=== PATIENT | female | born 1935 | race Caucasian/White ===

== ENCOUNTER 2016-10-24 13:36 | Emergency (ER) | payer MEDICARE, BC ==
[2016-10-24 14:13] VITALS: RESP 18; TEMP 98.1
--- NOTE | 2016-10-24 16:39 | ED ---
General Adult HPI - General Chief complaint: Extremity Problem,Nontraumatic Stated complaint: Dr Lucy/Elvie blood clot Time Seen by Provider: 10/24/16 16:27 Source: patient, RN notes reviewed Mode of arrival: ambulatory Limitations: no limitations - History of Present Illness Initial comments: Patient is a pleasant 81-year-old female presenting to the emergency Department with left leg swelling. Patient states symptoms started a few days ago. Patient had outpatient ultrasound done with concern for DVT. No chest pain or difficulty in breathing. Patient has had similar symptoms previously associated with DVT. No other complaints. - Related Data Home Medications Medication Instructions Recorded Confirmed Allopurinol [Zyloprim] 300 mg PO DAILY@1200 03/03/14 06/19/15 Atorvastatin [Lipitor] 40 mg PO HS 03/03/14 06/19/15 Calcitriol 0.5 mcg PO DIRECTED 03/03/14 06/19/15 Furosemide [Lasix] 40 mg PO DAILY@1200 03/03/14 06/19/15 Glimepiride [Amaryl] 2 mg PO QAM 03/03/14 06/19/15 Hydroxychloroquine Sulfate 200 mg PO BID@1200,1800 03/03/14 06/19/15 [Plaquenil] LORazepam [Ativan] 1 mg PO HS 03/03/14 06/19/15 Metoprolol Tartrate [Lopressor] 50 mg PO BID@1200,1800 03/03/14 06/19/15 Omeprazole [PriLOSEC] 20 mg PO QAM 03/03/14 06/19/15 Acetaminophen Tab [Tylenol] 500 mg PO Q4-6H PRN 04/23/15 06/19/15 Aspirin EC [Ecotrin] 81 mg PO DAILY 04/23/15 06/15/15 Calcium 600 mg PO DAILY 04/23/15 06/19/15 Ergocalciferol [Vitamin D2 50,000 unit PO QMONTH 04/23/15 06/19/15 (DRISDOL)] Acetaminophen Tab [Tylenol Tab] 1,000 mg PO Q6HR PRN 06/15/15 06/19/15 Ferrous Sulfate [Feosol] 325 mg PO DAILY 06/15/15 06/19/15 Folic Acid-Vit B Complex-Vit C 1 mg PO 1200 06/15/15 06/19/15 [Nephrocaps] Previous Rx's Medication Instructions Recorded HYDROcodone/APAP 5-325MG [Huggins 5] 1 - 2 each PO Q4H PRN #20 tab 06/19/15 Apixaban [Eliquis] 5 mg PO BID #1 pack 10/24/16 Allergies Allergy/AdvReac Type Severity Reaction Status Date / Time sulfamethoxazole Allergy Rash/Hives Verified 06/15/15 10:25 Review of Systems ROS Statement: Those systems with pertinent positive or pertinent negative responses have been documented in the HPI. ROS Other: All systems not noted in ROS Statement are negative. Constitutional: Denies: fever Eyes: Denies: eye pain ENT: Denies: ear pain Respiratory: Denies: cough, dyspnea Cardiovascular: Denies: chest pain Endocrine: Denies: fatigue Gastrointestinal: Denies: abdominal pain Genitourinary: Denies: dysuria Musculoskeletal: Denies: back pain Skin: Denies: rash Neurological: Denies: headache Past Medical History Past Medical History: Coronary Artery Disease (CAD), Heart Failure, Diabetes Mellitus, Deep Vein Thrombosis (DVT), GERD/Reflux, Hyperlipidemia, Hypertension , Osteoarthritis (OA), Renal Disease, Skin Disorder, Thyroid Disorder Additional Past Medical History / Comment(s): GOUT. AORTIC VALVE REPLACED. Anemia. HX LLL DVT. RENAL DISEASE STAGE 4. VARICOSE VEINS, EDEMA [place] ANKLES. CYST ON BACK, STATES D/T POISONOUS SPIDER BITE 2011. History of Any Multi-Drug Resistant Organisms: None Reported Past Surgical History: Cardiac Valve Replacement, Cholecystectomy, Coronary Bypass/CABG, Hysterectomy, Joint Replacement, Orthopedic Surgery Additional Past Surgical History / Comment(s): 2011 CABG w/ vessel bypass and aortic valve. 03/07/14 Colonoscopy with EGD and BX. MOSHE. [place] knee and L shoulder Replacement. Sinus surgery. Past Anesthesia/Blood Transfusion Reactions: No Reported Reaction Past Psychological History: Anxiety Additional Psychological History / Comment(s): Pt resides with her son. She uses a cane prn. She drives. She is independent. Smoking Status: Never smoker Past Alcohol Use History: None Reported Past Drug Use History: None Reported - Past Family History Daughter(s) Family Medical History: Cancer Father Family Medical History: Cancer, Coronary Artery Disease (CAD) Additional Family Medical History / Comment(s): Father had cancer but pt does not know what type. Father at age 77yrs. Mother Family Medical History: CVA/TIA Additional Family Medical History / Comment(s): Mother had a CVA. She at age 86yrs. General Exam Limitations: no limitations General appearance: alert, in no apparent distress Head exam: Present: atraumatic Eye exam: Present: normal appearance, PERRL ENT exam: Present: normal oropharynx Neck exam: Present: normal inspection Respiratory exam: Present: normal lung sounds bilaterally. Absent: chest wall tenderness Cardiovascular Exam: Present: regular rate, normal rhythm Expanded Peripheral pulses: 2+: Dorsalis Pedis (R), Dorsalis Pedis (L) GI/Abdominal exam: Present: soft. Absent: tenderness Extremities exam: Present: calf tenderness (Left calf) Neurological exam: Present: alert Psychiatric exam: Present: normal affect, normal mood Skin exam: Absent: rash Course Vital Signs 10/24/16 14:11 Temperature 98.1 F Pulse Rate 59 L Respiratory 18 Rate Blood Pressure 145/67 O2 Sat by Pulse 99 Oximetry Medical Decision Making - Medical Decision Making Patient reexamined in updated. Case was also discussed in detail with Dr. Hall, covering for Dr. Weiss who is comfortable with eliquis and discharge. - Radiology Data Radiology results: report reviewed (Ultrasound shows left leg DVT. Report was confirmed with Dr. Boyer who states there were no artery involvement.) Disposition Clinical Impression: Deep vein thrombosis of lower extremity Disposition: HOME SELF-CARE Condition: Stable Instructions: Deep Venous Thrombosis (ED) Additional Instructions: Please follow-up with Dr. Weiss in the beginning of the week. Return for chest pain or difficulty breathing, increased swelling, bleeding, worsening symptoms or any other concerns. Prescriptions: Apixaban [Eliquis] 5 mg PO BID #1 pack Referrals: Mo Weiss MD [Primary Care Provider] - 1-2 days
[2016-10-24] MEDS ORDERED: APIXABAN 5 MG TAB PO STA ×2 (16:56→17:02)
[2016-10-24 17:39] VITALS: BP 164/89; PULSE 60
== END 2016-10-24 17:45 | disposition home or self-care (01) ==
LOC: EC 13:36
DX: I82.402 Acute embolism and thrombosis of unspecified deep veins of left lower extremity (principal); I25.10 Atherosclerotic heart disease of native coronary artery without angina pectoris; K21.9 Gastro-esophageal reflux disease without esophagitis; E78.5 Hyperlipidemia, unspecified; D64.9 Anemia, unspecified; I13.0 Hypertensive heart and chronic kidney disease with heart failure and stage 1 through stage 4 chronic kidney disease, or unspecified chronic kidney disease; N18.4 Chronic kidney disease, stage 4 (severe); I50.9 Heart failure, unspecified; E11.22 Type 2 diabetes mellitus with diabetic chronic kidney disease; F41.9 Anxiety disorder, unspecified; Z95.1 Presence of aortocoronary bypass graft; Z86.718 Personal history of other venous thrombosis and embolism; Z88.1 Allergy status to other antibiotic agents; Z79.82 Long term (current) use of aspirin; Z79.84 Long term (current) use of oral hypoglycemic drugs; Z79.899 Other long term (current) drug therapy
CPT/HCPCS: 99283

== ENCOUNTER → 2016-10-24 | Outpatient (CLI) | payer MEDICARE, BC ==
--- NOTE | 2016-10-24 14:02 | US ---
EXAMINATION TYPE: US venous doppler duplex LE LT DATE OF EXAM: 10/24/2016 1:26 PM COMPARISON: US CLINICAL HISTORY: DVT O87.1. Left leg pain and swelling x 5 days SIDE PERFORMED: Left TECHNIQUE: The lower extremity deep venous system is examined utilizing real time linear array sonog ata with graded compression, doppler sonography and color-flow sonography. VESSELS IMAGED: External Iliac Vein (EIV) Common Femoral Vein Deep Femoral Vein Greater Saphenous Vein * Femoral Vein Popliteal Vein Small Saphenous Vein * Proximal Calf Veins (* superficial vessels) Left Leg: Positive for DVT from mid femoral vein through proximal calf veins. IMPRESSION: 1. Deep venous thrombosis left lower extremity extending from the proximal calf veins into the distal femoral artery.
== END ==
LOC: RADUSWWP 12:27
PROVIDERS: ATTEND Family Medicine
DX: I82.402 Acute embolism and thrombosis of unspecified deep veins of left lower extremity (principal); I82.412 Acute embolism and thrombosis of left femoral vein

== ENCOUNTER → 2016-12-02 | Outpatient (CLI) | payer MEDICARE, BC ==
--- NOTE | 2016-12-02 14:12 | US ---
EXAMINATION TYPE: US venous doppler duplex LE BI DATE OF EXAM: 12/02/2016 1:44 PM COMPARISON: 10/24/2016 CLINICAL HISTORY: BLE I82.402 Deep vein thrombosis. Follow up to previous exam. SIDE PERFORMED: Bilateral TECHNIQUE: The lower extremity deep venous system is examined utilizing real time linear array sonog ata with graded compression, doppler sonography and color-flow sonography. FINDINGS: VESSELS IMAGED: External Iliac Vein (EIV) Common Femoral Vein Deep Femoral Vein Greater Saphenous Vein * Femoral Vein Popliteal Vein Small Saphenous Vein * Proximal Calf Veins (* superficial vessels) Right Leg: Negative for DVT Left Leg: Positive for thrombus within the upper popliteal vein. The vessel is noncompressible but s ome color flow is demonstrated suggesting nonocclusive, likely more chronic thrombus. WINDOWS SERVER ADMINISTRATOR NOT ES: Thrombus visualized in proximal popliteal vein no compression. Nancy Muhammad scanned and spoke with doctor. IMPRESSION: 1. Right lower extremity without evidence for DVT from the groin to the upper calf. 2. Left lower extremity positive for DVT within the upper popliteal vein. There seems to be some flow across the thrombus suggesting nonocclusive, chronic DVT, likely improving from 10/24/2016.
== END | disposition home or self-care (01) ==
LOC: RADUSWWP 12:44
PROVIDERS: ATTEND Family Medicine
DX: I82.432 Acute embolism and thrombosis of left popliteal vein (principal)
CPT/HCPCS: 93970

== ENCOUNTER 2017-09-27 11:37 | Emergency (ER) | payer MEDICARE, BC ==
[2017-09-27] MEDS ORDERED: KETOROLAC 60 MG/2 ML VIAL IVP STA (12:10)
[2017-09-27] MEDS ORDERED: methylPREDNISolone SOD SUCCI 125 MG/2 ML VIAL IV STA (12:10)
[2017-09-27] MEDS ORDERED: MORPHINE SULFATE 4MG/4ML SYRG IVP STA (12:11)
[2017-09-27] MEDS ORDERED: ONDANSETRON 4 MG/2 ML VIAL IVP STA (12:12)
--- NOTE | 2017-09-27 12:29 | ED ---
General Adult HPI - General Chief complaint: Extremity Injury, Lower Stated complaint: Back pain Time Seen by Provider: 09/27/17 11:45 Source: patient, RN notes reviewed Mode of arrival: ambulatory Limitations: no limitations - History of Present Illness Initial comments: This is an 82-year-old female presents emergency Department who presents emergency. Complaining of left lower back pain she points at the SI joint area on the right. Patient denies any radiculopathy. Patient denies any numbness. Patient denies any lower extremity weakness. Patient denies any urinary incontinence or urinary retention. Patient states on Thursday she got some injections Dr. Freed and on Thursday morning she woke up with excruciating pain in that area she went back to see him on Thursday he gave her some [place] and told her to come the emergency department if it didn't get better. Patient states the pain is been the same pain since Thursday and there are no new symptoms. - Related Data Home Medications Medication Instructions Recorded Confirmed Allopurinol [Zyloprim] 300 mg PO DAILY@1200 03/03/14 10/24/16 Atorvastatin [Lipitor] 40 mg PO HS 03/03/14 10/24/16 Calcitriol 0.5 mcg PO Q48H 03/03/14 10/24/16 Furosemide [Lasix] 40 mg PO DAILY@1200 03/03/14 10/24/16 Glimepiride [Amaryl] 2 mg PO QAM 03/03/14 10/24/16 LORazepam [Ativan] 1 mg PO HS 03/03/14 10/24/16 Metoprolol Tartrate [Lopressor] 50 mg PO BID 03/03/14 10/24/16 Omeprazole [PriLOSEC] 20 mg PO QAM 03/03/14 10/24/16 Ergocalciferol [Vitamin D2 50,000 unit PO QMONTH 04/23/15 10/24/16 (DRISDOL)] Acetaminophen Tab [Tylenol Tab] 1,000 mg PO Q6HR PRN 06/15/15 10/24/16 Ferrous Sulfate [Feosol] 325 mg PO DAILY 06/15/15 10/24/16 Folic Acid-Vit B Complex-Vit C 1 mg PO DAILY@1200 06/15/15 10/24/16 [Nephrocaps] Aspirin EC [Ecotrin Low Dose] 81 mg PO DAILY 10/24/16 10/24/16 Budesonide-Formot 160-4.5 Mcg 2 puff INHALATION RT-BID 10/24/16 10/24/16 [Symbicort 160-4.5 Mcg Inhaler] Calcium Carbonate [Calcium] 600 mg PO HS 10/24/16 10/24/16 Previous Rx's Medication Instructions Recorded Apixaban [Eliquis] 5 mg PO BID #1 pack 10/24/16 Allergies Allergy/AdvReac Type Severity Reaction Status Date / Time sulfamethoxazole Allergy Rash/Hives Verified 09/27/17 11:45 [From Bactrim] trimethoprim [From Bactrim] Allergy Rash/Hives Verified 09/27/17 11:45 Review of Systems ROS Statement: Those systems with pertinent positive or pertinent negative responses have been documented in the HPI. ROS Other: All systems not noted in ROS Statement are negative. Past Medical History Past Medical History: Coronary Artery Disease (CAD), Heart Failure, Diabetes Mellitus, Deep Vein Thrombosis (DVT), GERD/Reflux, Hyperlipidemia, Hypertension , Osteoarthritis (OA), Renal Disease, Skin Disorder, Thyroid Disorder Additional Past Medical History / Comment(s): GOUT. AORTIC VALVE REPLACED. Anemia. HX LLL DVT. RENAL DISEASE STAGE 4. VARICOSE VEINS, EDEMA MAXIMILIANO ANKLES. CYST ON BACK, STATES D/T POISONOUS SPIDER BITE 2011. History of Any Multi-Drug Resistant Organisms: None Reported Past Surgical History: Cardiac Valve Replacement, Cholecystectomy, Coronary Bypass/CABG, Hysterectomy, Joint Replacement, Orthopedic Surgery Additional Past Surgical History / Comment(s): 2011 CABG w/ vessel bypass and aortic valve. 03/07/14 Colonoscopy with EGD and BX. MOSHE. Maximiliano knee and L shoulder Replacement. Sinus surgery. Past Anesthesia/Blood Transfusion Reactions: No Reported Reaction Past Psychological History: Anxiety Smoking Status: Never smoker Past Alcohol Use History: None Reported Past Drug Use History: None Reported - Past Family History Daughter(s) Family Medical History: Cancer Father Family Medical History: Cancer, Coronary Artery Disease (CAD) Additional Family Medical History / Comment(s): Father had cancer but pt does not know what type. Father at age 77yrs. Mother Family Medical History: CVA/TIA Additional Family Medical History / Comment(s): Mother had a CVA. She at age 86yrs. General Exam - General Exam Comments Initial Comments: GENERAL: Patient is well-developed and well-nourished. Patient is nontoxic and well- hydrated and is in moderate distress. ENT: Neck is soft and supple. No significant lymphadenopathy is noted. Oropharynx is clear. Moist mucous membranes. Neck has full range of motion without eliciting any pain. EYES: The sclera were anicteric and conjunctiva were pink and moist. Extraocular movements were intact and pupils were equal round and reactive to light. Eyelids were unremarkable. PULMONARY: Unlabored respirations. Good breath sounds bilaterally. No audible rales rhonchi or wheezing was noted. CARDIOVASCULAR: There is a regular rate and rhythm without any murmurs gallops or rubs. ABDOMEN: Soft and nontender with normal bowel sounds. SKIN: Skin is clear with no lesions or rashes and otherwise unremarkable. NEUROLOGIC: Patient is alert and oriented x3. Cranial nerves II through XII are grossly intact. Motor and sensory are also intact. Normal speech, volume and content. Symmetrical smile. Patient had tenderness over the right SI joint. Patient had no numbness or any weakness. MUSCULOSKELETAL: Normal extremities with adequate strength and full range of motion. LYMPHATICS: No significant lymphadenopathy is noted PSYCHIATRIC: Normal psychiatric evaluation. Normal interpersonal interactions appears functionally intact in deals appropriately with others. No signs of depression. No signs of anxiety. No delusions. No hallucinations. Limitations: no limitations Course Vital Signs 09/27/17 11:43 Temperature 97.6 F Pulse Rate 65 Respiratory 18 Rate Blood Pressure 137/64 O2 Sat by Pulse 95 Oximetry Medical Decision Making - Medical Decision Making Patient got pain medicine emergency department was able to ambulate much better. Patient states she will follow-up with her physician tomorrow. - Lab Data Result diagrams: 09/27/17 12:44 09/27/17 12:40 Lab Results 09/27/17 09/27/17 Range/Units 12:40 12:44 WBC 10.5 (3.8-10.6) k/uL RBC 3.37 L (3.80-5.40) m/uL Hgb 13.0 (11.4-16.0) gm/dL Hct 39.0 (34.0-46.0) % MCV 115.8 H (80.0-100.0) fL MCH 38.7 H (25.0-35.0) pg MCHC 33.4 (31.0-37.0) g/dL RDW 14.4 (11.5-15.5) % Plt Count 178 (150-450) k/uL Neutrophils % 78 % Lymphocytes % 13 % Monocytes % 6 % Eosinophils % 2 % Basophils % 0 % Neutrophils # 8.2 H (1.3-7.7) k/uL Lymphocytes # 1.3 (1.0-4.8) k/uL Monocytes # 0.6 (0-1.0) k/uL Eosinophils # 0.2 (0-0.7) k/uL Basophils # 0.0 (0-0.2) k/uL Macrocytosis Marked Sodium 143 (137-145) mmol/L Potassium 5.3 H (3.5-5.1) mmol/L Chloride 101 (98-107) mmol/L Carbon Dioxide 31 H (22-30) mmol/L Anion Gap 11 mmol/L BUN 33 H (7-17) mg/dL Creatinine 1.04 (0.52-1.04) mg/dL Est GFR (CKD-EPI)AfAm 58 (>60 ml/min/1.73 sqM) Est GFR (CKD-EPI)NonAf 51 (>60 ml/min/1.73 sqM) Glucose 144 H (74-99) mg/dL Calcium 9.9 (8.4-10.2) mg/dL Total Bilirubin 0.9 (0.2-1.3) mg/dL AST 44 H (14-36) U/L ALT 20 (9-52) U/L Alkaline Phosphatase 58 (38-126) U/L Total Protein 6.3 (6.3-8.2) g/dL Albumin 3.7 (3.5-5.0) g/dL Disposition Clinical Impression: Sacroiliitis Disposition: HOME SELF-CARE Condition: Good Instructions: Sacroiliitis (ED) Is patient prescribed a controlled substance at d/c from ED?: No Referrals: Mo Weiss MD [Primary Care Provider] - 1-2 days
[2017-09-27 13:07] LABS: Basophils % (A) 0 %; Eosinophils # (A) 0.2 k/uL (0-0.7); Eosinophils % (A) 2 %; Lymphocytes # (A) 1.3 k/uL (1.0-4.8); Lymphocytes % (A) 13 %; MCH 38.7 pg (25.0-35.0); MCHC 33.4 g/dL (31.0-37.0); MCV 115.8 fL (80.0-100.0); Macrocytosis Marked; Mean Platelet Volume 7.3; Monocytes # (A) 0.6 k/uL (0-1.0); Monocytes % (A) 6 %; Neutrophils # (A) 8.2 k/uL (1.3-7.7); Neutrophils % (A) 78 %; Platelet Count 178 k/uL (150-450); RBC 3.37 m/uL (3.80-5.40); RDW 14.4 % (11.5-15.5); WBC 10.5 k/uL (3.8-10.6)
[2017-09-27 13:19] LABS: Albumin 3.7 g/dL (3.5-5.0); Calcium 9.9 mg/dL (8.4-10.2); Total Bilirubin 0.9 mg/dL (0.2-1.3); Total Protein 6.3 g/dL (6.3-8.2)
[2017-09-27 13:23] LABS: Potassium 5.3 mmol/L (3.5-5.1)
[2017-09-27 14:45] VITALS: BP 173/84; PULSE 62; RESP 16; TEMP 97.7
== END 2017-09-27 14:54 | disposition home or self-care (01) ==
LOC: EC 11:37
DX: M46.1 Sacroiliitis, not elsewhere classified (principal); I25.10 Atherosclerotic heart disease of native coronary artery without angina pectoris; I13.0 Hypertensive heart and chronic kidney disease with heart failure and stage 1 through stage 4 chronic kidney disease, or unspecified chronic kidney disease; E11.22 Type 2 diabetes mellitus with diabetic chronic kidney disease; N18.4 Chronic kidney disease, stage 4 (severe); I50.9 Heart failure, unspecified; K21.9 Gastro-esophageal reflux disease without esophagitis; E78.5 Hyperlipidemia, unspecified; M19.90 Unspecified osteoarthritis, unspecified site; D64.9 Anemia, unspecified; F41.9 Anxiety disorder, unspecified; Z95.2 Presence of prosthetic heart valve; Z96.653 Presence of artificial knee joint, bilateral; Z96.612 Presence of left artificial shoulder joint; Z95.1 Presence of aortocoronary bypass graft; Z79.84 Long term (current) use of oral hypoglycemic drugs; Z79.82 Long term (current) use of aspirin; Z79.51 Long term (current) use of inhaled steroids; Z79.899 Other long term (current) drug therapy; Z88.2 Allergy status to sulfonamides
CPT/HCPCS: 36415; 80053; 85025; 99283; 96374; 96375 ×3; J2930; J2405; J1885; J2270

== ENCOUNTER → 2018-10-26 | Outpatient (CLI) | payer MEDICARE, BC ==
--- NOTE | 2018-10-26 14:28 | XR ---
EXAMINATION TYPE: XR chest 2V DATE OF EXAM: 10/26/2018 COMPARISON: Prior chest x-ray 05/08/2015 HISTORY: Cough, difficulty breathing, J 41.1 TECHNIQUE: Frontal and lateral views of the chest are obtained. FINDINGS: Retrocardiac density is present. Lung volumes are low and the patient is rotated. Patient is post median sternotomy. Postop changes are noted to the proximal left humerus. No pneumothorax or pleural effusion. Aorta is dense. Suspect cardiac valve replacement change is present. Surgical clips present in the right upper quadrant. IMPRESSION: Correlate for possible left lower lobe atelectasis versus pneumonia.
== END | disposition home or self-care (01) ==
LOC: RADXRMAIN 13:57
PROVIDERS: ATTEND Physician Assistant
DX: J41.1 Mucopurulent chronic bronchitis (principal)
CPT/HCPCS: 71046

== ENCOUNTER 2021-03-13 12:45 | Emergency (ER) | payer MEDICARE, BC ==
[2021-03-13 13:59] LABS: Basophils % (A) 1 %; Calcium 9.4 mg/dL (8.4-10.2); Eosinophils # (A) 0.4 k/uL (0-0.7); Eosinophils % (A) 5 %; HCT 36.9 % (34.0-46.0); HGB 12.6 gm/dL (11.4-16.0); Lymphocytes # (A) 0.8 k/uL (1.0-4.8); Lymphocytes % (A) 11 %; MCHC 34.1 g/dL (31.0-37.0); MCV 124.9 fL (80.0-100.0); Macrocytosis Marked; Mean Platelet Volume 8.3; Monocytes # (A) 0.4 k/uL (0-1.0); Monocytes % (A) 5 %; Neutrophils # (A) 5.5 k/uL (1.3-7.7); Neutrophils % (A) 75 %; Platelet Count 117 k/uL (150-450); Poikilocytosis Slight; Potassium 4.2 mmol/L (3.5-5.1); RBC 2.95 m/uL (3.80-5.40); RDW 15.8 % (11.5-15.5); WBC 7.3 k/uL (3.8-10.6)
[2021-03-13 14:08] LABS: MCH 42.6 pg (25.0-35.0)
--- NOTE | 2021-03-13 14:23 | CT ---
EXAMINATION TYPE: CT brain wo con DATE OF EXAM: 03/13/2021 HISTORY: Fall, trauma to back of head, headache. CT DLP: 1080.4 mGycm. Automated Exposure Control for Dose Reduction was Utilized. TECHNIQUE: CT scan of the head is performed without contrast. COMPARISON: CT brain February 03, 2014. FINDINGS: There is no acute intracranial hemorrhage or midline shift identified. There is mild to m oderate diffuse ventricular and sulcal prominence consistent with diffuse age-related cerebral atroph y. There is mild to moderate low-attenuation in the periventricular white matter consistent with chr onic small vessel ischemic change. The globes are intact and the visualized sinuses are clear. The calvarium is intact. Hyperostosis frontalis redemonstrated. IMPRESSION: No acute intracranial hemorrhage or midline shift. There is mild to moderate diffuse ag e-related cerebral atrophy and chronic small vessel ischemic change redemonstrated. No significant c hange from prior CT.
[2021-03-13 14:24] LABS: INR 0.9 (<1.2); Prothrombin Time 9.8 sec (9.0-12.0)
--- NOTE | 2021-03-13 14:56 | ED ---
Fall HPI - General Chief Complaint: Fall Stated Complaint: Fall Time Seen by Provider: 03/13/21 12:59 Source: EMS, RN notes reviewed Mode of arrival: EMS - History of Present Illness Initial Comments: Patient is an 85-year-old female that presents emergency department after falli ng in [facility] while walking around. She notes that she lost her balance fell hit her head. She denied losing consciousness. She denied taking any blood thinners except for aspirin. She was otherwise well-appearing and did not have any other issues or complaints. She did note that she hit the back left side of her head. She denied any chest pain first breath headache nausea vomiting diarrhea constipation fever fatigue chills. - Related Data Home Medications Medication Instructions Recorded Confirmed Allopurinol [Zyloprim] 300 mg PO DAILY@1200 03/03/14 10/24/16 Atorvastatin [Lipitor] 40 mg PO HS 03/03/14 10/24/16 Furosemide [Lasix] 40 mg PO DAILY@1200 03/03/14 10/24/16 Glimepiride [Amaryl] 2 mg PO QAM 03/03/14 10/24/16 LORazepam [Ativan] 1 mg PO HS 03/03/14 10/24/16 Metoprolol Tartrate [Lopressor] 50 mg PO BID 03/03/14 10/24/16 Omeprazole [PriLOSEC] 20 mg PO QAM 03/03/14 10/24/16 calcitrioL [Calcitriol] 0.5 mcg PO Q48H 03/03/14 10/24/16 Ergocalciferol [Vitamin D2 50,000 unit PO QMONTH 04/23/15 10/24/16 (DRISDOL)] Acetaminophen Tab [Tylenol Tab] 1,000 mg PO Q6HR PRN 06/15/15 10/24/16 Ferrous Sulfate [Feosol] 325 mg PO DAILY 06/15/15 10/24/16 Folic Acid-Vit B Complex-Vit C 1 mg PO DAILY@1200 06/15/15 10/24/16 [Nephrocaps] Aspirin EC [Ecotrin Low Dose] 81 mg PO DAILY 10/24/16 10/24/16 Budesonide-Formot 160-4.5 Mcg 2 puff INHALATION RT-BID 10/24/16 10/24/16 [Symbicort 160-4.5 Mcg Inhaler] Calcium Carbonate [Calcium] 600 mg PO HS 10/24/16 10/24/16 Previous Rx's Medication Instructions Recorded Apixaban [Eliquis] 5 mg PO BID #1 pack 10/24/16 Allergies Allergy/AdvReac Type Severity Reaction Status Date / Time sulfamethoxazole Allergy Rash/Hives Verified 03/13/21 12:53 [From Bactrim] trimethoprim [From Bactrim] Allergy Rash/Hives Verified 03/13/21 12:53 Review of Systems ROS Statement: Those systems with pertinent positive or pertinent negative responses have been documented in the HPI. ROS Other: All systems not noted in ROS Statement are negative. Past Medical History Past Medical History: Coronary Artery Disease (CAD), Heart Failure, Diabetes Mellitus, Deep Vein Thrombosis (DVT), GERD/Reflux, Hyperlipidemia, Hypertension, Osteoarthritis (OA), Renal Disease, Skin Disorder, Thyroid Disorder Additional Past Medical History / Comment(s): GOUT. AORTIC VALVE REPLACED. Anemia. HX LLL DVT. RENAL DISEASE STAGE 4. VARICOSE VEINS, EDEMA MAXIMILIANO ANKLES. CYST ON BACK, STATES D/T POISONOUS SPIDER BITE 2012. History of Any Multi-Drug Resistant Organisms: None Reported Past Surgical History: Cardiac Valve Replacement, Cholecystectomy, Coronary Bypass/CABG, Hysterectomy, Joint Replacement, Orthopedic Surgery Additional Past Surgical History / Comment(s): 2011 CABG w/ vessel bypass and aortic valve. 03/07/14 Colonoscopy with EGD and BX. MOSHE. Maximiliano knee and L shoulder Replacement. Sinus surgery. Past Anesthesia/Blood Transfusion Reactions: No Reported Reaction Past Psychological History: Anxiety Smoking Status: Never smoker Past Alcohol Use History: None Reported Past Drug Use History: None Reported - Past Family History Daughter(s) Family Medical History: Cancer Father Family Medical History: Cancer, Coronary Artery Disease (CAD) Additional Family Medical History / Comment(s): Father had cancer but pt does not know what type. Father at age 77yrs. Mother Family Medical History: CVA/TIA Additional Family Medical History / Comment(s): Mother had a CVA. She at age 86yrs. General Exam Limitations: no limitations General appearance: alert, in no apparent distress Head exam: Present: normocephalic, normal inspection. Absent: atraumatic (Hematoma to the posterior left scalp, minimal blood.) Eye exam: Present: normal appearance, PERRL, EOMI. Absent: scleral icterus, con junctival injection, periorbital swelling ENT exam: Present: normal exam, mucous membranes moist Neck exam: Present: normal inspection Respiratory exam: Present: normal lung sounds bilaterally. Absent: respiratory distress, wheezes, rales, rhonchi, stridor Cardiovascular Exam: Present: regular rate, normal rhythm, normal heart sounds. Absent: systolic murmur, diastolic murmur, rubs, gallop, clicks Extremities exam: Present: normal inspection, full ROM, normal capillary refill. Absent: tenderness, pedal edema, joint swelling, calf tenderness Back exam: Present: normal inspection Neurological exam: Present: alert, oriented X3, CN II-XII intact Expanded Patient oriented to: Present: person, place, time Speech: Present: fluid speech Cranial nerves: EOM's Intact: Normal, Nystagmus: Normal Cerebellar function: Finger to Nose: Normal, Heel to Dhillon: Normal Motor strength exam: RUE: 5, LUE: 5, RLE: 5, LLE: 5 Psychiatric exam: Present: normal affect, normal mood Skin exam: Present: warm, dry, intact, normal color. Absent: rash Course Vital Signs 03/13/21 12:53 Temperature 98.2 F Pulse Rate 62 Respiratory 20 Rate Blood Pressure 138/61 O2 Sat by Pulse 95 Oximetry Medical Decision Making - Medical Decision Making 85-year-old female that fell and [place] hitting the backs left side of her head. Basic labs, CT of the brain ordered. Labs unremarkable. Computed tomography scan shows no acute process midline shift or intracranial issues. Case discussed with Dr. Guaman, patient can discharge home with follow-up primary care. - Lab Data Result diagrams: 03/13/21 13:27 03/13/21 13:27 Lab Results 03/13/21 03/13/21 Range/Units 13:27 13:27 WBC 7.3 (3.8-10.6) k/uL RBC 2.95 L (3.80-5.40) m/uL Hgb 12.6 (11.4-16.0) gm/dL Hct 36.9 (34.0-46.0) % MCV 124.9 H (80.0-100.0) fL MCH 42.6 H (25.0-35.0) pg MCHC 34.1 (31.0-37.0) g/dL RDW 15.8 H (11.5-15.5) % Plt Count 117 L (150-450) k/uL MPV 8.3 Neutrophils % 75 % Lymphocytes % 11 % Monocytes % 5 % Eosinophils % 5 % Basophils % 1 % Neutrophils # 5.5 (1.3-7.7) k/uL Lymphocytes # 0.8 L (1.0-4.8) k/uL Monocytes # 0.4 (0-1.0) k/uL Eosinophils # 0.4 (0-0.7) k/uL Basophils # 0.0 (0-0.2) k/uL Manual Slide Review Performed Poikilocytosis Slight Macrocytosis Marked A Sodium 141 (137-145) mmol/L Potassium 4.2 (3.5-5.1) mmol/L Chloride 103 (98-107) mmol/L Carbon Dioxide 32 H (22-30) mmol/L Anion Gap 6 mmol/L BUN 29 H (7-17) mg/dL Creatinine 1.22 H (0.52-1.04) mg/dL Est GFR (CKD-EPI)AfAm 47 (>60 ml/min/1.73 sqM) Est GFR (CKD-EPI)NonAf 41 (>60 ml/min/1.73 sqM) Glucose 149 H (74-99) mg/dL Calcium 9.4 (8.4-10.2) mg/dL - Radiology Data Radiology results: report reviewed, image reviewed CT of the brain: No acute intracranial hemorrhage or midline shift. There is mild to moderate diffuse age-related cerebral atrophy and chronic small vessel ischemic changes redemonstrate. No significant change from prior CT. Disposition Clinical Impression: Fall, Scalp hematoma Disposition: HOME SELF-CARE Condition: Stable Instructions (If sedation given, give patient instructions): Fall Prevention for Older Adults (ED) Additional Instructions: Please return to the Emergency Department if symptoms worsen or any other concerns. Follow-up with primary care 1-2 days. Take Tylenol and Motrin as needed for pain. Is patient prescribed a controlled substance at d/c from ED?: No Referrals: Mo Weiss MD [Primary Care Provider] - 1-2 days Time of Disposition: 14:55
[2021-03-13 15:12] LABS: Partial Thromboplastin Time 20.4 sec (22.0-30.0)
[2021-03-13 15:28] VITALS: BP 138/62; PULSE 60; RESP 18; TEMP 98.1
== END 2021-03-13 15:28 | disposition home or self-care (01) ==
LOC: EC 12:45
DX: S00.03XA Contusion of scalp, initial encounter (principal); E11.22 Type 2 diabetes mellitus with diabetic chronic kidney disease; I13.0 Hypertensive heart and chronic kidney disease with heart failure and stage 1 through stage 4 chronic kidney disease, or unspecified chronic kidney disease; I50.9 Heart failure, unspecified; N18.4 Chronic kidney disease, stage 4 (severe); I25.10 Atherosclerotic heart disease of native coronary artery without angina pectoris; E78.5 Hyperlipidemia, unspecified; K21.9 Gastro-esophageal reflux disease without esophagitis; M10.9 Gout, unspecified; M19.90 Unspecified osteoarthritis, unspecified site; F41.9 Anxiety disorder, unspecified; Z79.82 Long term (current) use of aspirin; Z79.01 Long term (current) use of anticoagulants; Z79.84 Long term (current) use of oral hypoglycemic drugs; Z79.899 Other long term (current) drug therapy; Z95.5 Presence of coronary angioplasty implant and graft; Z82.49 Family history of ischemic heart disease and other diseases of the circulatory system; Z88.2 Allergy status to sulfonamides; Z88.1 Allergy status to other antibiotic agents; W01.0XXA Fall on same level from slipping, tripping and stumbling without subsequent striking against object, initial encounter
CPT/HCPCS: 36415; 70450; 80048; 85025; 85610; 85730; 99284

== ENCOUNTER 2021-04-09 10:03 | Inpatient (IN) | payer MEDICARE, BC ==
[2021-04-09] MEDS ORDERED: IPRATROPIUM-ALBUTEROL 3 ML NEB INHALATION STA (10:41)
[2021-04-09 11:18] LABS: Albumin 3.4 g/dL (3.5-5.0); Calcium 9.5 mg/dL (8.4-10.2); Potassium 4.1 mmol/L (3.5-5.1)
[2021-04-09 11:21] LABS: Basophils % (A) 0 %; Eosinophils # (A) 0.4 k/uL (0-0.7); Eosinophils % (A) 5 %; HCT 33.3 % (34.0-46.0); HGB 11.1 gm/dL (11.4-16.0); Hypochromasia Slight; Lymphocytes # (A) 0.9 k/uL (1.0-4.8); Lymphocytes % (A) 11 %; MCHC 33.5 g/dL (31.0-37.0); MCV 128.4 fL (80.0-100.0); Macrocytosis Marked; Monocytes # (A) 0.5 k/uL (0-1.0); Monocytes % (A) 6 %; Neutrophils # (A) 5.9 k/uL (1.3-7.7); Neutrophils % (A) 75 %; Platelet Count 116 k/uL (150-450); Poikilocytosis Slight; RBC 2.59 m/uL (3.80-5.40); RDW 15.8 % (11.5-15.5); WBC 7.9 k/uL (3.8-10.6)
[2021-04-09 11:35] LABS: INR 0.9 (<1.2)
--- NOTE | 2021-04-09 11:38 | XR ---
EXAMINATION TYPE: XR chest 2V DATE OF EXAM: 04/09/2021 COMPARISON: Chest x-ray 10/26/2018 HISTORY: Soreness of breath TECHNIQUE: Frontal and lateral views of the chest are obtained. FINDINGS: Patient is rotated. Interstitium appears somewhat prominently. There is no focal air space opacity, pleural effusion, or pneumothorax seen. The cardiac silhouette size is stable, enlarged. Ao rta is dense. Patient is post median sternotomy and aortic valve replacement. Postop change noted to the left shoulder. There are overlying artifacts. Right hemidiaphragm is elevated. The osseous struc tures are intact. IMPRESSION: There may be a component of interstitial edema.
[2021-04-09 11:50] LABS: Partial Thromboplastin Time 21.5 sec (22.0-30.0)
[2021-04-09 12:06] LABS: Polychromasia Present
[2021-04-09] MEDS ORDERED: FUROSEMIDE 10 MG/ML 4 ML VIAL IV STA (12:56)
--- NOTE | 2021-04-09 14:10 | CT ---
EXAMINATION TYPE: CT chest angio for PE DATE OF EXAM: 04/09/2021 COMPARISON: None. HISTORY: Shortness of breath CT DLP: 98.6 mGycm Automated exposure control for dose reduction was used. CONTRAST: CT Chest for pulmonary embolism performed with with IV Contrast, patient injected with 80 mL of Isovu e 370. FINDINGS: LUNGS: Exam suboptimal inspiration unable to hold breath. There is significant motion artifact limiti ng evaluation for subcentimeter nodules. There are small to tiny bilateral pleural effusions. There i s overall mosaic attenuation with increased central opacities. No suspicious focal consolidation MEDIASTINUM: There is motion artifact and rotation but satisfactory bolus. No convincing CT evidence for acute pulmonary embolism. Overlying sternal wires and mediastinal clips from CABG procedure. Ther e is cardiomegaly without pericardial effusion. Ascending aortic aneurysm up to 4.0 cm is noted. 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 Prominent bilateral hilar adenopathy is seen. Consider follow-u p CT in 3 months time to reassess. OTHER: Cholecystectomy clips are present. [id number] multilevel spurring. [id number] deepali cified plaque in the descending aorta. Surgical change to left shoulder partially imaged on localizer . IMPRESSION: 1. Suboptimal study without acute pulmonary embolism. 2. Correlate for CHF exacerbation as there is cardiomegaly with small to tiny bilateral pleural effus ions and mild central alveolar and interstitial edema.
--- NOTE | 2021-04-09 14:32 | ED ---
General Adult HPI - General Chief complaint: Shortness of Breath Stated complaint: SOB Time Seen by Provider: 04/09/21 10:10 Source: patient Mode of arrival: ambulatory Limitations: no limitations - History of Present Illness Initial comments: 85-year-old female with a complicated past medical history including CAD, heart failure, DM, DVT, hyperlipidemia, hypertension, renal disease presents to the emergency room for a chief complaint of shortness of breath. Patient has been short of breath for 2 weeks. Patient denies fevers. Admits to slight cough. States her legs are more swollen than normal. Denies any chest pain.Patient has no other complaints at this time including shortness of breath, chest pain, abdominal pain, nausea or vomiting, headache, or visual changes. - Related Data Home Medications Medication Instructions Recorded Confirmed Allopurinol [Zyloprim] 300 mg PO DAILY 03/03/14 04/09/21 Atorvastatin [Lipitor] 40 mg PO HS 03/03/14 04/09/21 Furosemide [Lasix] 40 mg PO DAILY 03/03/14 04/09/21 Glimepiride [Amaryl] 2 mg PO DAILY 03/03/14 04/09/21 LORazepam [Ativan] 1 mg PO HS 03/03/14 04/09/21 Metoprolol Tartrate [Lopressor] 50 mg PO BID 03/03/14 04/09/21 Omeprazole [PriLOSEC] 20 mg PO DAILY 03/03/14 04/09/21 calcitrioL [Calcitriol] 0.5 mcg PO MOTUWETHFR 03/03/14 04/09/21 Ergocalciferol [Vitamin D2 50,000 unit PO QMONTH 04/23/15 04/09/21 (DRISDOL)] Acetaminophen Tab [Tylenol Tab] 1,000 mg PO Q6HR PRN 06/15/15 04/09/21 Aspirin EC [Ecotrin Low Dose] 81 mg PO DAILY 10/24/16 04/09/21 Calcium Carbonate [Calcium] 600 mg PO DAILY 10/24/16 04/09/21 B Complex W-C No.20/Folic Acid 1 mg PO DAILY 04/09/21 04/09/21 [Renal Caps Softgel] Budesonide/Glycopyr/Formoterol 2 puff INHALATION RT-BID 04/09/21 04/09/21 [Breztri Aerosphere Inhaler] Famotidine/Ca Carb/Mag Hydrox 1 tab PO DAILY 04/09/21 04/09/21 [Pepcid Complete Tablet Chew] Levothyroxine Sodium [Synthroid] 25 mcg PO DAILY 04/09/21 04/09/21 Loperamide [Imodium] 2 mg PO DAILY 04/09/21 04/09/21 Magnesium 200 mg PO DAILY 04/09/21 04/09/21 bisacodyL [Dulcolax] 5 mg PO DAILY 04/09/21 04/09/21 Allergies Allergy/AdvReac Type Severity Reaction Status Date / Time sulfamethoxazole Allergy Rash/Hives Verified 04/09/21 11:31 [From Bactrim] trimethoprim [From Bactrim] Allergy Rash/Hives Verified 04/09/21 11:31 Review of Systems ROS Statement: Those systems with pertinent positive or pertinent negative responses have been documented in the HPI. ROS Other: All systems not noted in ROS Statement are negative. Past Medical History Past Medical History: Coronary Artery Disease (CAD), Heart Failure, Diabetes Mellitus, Deep Vein Thrombosis (DVT), GERD/Reflux, Hyperlipidemia, Hypertension, Osteoarthritis (OA), Renal Disease, Skin Disorder, Thyroid Disorder Additional Past Medical History / Comment(s): GOUT. AORTIC VALVE REPLACED. Anemia. HX LLL DVT. RENAL DISEASE STAGE 4. VARICOSE VEINS, EDEMA MAXIMILIANO ANKLES. CYST ON BACK, STATES D/T POISONOUS SPIDER BITE 2011. History of Any Multi-Drug Resistant Organisms: None Reported Past Surgical History: Cardiac Valve Replacement, Cholecystectomy, Coronary Bypass/CABG, Hysterectomy, Joint Replacement, Orthopedic Surgery Additional Past Surgical History / Comment(s): 2011 CABG w/ 5 vessel bypass and aortic valve. 03/07/14 Colonoscopy with EGD and BX. MOSHE. Maximiliano knee and L shoulder Replacement. Sinus surgery. Past Anesthesia/Blood Transfusion Reactions: No Reported Reaction Past Psychological History: Anxiety Smoking Status: Never smoker Past Alcohol Use History: None Reported Past Drug Use History: None Reported - Past Family History Daughter(s) Family Medical History: Cancer Father Family Medical History: Cancer, Coronary Artery Disease (CAD) Additional Family Medical History / Comment(s): Father had cancer but pt does not know what type. Father at age 77yrs. Mother Family Medical History: CVA/TIA Additional Family Medical History / Comment(s): Mother had a CVA. She at age 86yrs. General Exam Limitations: no limitations General appearance: alert, in no apparent distress Head exam: Present: atraumatic Eye exam: Present: normal appearance, PERRL, EOMI. Absent: scleral icterus, conjunctival injection ENT exam: Present: normal exam, mucous membranes moist Neck exam: Present: normal inspection, full ROM. Absent: tenderness Respiratory exam: Present: normal lung sounds bilaterally, decreased breath sounds. Absent: respiratory distress Cardiovascular Exam: Present: regular rate, normal rhythm, normal heart sounds GI/Abdominal exam: Present: soft, normal bowel sounds. Absent: distended, tenderness Extremities exam: Present: pedal edema Neurological exam: Present: alert Course Vital Signs 04/09/21 04/09/21 04/09/21 10:05 10:55 11:26 Temperature 97.6 F Pulse Rate 77 60 Respiratory 24 18 Rate Blood Pressure 135/74 O2 Sat by Pulse 93 L 96 Oximetry 04/09/21 04/09/21 04/09/21 11:35 12:59 14:00 Temperature 97.7 F Pulse Rate 58 L 60 64 Respiratory 18 18 16 Rate Blood Pressure 140/69 154/76 O2 Sat by Pulse 94 L 96 Oximetry EKG Findings - EKG Comments: EKG Findings:: NSR, vent rte 67, pr int 218, QTc 439 Medical Decision Making - Medical Decision Making Patient desatted down to 80% on room air. She did have to be placed on 4 L. CBC CMP unremarkable. BNP is elevated at 2800. Troponin is within normal limits. Chest x-ray did show some interstitial edema. However CT was obtained given d-dimer was elevated. This showed a correlate for CHF exacerbation with cardiomegaly and small bilateral pleural effusions as well as interstitial edema. Patient was started on IV Lasix. Patient will be admitted and return for any worsening symptoms. - Lab Data Result diagrams: 04/09/21 10:52 04/09/21 10:52 Lab Results 04/09/21 04/09/21 04/09/21 Range/Units 10:52 10:52 10:52 WBC 7.9 (3.8-10.6) k/uL RBC 2.59 L (3.80-5.40) m/uL Hgb 11.1 L (11.4-16.0) gm/dL Hct 33.3 L (34.0-46.0) % MCV 128.4 H (80.0-100.0) fL MCH 43.0 H (25.0-35.0) pg MCHC 33.5 (31.0-37.0) g/dL RDW 15.8 H (11.5-15.5) % Plt Count 116 L (150-450) k/uL MPV 9.0 Neutrophils % 75 % Lymphocytes % 11 % Monocytes % 6 % Eosinophils % 5 % Basophils % 0 % Neutrophils # 5.9 (1.3-7.7) k/uL Lymphocytes # 0.9 L (1.0-4.8) k/uL Monocytes # 0.5 (0-1.0) k/uL Eosinophils # 0.4 (0-0.7) k/uL Basophils # 0.0 (0-0.2) k/uL Differential Comment Manual Slide Review Performed Polychromasia Present Hypochromasia Slight Poikilocytosis Slight Macrocytosis Marked A PT 10.0 (9.0-12.0) sec INR 0.9 (<1.2) APTT 21.5 L (22.0-30.0) sec D-Dimer (<0.60) mg/L FEU Sodium 140 (137-145) mmol/L Potassium 4.1 (3.5-5.1) mmol/L Chloride 105 (98-107) mmol/L Carbon Dioxide 29 (22-30) mmol/L Anion Gap 6 mmol/L BUN 29 H (7-17) mg/dL Creatinine 1.24 H (0.52-1.04) mg/dL Est GFR (CKD-EPI)AfAm 46 (>60 ml/min/1.73 sqM) Est GFR (CKD-EPI)NonAf 40 (>60 ml/min/1.73 sqM) Glucose 154 H (74-99) mg/dL Calcium 9.5 (8.4-10.2) mg/dL Total Bilirubin 1.0 (0.2-1.3) mg/dL AST 20 (14-36) U/L ALT 11 (4-34) U/L Alkaline Phosphatase 76 (38-126) U/L Troponin I (0.000-0.034) ng/mL NT-Pro-B Natriuret Pep pg/mL Total Protein 6.0 L (6.3-8.2) g/dL Albumin 3.4 L (3.5-5.0) g/dL Coronavirus (PCR) (Not Detectd) 04/09/21 04/09/21 04/09/21 Range/Units 10:52 10:52 10:52 WBC (3.8-10.6) k/uL RBC (3.80-5.40) m/uL Hgb (11.4-16.0) gm/dL Hct (34.0-46.0) % MCV (80.0-100.0) fL MCH (25.0-35.0) pg MCHC (31.0-37.0) g/dL RDW (11.5-15.5) % Plt Count (150-450) k/uL MPV Neutrophils % % Lymphocytes % % Monocytes % % Eosinophils % % Basophils % % Neutrophils # (1.3-7.7) k/uL Lymphocytes # (1.0-4.8) k/uL Monocytes # (0-1.0) k/uL Eosinophils # (0-0.7) k/uL Basophils # (0-0.2) k/uL Differential Comment Manual Slide Review Polychromasia Hypochromasia Poikilocytosis Macrocytosis PT (9.0-12.0) sec INR (<1.2) APTT (22.0-30.0) sec D-Dimer 0.94 H (<0.60) mg/L FEU Sodium (137-145) mmol/L Potassium (3.5-5.1) mmol/L Chloride (98-107) mmol/L Carbon Dioxide (22-30) mmol/L Anion Gap mmol/L BUN (7-17) mg/dL Creatinine (0.52-1.04) mg/dL Est GFR (CKD-EPI)AfAm (>60 ml/min/1.73 sqM) Est GFR (CKD-EPI)NonAf (>60 ml/min/1.73 sqM) Glucose (74-99) mg/dL Calcium (8.4-10.2) mg/dL Total Bilirubin (0.2-1.3) mg/dL AST (14-36) U/L ALT (4-34) U/L Alkaline Phosphatase (38-126) U/L Troponin I 0.018 (0.000-0.034) ng/mL NT-Pro-B Natriuret Pep 2800 pg/mL Total Protein (6.3-8.2) g/dL Albumin (3.5-5.0) g/dL Coronavirus (PCR) (Not Detectd) 04/09/21 Range/Units 11:01 WBC (3.8-10.6) k/uL RBC (3.80-5.40) m/uL Hgb (11.4-16.0) gm/dL Hct (34.0-46.0) % MCV (80.0-100.0) fL MCH (25.0-35.0) pg MCHC (31.0-37.0) g/dL RDW (11.5-15.5) % Plt Count (150-450) k/uL MPV Neutrophils % % Lymphocytes % % Monocytes % % Eosinophils % % Basophils % % Neutrophils # (1.3-7.7) k/uL Lymphocytes # (1.0-4.8) k/uL Monocytes # (0-1.0) k/uL Eosinophils # (0-0.7) k/uL Basophils # (0-0.2) k/uL Differential Comment Manual Slide Review Polychromasia Hypochromasia Poikilocytosis Macrocytosis PT (9.0-12.0) sec INR (<1.2) APTT (22.0-30.0) sec D-Dimer (<0.60) mg/L FEU Sodium (137-145) mmol/L Potassium (3.5-5.1) mmol/L Chloride (98-107) mmol/L Carbon Dioxide (22-30) mmol/L Anion Gap mmol/L BUN (7-17) mg/dL Creatinine (0.52-1.04) mg/dL Est GFR (CKD-EPI)AfAm (>60 ml/min/1.73 sqM) Est GFR (CKD-EPI)NonAf (>60 ml/min/1.73 sqM) Glucose (74-99) mg/dL Calcium (8.4-10.2) mg/dL Total Bilirubin (0.2-1.3) mg/dL AST (14-36) U/L ALT (4-34) U/L Alkaline Phosphatase (38-126) U/L Troponin I (0.000-0.034) ng/mL NT-Pro-B Natriuret Pep pg/mL Total Protein (6.3-8.2) g/dL Albumin (3.5-5.0) g/dL Coronavirus (PCR) Not Detected (Not Detectd) Disposition Clinical Impression: Shortness of breath, Interstitial edema, CHF exacerbation Disposition: ADMITTED IP TO THIS HOSP Is patient prescribed a controlled substance at d/c from ED?: No Referrals: Mo Weiss MD [Primary Care Provider] - 1-2 days Time of Disposition: 14:31
[2021-04-09] MEDS ORDERED: NALOXONE 0.4 MG/ML 1 ML VIAL IV PRN (15:05)
[2021-04-09] MEDS: FUROSEMIDE 10 MG/ML 4 ML VIAL IV SCH ×2 (18:35→22:39)
[2021-04-09 18:40] LABS: Glucose,Whole Blood 97 mg/dL (75-99)
--- NOTE | 2021-04-09 19:06 | P.HPIM ---
History of Present Illness H&P Date: 04/09/21 Chief Complaint: Shortness of breath 85-year-old female significant medical history of coronary artery disease with open heart surgery 5 by so bypass in 2011, congestive heart failure, diabetes, history of DVT, hyperlipidemia, hypertension, chronic renal disease, history of aortic valve replacement, anemia, hypothyroidism, and several additional comorbidities. Patient is admitted to the hospital with congestive heart failure exacerbation, and bilateral pleural effusions, and interstitial edema. Patient had extensive diagnostic workup in emergency department consisting of a CT of the chest, chest x-ray, extensive diagnostic labs CBC with chronic anemia, and thrombocytopenia. CMP consistent with chronic kidney disease creatinine 1.24 BUN 29, mildly elevated glucose at 154. BNP was 2800 with troponin of 0.018. Patient was admitted and placed on IV Lasix 40 mg every 8 hours, consultation with cardiology for congestive heart failure management. Review of Systems Constitutional: Reports fatigue, Reports weight gain Eyes: bilateral as per HPI Cardiovascular: Reports decreased exercise tolerance, Reports dyspnea on exertion, Reports edema, Reports shortness of breath Respiratory: Reports dyspnea Genitourinary: Reports as per HPI Menstruation: Reports as per HPI Musculoskeletal: Reports muscle weakness Neurological: Reports weakness Psychiatric: Reports as per HPI Endocrine: Reports as per HPI Hematologic/Lymphatic: Reports as per HPI Allergic/Immunologic: Reports as per HPI Past Medical History Past Medical History: Coronary Artery Disease (CAD), Heart Failure, Diabetes Mellitus, Deep Vein Thrombosis (DVT), GERD/Reflux, Hyperlipidemia, Hypertension, Osteoarthritis (OA), Renal Disease, Skin Disorder, Thyroid Disorder Additional Past Medical History / Comment(s): GOUT. AORTIC VALVE REPLACED. Anemia. HX LLL DVT. RENAL DISEASE STAGE 4. VARICOSE VEINS, EDEMA MAXIMILIANO ANKLES. CYST ON BACK, STATES D/T POISONOUS SPIDER BITE 2011. History of Any Multi-Drug Resistant Organisms: None Reported Past Surgical History: Cardiac Valve Replacement, Cholecystectomy, Coronary Bypass/CABG, Hysterectomy, Joint Replacement, Orthopedic Surgery Additional Past Surgical History / Comment(s): 2011 CABG w/ vessel bypass and aortic valve. 03/07/14 Colonoscopy with EGD and BX. MOSHE. Maximiliano knee and L s houlder Replacement. Sinus surgery. Past Anesthesia/Blood Transfusion Reactions: No Reported Reaction Past Psychological History: Anxiety Smoking Status: Never smoker Past Alcohol Use History: None Reported Past Drug Use History: None Reported - Past Family History Daughter(s) Family Medical History: Cancer Father Family Medical History: Cancer, Coronary Artery Disease (CAD) Additional Family Medical History / Comment(s): Father had cancer but pt does not know what type. Father at age 77yrs. Mother Family Medical History: CVA/TIA Additional Family Medical History / Comment(s): Mother had a CVA. She at age 86yrs. Medications and Allergies Home Medications and Allergies Comment(s): Medications and ALLERGIES reviewed Home Medications Medication Instructions Recorded Confirmed Type Allopurinol [Zyloprim] 300 mg PO DAILY 03/03/14 04/09/21 History Atorvastatin [Lipitor] 40 mg PO HS 03/03/14 04/09/21 History Furosemide [Lasix] 40 mg PO DAILY 03/03/14 04/09/21 History Glimepiride [Amaryl] 2 mg PO DAILY 03/03/14 04/09/21 History LORazepam [Ativan] 1 mg PO HS 03/03/14 04/09/21 History Metoprolol Tartrate [Lopressor] 50 mg PO BID 03/03/14 04/09/21 History Omeprazole [PriLOSEC] 20 mg PO DAILY 03/03/14 04/09/21 History calcitrioL [Calcitriol] 0.5 mcg PO MOTUWETHFR 03/03/14 04/09/21 History Ergocalciferol [Vitamin D2 50,000 unit PO QMONTH 04/23/15 04/09/21 History (DRISDOL)] Acetaminophen Tab [Tylenol Tab] 1,000 mg PO Q6HR PRN 06/15/15 04/09/21 History Aspirin EC [Ecotrin Low Dose] 81 mg PO DAILY 10/24/16 04/09/21 History Calcium Carbonate [Calcium] 600 mg PO DAILY 10/24/16 04/09/21 History B Complex W-C No.20/Folic Acid 1 mg PO DAILY 04/09/21 04/09/21 History [Renal Caps Softgel] Budesonide/Glycopyr/Formoterol 2 puff INHALATION RT-BID 04/09/21 04/09/21 History [Breztri Aerosphere Inhaler] Famotidine/Ca Carb/Mag Hydrox 1 tab PO DAILY 04/09/21 04/09/21 History [Pepcid Complete Tablet Chew] Levothyroxine Sodium [Synthroid] 25 mcg PO DAILY 04/09/21 04/09/21 History Loperamide [Imodium] 2 mg PO DAILY 04/09/21 04/09/21 History Magnesium 200 mg PO DAILY 04/09/21 04/09/21 History bisacodyL [Dulcolax] 5 mg PO DAILY 04/09/21 04/09/21 History Allergies Allergy/AdvReac Type Severity Reaction Status Date / Time sulfamethoxazole Allergy Rash/Hives Verified 04/09/21 11:31 [From Bactrim] trimethoprim [From Bactrim] Allergy Rash/Hives Verified 04/09/21 11:31 Physical Exam Vitals: Vital Signs Temp Pulse Resp BP Pulse Ox 04/09/21 14:00 64 16 154/76 96 04/09/21 12:59 97.7 F 60 18 140/69 94 L 04/09/21 11:35 58 L 18 04/09/21 11:26 60 18 04/09/21 10:55 96 04/09/21 10:05 97.6 F 77 24 135/74 93 L Intake and Output 04/09/21 04/09/21 04/09/21 06:59 14:59 22:59 Other: Weight 81.647 kg - Constitutional General appearance: mild distress - EENT Eyes: EOMI, PERRLA ENT: normal oropharynx Ears: bilateral: normal - Neck Neck: normal ROM Carotids: bilateral: upstroke normal Thyroid: bilateral: normal size - Respiratory Respiratory: bilateral: diminished (Anterior and posterior lung odonnell) - Cardiovascular Normal sinus rhythm with a first-degree AV block Heart rate: 74 Rhythm: regular Abnormal Heart Sounds: click leg Peripheral Edema: bilateral: 3+ ankle Peripheral Edema: bilateral: 3+ foot Peripheral Edema: bilateral: 3+ radial pulse Peripheral Pulses: bilateral: Normal - Gastrointestinal General gastrointestinal: normal bowel sounds - Integumentary Integumentary: pale - Neurologic Neurologic: CNII-XII intact - Musculoskeletal Musculoskeletal: generalized weakness - Psychiatric Psychiatric: A&O x's 3 Results CBC & Chem 7: 04/09/21 10:52 04/09/21 10:52 Labs: Abnormal Lab Results - Last 24 Hours (Table) 04/09/21 04/09/21 04/09/21 Range/Units 10:52 10:52 10:52 RBC 2.59 L (3.80-5.40) m/uL Hgb 11.1 L (11.4-16.0) gm/dL Hct 33.3 L (34.0-46.0) % MCV 128.4 H (80.0-100.0) fL MCH 43.0 H (25.0-35.0) pg RDW 15.8 H (11.5-15.5) % Plt Count 116 L (150-450) k/uL Lymphocytes # 0.9 L (1.0-4.8) k/uL Macrocytosis Marked A APTT 21.5 L (22.0-30.0) sec D-Dimer (<0.60) mg/L FEU BUN 29 H (7-17) mg/dL Creatinine 1.24 H (0.52-1.04) mg/dL Glucose 154 H (74-99) mg/dL Total Protein 6.0 L (6.3-8.2) g/dL Albumin 3.4 L (3.5-5.0) g/dL 04/09/21 Range/Units 10:52 RBC (3.80-5.40) m/uL Hgb (11.4-16.0) gm/dL Hct (34.0-46.0) % MCV (80.0-100.0) fL MCH (25.0-35.0) pg RDW (11.5-15.5) % Plt Count (150-450) k/uL Lymphocytes # (1.0-4.8) k/uL Macrocytosis APTT (22.0-30.0) sec D-Dimer 0.94 H (<0.60) mg/L FEU BUN (7-17) mg/dL Creatinine (0.52-1.04) mg/dL Glucose (74-99) mg/dL Total Protein (6.3-8.2) g/dL Albumin (3.5-5.0) g/dL Chest x-ray: report reviewed CT scan - chest: report reviewed Thrombosis Risk Factor Assmnt - Choose All That Apply Any of the Below Risk Factors Present?: No Each Factor Represents 1 point: Obesity (BMI >25), Swollen legs (current) Other Risk Factors: No Each Risk Factor Represents 3 Points: Age 75 years or older, History of DVT/PE Thrombosis Risk Factor Assessment Total Risk Factor Score: 8 Thrombosis Risk Factor Assessment Level: Very Low Risk Assessment and Plan Assessment: Congestive heart failure with normal ejection fraction Small bilateral pleural effusions Interstitial edema Elevated BNP Elevated troponins secondary to chronic kidney disease and CHF Diabetes mellitus type 2 [id number] GERD/reflux Chronic kidney disease Coronary artery disease with history of CABG and valve replacement in 2012 Hyperlipidemia Hypertension Osteoarthritis Mixed anxiety and depression Mild thrombocytopenia Full code Plan: CHF exacerbation with a history of a normal ejection fraction, initiate Lasix 40 mg every 8 hours, strict I's and O's, consultation with cardiology for recommendations Bilateral pleural effusions, continue diuresis and monitoring Diabetes mellitus type 2, initiate insulin sliding scale Continue to monitor vital signs and diagnostic testing Medical management Further recommendations come based on patient's clinical condition Time with Patient: Greater than 30
[2021-04-09] MEDS: INSULIN ASPART (NovoLOG) 100 UNIT/ML VIAL SQ SCH ×2 (19:26→20:42)
[2021-04-09 20:44] LABS: Glucose,Whole Blood 126 mg/dL (75-99)
[2021-04-09] MEDS: METOPROLOL TARTRATE 50 MG TAB PO SCH (20:55)
[2021-04-09] MEDS: LORazepam 1 MG TAB PO SCH (20:55)
[2021-04-09] MEDS: ATORVASTATIN 40 MG TAB PO SCH (20:55)
[2021-04-09] MEDS: HEPARIN SODIUM,PORCINE/PF 5,000 UNIT/0.5 ML SYRINGE SQ SCH (20:59)
[2021-04-09] MEDS: NON FORMULARY DRUG (Budesonide/Glycopyr/Formoterol [Breztri Aerosphere Inhaler] 10.7 GM Gm INHALATION SCH (22:24)
[2021-04-10 04:09] LABS: Basophils % (A) 0 %; Eosinophils # (A) 0.3 k/uL (0-0.7); Eosinophils % (A) 4 %; HCT 34.4 % (34.0-46.0); HGB 11.3 gm/dL (11.4-16.0); Hypochromasia Slight; Lymphocytes # (A) 0.9 k/uL (1.0-4.8); Lymphocytes % (A) 12 %; MCH 41.9 pg (25.0-35.0); MCHC 32.8 g/dL (31.0-37.0); Macrocytosis Marked; Mean Platelet Volume 9.1; Monocytes # (A) 0.5 k/uL (0-1.0); Monocytes % (A) 6 %; Neutrophils # (A) 5.6 k/uL (1.3-7.7); Neutrophils % (A) 76 %; Platelet Count 104 k/uL (150-450); Poikilocytosis Slight; RBC 2.69 m/uL (3.80-5.40); RDW 15.5 % (11.5-15.5); WBC 7.4 k/uL (3.8-10.6)
[2021-04-10 04:18] LABS: Albumin 3.4 g/dL (3.5-5.0); Calcium 8.9 mg/dL (8.4-10.2); Magnesium 1.8 mg/dL (1.6-2.3); Potassium 3.6 mmol/L (3.5-5.1); Total Bilirubin 0.8 mg/dL (0.2-1.3); Total Protein 5.9 g/dL (6.3-8.2)
[2021-04-10 06:31] LABS: Glucose,Whole Blood 97 mg/dL (75-99)
[2021-04-10] MEDS: INSULIN ASPART (NovoLOG) 100 UNIT/ML VIAL SQ SCH ×4 (06:33→21:13)
[2021-04-10] MEDS: LEVOTHYROXINE 25 MCG TAB PO SCH (06:38)
[2021-04-10] MEDS: FUROSEMIDE 10 MG/ML 4 ML VIAL IV SCH ×3 (06:38→21:12)
--- NOTE | 2021-04-10 07:55 | P.PN ---
Subjective Progress Note Date: 04/10/21 Principal diagnosis: exacerbation of congestive heart failure history of normal ejection fraction mild elevated troponin secondary to chf Chronic renal failure, stage 3b 85-year-old female significant medical history of coronary artery disease with open heart surgery 5 vessel bypass in 2012, congestive heart failure, diabetes, history of DVT, hyperlipidemia, hypertension, chronic renal disease, history of aortic valve replacement, anemia, hypothyroidism, and several additional comorbidities. Patient is admitted to the hospital with congestive heart failure exacerbation, and bilateral pleural effusions, and interstitial edema. Patient had extensive diagnostic workup in emergency department consisting of a CT of the chest, chest x-ray, extensive diagnostic labs CBC with chronic anemia, and thrombocytopenia. CMP consistent with chronic kidney disease creatinine 1.24 BUN 29, mildly elevated glucose at 154. BNP was 2800 with troponin of 0.018. Patient is admitted and placed on IV Lasix 40 mg every 8 hours, consultation with cardiology for congestive heart failure management. 04/10/2021 Patient seen and evaluated at bedside. Patient resting comfortably in bed, in no acute distress. Reports feeling much better, improvement in shortness of breath. Denies fever, chills, chest pain. Continue IV lasix for diuresis Objective - Vital Signs Vital signs: Vital Signs Temp 97.7 F 04/10/21 04:00 Pulse 68 04/10/21 04:00 Resp 19 04/10/21 04:00 BP 131/73 04/10/21 04:00 Pulse Ox 92 L 04/10/21 04:00 Intake & Output 04/09/21 04/10/21 04/10/21 18:59 06:59 18:59 Intake Total 450 Output Total 625 Balance -175 Weight 81.647 kg Intake: Oral 450 Output: Urine 625 Other: Voiding Method Diaper # Voids 4 - Constitutional General appearance: Present: obese - EENT Eyes: Present: EOMI, PERRLA ENT: Present: normal oropharynx Ears: bilateral: normal - Neck Neck: Present: normal ROM - Respiratory Respiratory: right: rhonchi, left: diminished - Cardiovascular Heart rate: 68 Rhythm: regular Heart sounds: normal: S1, S2 Abnormal Heart Sounds: Present: click - Peripheral edema ankle Peripheral Edema: bilateral: 2+ foot Peripheral Edema: bilateral: 2+ - Peripheral pulses dorsalis pedis Peripheral Pulses: bilateral: Normal radial pulse Peripheral Pulses: bilateral: Normal - Gastrointestinal General gastrointestinal: Present: normal bowel sounds, soft - Integumentary Integumentary: Present: normal - Neurologic Neurologic: Present: CNII-XII intact - Musculoskeletal Musculoskeletal: Present: generalized weakness - Psychiatric Psychiatric: Present: A&O x's 3, appropriate affect, intact judgment & insight - Allied health notes Allied health notes reviewed: nursing - Labs CBC & Chem 7: 04/10/21 02:49 04/10/21 02:49 Labs: Abnormal Lab Results - Last 24 Hours (Table) 04/09/21 04/09/21 04/09/21 Range/Units 10:52 10:52 10:52 RBC 2.59 L (3.80-5.40) m/uL Hgb 11.1 L (11.4-16.0) gm/dL Hct 33.3 L (34.0-46.0) % MCV 128.4 H (80.0-100.0) fL MCH 43.0 H (25.0-35.0) pg RDW 15.8 H (11.5-15.5) % Plt Count 116 L (150-450) k/uL Lymphocytes # 0.9 L (1.0-4.8) k/uL Macrocytosis Marked A APTT 21.5 L (22.0-30.0) sec D-Dimer (<0.60) mg/L FEU Carbon Dioxide (22-30) mmol/L BUN 29 H (7-17) mg/dL Creatinine 1.24 H (0.52-1.04) mg/dL Glucose 154 H (74-99) mg/dL POC Glucose (mg/dL) (75-99) mg/dL Total Protein 6.0 L (6.3-8.2) g/dL Albumin 3.4 L (3.5-5.0) g/dL 04/09/21 04/09/21 04/10/21 Range/Units 10:52 20:41 02:49 RBC 2.69 L (3.80-5.40) m/uL Hgb 11.3 L (11.4-16.0) gm/dL Hct (34.0-46.0) % MCV 128.0 H (80.0-100.0) fL MCH 41.9 H (25.0-35.0) pg RDW (11.5-15.5) % Plt Count 104 L (150-450) k/uL Lymphocytes # 0.9 L (1.0-4.8) k/uL Macrocytosis Marked A APTT (22.0-30.0) sec D-Dimer 0.94 H (<0.60) mg/L FEU Carbon Dioxide (22-30) mmol/L BUN (7-17) mg/dL Creatinine (0.52-1.04) mg/dL Glucose (74-99) mg/dL POC Glucose (mg/dL) 126 H (75-99) mg/dL Total Protein (6.3-8.2) g/dL Albumin (3.5-5.0) g/dL 04/10/21 Range/Units 02:49 RBC (3.80-5.40) m/uL Hgb (11.4-16.0) gm/dL Hct (34.0-46.0) % MCV (80.0-100.0) fL MCH (25.0-35.0) pg RDW (11.5-15.5) % Plt Count (150-450) k/uL Lymphocytes # (1.0-4.8) k/uL Macrocytosis APTT (22.0-30.0) sec D-Dimer (<0.60) mg/L FEU Carbon Dioxide 34 H (22-30) mmol/L BUN 32 H (7-17) mg/dL Creatinine 1.30 H (0.52-1.04) mg/dL Glucose 121 H (74-99) mg/dL POC Glucose (mg/dL) (75-99) mg/dL Total Protein 5.9 L (6.3-8.2) g/dL Albumin 3.4 L (3.5-5.0) g/dL - Imaging and Cardiology Chest x-ray: report reviewed Assessment and Plan Assessment: Congestive heart failure with normal ejection fraction Small bilateral pleural effusions Interstitial edema Elevated BNP Elevated troponins secondary to chronic kidney disease and CHF Diabetes mellitus type 2 [id number] GERD/reflux Chronic kidney disease Coronary artery disease with history of CABG and valve replacement in 2012 Hyperlipidemia Hypertension Osteoarthritis Mixed anxiety and depression Mild thrombocytopenia Full code Plan: CHF exacerbation with a history of a normal ejection fraction, continue Lasix 40 mg every 8 hours, strict I's and O's, consultation with cardiology for recommendations Bilateral pleural effusions, continue diuresis and monitoring Diabetes mellitus type 2, initiate insulin sliding scale Continue to monitor vital signs and diagnostic testing Medical management Further recommendations come based on patient's clinical condition Time with Patient: Greater than 30
[2021-04-10] MEDS ORDERED: NITROGLYCERIN OINT 1 INCH/GM PACKET TOPICAL SCH (08:00)
[2021-04-10] MEDS: NON FORMULARY DRUG (Budesonide/Glycopyr/Formoterol [Breztri Aerosphere Inhaler] 10.7 GM Gm INHALATION SCH ×2 (08:26→20:34)
[2021-04-10] MEDS ORDERED: FAMOTIDINE 20 MG TAB PO SCH (09:00)
--- NOTE | 2021-04-10 09:05 | US ---
EXAMINATION TYPE: US kidneys/renal and bladder DATE OF EXAM: 04/10/2021 COMPARISON: Presents exam 02/23/2010 CLINICAL HISTORY: DONNY. DONNY EXAM MEASUREMENTS: Right Kidney: 9.7 x 4.1 x 4.1 cm Left Kidney: 7.2 x 3.8 x 3.1 cm Right Kidney: Cortical thinning, cyst lateral/lower= 3.4 x 2.9 x 2.6 cm shows a simple appearance Left Kidney: Small in size, no evidence of hydro, lower pole gassed out, kidney mid decreased in size in the interval Bladder: wnl Bilateral Jets seen: No There is no evidence for hydronephrosis at this point in time. No nephrolithiasis is seen. No david s are identified. Cortical medullary differentiation is maintained. The urinary bladder is anechoic. IMPRESSION: Renal sizes as described. No hydronephrosis.
[2021-04-10] MEDS: MAGNESIUM OXIDE 400 MG TAB PO SCH (09:11)
[2021-04-10] MEDS: bisacodyL 5 MG TABLET.DR PO SCH (09:11)
[2021-04-10] MEDS: METOPROLOL TARTRATE 50 MG TAB PO SCH ×2 (09:12→21:13)
[2021-04-10] MEDS: CALCIUM CARBONATE 500 MG CHEWABLE PO SCH (09:12)
[2021-04-10] MEDS: PANTOPRAZOLE 40 MG TABLET PO SCH (09:12)
[2021-04-10] MEDS: ASPIRIN 81 MG PO SCH (09:12)
[2021-04-10] MEDS: FOLIC ACID-VIT B COMPLEX-VIT C 1 CAP PO SCH (09:12)
[2021-04-10] MEDS: allopurinoL 300 MG TAB PO SCH (09:13)
[2021-04-10] MEDS: GLIMEPIRIDE 2 MG TAB PO SCH (09:13)
[2021-04-10] MEDS: LOPERAMIDE 2 MG CAP PO SCH (09:13)
[2021-04-10] MEDS: HEPARIN SODIUM,PORCINE/PF 5,000 UNIT/0.5 ML SYRINGE SQ SCH (09:13)
[2021-04-10 11:34] LABS: Glucose,Whole Blood 217 mg/dL (75-99)
--- NOTE | 2021-04-10 12:58 | P.CRDCN ---
History of Present Illness Consult date: 04/10/21 History of present illness: HISTORY OF PRESENT ILLNESS: This is a 85-year-old female with a past medical history significant for coronary artery disease with previous 5 vessel CABG in 2012, bioprosthetic aortic valve replacement, congestive heart failure chronic kidney disease, hypertension, hyperlipidemia, and diabetes mellitus. Patient follows in the office with Dr. Alonso. We have been asked to see the patient in consultation for congestive heart failure. Patient examined at the bedside. Patient presented to the hospital with a chief complaint of shortness of breath. Patient states she has been feeling progressively more short of breath over the past 2 weeks. She also noticed some increased lower extremity edema. The patient states she does not weigh herself at home. She has been compliant with her medications. She denies any chest pain or pressure. Denies dizziness or lightheadedness. EKG reveals sinus mechanism with no signs of acute ischemia Chest xray there may be a component of interstitial edema Chest CTA: Negative for pulmonary embolism Laboratory data: WBC 7.4. Hemoglobin 11.3. Platelet count 104. Sodium 138. Potassium 3.8. BUN 32. Creatinine 1.30. ProBNP 2800. Current home cardiac medications include metoprolol tartrate 50mg twice a day, Lasix 40 mg daily, Lipitor 40mg daily, aspirin 81 mg daily Most recent echocardiogram obtained in July 2020 revealed ejection fraction 55%, moderate LVH, moderate to severe aortic stenosis, [id number] mitral regurgitation. REVIEW OF SYSTEMS: At the time of my exam: CONSTITUTIONAL: Denies fever or chills. HEENT: Denies blurred vision, vision changes, or eye pain. Denies hemoptysis CARDIOVASCULAR: Denies chest pain. Denies orthopnea. Denies PND. Denies palpitations RESPIRATORY: + shortness of breath. GASTROINTESTINAL: Denies abdominal pain. Denies nausea or vomiting. HEMATOLOGIC: Denies bleeding disorders. GENITOURINARY: Denies any blood in urine. SKIN: Denies pruitis. Denies rash. PHYSICAL EXAM: VITAL SIGNS: Reviewed. GENERAL: Well-developed in no acute distress. HEENT: Head is normocephalic. Pupils are equal, round. Sclerae anicteric. Mucous membranes of the mouth are moist. Neck supple. No JVD or thyromegaly LUNGS: Respirations even and unlabored. Lungs diminished to auscultation bilaterally. HEART: Regular rate and rhythm. S1 and S2 heard. Systolic murmur noted ABDOMEN: Soft. Nondistended. Nontender. EXTREMITIES: Normal range of motion. No clubbing or cyanosis. Peripheral pulses intact. Bilateral lower extremity edema noted. NEUROLOGIC: Awake and alert. Oriented x 3. ASSESSMENT: Shortness of breath Acute on chronic diastolic congestive heart failure Coronary artery disease with CABG 2011 History of bioprosthetic aortic valve replacement Valvular heart disease including moderate to severe aortic stenosis and mild to moderate mitral regurgitation Hypertension Hyperlipidemia Diabetes mellitus Chronic kidney disease PLAN: Obtain 2-D echo to assess cardiac structure and function Continue IV Lasix Daily weights Acute I&O Monitor kidney function Resume additional home cardiac medications Further recommendations pending patient's course Nurse practitioner note has been reviewed by physician. Signing provider agrees with the documented findings, assessment, and plan of care. Past Medical History Past Medical History: Coronary Artery Disease (CAD), Heart Failure, Diabetes Mellitus, Deep Vein Thrombosis (DVT), GERD/Reflux, Hyperlipidemia, Hypertension, Osteoarthritis (OA), Renal Disease, Skin Disorder, Thyroid Disorder Additional Past Medical History / Comment(s): GOUT. AORTIC VALVE REPLACED. Anemia. HX LLL DVT. RENAL DISEASE STAGE 4. VARICOSE VEINS, EDEMA MAXIMILIANO ANKLES. CYST ON BACK, STATES D/T POISONOUS SPIDER BITE 2011. History of Any Multi-Drug Resistant Organisms: None Reported Past Surgical History: Cardiac Valve Replacement, Cholecystectomy, Coronary Bypass/CABG, Hysterectomy, Joint Replacement, Orthopedic Surgery Additional Past Surgical History / Comment(s): 2011 CABG w/ vessel bypass and aortic valve. 03/07/14 Colonoscopy with EGD and BX. MOSHE. Maximiliano knee and L shoulder Replacement. Sinus surgery. Past Anesthesia/Blood Transfusion Reactions: No Reported Reaction Past Psychological History: Anxiety Smoking Status: Never smoker Past Alcohol Use History: None Reported Past Drug Use History: None Reported - Past Family History Daughter(s) Family Medical History: Cancer Father Family Medical History: Cancer, Coronary Artery Disease (CAD) Additional Family Medical History / Comment(s): Father had cancer but pt does not know what type. Father at age 77yrs. Mother Family Medical History: CVA/TIA Additional Family Medical History / Comment(s): Mother had a CVA. She at age 86yrs. Medications and Allergies Home Medications Medication Instructions Recorded Confirmed Type Allopurinol [Zyloprim] 300 mg PO DAILY 03/03/14 04/09/21 History Atorvastatin [Lipitor] 40 mg PO HS 03/03/14 04/09/21 History Furosemide [Lasix] 40 mg PO DAILY 03/03/14 04/09/21 History Glimepiride [Amaryl] 2 mg PO DAILY 03/03/14 04/09/21 History LORazepam [Ativan] 1 mg PO HS 03/03/14 04/09/21 History Metoprolol Tartrate [Lopressor] 50 mg PO BID 03/03/14 04/09/21 History Omeprazole [PriLOSEC] 20 mg PO DAILY 03/03/14 04/09/21 History calcitrioL [Calcitriol] 0.5 mcg PO MOTUWETHFR 03/03/14 04/09/21 History Ergocalciferol [Vitamin D2 50,000 unit PO QMONTH 04/23/15 04/09/21 History (DRISDOL)] Acetaminophen Tab [Tylenol Tab] 1,000 mg PO Q6HR PRN 06/15/15 04/09/21 History Aspirin EC [Ecotrin Low Dose] 81 mg PO DAILY 10/24/16 04/09/21 History Calcium Carbonate [Calcium] 600 mg PO DAILY 10/24/16 04/09/21 History B Complex W-C No.20/Folic Acid 1 mg PO DAILY 04/09/21 04/09/21 History [Renal Caps Softgel] Budesonide/Glycopyr/Formoterol 2 puff INHALATION RT-BID 04/09/21 04/09/21 History [Breztri Aerosphere Inhaler] Famotidine/Ca Carb/Mag Hydrox 1 tab PO DAILY 04/09/21 04/09/21 History [Pepcid Complete Tablet Chew] Levothyroxine Sodium [Synthroid] 25 mcg PO DAILY 04/09/21 04/09/21 History Loperamide [Imodium] 2 mg PO DAILY 04/09/21 04/09/21 History Magnesium 200 mg PO DAILY 04/09/21 04/09/21 History bisacodyL [Dulcolax] 5 mg PO DAILY 04/09/21 04/09/21 History Allergies Allergy/AdvReac Type Severity Reaction Status Date / Time sulfamethoxazole Allergy Rash/Hives Verified 04/09/21 11:31 [From Bactrim] trimethoprim [From Bactrim] Allergy Rash/Hives Verified 04/09/21 11:31 Physical Exam Vitals: Vital Signs Temp Pulse Pulse Resp BP BP Pulse Ox 04/10/21 09:25 68 22 136/83 97 04/10/21 04:00 97.7 F 68 19 131/73 92 L 04/10/21 02:00 66 18 04/10/21 00:00 97.7 F 66 18 160/75 95 04/09/21 20:00 97.7 F 64 18 155/82 96 04/09/21 15:38 97.7 F 66 18 160/75 95 04/09/21 14:00 64 16 154/76 96 04/09/21 12:59 97.7 F 60 18 140/69 94 L Intake and Output 04/09/21 04/10/21 04/10/21 22:59 06:59 14:59 Intake Total 450 Output Total 625 Balance -175 Intake: Oral 450 Output: Urine 625 Other: Voiding Method Diaper Diaper # Voids 4 Weight 81.647 kg Results 04/10/21 02:49 04/10/21 02:49 Cardiac Enzymes 04/10/21 Range/Units 02:49 AST 21 (14-36) U/L CBC 04/10/21 Range/Units 02:49 WBC 7.4 (3.8-10.6) k/uL RBC 2.69 L (3.80-5.40) m/uL Hgb 11.3 L (11.4-16.0) gm/dL Hct 34.4 (34.0-46.0) % Plt Count 104 L (150-450) k/uL Comprehensive Metabolic Panel 04/10/21 Range/Units 02:49 Sodium 138 (137-145) mmol/L Potassium 3.6 (3.5-5.1) mmol/L Chloride 98 (98-107) mmol/L Carbon Dioxide 34 H (22-30) mmol/L BUN 32 H (7-17) mg/dL Creatinine 1.30 H (0.52-1.04) mg/dL Glucose 121 H (74-99) mg/dL Calcium 8.9 (8.4-10.2) mg/dL AST 21 (14-36) U/L ALT 10 (4-34) U/L Alkaline Phosphatase 76 (38-126) U/L Total Protein 5.9 L (6.3-8.2) g/dL Albumin 3.4 L (3.5-5.0) g/dL Current Medications Generic Name Dose Route Start Last Admin Trade Name Freq PRN Reason Stop Dose Admin Acetaminophen 1,000 mg 04/09/21 15:10 Acetaminophen Tab 500 Mg Tab PO Q6HR PRN Pain Allopurinol 300 mg 04/10/21 09:00 04/10/21 09:13 Allopurinol 300 Mg Tab PO 300 mg DAILY KAROLINA Administration Aspirin 81 mg 04/10/21 09:00 04/10/21 09:12 Aspirin 81 Mg PO 81 mg DAILY KAROLINA Administration Atorvastatin Calcium 40 mg 04/09/21 21:00 04/09/21 20:55 Atorvastatin 40 Mg Tab PO 40 mg HS KAROLINA Administration Bisacodyl 5 mg 04/10/21 09:00 04/10/21 09:11 Bisacodyl 5 Mg Tablet.Dr PO 5 mg DAILY KAROLINA Administration Calcitriol 0.5 mcg 04/10/21 09:00 04/10/21 09:11 Calcitriol 0.25 Mcg Cap PO 0.5 mcg MOTUWETHFR KAROLINA Administration Calcium Carbonate/Glycine 500 mg 04/10/21 09:00 04/10/21 09:12 Calcium Carbonate 500 Mg Chewable PO 500 mg DAILY KAROLINA Administration Furosemide 40 mg 04/09/21 14:45 04/10/21 06:38 Furosemide 10 Mg/Ml 4 Ml Vial IV 40 mg Q8H KAROLINA Administration Glimepiride 2 mg 04/10/21 09:00 04/10/21 09:13 Glimepiride 2 Mg Tab PO 2 mg DAILY KAROLINA Administration Heparin Sodium (Porcine) 5,000 unit 04/09/21 21:00 04/10/21 09:13 Heparin Sodium,Porcine/Pf 5,000 Unit/0.5 Ml Syringe SQ 5,000 unit Q12HR KAROLINA Administration Insulin Aspart 0 unit 04/09/21 17:30 04/10/21 11:38 Insulin Aspart (Novolog) 100 Unit/Ml Vial SQ 3 unit ACHS KAROLINA Administration Protocol Levothyroxine Sodium 25 mcg 04/10/21 06:30 04/10/21 06:38 Levothyroxine 25 Mcg Tab PO 25 mcg 0630 KAROLINA Administration Loperamide HCl 2 mg 04/10/21 09:00 04/10/21 09:13 Loperamide 2 Mg Cap PO 2 mg DAILY KAROLINA Administration Lorazepam 1 mg 04/09/21 21:00 04/09/21 20:55 Lorazepam 1 Mg Tab PO 1 mg HS KAROLINA Administration Magnesium Oxide 200 mg 04/10/21 09:00 04/10/21 09:11 Magnesium Oxide 400 Mg Tab PO 200 mg DAILY KAROLINA Administration Metoprolol Tartrate 50 mg 04/09/21 21:00 04/10/21 09:12 Metoprolol Tartrate 50 Mg Tab PO 50 mg BID KAROLINA Administration Multivit/Ca Carb/B Cmplx/FA/Prenat 1 each 04/10/21 09:00 04/10/21 09:12 Folic Acid-Vit B Complex-Vit C 1 Cap PO 1 each DAILY KAROLINA Administration Naloxone HCl 0.2 mg 04/09/21 15:05 Naloxone 0.4 Mg/Ml 1 Ml Vial IV Q2M PRN Opioid Reversal Nitroglycerin 1 inch 04/10/21 08:00 04/10/21 09:10 Nitroglycerin Oint 1 Inch/Gm Packet TOPICAL 1 inch Q8HR KAROLINA Administration Non-Formulary Medication 2 puff 04/09/21 20:00 04/10/21 08:26 Budesonide/Glycopyr/Formoterol [Breztri Aerosphere Inhaler] INHALATION Not Given RT-BID K[facility]OLINA Pantoprazole Sodium 40 mg 04/10/21 09:00 04/10/21 09:12 Pantoprazole 40 Mg Tablet PO 40 mg DAILY KAROLINA Administration Intake and Output 04/09/21 04/10/21 04/10/21 22:59 06:59 14:59 Intake Total 450 Output Total 625 Balance -175 Intake: Oral 450 Output: Urine 625 Other: Voiding Method Diaper Diaper # Voids 4 Weight 81.647 kg 04/10/21 02:49 04/10/21 02:49
[2021-04-10 16:49] LABS: Glucose,Whole Blood 107 mg/dL (75-99)
[2021-04-10 16:57] LABS: Glucose,Whole Blood 112 mg/dL (75-99)
[2021-04-10 20:29] LABS: Glucose,Whole Blood 190 mg/dL (75-99)
[2021-04-10] MEDS: ATORVASTATIN 40 MG TAB PO SCH (21:12)
[2021-04-10] MEDS: LORazepam 1 MG TAB PO SCH (21:12)
[2021-04-11] MEDS: LEVOTHYROXINE 25 MCG TAB PO SCH (06:31)
[2021-04-11 07:28] LABS: Glucose,Whole Blood 79 mg/dL (75-99)
[2021-04-11] MEDS: INSULIN ASPART (NovoLOG) 100 UNIT/ML VIAL SQ SCH ×4 (07:30→22:35)
[2021-04-11] MEDS: NON FORMULARY DRUG (Budesonide/Glycopyr/Formoterol [Breztri Aerosphere Inhaler] 10.7 GM Gm INHALATION SCH ×2 (07:30→07:41)
[2021-04-11] MEDS: METOPROLOL TARTRATE 50 MG TAB PO SCH ×2 (08:00→21:17)
[2021-04-11] MEDS: CALCIUM CARBONATE 500 MG CHEWABLE PO SCH (08:00)
[2021-04-11] MEDS: ASPIRIN 81 MG PO SCH (08:00)
[2021-04-11] MEDS: PANTOPRAZOLE 40 MG TABLET PO SCH (08:00)
[2021-04-11] MEDS: FUROSEMIDE 10 MG/ML 4 ML VIAL IV SCH ×3 (08:01→21:16)
[2021-04-11] MEDS: MAGNESIUM OXIDE 400 MG TAB PO SCH (08:01)
[2021-04-11] MEDS: allopurinoL 300 MG TAB PO SCH (08:01)
[2021-04-11] MEDS: FOLIC ACID-VIT B COMPLEX-VIT C 1 CAP PO SCH (08:01)
[2021-04-11] MEDS: LOPERAMIDE 2 MG CAP PO SCH (08:02)
[2021-04-11] MEDS: bisacodyL 5 MG TABLET.DR PO SCH (08:03)
[2021-04-11] MEDS: GLIMEPIRIDE 2 MG TAB PO SCH (08:15)
--- NOTE | 2021-04-11 10:27 | P.PN ---
Subjective This is a 85-year-old female with a past medical history significant for coronary artery disease with previous 5 vessel CABG in 2011, bioprosthetic a ortic valve replacement, congestive heart failure chronic kidney disease, hypertension, hyperlipidemia, and diabetes mellitus. Patient follows in the office with Dr. Alonso. We have been asked to see the patient in consultation for congestive heart failure. Patient presented to the hospital with a chief complaint of shortness of breath. Most recent echocardiogram obtained in July 2020 revealed ejection fraction 55%, moderate LVH, moderate to severe aortic stenosis, [id number] mitral regurgitation. Patient seen and examined at bedside, states her breathing has improved. Patient with 625mL urine output, however not accurate due to some voiding in brief. Labs are still pending from today. Patient is maintained on aspirin 81 mg daily, atorvastatin 40 mg nightly, IV Lasix 40 mgQ8hr, metoprolol tartrate 59 g twice a day. Telemetry reviewed patient in sinus mechanism heart rate 60s70s. Patient with episode of 9 beat run of NSVT, patient asymptomatic was eating breakfast. PHYSICAL EXAM: VITAL SIGNS: Reviewed. GENERAL: Well-developed in no acute distress. HEENT: Neck supple. No JVD LUNGS: Respirations even and unlabored. Lungs diminished to auscultation bilaterally. HEART: Regular rate and rhythm. S1 and S2 heard. Systolic ejection murmur noted right sternal border ABDOMEN: Soft. Nondistended. Nontender. EXTREMITIES: Normal range of motion. No clubbing or cyanosis. Peripheral pulses intact. 3+ Bilateral lower extremity edema noted. NEUROLOGIC: Awake and alert. Oriented x 3. ASSESSMENT: Shortness of breath Acute on chronic diastolic congestive heart failure Coronary artery disease with CABG 2011 History of bioprosthetic aortic valve replacement Valvular heart disease including moderate to severe aortic stenosis and mild to moderate mitral regurgitation Hypertension Hyperlipidemia Diabetes mellitus Chronic kidney disease PLAN: Obtain 2-D echo to assess cardiac structure and function Continue IV Lasix Daily weights Acute I&Os Monitor kidney function and electrolytes Continue home aspirin, statin, metoprolol tartrate. Further recommendations pending patient's course Nurse practitioner note has been reviewed by physician. Signing provider agrees with the documented findings, assessment, and plan of care. Objective - Vital Signs Vital signs: Vital Signs Temp 98.3 F 04/11/21 08:00 Pulse 79 04/11/21 08:00 Resp 20 04/11/21 08:00 BP 96/58 04/11/21 08:00 Pulse Ox 93 L 04/11/21 08:00 Intake & Output 04/10/21 04/11/21 04/11/21 18:59 06:59 18:59 Intake Total 236 Balance 236 Weight 83.5 kg Intake: Oral 236 Other: Voiding Method Diaper # Voids 1 5 - Labs CBC & Chem 7: 04/10/21 02:49 04/10/21 02:49 Labs: Abnormal Lab Results - Last 24 Hours (Table) 04/10/21 04/10/21 04/10/21 Range/Units 11:32 16:46 16:56 POC Glucose (mg/dL) 217 H 107 H 112 H (75-99) mg/dL 04/10/21 Range/Units 20:27 POC Glucose (mg/dL) 190 H (75-99) mg/dL
[2021-04-11 11:18] LABS: Basophils # (A) 0.07 X 10*3/uL (0.00-0.10); Basophils % (A) 0.7 %; Eosinophils # (A) 0.39 X 10*3/uL (0.04-0.35); HCT 34.4 % (37.2-46.3); HGB 10.9 g/dL (12.0-15.0); Lymphocytes # (A) 1.16 X 10*3/uL (0.90-5.00); Lymphocytes % (A) 11.8 %; MCH 41.3 pg (27.0-32.0); MCHC 31.7 g/dL (32.0-37.0); MCV 130.3 fL (80.0-97.0); Mean Platelet Volume 10.7 fL (9.5-12.2); Monocytes # (A) 0.89 X 10*3/uL (0.20-1.00); Neutrophils # (A) 7.29 X 10*3/uL (1.80-7.70); Neutrophils % (A) 74.1 %; Platelet Count 114 X 10*3/uL (140-440); RBC 2.64 X 10*6/uL (4.10-5.20); WBC 9.84 X 10*3/uL (4.50-10.00)
--- NOTE | 2021-04-11 11:31 | ECHOF ---
Referral Reason:LV function, aortic stenosis, CHF MEASUREMENTS -------- HEIGHT: 157.5 cm WEIGHT: 81.7 kg BP: 131/73 RVIDd: 2.9 cm (< 3.3) IVSd: 1.6 cm (0.6 - 1.1) LVIDd: 3.1 cm (3.9 - 5.3) LVPWd: 1.2 cm (0.6 - 1.1) IVSs: 2.1 cm LVIDs: 2.0 cm LVPWs: 1.7 cm LA Diam: 3.7 cm (2.7 - 3.8) LAESV Index (A-L): 40.03 ml/m Ao Diam: 3.0 cm (2.0 - 3.7) AV Cusp: 2.0 cm (1.5 - 2.6) MV EXCURSION: 16.594 mm (> 18.000) MV EF SLOPE: 26 mm/s (70 - 150) EPSS: 0.9 cm MV E Blaine: 1.20 m/s MV DecT: 563 ms MV A Blaine: 1.67 m/s MV E/A Ratio: 0.72 AV maxP.92 mmHg AV meanP.53 mmHg RAP: 5.00 mmHg RVSP: 57.66 mmHg FINDINGS -------- Sinus rhythm. This was a technically adequate study. The left ventricular size is normal. There is mild concentric left ventricular hypertrophy. Overa ll left ventricular systolic function is normal with, an EF between 60 - 65 %. The right ventricle is normal in size. LA is moderately dilated 34-39 ml/m2 The right atrium is normal in size. Interatrial and interventricular septum intact. There is mild aortic valve sclerosis. Peak/mean gradient across the Aortic Valve is 52.92mmHg / 34. 53mmHg. There is mild regurgitation of the bioprosthetic aortic valve. There is mild-moderate zack nosis of the bioprosthetic aortic valve. The mitral valve leaflets are mildly thickened. Mild mitral annular calcification present. There is trace to mild mitral regurgitation. Mild tricuspid regurgitation present. There is severe pulmonary hypertension. The right ventricul ar systolic pressure, as measured by Doppler, is 57.66mmHg. There is no pulmonic regurgitation present. The aortic root size is normal. Normal inferior vena cava with normal inspiratory collapse consistent with estimated right atrial pre ssure of 5 mmHg. There is no pericardial effusion. CONCLUSIONS -------- 1. The left ventricular size is normal. 2. There is mild concentric left ventricular hypertrophy. 3. Overall left ventricular systolic function is normal with, an EF between 60 - 65 %. 4. LA is moderately dilated 34-39 ml/m2 5. There is mild aortic valve sclerosis. 6. Peak/mean gradient across the Aortic Valve is 52.92mmHg / 34.53mmHg. 7. There is mild regurgitation of the bioprosthetic aortic valve. 8. There is mild-moderate stenosis of the bioprosthetic aortic valve. 9. The mitral valve leaflets are mildly thickened. 10. Mild mitral annular calcification present. 11. There is trace to mild mitral regurgitation. 12. Mild tricuspid regurgitation present. 13. There is severe pulmonary hypertension. 14. The right ventricular systolic pressure, as measured by Doppler, is 57.66mmHg. 15. There is no pericardial effusion. CORPORATE TRAVEL COUNSELOR: Edith Lo RDCS
[2021-04-11 11:32] LABS: Glucose,Whole Blood 179 mg/dL (75-99)
[2021-04-11 12:49] LABS: African American GFR (CKD) 36.7 (60.0-200.0); Anion Gap 15.6 mmol/L (4.00-12.00); BUN/Creat Ratio 18.93 Ratio (12.00-20.00); Blood Urea Nitrogen 28.4 mg/dL (9.0-27.0); Calcium 9.5 mg/dL (8.7-10.3); Carbon Dioxide 31.4 mmol/L (21.6-31.8); Magnesium 1.8 mg/dL (1.5-2.4); Non-African American GFR(CKD) 31.7 (60.0-200.0); Potassium 3.7 mmol/L (3.5-5.5)
--- NOTE | 2021-04-11 13:39 | P.PN ---
Subjective Progress Note Date: 04/11/21 Principal diagnosis: exacerbation of congestive heart failure history of normal ejection fraction mild elevated troponin secondary to chf Chronic renal failure, stage 3b 85-year-old female significant medical history of coronary artery disease with open heart surgery 5 vessel bypass in 2012, congestive heart failure, diabetes, history of DVT, hyperlipidemia, hypertension, chronic renal disease, history of aortic valve replacement, anemia, hypothyroidism, and several additional comorbidities. Patient is admitted to the hospital with congestive heart failure exacerbation, and bilateral pleural effusions, and interstitial edema. Patient had extensive diagnostic workup in emergency department consisting of a CT of the chest, chest x-ray, extensive diagnostic labs CBC with chronic anemia, and thrombocytopenia. CMP consistent with chronic kidney disease creatinine 1.24 BUN 29, mildly elevated glucose at 154. BNP was 2800 with troponin of 0.018. Patient is admitted and placed on IV Lasix 40 mg every 8 hours, consultation with cardiology for congestive heart failure management. 04/10/2021 Patient seen and evaluated at bedside. Patient resting comfortably in bed, in no acute distress. Reports feeling much better, improvement in shortness of breath. Denies fever, chills, chest pain. Continue IV lasix for diuresis 04/11/2021 Patient seen and evaluated at bedside. Patient is sitting up in the chair, in no acute distress. Verbalizes less shortness of breath and leg edema. Denies fever, chills, or chest pain. Will continue IV lasix Objective - Vital Signs Vital signs: Vital Signs Temp 98.3 F 04/11/21 08:00 Pulse 79 04/11/21 08:00 Resp 20 04/11/21 08:00 BP 96/58 04/11/21 08:00 Pulse Ox 93 L 04/11/21 08:00 Intake & Output 04/10/21 04/11/21 04/11/21 18:59 06:59 18:59 Intake Total 236 Balance 236 Weight 83.5 kg Intake: Oral 236 Other: Voiding Method Diaper # Voids 1 5 - Constitutional General appearance: Present: no acute distress, obese - EENT Eyes: Present: EOMI, PERRLA Ears: bilateral: normal - Neck Carotids: bilateral: upstroke normal - Respiratory Respiratory: bilateral: diminished - Cardiovascular Heart rate: 80 Rhythm: regular Heart sounds: normal: S1, S2 Abnormal Heart Sounds: Present: click - Peripheral edema foot Peripheral Edema: bilateral: 2+ leg Peripheral Edema: bilateral: 2+ - Peripheral pulses dorsalis pedis Peripheral Pulses: bilateral: Normal radial pulse Peripheral Pulses: bilateral: Normal - Gastrointestinal General gastrointestinal: Present: normal bowel sounds, soft - Integumentary Integumentary: Present: normal - Neurologic Neurologic: Present: CNII-XII intact - Musculoskeletal Musculoskeletal: Present: generalized weakness - Psychiatric Psychiatric: Present: A&O x's 3, appropriate affect, intact judgment & insight - Labs CBC & Chem 7: 04/11/21 06:56 04/11/21 06:56 Labs: Abnormal Lab Results - Last 24 Hours (Table) 04/10/21 04/10/21 04/10/21 Range/Units 16:46 16:56 20:27 RBC (4.10-5.20) X 10*6/uL Hgb (12.0-15.0) g/dL Hct (37.2-46.3) % MCV (80.0-97.0) fL MCH (27.0-32.0) pg MCHC (32.0-37.0) g/dL RDW (11.5-14.5) % Plt Count (140-440) X 10*3/uL Absolute Nucleated RBC (0.00-0.00) X 10*3/uL Eosinophils # (0.04-0.35) X 10*3/uL NRBC/100 WBC Diff (0.0-0.0) /100 WBCS Anion Gap (4.00-12.00) mmol/L BUN (9.0-27.0) mg/dL Est GFR (CKD-EPI)AfAm (60.0-200.0) Est GFR (CKD-EPI)NonAf (60.0-200.0) Glucose (70-110) mg/dL POC Glucose (mg/dL) 107 H 112 H 190 H (75-99) mg/dL 04/11/21 04/11/21 04/11/21 Range/Units 06:56 06:56 11:31 RBC 2.64 L (4.10-5.20) X 10*6/uL Hgb 10.9 L (12.0-15.0) g/dL Hct 34.4 L (37.2-46.3) % MCV 130.3 H (80.0-97.0) fL MCH 41.3 H (27.0-32.0) pg MCHC 31.7 L (32.0-37.0) g/dL RDW 15.0 H (11.5-14.5) % Plt Count 114 L (140-440) X 10*3/uL Absolute Nucleated RBC 0.02 H (0.00-0.00) X 10*3/uL Eosinophils # 0.39 H (0.04-0.35) X 10*3/uL NRBC/100 WBC Diff 0.2 H (0.0-0.0) /100 WBCS Anion Gap 15.60 H (4.00-12.00) mmol/L BUN 28.4 H (9.0-27.0) mg/dL Est GFR (CKD-EPI)AfAm 36.7 L (60.0-200.0) Est GFR (CKD-EPI)NonAf 31.7 L (60.0-200.0) Glucose 60 L (70-110) mg/dL POC Glucose (mg/dL) 179 H (75-99) mg/dL - Imaging and Cardiology Chest x-ray: report reviewed Echo reviewed Assessment and Plan Assessment: Congestive heart failure with normal ejection fraction Small bilateral pleural effusions Interstitial edema Elevated BNP Elevated troponins secondary to chronic kidney disease and CHF Diabetes mellitus type 2 [id number] GERD/reflux Chronic kidney disease Coronary artery disease with history of CABG and valve replacement in 2012 Hyperlipidemia Hypertension Osteoarthritis Mixed anxiety and depression Mild thrombocytopenia Full code Plan: CHF exacerbation with a history of a normal ejection fraction, continue IV Lasix 40 mg every 8 hours per cardiology, strict I's and O's Bilateral pleural effusions, continue diuresis and monitoring Diabetes mellitus type 2, initiate insulin sliding scale Continue to monitor vital signs and diagnostic testing Medical management Further recommendations come based on patient's clinical condition Time with Patient: Greater than 30
[2021-04-11 13:52] VITALS: BMI 33.6
[2021-04-11 16:37] LABS: Glucose,Whole Blood 210 mg/dL (75-99)
[2021-04-11 20:49] LABS: Glucose,Whole Blood 138 mg/dL (75-99)
[2021-04-11] MEDS: GLYCOPYR INHALATION SCH (21:15)
[2021-04-11] MEDS: BUDESONIDE INHALATION SCH (21:15)
[2021-04-11] MEDS: FORMOTEROL INHALATION SCH (21:15)
[2021-04-11] MEDS: ATORVASTATIN 40 MG TAB PO SCH (21:16)
[2021-04-11] MEDS: LORazepam 1 MG TAB PO SCH (21:16)
[2021-04-12] MEDS: ACETAMINOPHEN TAB 500 MG TAB PO PRN ×2 (05:38→22:07)
[2021-04-12] MEDS: LEVOTHYROXINE 25 MCG TAB PO SCH (05:39)
[2021-04-12] MEDS: FUROSEMIDE 10 MG/ML 4 ML VIAL IV SCH ×3 (06:15→22:07)
[2021-04-12 06:45] LABS: Glucose,Whole Blood 82 mg/dL (75-99)
[2021-04-12 07:15] LABS: ALT 9 U/L (4-34); AST 22 U/L (14-36); African American GFR (CKD) 35 (>60 ml/min/1.73 sqM); Albumin 3.1 g/dL (3.5-5.0); Albumin/Globulin Ratio 1.2; Alkaline Phosphatase 73 U/L (38-126); Anion Gap 5 mmol/L; Blood Urea Nitrogen 38 mg/dL (7-17); Calcium 9.2 mg/dL (8.4-10.2); Carbon Dioxide 36 mmol/L (22-30); Chloride 96 mmol/L (98-107); Globulin 2.6 g/dL; Glucose 72 mg/dL (74-99); Magnesium 1.6 mg/dL (1.6-2.3); Non-African American GFR(CKD) 31 (>60 ml/min/1.73 sqM); Potassium 3.2 mmol/L (3.5-5.1); Sodium 137 mmol/L (137-145); Total Bilirubin 0.9 mg/dL (0.2-1.3); Total Protein 5.7 g/dL (6.3-8.2)
[2021-04-12] MEDS: INSULIN ASPART (NovoLOG) 100 UNIT/ML VIAL SQ SCH ×4 (07:20→22:06)
[2021-04-12] MEDS: GLYCOPYR INHALATION SCH ×2 (07:21→20:19)
[2021-04-12] MEDS: FORMOTEROL INHALATION SCH ×2 (07:21→20:19)
[2021-04-12] MEDS: BUDESONIDE INHALATION SCH ×2 (07:21→20:19)
[2021-04-12] MEDS ORDERED: POTASSIUM CHLORIDE ER 20 MEQ TAB.ER PO STA (08:36)
[2021-04-12] MEDS ORDERED: Magnesium Replacement Protocol 1 EACH MISC MISCELLANE PRN (08:37)
[2021-04-12 09:19] LABS: Basophils # (A) 0.06 X 10*3/uL (0.00-0.10); Basophils % (A) 0.7 %; Eosinophils # (A) 0.33 X 10*3/uL (0.04-0.35); Eosinophils % (A) 3.8 %; HCT 32.7 % (37.2-46.3); HGB 10.7 g/dL (12.0-15.0); Lymphocytes # (A) 1.04 X 10*3/uL (0.90-5.00); Lymphocytes % (A) 11.9 %; MCHC 32.7 g/dL (32.0-37.0); MCV 128.2 fL (80.0-97.0); Mean Platelet Volume 10.7 fL (9.5-12.2); Monocytes # (A) 0.85 X 10*3/uL (0.20-1.00); Monocytes % (A) 9.7 %; Neutrophils # (A) 6.41 X 10*3/uL (1.80-7.70); Neutrophils % (A) 73.4 %; Platelet Count 108 X 10*3/uL (140-440); RBC 2.55 X 10*6/uL (4.10-5.20); RDW 14.7 % (11.5-14.5); WBC 8.73 X 10*3/uL (4.50-10.00)
[2021-04-12] MEDS: CALCIUM CARBONATE 500 MG CHEWABLE PO SCH (09:46)
[2021-04-12] MEDS: ASPIRIN 81 MG PO SCH (09:46)
[2021-04-12] MEDS: METOPROLOL TARTRATE 50 MG TAB PO SCH ×2 (09:46→22:08)
[2021-04-12] MEDS: FOLIC ACID-VIT B COMPLEX-VIT C 1 CAP PO SCH (09:47)
[2021-04-12] MEDS: allopurinoL 300 MG TAB PO SCH (09:47)
[2021-04-12] MEDS: LOPERAMIDE 2 MG CAP PO SCH (09:47)
[2021-04-12] MEDS: bisacodyL 5 MG TABLET.DR PO SCH (09:47)
[2021-04-12] MEDS: PANTOPRAZOLE 40 MG TABLET PO SCH (09:48)
[2021-04-12] MEDS: MAGNESIUM OXIDE 400 MG TAB PO SCH (09:49)
[2021-04-12 11:24] LABS: Glucose,Whole Blood 196 mg/dL (75-99)
[2021-04-12] MEDS: MAGNESIUM SULFATE-D5W PMX 1 GM in DEXTROSE/WATER 1 100ML.BAG IVPB SCH ×2 (11:28→13:30)
[2021-04-12] MEDS: GLIMEPIRIDE 2 MG TAB PO SCH (11:29)
--- NOTE | 2021-04-12 13:03 | P.PN ---
Subjective This is a 85-year-old female with a past medical history significant for coronary artery disease with previous 5 vessel CABG in 2011, bioprosthetic a ortic valve replacement, congestive heart failure chronic kidney disease, hypertension, hyperlipidemia, and diabetes mellitus. Patient follows in the office with Dr. Alonso. We have been asked to see the patient in consultation for congestive heart failure. Patient presented to the hospital with a chief complaint of shortness of breath. Most recent echocardiogram obtained in July 2020 revealed ejection fraction 55%, moderate LVH, moderate to severe aortic stenosis, [id number] mitral regurgitation. Patient seen and examined at bedside, she feels her breathing has improved. She denies any chest pain. She has not ambulated with nursing yet. Patient with 625mL urine output, however not accurate due to some voiding in brief at times. Last acute, sodium 137, potassium 3.2, BUN 38, serum troponin 1.5, magnesium 1.6. Patient is maintained on aspirin 81 mg daily, atorvastatin 40 mg nightly, IV Lasix 40 mgQ8hr, metoprolol tartrate 59 g twice a day. Telemetry reviewed patient in sinus mechanism heart rate 60s70s. PHYSICAL EXAM: VITAL SIGNS: Reviewed. GENERAL: Well-developed in no acute distress. HEENT: Neck supple. No JVD LUNGS: Respirations even and unlabored. Lungs diminished to auscultation bilaterally. HEART: Regular rate and rhythm. S1 and S2 heard. Systolic ejection murmur noted right sternal border ABDOMEN: Soft. Nondistended. Nontender. EXTREMITIES: Normal range of motion. No clubbing or cyanosis. Peripheral pulses intact. 2+ Bilateral lower extremity edema noted. NEUROLOGIC: Awake and alert. Oriented x 3. ASSESSMENT: Shortness of breath Acute on chronic diastolic congestive heart failure Coronary artery disease with CABG 2011 History of bioprosthetic aortic valve replacement Valvular heart disease including moderate to severe aortic stenosis and mild to moderate mitral regurgitation Hypertension Hyperlipidemia Diabetes mellitus Chronic kidney disease Hypokalemia PLAN: Repeat Chest xray Continue IV Lasix as ordered Daily weights Accurate I&Os Increase activity as tolerated Monitor kidney function and electrolytes Continue home aspirin, statin, metoprolol tartrate. Replace potassium per protocol Further recommendations pending patient's course Nurse practitioner note has been reviewed by physician. Signing provider agrees with the documented findings, assessment, and plan of care. Objective - Vital Signs Vital signs: Vital Signs Temp 98.5 F 04/12/21 08:24 Pulse 80 04/12/21 08:26 Resp 18 04/12/21 08:24 BP 98/63 04/12/21 08:26 Pulse Ox 92 L 04/12/21 08:24 Intake & Output 04/11/21 04/12/21 04/12/21 18:59 06:59 18:59 Intake Total 472 716 Output Total 625 Balance 472 91 Weight 83.5 kg 84 kg Intake: Oral 472 716 Output: Urine 625 Other: Voiding Method Diaper External Catheter # Voids 1 2 - Labs CBC & Chem 7: 04/12/21 06:31 04/12/21 06:31 Labs: Abnormal Lab Results - Last 24 Hours (Table) 04/11/21 04/11/21 04/12/21 Range/Units 16:35 20:47 06:31 RBC (4.10-5.20) X 10*6/uL Hgb (12.0-15.0) g/dL Hct (37.2-46.3) % MCV (80.0-97.0) fL MCH (27.0-32.0) pg RDW (11.5-14.5) % Plt Count (140-440) X 10*3/uL Potassium 3.2 L (3.5-5.1) mmol/L Chloride 96 L (98-107) mmol/L Carbon Dioxide 36 H (22-30) mmol/L BUN 38 H (7-17) mg/dL Creatinine 1.54 H (0.52-1.04) mg/dL Glucose 72 L (74-99) mg/dL POC Glucose (mg/dL) 210 H 138 H (75-99) mg/dL Total Protein 5.7 L (6.3-8.2) g/dL Albumin 3.1 L (3.5-5.0) g/dL 04/12/21 04/12/21 Range/Units 06:31 11:22 RBC 2.55 L (4.10-5.20) X 10*6/uL Hgb 10.7 L (12.0-15.0) g/dL Hct 32.7 L (37.2-46.3) % MCV 128.2 H (80.0-97.0) fL MCH 42.0 H (27.0-32.0) pg RDW 14.7 H (11.5-14.5) % Plt Count 108 L (140-440) X 10*3/uL Potassium (3.5-5.1) mmol/L Chloride (98-107) mmol/L Carbon Dioxide (22-30) mmol/L BUN (7-17) mg/dL Creatinine (0.52-1.04) mg/dL Glucose (74-99) mg/dL POC Glucose (mg/dL) 196 H (75-99) mg/dL Total Protein (6.3-8.2) g/dL Albumin (3.5-5.0) g/dL
--- NOTE | 2021-04-12 14:12 | XR ---
EXAMINATION TYPE: XR chest 1V DATE OF EXAM: 04/12/2021 COMPARISON: 04/09/2021 INDICATION: CHF TECHNIQUE: Single frontal view of the chest is obtained. FINDINGS: The heart size is normal. The pulmonary vasculature is normal. There is chronic elevation of the right diaphragm. Sternotomy wires are present. A left shoulder prosthesis is present. Some peripheral linear markings may be scarring or atelectasis . IMPRESSION: 1. Intimal peripheral left midlung scarring or atelectasis
--- NOTE | 2021-04-12 14:53 | P.PN ---
Subjective Progress Note Date: 04/12/21 85-year-old female significant medical history of coronary artery disease with open heart surgery 5 vessel bypass in 2012, congestive heart failure, diabetes, history of DVT, hyperlipidemia, hypertension, chronic renal disease, history of aortic valve replacement, anemia, hypothyroidism, and several additional comorbidities. Patient is admitted to the hospital with congestive heart failure exacerbation, and bilateral pleural effusions, and interstitial edema. Patient had extensive diagnostic workup in emergency department consisting of a CT of the chest, chest x-ray, extensive diagnostic labs CBC with chronic anemia, and thrombocytopenia. CMP consistent with chronic kidney disease creatinine 1 .24 BUN 29, mildly elevated glucose at 154. BNP was 2800 with troponin of 0.018. Patient is admitted and placed on IV Lasix 40 mg every 8 hours, consultation with cardiology for congestive heart failure management. 04/10/2021 Patient seen and evaluated at bedside. Patient resting comfortably in bed, in no acute distress. Reports feeling much better, improvement in shortness of breath. Denies fever, chills, chest pain. Continue IV lasix for diuresis 04/11/2021 Patient seen and evaluated at bedside. Patient is sitting up in the chair, in no acute distress. Verbalizes less shortness of breath and leg edema. Denies fever, chills, or chest pain. Will continue IV lasix 04/12/2021 Patient is seen and evaluated in follow-up this morning currently sitting up in the chair maintained on 4 L of oxygen via nasal cannula and reports shortness of breath slightly improved and discuss with nursing staff about weaning FiO2 as tolerated. Patient states she does not wear oxygen in the outpatient setting. Patient with minimal lower extremity edema noted and continued on IV Lasix twice daily and will continue. Cardiology following closely. Repeat chest x-ray done today showing intimal peripheral left midlung scarring or atelectasis. Will add incentive spirometer and encourage the patient to use at least 10 times every hour while awake. Encourage the patient increase activity as tolerated as well. Patient has been working with physical therapy. Patient states her plan is to go home with family once discharged. Labs: White blood count is 8.73, hemoglobin is 10.7, platelets are 108, sodium is 137, potassium 3.2, BUN is 38, creatinine is 1.54, magnesium is 1.6 Review of systems: Constitutional: No reports of fatigue, fever, or chills Cardiovascular: No reports of chest pain or palpitations Respiratory: No reports of worsening shortness of breath or cough GI: No reports of nausea, vomiting, or diarrhea : No reports of dysuria or retention Neurovascular: No reports of weakness or numbness All medications have been reviewed Active Medications Acetaminophen (Acetaminophen Tab 500 Mg Tab) 1,000 mg PO Q6HR PRN PRN Reason: Pain Last Admin: 04/12/21 05:38 Dose: 1,000 mg Documented by: Allopurinol (Allopurinol 300 Mg Tab) 300 mg PO DAILY [facility] Last Admin: 04/12/21 09:47 Dose: 300 mg Documented by: Aspirin (Aspirin 81 Mg) 81 mg PO DAILY [facility] Last Admin: 04/12/21 09:46 Dose: 81 mg Documented by: Atorvastatin Calcium (Atorvastatin 40 Mg Tab) 40 mg PO HS [facility] Last Admin: 04/11/21 21:16 Dose: 40 mg Documented by: Bisacodyl (Bisacodyl 5 Mg Tablet.Dr) 5 mg PO DAILY [facility] Last Admin: 04/12/21 09:47 Dose: 5 mg Documented by: Calcitriol (Calcitriol 0.25 Mcg Cap) 0.5 mcg PO MOTUWETHFR [facility] Last Admin: 04/12/21 09:53 Dose: 0.5 mcg Documented by: Calcium Carbonate/Glycine (Calcium Carbonate 500 Mg Chewable) 500 mg PO DAILY [facility] Last Admin: 04/12/21 09:46 Dose: 500 mg Documented by: Furosemide (Furosemide 10 Mg/Ml 4 Ml Vial) 40 mg IV Q8H [facility] Last Admin: 04/12/21 06:15 Dose: 40 mg Documented by: Glimepiride (Glimepiride 2 Mg Tab) 2 mg PO DAILY [facility] Last Admin: 04/12/21 11:29 Dose: 2 mg Documented by: Insulin Aspart (Insulin Aspart (Novolog) 100 Unit/Ml Vial) 0 unit SQ [facility]; Protocol Last Admin: 04/12/21 13:34 Dose: 2 unit Documented by: Levothyroxine Sodium (Levothyroxine 25 Mcg Tab) 25 mcg PO 0630 [facility] Last Admin: 04/12/21 05:39 Dose: 25 mcg Documented by: Loperamide HCl (Loperamide 2 Mg Cap) 2 mg PO DAILY [facility] Last Admin: 04/12/21 09:47 Dose: 2 mg Documented by: Lorazepam (Lorazepam 1 Mg Tab) 1 mg PO HS [facility] Last Admin: 04/11/21 21:16 Dose: 1 mg Documented by: Magnesium Oxide (Magnesium Oxide 400 Mg Tab) 200 mg PO DAILY [facility] Last Admin: 04/12/21 09:49 Dose: 200 mg Documented by: Metoprolol Tartrate (Metoprolol Tartrate 50 Mg Tab) 50 mg PO BID [facility] Last Admin: 04/12/21 09:46 Dose: 50 mg Documented by: Miscellaneous Information (Magnesium Replacement Protocol 1 Each Misc) 1 each MISCELLANE DAILY PRN; Protocol PRN Reason: Per Protocol Multivit/Ca Carb/B Cmplx/FA/Prenat (Folic Acid-Vit B Complex-Vit C 1 Cap) 1 each PO DAILY [facility] Last Admin: 04/12/21 09:47 Dose: 1 each Documented by: Naloxone HCl (Naloxone 0.4 Mg/Ml 1 Ml Vial) 0.2 mg IV Q2M PRN PRN Reason: Opioid Reversal Budesonide/Glycopyr/Formoterol [Breztri Aerosphere Inhaler] 10.7 Gm 2 puff INHA LATION RT-BID [facility] Last Admin: 04/12/21 07:21 Dose: 2 puff Documented by: Pantoprazole Sodium (Pantoprazole 40 Mg Tablet) 40 mg PO DAILY [facility] Last Admin: 04/12/21 09:48 Dose: 40 mg Documented by: Physical exam: Gen: This is a 85-year-old female, asleep although arousable, alert and oriented 3, well-developed, well-nourished. HEENT: Head is atraumatic, normocephalic. Pupils equal, round. Sclerae is anicteric. NECK: Supple. No JVD. No lymphadenopathy. No thyromegaly. LUNGS: Diminished breath sounds bilaterally with some scattered rhonchi noted at the bases. No wheezing noted. No intercostal retractions. HEART: Regular rate and rhythm. No murmur. ABDOMEN: Soft. Obese. Bowel sounds are present. No masses. No tenderness. EXTREMITIES: No pedal edema. No calf tenderness. 1+ lower extremity swelling showing improvement in bilateral edema, non-pitting NEUROLOGICAL: Patient is awake, alert and oriented x3. Cranial nerves 2 through 12 are grossly intact. Assessment: Congestive heart failure with normal ejection fraction Small bilateral pleural effusions Interstitial edema Hypokalemia Hypomagnesemia Elevated BNP Elevated troponins secondary to chronic kidney disease and CHF Diabetes mellitus type 2 [id number] GERD/reflux Chronic kidney disease Coronary artery disease with history of CABG and valve replacement in 2012 Hyperlipidemia Hypertension Osteoarthritis Mixed anxiety and depression Mild thrombocytopenia Full code Plan: Recommend to continue on IV Lasix with cardiology following. CHF exacerbation and chest x-ray shows some scarring or atelectasis and will add incentive spirometer. Patient has been working with physical therapy and doing well and plans on going home on discharge. Patient continues on 4 L of oxygen via nasal cannula and states she does not wear any oxygen in the outpatient setting. Recommend to continue with Accu-Cheks before meals and at bedtime and sliding scale as well. Kidney function slightly worsen most likely secondary to IV Lasix and will repeat. Potassium is 3.2 today and will replace per protocol along with magnesium being 1.6. Will repeat a.m. labs. We'll continue to follow and further recommendations to come based on clinical course of the patient. Prognosis is guarded. Objective - Vital Signs Vital signs: Vital Signs Temp 98.5 F 04/12/21 08:24 Pulse 80 04/12/21 08:26 Resp 18 04/12/21 08:24 BP 98/63 04/12/21 08:26 Pulse Ox 92 L 04/12/21 08:24 Intake & Output 04/11/21 04/12/21 04/12/21 18:59 06:59 18:59 Intake Total 472 716 Output Total 625 Balance 472 91 Weight 83.5 kg 84 kg Intake: Oral 472 716 Output: Urine 625 Other: Voiding Method Diaper # Voids 1 2 - Labs CBC & Chem 7: 04/12/21 06:31 04/12/21 06:31 Labs: Abnormal Lab Results - Last 24 Hours (Table) 04/11/21 04/11/21 04/11/21 Range/Units 06:56 06:56 11:31 RBC 2.64 L (4.10-5.20) X 10*6/uL Hgb 10.9 L (12.0-15.0) g/dL Hct 34.4 L (37.2-46.3) % MCV 130.3 H (80.0-97.0) fL MCH 41.3 H (27.0-32.0) pg MCHC 31.7 L (32.0-37.0) g/dL RDW 15.0 H (11.5-14.5) % Plt Count 114 L (140-440) X 10*3/uL Absolute Nucleated RBC 0.02 H (0.00-0.00) X 10*3/uL Eosinophils # 0.39 H (0.04-0.35) X 10*3/uL NRBC/100 WBC Diff 0.2 H (0.0-0.0) /100 WBCS Potassium (3.5-5.1) mmol/L Chloride (98-107) mmol/L Carbon Dioxide (22-30) mmol/L Anion Gap 15.60 H (4.00-12.00) mmol/L BUN 28.4 H (9.0-27.0) mg/dL Creatinine (0.52-1.04) mg/dL Est GFR (CKD-EPI)AfAm 36.7 L (60.0-200.0) Est GFR (CKD-EPI)NonAf 31.7 L (60.0-200.0) Glucose 60 L (70-110) mg/dL POC Glucose (mg/dL) 179 H (75-99) mg/dL Total Protein (6.3-8.2) g/dL Albumin (3.5-5.0) g/dL 04/11/21 04/11/21 04/12/21 Range/Units 16:35 20:47 06:31 RBC (4.10-5.20) X 10*6/uL Hgb (12.0-15.0) g/dL Hct (37.2-46.3) % MCV (80.0-97.0) fL MCH (27.0-32.0) pg MCHC (32.0-37.0) g/dL RDW (11.5-14.5) % Plt Count (140-440) X 10*3/uL Absolute Nucleated RBC (0.00-0.00) X 10*3/uL Eosinophils # (0.04-0.35) X 10*3/uL NRBC/100 WBC Diff (0.0-0.0) /100 WBCS Potassium 3.2 L (3.5-5.1) mmol/L Chloride 96 L (98-107) mmol/L Carbon Dioxide 36 H (22-30) mmol/L Anion Gap (4.00-12.00) mmol/L BUN 38 H (9.0-27.0) mg/dL Creatinine 1.54 H (0.52-1.04) mg/dL Est GFR (CKD-EPI)AfAm (60.0-200.0) Est GFR (CKD-EPI)NonAf (60.0-200.0) Glucose 72 L (70-110) mg/dL POC Glucose (mg/dL) 210 H 138 H (75-99) mg/dL Total Protein 5.7 L (6.3-8.2) g/dL Albumin 3.1 L (3.5-5.0) g/dL
[2021-04-12 16:49] LABS: Glucose,Whole Blood 160 mg/dL (75-99)
[2021-04-12 20:52] LABS: Glucose,Whole Blood 180 mg/dL (75-99)
[2021-04-12] MEDS: LORazepam 1 MG TAB PO SCH (22:08)
[2021-04-12] MEDS: ATORVASTATIN 40 MG TAB PO SCH (22:08)
[2021-04-13] MEDS: FUROSEMIDE 10 MG/ML 4 ML VIAL IV SCH ×2 (06:32→17:00)
[2021-04-13] MEDS: LEVOTHYROXINE 25 MCG TAB PO SCH (06:32)
[2021-04-13] MEDS: FOLIC ACID-VIT B COMPLEX-VIT C 1 CAP PO SCH (07:51)
[2021-04-13] MEDS: CALCIUM CARBONATE 500 MG CHEWABLE PO SCH (07:51)
[2021-04-13] MEDS: PANTOPRAZOLE 40 MG TABLET PO SCH (07:51)
[2021-04-13] MEDS: INSULIN ASPART (NovoLOG) 100 UNIT/ML VIAL SQ SCH ×4 (07:51→21:39)
[2021-04-13] MEDS: METOPROLOL TARTRATE 50 MG TAB PO SCH ×2 (07:51→21:39)
[2021-04-13] MEDS: ASPIRIN 81 MG PO SCH (07:52)
[2021-04-13] MEDS: LOPERAMIDE 2 MG CAP PO SCH (07:52)
[2021-04-13] MEDS: allopurinoL 300 MG TAB PO SCH (07:52)
[2021-04-13] MEDS: MAGNESIUM OXIDE 400 MG TAB PO SCH (07:52)
[2021-04-13] MEDS: bisacodyL 5 MG TABLET.DR PO SCH (07:52)
[2021-04-13 07:55] LABS: Basophils % (A) 0 %; Eosinophils # (A) 0.5 k/uL (0-0.7); Eosinophils % (A) 6 %; HCT 35.8 % (34.0-46.0); HGB 11.9 gm/dL (11.4-16.0); Lymphocytes # (A) 0.9 k/uL (1.0-4.8); Lymphocytes % (A) 10 %; MCH 41.8 pg (25.0-35.0); MCHC 33.1 g/dL (31.0-37.0); MCV 126.1 fL (80.0-100.0); Macrocytosis Marked; Mean Platelet Volume 8.1; Monocytes # (A) 0.5 k/uL (0-1.0); Monocytes % (A) 6 %; Neutrophils # (A) 6.6 k/uL (1.3-7.7); Neutrophils % (A) 76 %; Platelet Count 122 k/uL (150-450); Poikilocytosis Slight; RBC 2.84 m/uL (3.80-5.40); RDW 15.2 % (11.5-15.5); WBC 8.8 k/uL (3.8-10.6)
[2021-04-13] MEDS: BUDESONIDE INHALATION SCH ×2 (08:13→20:54)
[2021-04-13] MEDS: FORMOTEROL INHALATION SCH ×2 (08:13→20:54)
[2021-04-13] MEDS: GLYCOPYR INHALATION SCH ×2 (08:13→20:54)
[2021-04-13 08:18] LABS: African American GFR (CKD) 41 (>60 ml/min/1.73 sqM); Anion Gap 5 mmol/L; Blood Urea Nitrogen 46 mg/dL (7-17); Calcium 9.2 mg/dL (8.4-10.2); Carbon Dioxide 36 mmol/L (22-30); Chloride 96 mmol/L (98-107); Glucose 65 mg/dL (74-99); Magnesium 2.1 mg/dL (1.6-2.3); Non-African American GFR(CKD) 36 (>60 ml/min/1.73 sqM); Potassium 3.5 mmol/L (3.5-5.1); Sodium 137 mmol/L (137-145)
[2021-04-13 08:31] LABS: Polychromasia Present
[2021-04-13] MEDS: GLIMEPIRIDE 2 MG TAB PO SCH (10:08)
[2021-04-13 11:34] LABS: Glucose,Whole Blood 223 mg/dL (75-99)
[2021-04-13 16:42] LABS: Glucose,Whole Blood 174 mg/dL (75-99)
[2021-04-13 20:11] LABS: Glucose,Whole Blood 197 mg/dL (75-99)
--- NOTE | 2021-04-13 20:29 | P.PN ---
Subjective This is a 85-year-old female with a past medical history significant for coronary artery disease with previous 5 vessel CABG in 2011, bioprosthetic aortic valve replacement, congestive heart failure chronic kidney disease, hypertension, hyperlipidemia, and diabetes mellitus. Patient follows in the office with Dr. Alonso. We have been asked to see the patient in consultation for congestive heart failure. Patient presented to the hospital with a chief complaint of shortness of breath. Most recent echocardiogram obtained in July 2020 revealed ejection fraction 55%, moderate LVH, moderate to severe aortic stenosis, [id number] mitral regurgitation. Patient seen and examined at bedside, she feels her breathing has improved. She denies any chest pain. She has not ambulated with nursing yet. Patient with 625mL urine output, however not accurate due to some voiding in brief at times. Last acute, sodium 137, potassium 3.2, BUN 38, serum troponin 1.5, magnesium 1.6. Patient is maintained on aspirin 81 mg daily, atorvastatin 40 mg nightly, IV Lasix 40 mgQ8hr, metoprolol tartrate 59 g twice a day. Telemetry reviewed patient in sinus mechanism heart rate 60s70s. 04/13 Patient seen and examined. Patient denies any chest pain or pressure. She is still having significant dyspnea however feels like she is coughing up some productive sputum. She was transitioned over from IV Lasix to oral Lasix for tomorrow. PHYSICAL EXAM: VITAL SIGNS: Reviewed. GENERAL: Well-developed in no acute distress. HEENT: Neck supple. No JVD LUNGS: Respirations even and unlabored. Lungs diminished to auscultation bilaterally. HEART: Regular rate and rhythm. S1 and S2 heard. Systolic ejection murmur noted right sternal border ABDOMEN: Soft. Nondistended. Nontender. EXTREMITIES: Normal range of motion. No clubbing or cyanosis. Peripheral pulses intact. 2+ Bilateral lower extremity edema noted. NEUROLOGIC: Awake and alert. Oriented x 3. ASSESSMENT: Shortness of breath Acute on chronic diastolic congestive heart failure Coronary artery disease with CABG 2011 History of bioprosthetic aortic valve replacement Valvular heart disease including moderate to severe aortic stenosis and mild to moderate mitral regurgitation Hypertension Hyperlipidemia Diabetes mellitus Chronic kidney disease Hypokalemia PLAN: Creatinine appears stable with diuresis. Patient was transitioned over to oral Lasix and agree with transition. Appears she is slowly improving. Hopeful discharge home if patient remains stable, improving. Objective - Vital Signs Vital signs: Vital Signs Temp 98.3 F 04/13/21 19:51 Pulse 70 04/13/21 19:51 Resp 16 04/13/21 19:51 BP 110/71 04/13/21 19:51 Pulse Ox 91 L 04/13/21 19:51 Intake & Output 04/13/21 04/13/21 04/14/21 06:59 18:59 05:59 Intake Total 480 Output Total 875 Balance -395 Weight 84.3 kg Intake: Oral 480 Output: Urine 875 Other: Voiding Method External Catheter External Catheter # Voids 2 3 - Labs CBC & Chem 7: 04/13/21 06:52 04/13/21 06:52 Labs: Abnormal Lab Results - Last 24 Hours (Table) 04/12/21 04/13/21 04/13/21 Range/Units 20:51 06:52 06:52 RBC 2.84 L (3.80-5.40) m/uL MCV 126.1 H (80.0-100.0) fL MCH 41.8 H (25.0-35.0) pg Plt Count 122 L (150-450) k/uL Lymphocytes # 0.9 L (1.0-4.8) k/uL Macrocytosis Marked A Chloride 96 L (98-107) mmol/L Carbon Dioxide 36 H (22-30) mmol/L BUN 46 H (7-17) mg/dL Creatinine 1.36 H (0.52-1.04) mg/dL Glucose 65 L (74-99) mg/dL POC Glucose (mg/dL) 180 H (75-99) mg/dL 04/13/21 04/13/21 04/13/21 Range/Units 11:30 16:40 20:09 RBC (3.80-5.40) m/uL MCV (80.0-100.0) fL MCH (25.0-35.0) pg Plt Count (150-450) k/uL Lymphocytes # (1.0-4.8) k/uL Macrocytosis Chloride (98-107) mmol/L Carbon Dioxide (22-30) mmol/L BUN (7-17) mg/dL Creatinine (0.52-1.04) mg/dL Glucose (74-99) mg/dL POC Glucose (mg/dL) 223 H 174 H 197 H (75-99) mg/dL
[2021-04-13] MEDS: LORazepam 1 MG TAB PO SCH (21:39)
[2021-04-13] MEDS: ATORVASTATIN 40 MG TAB PO SCH (21:39)
[2021-04-14] MEDS: LEVOTHYROXINE 25 MCG TAB PO SCH (05:36)
[2021-04-14 07:25] LABS: Glucose,Whole Blood 93 mg/dL (75-99)
[2021-04-14] MEDS: INSULIN ASPART (NovoLOG) 100 UNIT/ML VIAL SQ SCH ×2 (07:31→12:35)
[2021-04-14] MEDS: BUDESONIDE INHALATION SCH (07:47)
[2021-04-14] MEDS: GLYCOPYR INHALATION SCH (07:47)
[2021-04-14] MEDS: FORMOTEROL INHALATION SCH (07:47)
[2021-04-14] MEDS ORDERED: FUROSEMIDE 40 MG TAB PO SCH (08:00)
[2021-04-14] MEDS: GLIMEPIRIDE 2 MG TAB PO SCH (08:38)
[2021-04-14] MEDS: CALCIUM CARBONATE 500 MG CHEWABLE PO SCH (08:38)
[2021-04-14] MEDS: FOLIC ACID-VIT B COMPLEX-VIT C 1 CAP PO SCH (08:38)
[2021-04-14] MEDS: METOPROLOL TARTRATE 50 MG TAB PO SCH (08:39)
[2021-04-14] MEDS: allopurinoL 300 MG TAB PO SCH (08:40)
[2021-04-14] MEDS: PANTOPRAZOLE 40 MG TABLET PO SCH (08:40)
[2021-04-14] MEDS: LOPERAMIDE 2 MG CAP PO SCH (08:40)
[2021-04-14] MEDS: bisacodyL 5 MG TABLET.DR PO SCH (08:40)
[2021-04-14] MEDS: MAGNESIUM OXIDE 400 MG TAB PO SCH (08:40)
[2021-04-14] MEDS: ASPIRIN 81 MG PO SCH (08:40)
[2021-04-14 10:37] VITALS: RESP 18
[2021-04-14 11:48] LABS: Glucose,Whole Blood 164 mg/dL (75-99)
[2021-04-14 12:58] LABS: African American GFR (CKD) 36.7 (60.0-200.0); BUN/Creat Ratio 27.33 Ratio (12.00-20.00); Calcium 9.4 mg/dL (8.7-10.3); Non-African American GFR(CKD) 31.7 (60.0-200.0); Potassium 3.7 mmol/L (3.5-5.5)
[2021-04-14 14:52] VITALS: BP 107/67; PULSE 68; TEMP 98.4
== END 2021-04-14 14:55 | disposition home or self-care (01) | DRG 291 ==
LOC: EC 10:03 → 3SCARD 15:05 → 4SSUR 04-10 12:40
PROVIDERS: ADMIT Family Medicine; ATTEND Family Medicine
DX: I13.0 Hypertensive heart and chronic kidney disease with heart failure and stage 1 through stage 4 chronic kidney disease, or unspecified chronic kidney disease (principal); I50.33 Acute on chronic diastolic (congestive) heart failure; I47.2 Ventricular tachycardia; E78.5 Hyperlipidemia, unspecified; E83.42 Hypomagnesemia; E87.6 Hypokalemia; Z20.822 Contact with and (suspected) exposure to COVID-19; E03.9 Hypothyroidism, unspecified; E11.22 Type 2 diabetes mellitus with diabetic chronic kidney disease; K21.9 Gastro-esophageal reflux disease without esophagitis; M19.90 Unspecified osteoarthritis, unspecified site; N18.32 Chronic kidney disease, stage 3b; E11.65 Type 2 diabetes mellitus with hyperglycemia; F41.8 Other specified anxiety disorders; I25.10 Atherosclerotic heart disease of native coronary artery without angina pectoris; M10.9 Gout, unspecified; R79.89 Other specified abnormal findings of blood chemistry; I83.90 Asymptomatic varicose veins of unspecified lower extremity; D69.6 Thrombocytopenia, unspecified; Z79.82 Long term (current) use of aspirin; Z79.84 Long term (current) use of oral hypoglycemic drugs; Z79.890 Hormone replacement therapy; Z79.899 Other long term (current) drug therapy; Z80.9 Family history of malignant neoplasm, unspecified; Z82.3 Family history of stroke; Z95.3 Presence of xenogenic heart valve; Z96.612 Presence of left artificial shoulder joint; Z95.1 Presence of aortocoronary bypass graft; Z90.710 Acquired absence of both cervix and uterus; Z86.718 Personal history of other venous thrombosis and embolism; Z82.49 Family history of ischemic heart disease and other diseases of the circulatory system; D64.9 Anemia, unspecified; I08.0 Rheumatic disorders of both mitral and aortic valves
CPT/HCPCS: 36415; 71045; 71046; 71275; 76770; 80048; 80053; 83735; 83880; 84484; 85025; 85379; 85610; 85730; 87635; 93005; 93306; 94640; 96374; 99285

== ENCOUNTER 2021-04-24 16:43 | Inpatient (IN) | payer MEDICARE, BC ==
[2021-04-24] MEDS ORDERED: ONDANSETRON 4 MG/2 ML VIAL IVP STA (19:26)
[2021-04-24] MEDS ORDERED: SODIUM CHLORIDE 0.9% 500 ML 500 ML IV STA (19:26)
[2021-04-24 19:51] LABS: Basophils % (A) 0 %; Eosinophils % (A) 0 %; HCT 36.5 % (34.0-46.0); HGB 12.3 gm/dL (11.4-16.0); Lymphocytes # (A) 0.5 k/uL (1.0-4.8); Lymphocytes % (A) 9 %; MCH 41.7 pg (25.0-35.0); MCHC 33.7 g/dL (31.0-37.0); MCV 123.7 fL (80.0-100.0); Macrocytosis Marked; Mean Platelet Volume 8.7; Monocytes # (A) 0.3 k/uL (0-1.0); Monocytes % (A) 5 %; Neutrophils # (A) 4.6 k/uL (1.3-7.7); Neutrophils % (A) 85 %; Platelet Count 113 k/uL (150-450); RBC 2.95 m/uL (3.80-5.40); RDW 14.6 % (11.5-15.5); WBC 5.4 k/uL (3.8-10.6)
[2021-04-24 20:01] LABS: Albumin 3.6 g/dL (3.5-5.0); Calcium 8.9 mg/dL (8.4-10.2); Total Protein 6.6 g/dL (6.3-8.2)
--- NOTE | 2021-04-24 21:48 | CT ---
EXAMINATION TYPE: CT abdomen pelvis wo con DATE OF EXAM: 04/24/2021 COMPARISON: 04/10/2021 renal ultrasound HISTORY: abdominal pain; diarrhea CT DLP: 863.3 mGycm Automated exposure control for dose reduction was used. TECHNIQUE: Helical acquisition of images was performed from the lung bases through the pelvis. CONTRAST: Performed without Oral Contrast and without intravenous contrast. Lack of contrast limits evaluation of the abdominal pelvic viscera and vasculature. FINDINGS: LUNG BASES: Atelectasis bilaterally. No pleural effusion or pericardial effusion. LIVER: Normal attenuation and size. BILIARY SYSTEM: Status post cholecystectomy. PANCREAS: Atrophic. SPLEEN: Calcified splenic granulomas. ADRENALS: Normal. KIDNEYS: No hydronephrosis bilaterally. Right renal cyst. BOWEL: Colonic diverticulosis. No acute diverticulitis. Normal appendix. PERITONEUM: No pneumoperitoneum. No free fluid. LYMPH NODES: No lymphadenopathy. PELVIS: Normal. VASCULATURE: Abdominal aorta normal in caliber with marked aortobiiliac calcified atherosclerotic di sease. MUSCULOSKELETAL: Degenerative changes of the spine. IMPRESSION: No acute abdominopelvic process.
[2021-04-24 21:59] LABS: Amorphous Sediment,Urine Occasional /hpf; Appearance,Urine Cloudy (Clear); Bacteria,Urine Rare /hpf; Bilirubin,Urine Negative (Negative); Blood,Urine Negative (Negative); Color,Urine Yellow; Glucose,Urine (UA) Negative (Negative); Ketones,Urine Negative (Negative); Leukocyte Esterase,Urine Moderate (Negative); Mucus,Urine Rare /hpf; Nitrite,Urine Negative (Negative); PH, Urine 6.5 (5.0-8.0); Protein,Urine 1+ (Negative); RBC,Urine 2 /hpf (0-5); Squamous Epithelial Cell,Urine 3 /hpf (0-4); Urobilinogen,Urine <2.0 mg/dL (<2.0); WBC,Urine 6 /hpf (0-5)
[2021-04-24] MEDS ORDERED: ASPIRIN 81 MG PO STA (23:37)
[2021-04-24] MEDS ORDERED: NITROGLYCERIN SL TABS 0.4 MG TAB SUBLINGUAL PRN (23:38)
--- NOTE | 2021-04-24 23:45 | ED ---
General Adult HPI - General Chief complaint: Recheck/Abnormal Lab/Rx Stated complaint: Dehydration Time Seen by Provider: 04/24/21 19:03 Source: patient Mode of arrival: wheelchair Limitations: no limitations - History of Present Illness Initial comments: 85 year-old female patient presents to the emergency department for diarrhea, dehydration, and weakness. States she has had watery diarrhea multiple times per day for the last four days. Patient is reporting lower abdominal pain. State that she seems very dry and dehydrated. She has been confused today which is unusual for her. States that she has been more weak than usual. Having difficulty walking. They are concerned she will fall. Patient does respond appropriately to questions but family provides most of history. They deny any black or bloody stool. Patient denies any chest pain, shortness of breath, or dizziness. She denies any hematuria, dysuria, urinary urgency, or urinary frequency. Patient denies any recent rash, fever, chills, cough, nausea, vomiting, back pain, numbness, tingling, headache, visual changes, or any other complaints. - Related Data Home Medications Medication Instructions Recorded Confirmed Allopurinol [Zyloprim] 300 mg PO DAILY 03/03/14 04/24/21 Atorvastatin [Lipitor] 40 mg PO HS 03/03/14 04/24/21 Glimepiride [Amaryl] 2 mg PO DAILY 03/03/14 04/24/21 LORazepam [Ativan] 1 mg PO HS 03/03/14 04/24/21 Metoprolol Tartrate [Lopressor] 50 mg PO BID 03/03/14 04/24/21 Omeprazole [PriLOSEC] 20 mg PO DAILY 03/03/14 04/24/21 calcitrioL [Calcitriol] 0.5 mcg PO MOTUWETHFR 03/03/14 04/24/21 Ergocalciferol [Vitamin D2 50,000 unit PO QMONTH 04/23/15 04/24/21 (DRISDOL)] Acetaminophen Tab [Tylenol] 1,000 mg PO Q6HR PRN 06/15/15 04/24/21 Aspirin EC [Ecotrin Low Dose] 81 mg PO DAILY 10/24/16 04/24/21 Calcium Carbonate [Calcium] 600 mg PO DAILY 10/24/16 04/24/21 B Complex W-C No.20/Folic Acid 1 mg PO DAILY 04/09/21 04/24/21 [Renal Caps Softgel] Budesonide/Glycopyr/Formoterol 2 puff INHALATION RT-BID 04/09/21 04/24/21 [Breztri Aerosphere Inhaler] Famotidine/Ca Carb/Mag Hydrox 1 tab PO DAILY 04/09/21 04/24/21 [Pepcid Complete Tablet Chew] Levothyroxine Sodium [Synthroid] 25 mcg PO DAILY 04/09/21 04/24/21 Magnesium 200 mg PO DAILY 04/09/21 04/24/21 Potassium Chloride [Klor-Con 10 ER] 10 meq PO DAILY 04/24/21 04/24/21 Previous Rx's Medication Instructions Recorded Furosemide [Lasix] 40 mg PO BID@0800,1600 #60 tab 04/14/21 Loperamide [Imodium] 2 mg PO DAILY PRN #0 04/14/21 bisacodyL [Dulcolax] 5 mg PO DAILY PRN #0 04/14/21 Allergies Allergy/AdvReac Type Severity Reaction Status Date / Time sulfamethoxazole Allergy Rash/Hives Verified 04/24/21 17:37 [From Bactrim] trimethoprim [From Bactrim] Allergy Rash/Hives Verified 04/24/21 17:37 Review of Systems ROS Statement: Those systems with pertinent positive or pertinent negative responses have been documented in the HPI. ROS Other: All systems not noted in ROS Statement are negative. Past Medical History Past Medical History: Coronary Artery Disease (CAD), Heart Failure, Diabetes Mellitus, Deep Vein Thrombosis (DVT), GERD/Reflux, Hyperlipidemia, Hypertension, Osteoarthritis (OA), Renal Disease, Skin Disorder, Thyroid Disorder Additional Past Medical History / Comment(s): GOUT. AORTIC VALVE REPLACED. Anemia. HX LLL DVT. RENAL DISEASE STAGE 4. VARICOSE VEINS, EDEMA MAXIMILIANO ANKLES. CYST ON BACK, STATES D/T POISONOUS SPIDER BITE 2011. History of Any Multi-Drug Resistant Organisms: None Reported Past Surgical History: Cardiac Valve Replacement, Cholecystectomy, Coronary Bypass/CABG, Hysterectomy, Joint Replacement, Orthopedic Surgery Additional Past Surgical History / Comment(s): 2011 CABG w/ 5 vessel bypass and aortic valve. 03/07/14 Colonoscopy with EGD and BX. MOSHE. Maximiliano knee and L shoulder Replacement. Sinus surgery. Past Anesthesia/Blood Transfusion Reactions: No Reported Reaction Past Psychological History: Anxiety Smoking Status: Never smoker Past Alcohol Use History: None Reported Past Drug Use History: None Reported - Past Family History Daughter(s) Family Medical History: Cancer Father Family Medical History: Cancer, Coronary Artery Disease (CAD) Additional Family Medical History / Comment(s): Father had cancer but pt does not know what type. Father at age 77yrs. Mother Family Medical History: CVA/TIA Additional Family Medical History / Comment(s): Mother had a CVA. She at age 86yrs. General Exam Limitations: no limitations General appearance: alert, in no apparent distress, other (This well-developed, well-nourished adult female patient in no acute distress.) ENT exam: Present: normal exam, normal oropharynx, mucous membranes moist Respiratory exam: Present: normal lung sounds bilaterally. Absent: respiratory distress, wheezes, rales, rhonchi, stridor Cardiovascular Exam: Present: regular rate, normal rhythm, normal heart sounds. Absent: systolic murmur, diastolic murmur, rubs, gallop, clicks GI/Abdominal exam: Present: soft, tenderness (Left lower quadrant tenderness), normal bowel sounds. Absent: distended, guarding, rebound, rigid Neurological exam: Present: alert, oriented X3, CN II-XII intact Psychiatric exam: Present: normal affect, normal mood Skin exam: Present: warm, dry, intact, normal color. Absent: rash Course Vital Signs 04/24/21 04/24/21 04/25/21 17:38 20:30 00:00 Temperature 99.3 F Pulse Rate 97 92 67 Respiratory 20 16 18 Rate Blood Pressure 124/69 101/64 113/53 O2 Sat by Pulse 94 L 95 95 Oximetry 04/25/21 01:00 Temperature Pulse Rate 111 H Respiratory 22 Rate Blood Pressure 93/65 O2 Sat by Pulse 93 L Oximetry EKG Findings - EKG Comments: EKG Findings:: EKG obtained at 2042 shows sinus rhythm with first-degree AV block. Ventricular rate is 94, NV interval 216, QRS duration 78, QT 372, QTc 465. No evidence of ST elevation or depression. Medical Decision Making - Medical Decision Making 85-year-old female patient is presented to the emergency department today for persistent diarrhea, abdominal pain, confusion, weakness. Physical examination did reveal left lower quadrant tenderness. Labs reviewed and did reveal normal white blood cell count of 5.4. Red blood cell count is low at 2.95 though hemoglobin is normal. Initial troponin 0.145. BNP 7390. Urinalysis shows 6 white blood cells with rare bacteria of this will be sent for culture. Stool sent for C. diff, was negative. She did test positive for COVID-19. To be admitted to the hospital for serial troponins. Further evaluation and monitoring. Family is agreeable this plan. Case discussed with my attending Dr. Porter. - Lab Data Result diagrams: 04/24/21 19:44 04/24/21 19:44 Lab Results 04/24/21 04/24/21 04/24/21 Range/Units 19:44 19:44 19:44 WBC 5.4 (3.8-10.6) k/uL RBC 2.95 L (3.80-5.40) m/uL Hgb 12.3 (11.4-16.0) gm/dL Hct 36.5 (34.0-46.0) % MCV 123.7 H (80.0-100.0) fL MCH 41.7 H (25.0-35.0) pg MCHC 33.7 (31.0-37.0) g/dL RDW 14.6 (11.5-15.5) % Plt Count 113 L (150-450) k/uL MPV 8.7 Neutrophils % 85 % Lymphocytes % 9 % Monocytes % 5 % Eosinophils % 0 % Basophils % 0 % Neutrophils # 4.6 (1.3-7.7) k/uL Lymphocytes # 0.5 L (1.0-4.8) k/uL Monocytes # 0.3 (0-1.0) k/uL Eosinophils # 0.0 (0-0.7) k/uL Basophils # 0.0 (0-0.2) k/uL Manual Slide Review Performed Macrocytosis Marked A Sodium 136 L (137-145) mmol/L Potassium 4.0 (3.5-5.1) mmol/L Chloride 98 (98-107) mmol/L Carbon Dioxide 29 (22-30) mmol/L Anion Gap 9 mmol/L BUN 48 H (7-17) mg/dL Creatinine 1.45 H (0.52-1.04) mg/dL Est GFR (CKD-EPI)AfAm 38 (>60 ml/min/1.73 sqM) Est GFR (CKD-EPI)NonAf 33 (>60 ml/min/1.73 sqM) Glucose 109 H (74-99) mg/dL Calcium 8.9 (8.4-10.2) mg/dL Magnesium 2.0 (1.6-2.3) mg/dL Total Bilirubin 1.0 (0.2-1.3) mg/dL AST 55 H (14-36) U/L ALT 15 (4-34) U/L Alkaline Phosphatase 66 (38-126) U/L Troponin I (0.000-0.034) ng/mL NT-Pro-B Natriuret Pep pg/mL Total Protein 6.6 (6.3-8.2) g/dL Albumin 3.6 (3.5-5.0) g/dL Lipase 67 (23-300) U/L Urine Color Yellow Urine Appearance Cloudy H (Clear) Urine pH 6.5 (5.0-8.0) Ur Specific [place] 1.020 (1.001-1.035) Urine Protein 1+ H (Negative) Urine Glucose (UA) Negative (Negative) Urine Ketones Negative (Negative) Urine Blood Negative (Negative) Urine Nitrite Negative (Negative) Urine Bilirubin Negative (Negative) Urine Urobilinogen <2.0 (<2.0) mg/dL Ur Leukocyte Esterase Moderate H (Negative) Urine RBC 2 (0-5) /hpf Urine WBC 6 H (0-5) /hpf Ur Squamous Epith Cells 3 (0-4) /hpf Amorphous Sediment Occasional H (None) /hpf Urine Bacteria Rare H (None) /hpf Urine Mucus Rare H (None) /hpf C. difficile (EIA) Intrp (Negative) 04/24/21 04/24/21 04/24/21 Range/Units 19:44 19:44 22:59 WBC (3.8-10.6) k/uL RBC (3.80-5.40) m/uL Hgb (11.4-16.0) gm/dL Hct (34.0-46.0) % MCV (80.0-100.0) fL MCH (25.0-35.0) pg MCHC (31.0-37.0) g/dL RDW (11.5-15.5) % Plt Count (150-450) k/uL MPV Neutrophils % % Lymphocytes % % Monocytes % % Eosinophils % % Basophils % % Neutrophils # (1.3-7.7) k/uL Lymphocytes # (1.0-4.8) k/uL Monocytes # (0-1.0) k/uL Eosinophils # (0-0.7) k/uL Basophils # (0-0.2) k/uL Manual Slide Review Macrocytosis Sodium (137-145) mmol/L Potassium (3.5-5.1) mmol/L Chloride (98-107) mmol/L Carbon Dioxide (22-30) mmol/L Anion Gap mmol/L BUN (7-17) mg/dL Creatinine (0.52-1.04) mg/dL Est GFR (CKD-EPI)AfAm (>60 ml/min/1.73 sqM) Est GFR (CKD-EPI)NonAf (>60 ml/min/1.73 sqM) Glucose (74-99) mg/dL Calcium (8.4-10.2) mg/dL Magnesium (1.6-2.3) mg/dL Total Bilirubin (0.2-1.3) mg/dL AST (14-36) U/L ALT (4-34) U/L Alkaline Phosphatase (38-126) U/L Troponin I 0.145 H* (0.000-0.034) ng/mL NT-Pro-B Natriuret Pep 7390 pg/mL Total Protein (6.3-8.2) g/dL Albumin (3.5-5.0) g/dL Lipase (23-300) U/L Urine Color Urine Appearance (Clear) Urine pH (5.0-8.0) Ur Specific [place] (1.001-1.035) Urine Protein (Negative) Urine Glucose (UA) (Negative) Urine Ketones (Negative) Urine Blood (Negative) Urine Nitrite (Negative) Urine Bilirubin (Negative) Urine Urobilinogen (<2.0) mg/dL Ur Leukocyte Esterase (Negative) Urine RBC (0-5) /hpf Urine WBC (0-5) /hpf Ur Squamous Epith Cells (0-4) /hpf Amorphous Sediment (None) /hpf Urine Bacteria (None) /hpf Urine Mucus (None) /hpf C. difficile (EIA) Intrp Negative (Negative) 04/25/21 Range/Units 00:12 WBC (3.8-10.6) k/uL RBC (3.80-5.40) m/uL Hgb (11.4-16.0) gm/dL Hct (34.0-46.0) % MCV (80.0-100.0) fL MCH (25.0-35.0) pg MCHC (31.0-37.0) g/dL RDW (11.5-15.5) % Plt Count (150-450) k/uL MPV Neutrophils % % Lymphocytes % % Monocytes % % Eosinophils % % Basophils % % Neutrophils # (1.3-7.7) k/uL Lymphocytes # (1.0-4.8) k/uL Monocytes # (0-1.0) k/uL Eosinophils # (0-0.7) k/uL Basophils # (0-0.2) k/uL Manual Slide Review Macrocytosis Sodium (137-145) mmol/L Potassium (3.5-5.1) mmol/L Chloride (98-107) mmol/L Carbon Dioxide (22-30) mmol/L Anion Gap mmol/L BUN (7-17) mg/dL Creatinine (0.52-1.04) mg/dL Est GFR (CKD-EPI)AfAm (>60 ml/min/1.73 sqM) Est GFR (CKD-EPI)NonAf (>60 ml/min/1.73 sqM) Glucose (74-99) mg/dL Calcium (8.4-10.2) mg/dL Magnesium (1.6-2.3) mg/dL Total Bilirubin (0.2-1.3) mg/dL AST (14-36) U/L ALT (4-34) U/L Alkaline Phosphatase (38-126) U/L Troponin I 0.139 H* (0.000-0.034) ng/mL NT-Pro-B Natriuret Pep pg/mL Total Protein (6.3-8.2) g/dL Albumin (3.5-5.0) g/dL Lipase (23-300) U/L Urine Color Urine Appearance (Clear) Urine pH (5.0-8.0) Ur Specific [place] (1.001-1.035) Urine Protein (Negative) Urine Glucose (UA) (Negative) Urine Ketones (Negative) Urine Blood (Negative) Urine Nitrite (Negative) Urine Bilirubin (Negative) Urine Urobilinogen (<2.0) mg/dL Ur Leukocyte Esterase (Negative) Urine RBC (0-5) /hpf Urine WBC (0-5) /hpf Ur Squamous Epith Cells (0-4) /hpf Amorphous Sediment (None) /hpf Urine Bacteria (None) /hpf Urine Mucus (None) /hpf C. difficile (EIA) Intrp (Negative) - Radiology Data Radiology results: report reviewed, image reviewed CT abdomen and pelvis without contrast was obtained. Report was reviewed in its entirety. Impression by Dr. Saenz shows no acute abdominopelvic process. Disposition Clinical Impression: Dehydration, Diarrhea, Weakness, NSTEMI (non-ST elevated myocardial infarction) Disposition: ADMITTED IP TO THIS [facility] Condition: Serious Decision to Admit Reason: Admit from EC Decision Date: 04/24/21 Decision Time: 23:45
[2021-04-25] MEDS ORDERED: ACETAMINOPHEN TAB 325 MG TAB PO PRN (02:32)
--- NOTE | 2021-04-25 06:17 | XR ---
EXAMINATION TYPE: XR chest 1V portable DATE OF EXAM: 04/25/2021 COMPARISON: 04/12/2021 HISTORY: Pneumonia TECHNIQUE: Single view FINDINGS: There is some mild patchy infiltrate in both lungs which is mostly interstitial. There is l eft shoulder prosthesis. There are chest leads. There are sternal wires. There is no obvious heart fa ilure. Heart size is fairly normal. IMPRESSION: There is bilateral predominantly interstitial pneumonia which is increased compared to la st exam.
[2021-04-25 06:18] LABS: Glucose,Whole Blood 92 mg/dL (75-99)
[2021-04-25] MEDS: INSULIN ASPART (NovoLOG) 100 UNIT/ML VIAL SQ SCH ×4 (06:23→21:36)
[2021-04-25] MEDS: LEVOTHYROXINE 25 MCG TAB PO SCH (06:37)
[2021-04-25] MEDS: PANTOPRAZOLE 40 MG TABLET PO SCH (06:37)
[2021-04-25] MEDS ORDERED: KETOROLAC 30 MG/ML 1 ML VIAL IVP STA (07:05)
[2021-04-25] MEDS ORDERED: REMDESIVIR 200 MG in SODIUM CHLORIDE 0.9% 250 ML IVPB ONE (08:00)
[2021-04-25] MEDS ORDERED: ALBUTEROL NEBULIZED 2.5 MG/3 ML INHALATION SCH (08:00)
[2021-04-25] MEDS ORDERED: HEPARIN SODIUM 1,000 UN/ML (10ML VL) IV PRN (08:53)
[2021-04-25] MEDS ORDERED: HEPARIN SODIUM 1,000 UN/ML (10ML VL) IV ONE (08:53)
[2021-04-25] MEDS ORDERED: HEPARIN SOD,PORK IN 0.45% NACL 25,000 UNIT in 0.45% NACL 1 250ML.BAG IV SCH (09:00)
[2021-04-25] MEDS ORDERED: ASPIRIN 325 MG TAB PO SCH (09:00)
[2021-04-25] MEDS ORDERED: ENOXAPARIN 40 MG/0.4 ML SYRINGE SQ SCH (09:00)
[2021-04-25] MEDS ORDERED: FAMOTIDINE 20 MG TAB PO SCH (09:00)
[2021-04-25] MEDS ORDERED: FOLIC ACID-VIT B COMPLEX-VIT C 1 CAP PO SCH (09:00)
[2021-04-25] MEDS ORDERED: CALCIUM CARBONATE 500 MG CHEWABLE PO SCH (09:00)
[2021-04-25 09:16] LABS: Basophils % (A) 0 %; Eosinophils % (A) 1 %; HCT 33.1 % (34.0-46.0); HGB 11.1 gm/dL (11.4-16.0); Lymphocytes # (A) 0.6 k/uL (1.0-4.8); Lymphocytes % (A) 11 %; MCHC 33.4 g/dL (31.0-37.0); Macrocytosis Marked; Mean Platelet Volume 8.5; Monocytes # (A) 0.2 k/uL (0-1.0); Monocytes % (A) 4 %; Neutrophils # (A) 4.3 k/uL (1.3-7.7); Neutrophils % (A) 83 %; Platelet Count 103 k/uL (150-450); RBC 2.62 m/uL (3.80-5.40); RDW 14.6 % (11.5-15.5); WBC 5.1 k/uL (3.8-10.6)
[2021-04-25 09:27] LABS: MCH 42.1 pg (25.0-35.0)
[2021-04-25 09:32] LABS: C Reactive Protein 6.2 mg/dL (<1.0); Calcium 8.4 mg/dL (8.4-10.2); Magnesium 1.9 mg/dL (1.6-2.3); Potassium 3.3 mmol/L (3.5-5.1); Total Bilirubin 0.7 mg/dL (0.2-1.3); Total Protein 5.5 g/dL (6.3-8.2)
[2021-04-25] MEDS ORDERED: Potassium Replacement Protocol 1 EACH MISC MISCELLANE PRN (09:36)
[2021-04-25 09:46] LABS: Prothrombin Time 10.3 sec (9.0-12.0)
--- NOTE | 2021-04-25 09:57 | P.CRDCN ---
History of Present Illness History of present illness: This is a 85-year-old female with a past medical history significant for coronary artery disease with previous 5 vessel CABG in 2012, bioprosthetic aortic valve replacement, congestive heart failure chronic kidney disease, hypertension, hyperlipidemia, and diabetes mellitus. Patient follows in the office with Dr. Alonso. We have been asked to see the patient in consultation for elevated troponin. Patient presents to the emergency department with complaints of diarrhea, dehydration, and weakness for 2 weeks. States she has had watery diarrhea multiple times per day and has worsened over the last 4-5 days. Patient also had some lower abdominal pain that has improved. Patient denies any chest pain, palpitations, shortness of breath, or lightheadedness, dizziness. Denies symptoms of syncope or pre syncope. She denies orthopnea or PND. She sleeps with 3 pillows which is normal for her. She denies any hematuria, dysuria, urinary urgency, or urinary frequency. Patient denies any recent rash, fever, chills, cough, nausea, vomiting, back pain, numbness, tingling, headache, visual changes, or any other complaints. She is vaccinated, received the Xander and Xander vaccine. Patient recently admitted 04/09/21 for congestive heart failure. She was diuresed, stabilized and discharged home. DIAGNOSTICS: EKG on admission reveals sinus rhythm with history of AV block, occasional PVC, no significant ST ST abnormalities. Repeat EKG this morning revealed atrial fibrillation with rapid ventricular response HR 110s Chest xray bilateral predominantly interstitial pneumonia Laboratory data: WBC 5.1, hemoglobin 11.1, platelets 103, d-dimer 1.0, sodium 137, potassium 3.3, P1 44, serum creatinine 1.5, troponin 0.14 0.13, 0.2, proBNP 7390, previous recent admission 2800. COVID-19 PCR Positive Echocardiogram 04/10/21 revealed EF 60-65%, LA is moderately dilated, mild regurgitation of the bioprosthetic aortic alyssa, trace to mild regurgitation, mild tricuspid regurgitation, severe pulmonary hypertension RVSP 57mmHg. Current home cardiac medications include metoprolol tartrate 50mg twice a day, Lasix 40 mg daily, Lipitor 40mg daily, aspirin 81 mg daily REVIEW OF SYSTEMS: At the time of my exam: CONSTITUTIONAL: + fever Denies chills.+generalized weakness HEENT: Denies blurred vision, vision changes, or eye pain. Denies hemoptysis CARDIOVASCULAR: Denies chest pain. Denies orthopnea. Denies PND. Denies palpitations RESPIRATORY: +cough Denies shortness of breath. GASTROINTESTINAL: +diarrhea + abdominal pain. Denies nausea or vomiting. HEMATOLOGIC: Denies bleeding disorders. GENITOURINARY: Denies any blood in urine. SKIN: Denies pruitis. Denies rash. PHYSICAL EXAM: VITAL SIGNS: Reviewed. GENERAL: In on acute distress HEENT: Head is normocephalic. Pupils are equal, round. Sclerae anicteric. Mucous membranes of the mouth are dry. Neck supple. No JVD LUNGS: Respirations even and unlabored. HEART: Irregular rate and rhythm ABDOMEN: Soft. Nondistended. Nontender. EXTREMITIES: Mild bilateral lower extremity edema NEUROLOGIC: Awake and alert. Oriented x 3. ASSESSMENT: NSTEMI New onset paroysmal atrial fibrillation with RVR [id number] score 7 Diarrhea, generalized weakness Covid-19 pneumonia Fever Acute on chronic kidney disease Chronic diastolic congestive heart failure Coronary artery disease with CABG 2011 Severe aortic stenosis s/p bioprosthetic aortic valve replacement Hypertension Hyperlipidemia Type 2 Diabetes mellitus Hypokalemia PLAN: Start IV heparin drip Nitro paste Continue aspirin, statin Continue metoprolol tartrate 50 mg twice a day, will adjust as tolerated Limited echo tomorrow morning Continue cardiac telemetry Replace potassium per protocol 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 Signing provider agrees with the documented findings, assessment, and plan of care. Past Medical History Past Medical History: Coronary Artery Disease (CAD), Heart Failure, Diabetes Mellitus, Deep Vein Thrombosis (DVT), GERD/Reflux, Hyperlipidemia, Hypertension, Osteoarthritis (OA), Renal Disease, Skin Disorder, Thyroid Disorder Additional Past Medical History / Comment(s): GOUT. AORTIC VALVE REPLACED. Anemia. HX LLL DVT. RENAL DISEASE STAGE 4. VARICOSE VEINS, EDEMA KEYONNA ANKLES. CYST ON BACK, STATES D/T POISONOUS SPIDER BITE 2011. History of Any Multi-Drug Resistant Organisms: None Reported Past Surgical History: Cardiac Valve Replacement, Cholecystectomy, Coronary Bypass/CABG, Hysterectomy, Joint Replacement, Orthopedic Surgery Additional Past Surgical History / Comment(s): 2011 CABG / vessel bypass and aortic valve. 03/07/14 Colonoscopy with EGD and BX. MOSHE. [place] knee and L shoulder Replacement. Sinus surgery. Past Anesthesia/Blood Transfusion Reactions: No Reported Reaction Past Psychological History: Anxiety Additional Psychological History / Comment(s): Pt resides with her son. She uses a cane prn. She drives. She is independent. Smoking Status: Never smoker Past Alcohol Use History: None Reported Past Drug Use History: None Reported - Past Family History Daughter(s) Family Medical History: Cancer Father Family Medical History: Cancer, Coronary Artery Disease (CAD) Additional Family Medical History / Comment(s): Father had cancer but pt does not know what type. Father at age 77yrs. Mother Family Medical History: CVA/TIA Additional Family Medical History / Comment(s): Mother had a CVA. She at age 86yrs. Medications and Allergies Home Medications Medication Instructions Recorded Confirmed Type Allopurinol [Zyloprim] 300 mg PO DAILY 03/03/14 04/24/21 History Atorvastatin [Lipitor] 40 mg PO HS 03/03/14 04/24/21 History Glimepiride [Amaryl] 2 mg PO DAILY 03/03/14 04/24/21 History LORazepam [Ativan] 1 mg PO HS 03/03/14 04/24/21 History Metoprolol Tartrate [Lopressor] 50 mg PO BID 03/03/14 04/24/21 History Omeprazole [PriLOSEC] 20 mg PO DAILY 03/03/14 04/24/21 History calcitrioL [Calcitriol] 0.5 mcg PO MOTUWETHFR 03/03/14 04/24/21 History Ergocalciferol [Vitamin D2 50,000 unit PO QMONTH 04/23/15 04/24/21 History (DRISDOL)] Acetaminophen Tab [Tylenol] 1,000 mg PO Q6HR PRN 06/15/15 04/24/21 History Aspirin EC [Ecotrin Low Dose] 81 mg PO DAILY 10/24/16 04/24/21 History Calcium Carbonate [Calcium] 600 mg PO DAILY 10/24/16 04/24/21 History B Complex W-C No.20/Folic Acid 1 mg PO DAILY 04/09/21 04/24/21 History [Renal Caps Softgel] Budesonide/Glycopyr/Formoterol 2 puff INHALATION RT-BID 04/09/21 04/24/21 History [Breztri Aerosphere Inhaler] Famotidine/Ca Carb/Mag Hydrox 1 tab PO DAILY 04/09/21 04/24/21 History [Pepcid Complete Tablet Chew] Levothyroxine Sodium [Synthroid] 25 mcg PO DAILY 04/09/21 04/24/21 History Magnesium 200 mg PO DAILY 04/09/21 04/24/21 History Furosemide [Lasix] 40 mg PO BID@0800,1600 #60 tab 04/14/21 04/24/21 Rx Loperamide [Imodium] 2 mg PO DAILY PRN #0 04/14/21 04/24/21 Rx bisacodyL [Dulcolax] 5 mg PO DAILY PRN #0 04/14/21 04/24/21 Rx Potassium Chloride [Klor-Con 10 ER] 10 meq PO DAILY 04/24/21 04/24/21 History Allergies Allergy/AdvReac Type Severity Reaction Status Date / Time sulfamethoxazole Allergy Rash/Hives Verified 04/24/21 17:37 [From Bactrim] trimethoprim [From Bactrim] Allergy Rash/Hives Verified 04/24/21 17:37 Physical Exam Vitals: Vital Signs Temp Pulse Pulse Resp BP BP Pulse Ox 04/25/21 04:24 100.9 F H 95 18 96/55 92 L 04/25/21 04:00 100.9 F H 102 H 18 96/55 92 L 04/25/21 02:23 102.3 F H 111 H 20 110/57 93 L 04/25/21 02:00 111 H 04/25/21 01:00 111 H 22 93/65 93 L 04/25/21 00:00 67 18 113/53 95 04/24/21 20:30 92 16 101/64 95 04/24/21 17:38 99.3 F 97 20 124/69 94 L Intake and Output 04/24/21 04/25/21 04/25/21 22:59 06:59 14:59 Other: Weight 78.925 kg 78.925 kg Results 04/25/21 08:51 04/25/21 08:43 Cardiac Enzymes 04/24/21 04/24/21 04/25/21 Range/Units 19:44 19:44 00:12 AST 55 H (14-36) U/L Troponin I 0.145 H* 0.139 H* (0.000-0.034) ng/mL 04/25/21 Range/Units 03:14 AST (14-36) U/L Troponin I 0.201 H* (0.000-0.034) ng/mL CBC 04/24/21 Range/Units 19:44 WBC 5.4 (3.8-10.6) k/uL RBC 2.95 L (3.80-5.40) m/uL Hgb 12.3 (11.4-16.0) gm/dL Hct 36.5 (34.0-46.0) % Plt Count 113 L (150-450) k/uL Comprehensive Metabolic Panel 04/24/21 Range/Units 19:44 Sodium 136 L (137-145) mmol/L Potassium 4.0 (3.5-5.1) mmol/L Chloride 98 (98-107) mmol/L Carbon Dioxide 29 (22-30) mmol/L BUN 48 H (7-17) mg/dL Creatinine 1.45 H (0.52-1.04) mg/dL Glucose 109 H (74-99) mg/dL Calcium 8.9 (8.4-10.2) mg/dL AST 55 H (14-36) U/L ALT 15 (4-34) U/L Alkaline Phosphatase 66 (38-126) U/L Total Protein 6.6 (6.3-8.2) g/dL Albumin 3.6 (3.5-5.0) g/dL Current Medications Generic Name Dose Route Start Last Admin Trade Name Freq PRN Reason Stop Dose Admin Acetaminophen 650 mg 04/25/21 02:32 04/25/21 02:50 Acetaminophen Tab 325 Mg Tab PO 650 mg Q6HR PRN Administration Fever and/ or Pain Albuterol Sulfate 2 puff 04/25/21 08:00 Albuterol Hfa Inhaler INHALATION RT-QID [facility] Allopurinol 300 mg 04/25/21 09:00 Allopurinol 300 Mg Tab PO DAILY [facility] Ascorbic Acid 1,000 mg 04/25/21 09:00 Ascorbic Acid 500 Mg Tab PO DAILY [facility] Aspirin 81 mg 04/25/21 09:00 Aspirin 81 Mg PO DAILY [facility] Atorvastatin Calcium 40 mg 04/25/21 21:00 Atorvastatin 40 Mg Tab PO HS [facility] Calcitriol 0.5 mcg 04/25/21 09:00 Calcitriol 0.25 Mcg Cap PO MOTUWETHFR [facility] Calcium Carbonate/Glycine 500 mg 04/25/21 09:00 Calcium Carbonate 500 Mg Chewable PO DAILY [facility] Cholecalciferol 50 mcg 04/25/21 09:00 Cholecalciferol 25 Mcg (1000 Iu) Tablet PO DAILY [facility] Dexamethasone Sodium Phosphate 6 mg 04/25/21 09:00 Dexamethasone Sod Phosphate 10 Mg/Ml 1 Ml Vial IV 05/04/21 09:01 DAILY [facility] Enoxaparin Sodium 40 mg 04/25/21 09:00 Enoxaparin 40 Mg/0.4 Ml Syringe SQ DAILY [facility] Famotidine 20 mg 04/25/21 09:00 Famotidine 20 Mg Tab PO DAILY [facility] Fluticasone Propionate 1 puff 04/25/21 08:00 Fluticasone 110 Mcg Inhaler INHALATION RT-BID [facility] Glimepiride 2 mg 04/25/21 09:00 Glimepiride 2 Mg Tab PO DAILY [facility] Insulin Aspart 0 unit 04/25/21 07:30 04/25/21 06:23 Insulin Aspart (Novolog) 100 Unit/Ml Vial SQ Not Given ACHS [facility] Protocol Levothyroxine Sodium 25 mcg 04/25/21 06:30 04/25/21 06:37 Levothyroxine 25 Mcg Tab PO 25 mcg DAILY@0630 [facility] Administration Lorazepam 1 mg 04/25/21 21:00 Lorazepam 1 Mg Tab PO HS [facility] Metoprolol Tartrate 50 mg 04/25/21 09:00 Metoprolol Tartrate 50 Mg Tab PO BID [facility] Nitroglycerin 0.4 mg 04/24/21 23:38 Nitroglycerin Sl Tabs 0.4 Mg Tab SUBLINGUAL Q5M PRN Chest Pain Pantoprazole Sodium 40 mg 04/25/21 07:30 04/25/21 06:37 Pantoprazole 40 Mg Tablet PO 40 mg [id number] [facility] Administration Salmeterol Xinafoate 1 puff 04/25/21 08:00 Salmeterol 50 Mcg Inhaler INHALATION RT-BID [facility] Tiotropium [place] 2 puff 04/25/21 08:00 Tiotropium 2.5 Mcg Inhaler INHALATION RT-DAILY [facility] Zinc Sulfate 220 mg 04/25/21 09:00 Zinc Sulfate 220 Mg Cap PO DAILY [facility] Intake and Output 04/24/21 04/25/21 04/25/21 22:59 06:59 14:59 Other: Weight 78.925 kg 78.925 kg 04/24/21 19:44 04/24/21 19:44
[2021-04-25] MEDS: ALBUTEROL HFA INHALER INHALATION SCH ×4 (10:51→21:39)
[2021-04-25] MEDS: Salmeterol 50 mcg INHALER INHALATION SCH ×2 (10:52→21:40)
[2021-04-25] MEDS: TIOTROPIUM 2.5 MCG INHALER INHALATION SCH (10:52)
[2021-04-25] MEDS: FLUTICASONE 110 MCG INHALER INHALATION SCH ×2 (10:52→21:39)
[2021-04-25] MEDS: ASCORBIC ACID 500 MG TAB PO SCH (10:54)
[2021-04-25] MEDS: CHOLECALCIFEROL 25 MCG (1000 IU) TABLET PO SCH (10:54)
[2021-04-25] MEDS: allopurinoL 300 MG TAB PO SCH (10:54)
[2021-04-25] MEDS: METOPROLOL TARTRATE 50 MG TAB PO SCH ×2 (10:54→21:36)
[2021-04-25] MEDS: ZINC SULFATE 220 MG CAP PO SCH (10:55)
[2021-04-25] MEDS: DEXAMETHASONE SOD PHOSPHATE 10 MG/ML 1 ML VIAL IV SCH (10:55)
[2021-04-25] MEDS: POTASSIUM CHLORIDE ER 20 MEQ TAB.ER PO SCH ×2 (10:55→14:16)
[2021-04-25] MEDS: ASPIRIN 81 MG PO SCH (10:55)
--- NOTE | 2021-04-25 11:21 | P.HPIM ---
History of Present Illness H&P Date: 04/25/21 Chief Complaint: Dyspnea/generalized weakness/fever/chills/diarrhea 85-year-old female significant medical history of coronary artery disease with open heart surgery 5 vessel bypass in 2012, diastolic heart failure, diabetes, history of DVT, hyperlipidemia, hypertension, chronic renal disease, history of aortic valve replacement, chronic macrocytic anemia, hypothyroidism, and several additional comorbidities. Patient presented to the emergency department for complaint watery diarrhea, abdominal pain, generalized weakness, and intermittent chills. Patient had extensive diagnostic workup in emergency department consisting of a CBC revealing chronic macrocytic anemia, with normal white count, low lymphocytes noted. Coagulation studies elevated d-dimer at 1.0. CMP: hypokalemia potassium 3.3, sodium 137, chloride 101, BUN 44, creatinine 1.55, mildly elevated C-reactive protein at 6.2, positive Covid PCR. Trending elevation of troponins with last troponin 0.201, secondary possibly to chronic diastolic heart failure, and Acute Covid 19 pneumonia. Elevated BNP at 7390. CT abdomen and pelvis: no acute abnormalities noted; chest x-ray: consistent with interstitial pneumonia, secondary to acute covid-19 infection. Patient is admitted to the hospital for acute Covid 19 infection, Covid pneumonia, acute on chronic kidney disease, chronic diastolic congestive heart failure, and elevated troponins. Consult cardiology was placed by emergency department for elevation in troponins; consultation with pulmonary critical care for acute Covid 19 pneumonia, with acute respiratory failure secondary to Covid 19 pneumonia infection. 04/25/2021 Patient seen and examined emergency department. Difficulty obtaining subjective data due to patient's increased respiratory rate and able to only speak a few word sentences. Contacted son regarding patient's new onset of symptoms of diarrhea, abdominal pain, generalized weakness and intermittent chills, which began 4 days prior to admission. Explained to son patient's condition and new onset of acute Covid 19 infection. Patient is in guarded prognosis due to new onset of acute Covid 19 infection pneumonia, and acute respiratory failure secondary to acute Covid 19 pneumonia. Review of Systems Constitutional: Reports as per HPI Ears, nose, mouth and throat: Reports as per HPI Cardiovascular: Reports as per HPI Respiratory: Reports as per HPI Gastrointestinal: Reports as per HPI Genitourinary: Reports as per HPI Menstruation: Reports as per HPI Musculoskeletal: Reports as per HPI Integumentary: Reports as per HPI Neurological: Reports as per HPI Psychiatric: Reports as per HPI Endocrine: Reports as per HPI Hematologic/Lymphatic: Reports as per HPI Allergic/Immunologic: Reports as per HPI Past Medical History Past Medical History: Coronary Artery Disease (CAD), Heart Failure, Diabetes Mellitus, Deep Vein Thrombosis (DVT), GERD/Reflux, Hyperlipidemia, Hypertension, Osteoarthritis (OA), Renal Disease, Skin Disorder, Thyroid Disorder Additional Past Medical History / Comment(s): GOUT. AORTIC VALVE REPLACED. Anemia. HX LLL DVT. RENAL DISEASE STAGE 4. VARICOSE VEINS, EDEMA MAXIMILIANO ANKLES. CYST ON BACK, STATES D/T POISONOUS SPIDER BITE 2011. History of Any Multi-Drug Resistant Organisms: None Reported Past Surgical History: Cardiac Valve Replacement, Cholecystectomy, Coronary Bypass/CABG, Hysterectomy, Joint Replacement, Orthopedic Surgery Additional Past Surgical History / Comment(s): 2011 CABG w/ vessel bypass and aortic valve. 03/07/14 Colonoscopy with EGD and BX. MOSHE. Maximiliano knee and L shoulder Replacement. Sinus surgery. Past Anesthesia/Blood Transfusion Reactions: No Reported Reaction Past Psychological History: Anxiety Additional Psychological History / Comment(s): Pt resides with her son. She uses a cane prn. She drives. She is independent. Smoking Status: Never smoker Past Alcohol Use History: None Reported Past Drug Use History: None Reported - Past Family History Daughter(s) Family Medical History: Cancer Father Family Medical History: Cancer, Coronary Artery Disease (CAD) Additional Family Medical History / Comment(s): Father had cancer but pt does not know what type. Father at age 77yrs. Mother Family Medical History: CVA/TIA Additional Family Medical History / Comment(s): Mother had a CVA. She at age 86yrs. Medications and Allergies Home Medications and Allergies Comment(s): Medications and ALLERGIES reviewed Home Medications Medication Instructions Recorded Confirmed Type Allopurinol [Zyloprim] 300 mg PO DAILY 03/03/14 04/24/21 History Atorvastatin [Lipitor] 40 mg PO HS 03/03/14 04/24/21 History Glimepiride [Amaryl] 2 mg PO DAILY 03/03/14 04/24/21 History LORazepam [Ativan] 1 mg PO HS 03/03/14 04/24/21 History Metoprolol Tartrate [Lopressor] 50 mg PO BID 03/03/14 04/24/21 History Omeprazole [PriLOSEC] 20 mg PO DAILY 03/03/14 04/24/21 History calcitrioL [Calcitriol] 0.5 mcg PO MOTUWETHFR 03/03/14 04/24/21 History Ergocalciferol [Vitamin D2 50,000 unit PO QMONTH 04/23/15 04/24/21 History (DRISDOL)] Acetaminophen Tab [Tylenol] 1,000 mg PO Q6HR PRN 06/15/15 04/24/21 History Aspirin EC [Ecotrin Low Dose] 81 mg PO DAILY 10/24/16 04/24/21 History Calcium Carbonate [Calcium] 600 mg PO DAILY 10/24/16 04/24/21 History B Complex W-C No.20/Folic Acid 1 mg PO DAILY 04/09/21 04/24/21 History [Renal Caps Softgel] Budesonide/Glycopyr/Formoterol 2 puff INHALATION RT-BID 04/09/21 04/24/21 History [Breztri Aerosphere Inhaler] Famotidine/Ca Carb/Mag Hydrox 1 tab PO DAILY 04/09/21 04/24/21 History [Pepcid Complete Tablet Chew] Levothyroxine Sodium [Synthroid] 25 mcg PO DAILY 04/09/21 04/24/21 History Magnesium 200 mg PO DAILY 04/09/21 04/24/21 History Furosemide [Lasix] 40 mg PO BID@0800,1600 #60 tab 04/14/21 04/24/21 Rx Loperamide [Imodium] 2 mg PO DAILY PRN #0 04/14/21 04/24/21 Rx bisacodyL [Dulcolax] 5 mg PO DAILY PRN #0 04/14/21 04/24/21 Rx Potassium Chloride [Klor-Con 10 ER] 10 meq PO DAILY 04/24/21 04/24/21 History Apixaban [Eliquis] 2.5 mg PO BID 30 Days #60 tab 04/25/21 Rx Allergies Allergy/AdvReac Type Severity Reaction Status Date / Time sulfamethoxazole Allergy Rash/Hives Verified 04/24/21 17:37 [From Bactrim] trimethoprim [From Bactrim] Allergy Rash/Hives Verified 04/24/21 17:37 Physical Exam Vitals: Vital Signs Temp Pulse Pulse Resp BP BP Pulse Ox 04/25/21 04:24 100.9 F H 95 18 96/55 92 L 04/25/21 04:00 100.9 F H 102 H 18 96/55 92 L 04/25/21 02:23 102.3 F H 111 H 20 110/57 93 L 04/25/21 02:00 111 H 04/25/21 01:00 111 H 22 93/65 93 L 04/25/21 00:00 67 18 113/53 95 04/24/21 20:30 92 16 101/64 95 04/24/21 17:38 99.3 F 97 20 124/69 94 L Intake and Output 04/24/21 04/25/21 04/25/21 22:59 06:59 14:59 Other: Weight 78.925 kg 78.925 kg - Constitutional General appearance: mild distress - EENT ENT: hard of hearing Ears: bilateral: normal - Neck Neck: normal ROM - Respiratory Respiratory: bilateral: rhonchi (Anterior and posterior lung odonnell) - Cardiovascular Normal sinus rhythm Heart rate: 98 Rhythm: regular Heart sounds: normal: S1, S2 foot Peripheral Edema: bilateral: 1+ ankle Peripheral Edema: bilateral: 1+ radial pulse Peripheral Pulses: bilateral: Normal dorsalis pedis Peripheral Pulses: bilateral: Diminished - Gastrointestinal General gastrointestinal: soft, tenderness Localized gastrointestinal: tender: diffuse - Integumentary Integumentary: decreased turgor, pale - Musculoskeletal Musculoskeletal: generalized weakness - Psychiatric Alert to person and place Results CBC & Chem 7: 04/25/21 08:51 04/25/21 08:43 Labs: Abnormal Lab Results - Last 24 Hours (Table) 04/24/21 04/24/21 04/24/21 Range/Units 19:44 19:44 19:44 RBC 2.95 L (3.80-5.40) m/uL Hgb (11.4-16.0) gm/dL Hct (34.0-46.0) % MCV 123.7 H (80.0-100.0) fL MCH 41.7 H (25.0-35.0) pg Plt Count 113 L (150-450) k/uL Lymphocytes # 0.5 L (1.0-4.8) k/uL Macrocytosis Marked A D-Dimer (<0.60) mg/L FEU Sodium 136 L (137-145) mmol/L Potassium (3.5-5.1) mmol/L BUN 48 H (7-17) mg/dL Creatinine 1.45 H (0.52-1.04) mg/dL Glucose 109 H (74-99) mg/dL AST 55 H (14-36) U/L Lactate Dehydrogenase (313-618) U/L Troponin I (0.000-0.034) ng/mL C-Reactive Protein (<1.0) mg/dL Total Protein (6.3-8.2) g/dL Albumin (3.5-5.0) g/dL Urine Appearance Cloudy H (Clear) Urine Protein 1+ H (Negative) Ur Leukocyte Esterase Moderate H (Negative) Urine WBC 6 H (0-5) /hpf Amorphous Sediment Occasional H (None) /hpf Urine Bacteria Rare H (None) /hpf Urine Mucus Rare H (None) /hpf Coronavirus (PCR) (Not Detectd) 04/24/21 04/25/21 04/25/21 Range/Units 19:44 00:12 01:36 RBC (3.80-5.40) m/uL Hgb (11.4-16.0) gm/dL Hct (34.0-46.0) % MCV (80.0-100.0) fL MCH (25.0-35.0) pg Plt Count (150-450) k/uL Lymphocytes # (1.0-4.8) k/uL Macrocytosis D-Dimer (<0.60) mg/L FEU Sodium (137-145) mmol/L Potassium (3.5-5.1) mmol/L BUN (7-17) mg/dL Creatinine (0.52-1.04) mg/dL Glucose (74-99) mg/dL AST (14-36) U/L Lactate Dehydrogenase (313-618) U/L Troponin I 0.145 H* 0.139 H* (0.000-0.034) ng/mL C-Reactive Protein (<1.0) mg/dL Total Protein (6.3-8.2) g/dL Albumin (3.5-5.0) g/dL Urine Appearance (Clear) Urine Protein (Negative) Ur Leukocyte Esterase (Negative) Urine WBC (0-5) /hpf Amorphous Sediment (None) /hpf Urine Bacteria (None) /hpf Urine Mucus (None) /hpf Coronavirus (PCR) Detected A (Not Detectd) 04/25/21 04/25/21 04/25/21 Range/Units 03:14 08:43 08:43 RBC (3.80-5.40) m/uL Hgb (11.4-16.0) gm/dL Hct (34.0-46.0) % MCV (80.0-100.0) fL MCH (25.0-35.0) pg Plt Count (150-450) k/uL Lymphocytes # (1.0-4.8) k/uL Macrocytosis D-Dimer 1.00 H (<0.60) mg/L FEU Sodium (137-145) mmol/L Potassium 3.3 L (3.5-5.1) mmol/L BUN 44 H (7-17) mg/dL Creatinine 1.55 H (0.52-1.04) mg/dL Glucose (74-99) mg/dL AST 37 H (14-36) U/L Lactate Dehydrogenase 769 H (313-618) U/L Troponin I 0.201 H* (0.000-0.034) ng/mL C-Reactive Protein 6.2 H (<1.0) mg/dL Total Protein 5.5 L (6.3-8.2) g/dL Albumin 3.0 L (3.5-5.0) g/dL Urine Appearance (Clear) Urine Protein (Negative) Ur Leukocyte Esterase (Negative) Urine WBC (0-5) /hpf Amorphous Sediment (None) /hpf Urine Bacteria (None) /hpf Urine Mucus (None) /hpf Coronavirus (PCR) (Not Detectd) 04/25/21 Range/Units 08:51 RBC 2.62 L (3.80-5.40) m/uL Hgb 11.1 L (11.4-16.0) gm/dL Hct 33.1 L (34.0-46.0) % MCV 126.0 H (80.0-100.0) fL MCH 42.1 H (25.0-35.0) pg Plt Count 103 L (150-450) k/uL Lymphocytes # 0.6 L (1.0-4.8) k/uL Macrocytosis Marked A D-Dimer (<0.60) mg/L FEU Sodium (137-145) mmol/L Potassium (3.5-5.1) mmol/L BUN (7-17) mg/dL Creatinine (0.52-1.04) mg/dL Glucose (74-99) mg/dL AST (14-36) U/L Lactate Dehydrogenase (313-618) U/L Troponin I (0.000-0.034) ng/mL C-Reactive Protein (<1.0) mg/dL Total Protein (6.3-8.2) g/dL Albumin (3.5-5.0) g/dL Urine Appearance (Clear) Urine Protein (Negative) Ur Leukocyte Esterase (Negative) Urine WBC (0-5) /hpf Amorphous Sediment (None) /hpf Urine Bacteria (None) /hpf Urine Mucus (None) /hpf Coronavirus (PCR) (Not Detectd) Microbiology - Last 24 Hours (Table) 04/24/21 19:44 Stool Culture - Preliminary Stool Chest x-ray: report reviewed CT scan - abdomen: report reviewed Thrombosis Risk Factor Assmnt - Choose All That Apply Any of the Below Risk Factors Present?: Yes Each Factor Represents 1 point: Obesity (BMI >25), Swollen legs (current), Varicose veins Each Risk Factor Represents 3 Points: Age 75 years or older, History of DVT/PE Thrombosis Risk Factor Assessment Total Risk Factor Score: 9 Thrombosis Risk Factor Assessment Level: High Risk Assessment and Plan Assessment: Acute Covid 19 infection Acute respiratory failure, secondary to acute Covid 19 pneumonia Fever secondary to acute Covid 19 infection Acute on chronic diastolic heart failure with normal ejection fraction Elevated BNP Elevated troponins secondary to chronic kidney disease, acute on chronic diastolic heart failure, acute Covid 19 infection Diabetes mellitus type 2 [id number] GERD/reflux Acute on Chronic kidney disease Coronary artery disease with history of CABG and valve replacement in 2011 Hyperlipidemia Hypertension Osteoarthritis Mixed anxiety and depression Full code Plan: Acute Covid 19 infection, acute Covid 19 pneumonia, will start acute COVID-19 infection cocktail Acute respiratory failure secondary to acute Covid 19 infection, consultation will pulmonary critical care, continue supplemental oxygen to keep oxygen saturations greater than 90% Elevated troponins possibly secondary to acute on chronic diastolic heart failure, acute Covid 19 infection Continue to monitor vital signs and diagnostic testing Continue home medications Further recommendations come based on patient's clinical condition Time with Patient: Greater than 30
--- NOTE | 2021-04-25 11:52 | P.CNPUL ---
History of Present Illness Consult date: 04/25/21 Requesting physician: Mo Weiss Reason for consult: dyspnea, abnormal CXR/CT Chief complaint: Diarrhea, weakness, dehydration, abdominal discomfort History of present illness: This is an 85-year-old female patient who follows with Dr. Weiss is her primary care provider. She has a history of hypothyroidism, hypertension, diabetes mellitus, hyperlipidemia, asthma, coronary artery disease with previous 5 vessel artery bypass grafting along with aortic valve replacement, anticoagulated with Eliquis. Lifelong nonsmoker. She is brought into the emergency room yesterday with a four-day history of diarrhea, dehydration, weakness, multiple watery stools throughout the day and lower abdominal discomfort. She also was found to have altered mental status and difficulty walking. T scan of the abdomen and pelvis revealed no acute abdominal pelvic process. EKG revealed sinus rhythm with nonspecific ST and T wave abnormalities. His x-ray reveals bilateral interstitial pneumonia. Count 5.1. Hemoglobin 11.1. Platelets 103. D-dimer 1.0. Sodium 137. Potassium 3.3. Creatinine 1.55. AST 37. ALT 12. LDH 769. C-reactive protein 6.2. Bone and 0.14. 0.20. Urine with moderate leukocytes. Cloudy. See difficile negative. Saenz virus by PCR positive. The patient states she did have 1 shot Xander & Xander vaccine in January 2021. He is seen today in the emergency room. She is currently resting in bed. Awake and alert. Somewhat confused to time and place. She is febrile. T-max of 102.3. Tachycardic. Hypoxemic requiring 6 L high flow nasal cannula to maintain O2 s aturations in the 90s. She's been initiated on a heparin drip. His been initiated on Decadron, vitamin supplements, bronchodilators. Review of Systems ROS unobtainable: due to mental status Past Medical History Past Medical History: Coronary Artery Disease (CAD), Heart Failure, Diabetes Mellitus, Deep Vein Thrombosis (DVT), GERD/Reflux, Hyperlipidemia, Hypertension, Osteoarthritis (OA), Renal Disease, Skin Disorder, Thyroid Disorder Additional Past Medical History / Comment(s): GOUT. AORTIC VALVE REPLACED. Anemia. HX LLL DVT. RENAL DISEASE STAGE 4. VARICOSE VEINS, EDEMA KEYON[place] ANKLES. CYST ON BACK, STATES D/T POISONOUS SPIDER BITE 2011. History of Any Multi-Drug Resistant Organisms: None Reported Past Surgical History: Cardiac Valve Replacement, Cholecystectomy, Coronary Bypass/CABG, Hysterectomy, Joint Replacement, Orthopedic Surgery Additional Past Surgical History / Comment(s): 2011 CABG w/ 5 vessel bypass and aortic valve. 03/07/14 Colonoscopy with EGD and BX. MOSHE. [place] knee and L shoulder Replacement. Sinus surgery. Past Anesthesia/Blood Transfusion Reactions: No Reported Reaction Past Psychological History: Anxiety Additional Psychological History / Comment(s): Pt resides with her son. She uses a cane prn. She drives. She is independent. Smoking Status: Never smoker Past Alcohol Use History: None Reported Past Drug Use History: None Reported - Past Family History Daughter(s) Family Medical History: Cancer Father Family Medical History: Cancer, Coronary Artery Disease (CAD) Additional Family Medical History / Comment(s): Father had cancer but pt does not know what type. Father at age 77yrs. Mother Family Medical History: CVA/TIA Additional Family Medical History / Comment(s): Mother had a CVA. She at age 86yrs. Medications and Allergies Home Medications Medication Instructions Recorded Confirmed Type Allopurinol [Zyloprim] 300 mg PO DAILY 03/03/14 04/24/21 History Atorvastatin [Lipitor] 40 mg PO HS 03/03/14 04/24/21 History Glimepiride [Amaryl] 2 mg PO DAILY 03/03/14 04/24/21 History LORazepam [Ativan] 1 mg PO HS 03/03/14 04/24/21 History Metoprolol Tartrate [Lopressor] 50 mg PO BID 03/03/14 04/24/21 History Omeprazole [PriLOSEC] 20 mg PO DAILY 03/03/14 04/24/21 History calcitrioL [Calcitriol] 0.5 mcg PO MOTUWETHFR 03/03/14 04/24/21 History Ergocalciferol [Vitamin D2 50,000 unit PO QMONTH 04/23/15 04/24/21 History (DRISDOL)] Acetaminophen Tab [Tylenol] 1,000 mg PO Q6HR PRN 06/15/15 04/24/21 History Aspirin EC [Ecotrin Low Dose] 81 mg PO DAILY 10/24/16 04/24/21 History Calcium Carbonate [Calcium] 600 mg PO DAILY 10/24/16 04/24/21 History B Complex W-C No.20/Folic Acid 1 mg PO DAILY 04/09/21 04/24/21 History [Renal Caps Softgel] Budesonide/Glycopyr/Formoterol 2 puff INHALATION RT-BID 04/09/21 04/24/21 History [Breztri Aerosphere Inhaler] Famotidine/Ca Carb/Mag Hydrox 1 tab PO DAILY 04/09/21 04/24/21 History [Pepcid Complete Tablet Chew] Levothyroxine Sodium [Synthroid] 25 mcg PO DAILY 04/09/21 04/24/21 History Magnesium 200 mg PO DAILY 04/09/21 04/24/21 History Furosemide [Lasix] 40 mg PO BID@0800,1600 #60 tab 04/14/21 04/24/21 Rx Loperamide [Imodium] 2 mg PO DAILY PRN #0 04/14/21 04/24/21 Rx bisacodyL [Dulcolax] 5 mg PO DAILY PRN #0 04/14/21 04/24/21 Rx Potassium Chloride [Klor-Con 10 ER] 10 meq PO DAILY 04/24/21 04/24/21 History Apixaban [Eliquis] 2.5 mg PO BID 30 Days #60 tab 04/25/21 Rx Allergies Allergy/AdvReac Type Severity Reaction Status Date / Time sulfamethoxazole Allergy Rash/Hives Verified 04/24/21 17:37 [From Bactrim] trimethoprim [From Bactrim] Allergy Rash/Hives Verified 04/24/21 17:37 Physical Exam Vitals: Vital Signs Temp Pulse Pulse Resp BP BP Pulse Ox 04/25/21 10:58 120 H 18 114/70 94 L 04/25/21 04:24 100.9 F H 95 18 96/55 92 L 04/25/21 04:00 100.9 F H 102 H 18 96/55 92 L 04/25/21 02:23 102.3 F H 111 H 20 110/57 93 L 04/25/21 02:00 111 H 04/25/21 01:00 111 H 22 93/65 93 L 04/25/21 00:00 67 18 113/53 95 04/24/21 20:30 92 16 101/64 95 04/24/21 17:38 99.3 F 97 20 124/69 94 L Intake and Output 04/24/21 04/25/21 04/25/21 22:59 06:59 14:59 Other: Weight 78.925 kg 78.925 kg GENERAL EXAM: 85-year-old female patient, on 6 L nasal cannula, altered men tation, in mild respiratory distress. HEAD: Normocephalic. EYES: Normal reaction of pupils, equal size. NOSE: Clear with pink turbinates. THROAT: No erythema or exudates. NECK: No masses, no JVD. CHEST: No chest wall deformity. LUNGS: Equal air entry with crackles in the bilateral bases. CVS: S1 and S2 normal with no audible murmur, regular rhythm. ABDOMEN: No hepatosplenomegaly, normal bowel sounds, no guarding or rigidity. SPINE: No scoliosis or deformity SKIN: No rashes CENTRAL NERVOUS SYSTEM: No focal deficits, tone is normal in all 4 extremities. EXTREMITIES: There is no peripheral edema. No clubbing, no cyanosis. Peripheral pulses are intact. Results - Laboratory Findings CBC and BMP: 04/25/21 08:51 04/25/21 08:43 PT/INR, D-dimer PT 10.3 sec (9.0-12.0) 04/25/21 08:43 INR 1.0 (<1.2) 04/25/21 08:43 D-Dimer 1.00 mg/L FEU (<0.60) H 04/25/21 08:43 Abnormal lab findings: Abnormal Labs 04/24/21 04/24/21 04/24/21 19:44 19:44 19:44 RBC 2.95 L Hgb Hct MCV 123.7 H MCH 41.7 H Plt Count 113 L Lymphocytes # 0.5 L Macrocytosis Marked A D-Dimer Sodium 136 L Potassium BUN 48 H Creatinine 1.45 H Glucose 109 H AST 55 H Lactate Dehydrogenase Troponin I C-Reactive Protein Total Protein Albumin Urine Appearance Cloudy H Urine Protein 1+ H Ur Leukocyte Esterase Moderate H Urine WBC 6 H Amorphous Sediment Occasional H Urine Bacteria Rare H Urine Mucus Rare H Coronavirus (PCR) 04/24/21 04/25/21 04/25/21 19:44 00:12 01:36 RBC Hgb Hct MCV MCH Plt Count Lymphocytes # Macrocytosis D-Dimer Sodium Potassium BUN Creatinine Glucose AST Lactate Dehydrogenase Troponin I 0.145 H* 0.139 H* C-Reactive Protein Total Protein Albumin Urine Appearance Urine Protein Ur Leukocyte Esterase Urine WBC Amorphous Sediment Urine Bacteria Urine Mucus Coronavirus (PCR) Detected A 04/25/21 04/25/21 04/25/21 03:14 08:43 08:43 RBC Hgb Hct MCV MCH Plt Count Lymphocytes # Macrocytosis D-Dimer 1.00 H Sodium Potassium 3.3 L BUN 44 H Creatinine 1.55 H Glucose AST 37 H Lactate Dehydrogenase 769 H Troponin I 0.201 H* C-Reactive Protein 6.2 H Total Protein 5.5 L Albumin 3.0 L Urine Appearance Urine Protein Ur Leukocyte Esterase Urine WBC Amorphous Sediment Urine Bacteria Urine Mucus Coronavirus (PCR) 04/25/21 08:51 RBC 2.62 L Hgb 11.1 L Hct 33.1 L MCV 126.0 H MCH 42.1 H Plt Count 103 L Lymphocytes # 0.6 L Macrocytosis Marked A D-Dimer Sodium Potassium BUN Creatinine Glucose AST Lactate Dehydrogenase Troponin I C-Reactive Protein Total Protein Albumin Urine Appearance Urine Protein Ur Leukocyte Esterase Urine WBC Amorphous Sediment Urine Bacteria Urine Mucus Coronavirus (PCR) - Diagnostic Findings Chest x-ray: image reviewed Assessment and Plan Assessment: 1 Acute hypoxemic respiratory failure secondary to acute COVID-19 pneumonia. Patient received a 1 shot Xander & Xander in January 2021. Symptoms started 4- 5 days ago. Remdesivir to be initiated today. 2 Altered mental status secondary to above 3 Troponin leak, on a heparin drip 4 Acute kidney injury secondary to dehydration 5 Diarrhea for several days, C. difficile screen negative 6 coronary artery disease with previous coronary artery bypass grafting 5 in 2 012 7 Aortic stenosis status post aortic valve replacement in 2011, maintained on Eliquis 8 Hyperlipidemia 9 Hypertension 10 Hypothyroidism 11 Anxiety 12 History of congestive heart failure 13 Diabetes mellitus 14 Osteoarthritis with multiple joint replacements Plan: The patient was seen and evaluated by Dr. Fortune Initiate Remdesivir, Decadron, vitamin supplements Continue bronchodilators Currently on a heparin drip Check a pro-calcitonin Follow-up chest x-ray in the a.m. We will continue to follow and make further recommendations based on her clinical status I, the cosigning physician, performed a history & physical examination of the patient. Lungs sounds with crackles in the bilateral posterior bases. Maintaining good O2 saturations in the 90s on 6 L nasal cannula. I discussed the assessment and plan of care with my nurse practitioner, Lenka Chambers. I attest to the above note as dictated by her. Time with Patient: Greater than 30
[2021-04-25 13:17] LABS: Chol/HDL Ratio 2.65 Ratio; LDL Cholesterol,Calculated 57.1 mg/dL (0.0-131.0); VLDL Calculation 16.96 mg/dL (5.00-40.00)
[2021-04-25 15:17] LABS: Glucose,Whole Blood 233 mg/dL (75-99)
[2021-04-25] MEDS ORDERED: NITROGLYCERIN OINT 1 INCH/GM PACKET TOPICAL SCH (16:00)
[2021-04-25 16:43] LABS: Glucose,Whole Blood 267 mg/dL (75-99)
[2021-04-25 16:43] LABS: Glucose,Whole Blood 598 mg/dL (75-99)
[2021-04-25] MEDS: GLIMEPIRIDE 2 MG TAB PO SCH (17:32)
[2021-04-25 20:59] LABS: Glucose,Whole Blood 262 mg/dL (75-99)
[2021-04-25] MEDS: LORazepam 1 MG TAB PO SCH (21:36)
[2021-04-25] MEDS: ATORVASTATIN 40 MG TAB PO SCH (21:36)
[2021-04-26 02:17] LABS: Glucose,Whole Blood 129 mg/dL (75-99)
[2021-04-26 05:53] LABS: Basophils % (A) 0 %; Eosinophils % (A) 0 %; HCT 32.9 % (34.0-46.0); Lymphocytes # (A) 0.4 k/uL (1.0-4.8); Lymphocytes % (A) 9 %; MCHC 33.4 g/dL (31.0-37.0); MCV 126.1 fL (80.0-100.0); Macrocytosis Marked; Mean Platelet Volume 9.1; Monocytes # (A) 0.3 k/uL (0-1.0); Monocytes % (A) 5 %; Neutrophils # (A) 3.9 k/uL (1.3-7.7); Neutrophils % (A) 85 %; Platelet Count 106 k/uL (150-450); RBC 2.61 m/uL (3.80-5.40); RDW 14.5 % (11.5-15.5); WBC 4.7 k/uL (3.8-10.6)
[2021-04-26 05:56] LABS: MCH 42.1 pg (25.0-35.0)
[2021-04-26 06:02] LABS: Partial Thromboplastin Time 90.1 sec (22.0-30.0); Prothrombin Time 10.9 sec (9.0-12.0)
[2021-04-26 06:09] LABS: Albumin 3.1 g/dL (3.5-5.0); Potassium 4.4 mmol/L (3.5-5.1); Total Protein 5.8 g/dL (6.3-8.2)
[2021-04-26 06:12] LABS: Calcium 8.6 mg/dL (8.4-10.2); Total Bilirubin 0.6 mg/dL (0.2-1.3)
[2021-04-26 06:38] LABS: C Reactive Protein 13.5 mg/dL (<1.0)
[2021-04-26] MEDS: INSULIN ASPART (NovoLOG) 100 UNIT/ML VIAL SQ SCH ×4 (06:40→21:50)
[2021-04-26 06:44] LABS: Glucose,Whole Blood 77 mg/dL (75-99)
[2021-04-26] MEDS: LEVOTHYROXINE 25 MCG TAB PO SCH (06:46)
[2021-04-26] MEDS: PANTOPRAZOLE 40 MG TABLET PO SCH (06:46)
--- NOTE | 2021-04-26 07:19 | XR ---
EXAMINATION TYPE: XR chest 1V portable DATE OF EXAM: 04/26/2021 CLINICAL HISTORY: Difficulty breathing progress study. COVID. TECHNIQUE: Single AP portable upright view of the chest is obtained. COMPARISON: Chest x-ray from one day earlier and older studies. Chest CT April 09, 2021 FINDINGS: Surgical change left shoulder redemonstrated. Overlying sternal wires and mediastinal clip s again seen. Stable cardiomegaly with atherosclerotic thoracic aorta. Background chronic emphysemato us change with some increased bilateral peripheral midlung and left basilar opacities redemonstrated. Cholecystectomy clips are redemonstrated. IMPRESSION: Chronic emphysematous changes and cardiomegaly with bilateral peripheral mid lung and lef t basilar opacities consistent with covid-19 infection are redemonstrated. No significant change from one day earlier.
--- NOTE | 2021-04-26 07:38 | P.PN ---
Subjective Progress Note Date: 04/26/21 Principal diagnosis: Acute Covid 19 infection consistent with acute Covid 19 pneumonia Acute hypoxic respiratory failure secondary to Covid 19 infection Elevated troponins secondary to covid 19 infection, chronic kidney disease, chronic diastolic heart failure Paroxysmal atrial fibrillation, now sinus rhythm 85-year-old female significant medical history of coronary artery disease with open heart surgery 5 vessel bypass in 2012, diastolic heart failure, diabetes, history of DVT, hyperlipidemia, hypertension, chronic renal disease, history of aortic valve replacement, chronic macrocytic anemia, hypothyroidism, and several additional comorbidities. Patient presented to the emergency department for complaint watery diarrhea, abdominal pain, generalized weakness, and inte rmittent chills. Patient had extensive diagnostic workup in emergency department consisting of a CBC revealing chronic macrocytic anemia, with normal white count, low lymphocytes noted. Coagulation studies elevated d-dimer at 1.0. CMP: hypokalemia potassium 3.3, sodium 137, chloride 101, BUN 44, creatinine 1.55, mildly elevated C-reactive protein at 6.2, positive Covid PCR. Trending elevation of troponins with last troponin 0.201, secondary possibly to chronic diastolic heart failure, and Acute Covid 19 pneumonia. Elevated BNP at 7390. CT abdomen and pelvis: no acute abnormalities noted; chest x-ray: consistent with interstitial pneumonia, secondary to acute covid-19 infection. Patient is admitted to the hospital for acute Covid 19 infection, Covid pneumonia, acute on chronic kidney disease, chronic diastolic congestive heart failure, and elevated troponins. Consult cardiology was placed by emergency department for elevation in troponins; consultation with pulmonary critical care for acute Covid 19 pneumonia, with acute respiratory failure secondary to Covid 19 pneumonia infection. 04/25/2021 Patient seen and examined emergency department. Difficulty obtaining subjective data due to patient's increased respiratory rate and able to only speak a few word sentences. Contacted son regarding patient's new onset of symptoms of diarrhea, abdominal pain, generalized weakness and intermittent chills, which began 4 days prior to admission. Explained to son patient's condition and new onset of acute Covid 19 infection. Patient is in guarded prognosis due to new onset of acute Covid 19 infection pneumonia, and acute respiratory failure secondary to acute Covid 19 pneumonia. 04/26/2021 Patient seen and examined at bedside. Patient reports feeling much better today, was able to speak in sentences. She endorses a cough, shortness of breath with activity, and generalized weakness. Spoke to clinical pharmacist regarding transition of heparin to eliguis for paroxysmal afib and covid 19 infection. Chest xray showed chronic emphysematous changes and cardiomegaly with bilateral peripheral mid lung and left basilar opacities consistent with covid 19 infection. Elevated procalcitonin and CRP, continue consult with pulmonary critical care and cardiology. Objective - Vital Signs Vital signs: Vital Signs Temp 97.7 F 04/26/21 03:50 Pulse 73 04/26/21 03:50 Resp 19 04/26/21 03:50 BP 129/79 04/26/21 03:50 Pulse Ox 95 04/26/21 03:50 Intake & Output 04/25/21 04/26/21 04/26/21 18:59 06:59 18:59 Intake Total 240 179.791 Output Total 675 Balance 240 -495.209 Weight 79.5 kg Intake: Intake, IV Titration 179.791 Amount Heparin Sod,Pork in 0.45% 179.791 NaCl 25,000 unit In 0.45 % NaCl 1 250ml.bag @ 12 UNITS/KG/HR 9.471 mls/hr IV .Q24H [facility] Rx#: [id number] Oral 240 Output: Urine 675 Other: Voiding Method Bedside Commode # Voids 1 - Constitutional General appearance: Present: mild distress, obese - EENT Eyes: Present: EOMI, PERRLA ENT: Present: normal oropharynx Ears: bilateral: normal - Neck Neck: Present: normal ROM - Respiratory Respiratory: bilateral: diminished (bilateral anterior and posterior bases) - Cardiovascular Details: Sinus rhythm Heart rate: 70 Rhythm: regular Heart sounds: normal: S1, S2 Abnormal Heart Sounds: Present: systolic murmur - Peripheral pulses radial pulse Peripheral Pulses: bilateral: Normal dorsalis pedis Peripheral Pulses: bilateral: Diminished - Gastrointestinal General gastrointestinal: Present: normal bowel sounds, soft - Integumentary Integumentary: Present: normal - Neurologic Neurologic: Present: CNII-XII intact - Musculoskeletal Musculoskeletal: Present: generalized weakness - Psychiatric Psychiatric: Present: A&O x's 3, appropriate affect, intact judgment & insight - Allied health notes Allied health notes reviewed: nursing - Labs CBC & Chem 7: 04/26/21 05:35 04/26/21 05:35 Labs: Abnormal Lab Results - Last 24 Hours (Table) 04/25/21 04/25/21 04/25/21 Range/Units 08:43 08:43 08:51 RBC 2.62 L (3.80-5.40) m/uL Hgb 11.1 L (11.4-16.0) gm/dL Hct 33.1 L (34.0-46.0) % MCV 126.0 H (80.0-100.0) fL MCH 42.1 H (25.0-35.0) pg Plt Count 103 L (150-450) k/uL Lymphocytes # 0.6 L (1.0-4.8) k/uL Macrocytosis Marked A APTT (22.0-30.0) sec D-Dimer 1.00 H (<0.60) mg/L FEU Sodium (137-145) mmol/L Potassium 3.3 L (3.5-5.1) mmol/L Carbon Dioxide (22-30) mmol/L BUN 44 H (7-17) mg/dL Creatinine 1.55 H (0.52-1.04) mg/dL POC Glucose (mg/dL) (75-99) mg/dL Ferritin 920.0 H (10.0-291.0) ng/mL AST 37 H (14-36) U/L Lactate Dehydrogenase 769 H (313-618) U/L C-Reactive Protein 6.2 H (<1.0) mg/dL Total Protein 5.5 L (6.3-8.2) g/dL Albumin 3.0 L (3.5-5.0) g/dL Procalcitonin (0.02-0.09) ng/mL 04/25/21 04/25/21 04/25/21 Range/Units 08:51 15:13 16:30 RBC (3.80-5.40) m/uL Hgb (11.4-16.0) gm/dL Hct (34.0-46.0) % MCV (80.0-100.0) fL MCH (25.0-35.0) pg Plt Count (150-450) k/uL Lymphocytes # (1.0-4.8) k/uL Macrocytosis APTT (22.0-30.0) sec D-Dimer (<0.60) mg/L FEU Sodium (137-145) mmol/L Potassium (3.5-5.1) mmol/L Carbon Dioxide (22-30) mmol/L BUN (7-17) mg/dL Creatinine (0.52-1.04) mg/dL POC Glucose (mg/dL) 233 H 598 H (75-99) mg/dL Ferritin (10.0-291.0) ng/mL AST (14-36) U/L Lactate Dehydrogenase (313-618) U/L C-Reactive Protein (<1.0) mg/dL Total Protein (6.3-8.2) g/dL Albumin (3.5-5.0) g/dL Procalcitonin 0.29 H (0.02-0.09) ng/mL 04/25/21 04/25/21 04/25/21 Range/Units 16:32 16:52 20:43 RBC (3.80-5.40) m/uL Hgb (11.4-16.0) gm/dL Hct (34.0-46.0) % MCV (80.0-100.0) fL MCH (25.0-35.0) pg Plt Count (150-450) k/uL Lymphocytes # (1.0-4.8) k/uL Macrocytosis APTT 55.3 H (22.0-30.0) sec D-Dimer (<0.60) mg/L FEU Sodium (137-145) mmol/L Potassium (3.5-5.1) mmol/L Carbon Dioxide (22-30) mmol/L BUN (7-17) mg/dL Creatinine (0.52-1.04) mg/dL POC Glucose (mg/dL) 267 H 262 H (75-99) mg/dL Ferritin (10.0-291.0) ng/mL AST (14-36) U/L Lactate Dehydrogenase (313-618) U/L C-Reactive Protein (<1.0) mg/dL Total Protein (6.3-8.2) g/dL Albumin (3.5-5.0) g/dL Procalcitonin (0.02-0.09) ng/mL 04/26/21 04/26/21 04/26/21 Range/Units 02:05 05:35 05:35 RBC 2.61 L (3.80-5.40) m/uL Hgb 11.0 L (11.4-16.0) gm/dL Hct 32.9 L (34.0-46.0) % MCV 126.1 H (80.0-100.0) fL MCH 42.1 H (25.0-35.0) pg Plt Count 106 L (150-450) k/uL Lymphocytes # 0.4 L (1.0-4.8) k/uL Macrocytosis Marked A APTT (22.0-30.0) sec D-Dimer (<0.60) mg/L FEU Sodium 136 L (137-145) mmol/L Potassium (3.5-5.1) mmol/L Carbon Dioxide 31 H (22-30) mmol/L BUN 52 H (7-17) mg/dL Creatinine 1.41 H (0.52-1.04) mg/dL POC Glucose (mg/dL) 129 H (75-99) mg/dL Ferritin (10.0-291.0) ng/mL AST (14-36) U/L Lactate Dehydrogenase (313-618) U/L C-Reactive Protein 13.5 H (<1.0) mg/dL Total Protein 5.8 L (6.3-8.2) g/dL Albumin 3.1 L (3.5-5.0) g/dL Procalcitonin (0.02-0.09) ng/mL 04/26/21 Range/Units 05:35 RBC (3.80-5.40) m/uL Hgb (11.4-16.0) gm/dL Hct (34.0-46.0) % MCV (80.0-100.0) fL MCH (25.0-35.0) pg Plt Count (150-450) k/uL Lymphocytes # (1.0-4.8) k/uL Macrocytosis APTT 90.1 H (22.0-30.0) sec D-Dimer (<0.60) mg/L FEU Sodium (137-145) mmol/L Potassium (3.5-5.1) mmol/L Carbon Dioxide (22-30) mmol/L BUN (7-17) mg/dL Creatinine (0.52-1.04) mg/dL POC Glucose (mg/dL) (75-99) mg/dL Ferritin (10.0-291.0) ng/mL AST (14-36) U/L Lactate Dehydrogenase (313-618) U/L C-Reactive Protein (<1.0) mg/dL Total Protein (6.3-8.2) g/dL Albumin (3.5-5.0) g/dL Procalcitonin (0.02-0.09) ng/mL Microbiology - Last 24 Hours (Table) 04/24/21 19:44 Stool Culture - Preliminary Stool - Imaging and Cardiology Chest x-ray: report reviewed Assessment and Plan Assessment: Acute Covid 19 infection Acute respiratory failure, secondary to acute Covid 19 pneumonia Fever secondary to acute Covid 19 infection Acute on chronic diastolic heart failure with normal ejection fraction Paroxysmal atrial fibrillation Elevated BNP Elevated troponins secondary to chronic kidney disease, acute on chronic diastolic heart failure, acute Covid 19 infection Diabetes mellitus type 2 [id number] GERD/reflux Acute on Chronic kidney disease Coronary artery disease with history of CABG and valve replacement in 2011 Hyperlipidemia Hypertension Osteoarthritis Mixed anxiety and depression Full code Plan: Acute Covid 19 infection, acute Covid 19 pneumonia, will start acute COVID-19 infection cocktail Acute hypoxic respiratory failure secondary to acute Covid 19 infection, consultation will pulmonary critical care, continue supplemental oxygen to keep oxygen saturations greater than 90% Elevated troponins possibly secondary to acute on chronic diastolic heart failure, acute Covid 19 infection Elevated Procalcitonin time, elevated CRP from 6.2 to 13.5 Discontinue heparin drip initiate Eliquis 2.5 mg twice a day adjust the dose for renal function Continue to monitor vital signs and diagnostic testing Continue home medications Further recommendations come based on patient's clinical condition Time with Patient: Greater than 30
[2021-04-26] MEDS: Salmeterol 50 mcg INHALER INHALATION SCH ×2 (08:30→20:40)
[2021-04-26] MEDS: FLUTICASONE 110 MCG INHALER INHALATION SCH ×2 (08:30→20:39)
[2021-04-26] MEDS: ALBUTEROL HFA INHALER INHALATION SCH ×4 (08:30→20:39)
[2021-04-26] MEDS: TIOTROPIUM 2.5 MCG INHALER INHALATION SCH (08:38)
[2021-04-26] MEDS: allopurinoL 300 MG TAB PO SCH (08:59)
[2021-04-26] MEDS: METOPROLOL TARTRATE 50 MG TAB PO SCH ×2 (08:59→21:50)
[2021-04-26] MEDS: FUROSEMIDE 40 MG TAB PO SCH ×2 (08:59→17:27)
[2021-04-26] MEDS: ASPIRIN 81 MG PO SCH (08:59)
[2021-04-26] MEDS: ZINC SULFATE 220 MG CAP PO SCH (08:59)
[2021-04-26] MEDS: ASCORBIC ACID 500 MG TAB PO SCH (08:59)
[2021-04-26] MEDS: GLIMEPIRIDE 2 MG TAB PO SCH (08:59)
[2021-04-26] MEDS: DEXAMETHASONE SOD PHOSPHATE 10 MG/ML 1 ML VIAL IV SCH (08:59)
[2021-04-26] MEDS: CHOLECALCIFEROL 25 MCG (1000 IU) TABLET PO SCH (09:08)
[2021-04-26] MEDS: REMDESIVIR 100 MG in SODIUM CHLORIDE 0.9% 250 ML IVPB SCH (09:08)
--- NOTE | 2021-04-26 10:49 | PN ---
PROGRESS NOTE Mrs. Stovall is a patient who has been admitted with COVID pneumonia. She is on multiple medications. Her heparin has been switched to Eliquis 2.5 mg b.i.d. She remains hemodynamically stable. No further intervention from a cardiac standpoint. She has underlying sinus rhythm with isolated PVCs. Troponin elevation suggests a non- ST-elevation TN, probably related to underlying hypoxia. However, patient seems to be doing well today. We will continue current medications, including antibiotics, and continue to see her as needed. She has history of CAD, prior bypass surgery, bioprosthetic aortic valve replacement, and history of congestive heart failure. However, at this time we will continue the beta chayito, Lasix and antibiotics as advised by Dr. Fortune. Prognosis remains guarded. MMODL / IJN: [id number] /
[2021-04-26 11:09] VITALS: BMI 32.0
--- NOTE | 2021-04-26 11:20 | P.PN ---
Subjective Progress Note Date: 04/26/21 Principal diagnosis: Acute hypoxic failure secondary to COVID-19 pneumonia This is an 85-year-old female patient who follows with Dr. Weiss is her primary care provider. She has a history of hypothyroidism, hypertension, diabetes mellitus, hyperlipidemia, asthma, coronary artery disease with previous 5 vessel artery bypass grafting along with aortic valve replacement, anticoagulated with Eliquis. Lifelong nonsmoker. She is brought into the emergency room yesterday with a four-day history of diarrhea, dehydration, weakness, multiple watery stools throughout the day and lower abdominal discomfort. She also was found to have altered mental status and difficulty walking. T scan of the abdomen and pelvis revealed no acute abdominal pelvic process. EKG revealed sinus rhythm with nonspecific ST and T wave abnormalities. His x-ray reveals bilateral interstitial pneumonia. Count 5.1. Hemoglobin 11.1. Platelets 103. D-dimer 1.0. Sodium 137. Potassium 3.3. Creatinine 1.55. AST 37. ALT 12. LDH 769. C-reactive protein 6.2. Bone and 0.14. 0.20. Urine with moderate leukocytes. Cloudy. See difficile negative. Saenz virus by PCR positive. The patient s tates she did have 1 shot Xander & Xander vaccine in January 2021. He is seen today in the emergency room. She is currently resting in bed. Awake and alert. Somewhat confused to time and place. She is febrile. T-max of 102.3. Tachycardic. Hypoxemic requiring 6 L high flow nasal cannula to maintain O2 saturations in the 90s. She's been initiated on a heparin drip. His been initiated on Decadron, vitamin supplements, bronchodilators. Patient was reevaluated today on 04/26/2021, patient is on 4 L nasal cannula, O2 saturation is 95%, patient isn't vaccinated patient with COVID-19 pneumonia, she is on REM and she is also on Decadron. Patient seems to be comfortable, she is not in any form of distress, remains on heparin for troponin leak, she is also on fluids for acute dehydration and diarrhea. Patient is on Eliquis for atrial fibrillation and aortic stenosis. Pro-calcitonin level today is 0.29. Not significantly elevated. Troponin was up to 0.20 yesterday. From 0.145 the day prior. ProBNP level was noted to be a bit elevated as above 7000. Objective - Vital Signs Vital signs: Vital Signs Temp 97.7 F 04/26/21 03:50 Pulse 73 04/26/21 03:50 Resp 19 04/26/21 03:50 BP 129/79 04/26/21 03:50 Pulse Ox 95 04/26/21 03:50 Intake & Output 04/25/21 04/26/21 04/26/21 18:59 06:59 18:59 Intake Total 240 179.791 Output Total 675 Balance 240 -495.209 Weight 79.5 kg 79.5 kg Intake: Intake, IV Titration 179.791 Amount Heparin Sod,Pork in 0.45% 179.791 NaCl 25,000 unit In 0.45 % NaCl 1 250ml.bag @ 12 UNITS/KG/HR 9.471 mls/hr IV .Q24H [facility] Rx#: [id number] Oral 240 Output: Urine 675 Other: Voiding Method Bedside Commode # Voids 1 - Exam GENERAL EXAM: 85-year-old female patient, on 5 L nasal cannula, not in distress. Head: Atraumatic normocephalic. EENT: PERRLA, EOMI, nonicteric, no neck masses, no JVD, no stridor. CHEST: No chest wall deformity. LUNGS: Crackles at the bases bilaterally. CVS: S1 and S2 normal over 6 systolic murmur thought the precordium. ABDOMEN: No hepatosplenomegaly, normal bowel sounds, no guarding or rigidity. SKIN: No rashes CENTRAL NERVOUS SYSTEM: No focal deficits, tone is normal in all 4 extremities. EXTREMITIES: No clubbing edema or cyanosis, good pulses bilaterally. - Labs CBC & Chem 7: 04/26/21 05:35 04/26/21 05:35 Labs: Abnormal Lab Results - Last 24 Hours (Table) 04/25/21 04/25/21 04/25/21 Range/Units 08:43 08:51 15:13 RBC (3.80-5.40) m/uL Hgb (11.4-16.0) gm/dL Hct (34.0-46.0) % MCV (80.0-100.0) fL MCH (25.0-35.0) pg Plt Count (150-450) k/uL Lymphocytes # (1.0-4.8) k/uL Macrocytosis APTT (22.0-30.0) sec Sodium (137-145) mmol/L Carbon Dioxide (22-30) mmol/L BUN (7-17) mg/dL Creatinine (0.52-1.04) mg/dL POC Glucose (mg/dL) 233 H (75-99) mg/dL Ferritin 920.0 H (10.0-291.0) ng/mL C-Reactive Protein (<1.0) mg/dL Total Protein (6.3-8.2) g/dL Albumin (3.5-5.0) g/dL Procalcitonin 0.29 H (0.02-0.09) ng/mL 04/25/21 04/25/21 04/25/21 Range/Units 16:30 16:32 16:52 RBC (3.80-5.40) m/uL Hgb (11.4-16.0) gm/dL Hct (34.0-46.0) % MCV (80.0-100.0) fL MCH (25.0-35.0) pg Plt Count (150-450) k/uL Lymphocytes # (1.0-4.8) k/uL Macrocytosis APTT 55.3 H (22.0-30.0) sec Sodium (137-145) mmol/L Carbon Dioxide (22-30) mmol/L BUN (7-17) mg/dL Creatinine (0.52-1.04) mg/dL POC Glucose (mg/dL) 598 H 267 H (75-99) mg/dL Ferritin (10.0-291.0) ng/mL C-Reactive Protein (<1.0) mg/dL Total Protein (6.3-8.2) g/dL Albumin (3.5-5.0) g/dL Procalcitonin (0.02-0.09) ng/mL 04/25/21 04/26/21 04/26/21 Range/Units 20:43 02:05 05:35 RBC 2.61 L (3.80-5.40) m/uL Hgb 11.0 L (11.4-16.0) gm/dL Hct 32.9 L (34.0-46.0) % MCV 126.1 H (80.0-100.0) fL MCH 42.1 H (25.0-35.0) pg Plt Count 106 L (150-450) k/uL Lymphocytes # 0.4 L (1.0-4.8) k/uL Macrocytosis Marked A APTT (22.0-30.0) sec Sodium (137-145) mmol/L Carbon Dioxide (22-30) mmol/L BUN (7-17) mg/dL Creatinine (0.52-1.04) mg/dL POC Glucose (mg/dL) 262 H 129 H (75-99) mg/dL Ferritin (10.0-291.0) ng/mL C-Reactive Protein (<1.0) mg/dL Total Protein (6.3-8.2) g/dL Albumin (3.5-5.0) g/dL Procalcitonin (0.02-0.09) ng/mL 04/26/21 04/26/21 Range/Units 05:35 05:35 RBC (3.80-5.40) m/uL Hgb (11.4-16.0) gm/dL Hct (34.0-46.0) % MCV (80.0-100.0) fL MCH (25.0-35.0) pg Plt Count (150-450) k/uL Lymphocytes # (1.0-4.8) k/uL Macrocytosis APTT 90.1 H (22.0-30.0) sec Sodium 136 L (137-145) mmol/L Carbon Dioxide 31 H (22-30) mmol/L BUN 52 H (7-17) mg/dL Creatinine 1.41 H (0.52-1.04) mg/dL POC Glucose (mg/dL) (75-99) mg/dL Ferritin (10.0-291.0) ng/mL C-Reactive Protein 13.5 H (<1.0) mg/dL Total Protein 5.8 L (6.3-8.2) g/dL Albumin 3.1 L (3.5-5.0) g/dL Procalcitonin (0.02-0.09) ng/mL Microbiology - Last 24 Hours (Table) 04/25/21 08:51 Blood Culture - Preliminary Blood No Growth after 24 hours 04/26/21 04:00 Urine Culture - Preliminary Urine,Voided 04/24/21 19:44 Stool Culture - Preliminary Stool Assessment and Plan Assessment: Impression: Acute hypoxic respiratory failure secondary to COVID-19 pneumonia patient is vaccinated, received Xander and Xander vaccination back in January 2021, symptoms within the last 5 days. Hence she qualified for remdesivir Acute metabolic encephalopathy secondary to COVID-19 infection. Acute kidney injury likely dehydration related. Chronic diarrhea. History of coronary artery disease and previous CABG and previous aortic valve replacement in 2011. Benign essential hypertension Hypothyroidism Dyslipidemia Type 2 diabetes Degenerative joint disease Recommendation: Continue the COVID-19 cocktail including vitamins and Decadron. Continue remdesivir Continue bronchodilators. Continue cardiac meds as per cardiology on the case. Chest x-ray showed no significant change from the chest x-ray the day prior, continues to have bilateral peripheral basilar opacities consistent with COVID- 19 infection/pneumonia. We will continue to follow. Time with Patient: Less than 30
--- NOTE | 2021-04-26 11:53 | ECHOF ---
Referral Reason:Repeat new onset atrial fibrillation with RVR MEASUREMENTS -------- HEIGHT: 157.5 cm WEIGHT: 78.9 kg BP: 129/79 RVIDd: 1.8 cm (< 3.3) IVSd: 1.7 cm (0.6 - 1.1) LVIDd: 3.7 cm (3.9 - 5.3) LVPWd: 1.6 cm (0.6 - 1.1) IVSs: 2.2 cm LVIDs: 1.8 cm LVPWs: 2.2 cm LAESV Index (A-L): 58.36 ml/m Ao Diam: 2.7 cm (2.0 - 3.7) AV Cusp: 0.9 cm (1.5 - 2.6) MV EXCURSION: 13.117 mm (> 18.000) MV EF SLOPE: 12 mm/s (70 - 150) EPSS: 1.4 cm MV E Blaine: 1.54 m/s MV DecT: 273 ms MV A Blaine: 1.40 m/s MV E/A Ratio: 1.10 AV maxP.93 mmHg AV meanP.02 mmHg AR PHT: 479 ms RAP: 5.00 mmHg RVSP: 54.24 mmHg FINDINGS -------- Sinus rhythm. This was a technically adequate study. The left ventricular size is normal. There is moderate concentric left ventricular hypertrophy. O verall left ventricular systolic function is normal with, an EF between 55 - 60 %. Septal wall zofia on is delayed and consistent with prior cardiac surgery. The right ventricle is normal in size. LA is severely dilated >40 ml/m2 The right atrial size is normal. Interatrial and interventricular septum intact. The maximum velocity across the aortic valve is 4.71m/s. Peak/mean gradient across the Aortic Valve is 88.93mmHg / 53.02mmHg. There is mild regurgitation of the bioprosthetic aortic valve. 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 Moderate mitral annular calcification present. Moderate mitral regurgitation is present. Mild buzz ral stenosis , with a MVA of 2.8cm (by PHT) Moderate tricuspid regurgitation present. There is moderate to severe pulmonary hypertension. The right ventricular systolic pressure, as measured by Doppler, is 54.24mmHg. There is no pulmonic regurgitation present. The aortic root size is normal. IVC Not well visulized. There is no pericardial effusion. CONCLUSIONS -------- 1. The left ventricular size is normal. 2. There is moderate concentric left ventricular hypertrophy. 3. Overall left ventricular systolic function is normal with, an EF between 55 - 60 %. 4. Septal wall motion is delayed and consistent with prior cardiac surgery. 5. LA is severely dilated >40 ml/m2 6. The maximum velocity across the aortic valve is 4.71m/s. 7. Peak/mean gradient across the Aortic Valve is 88.93mmHg / 53.02mmHg. 8. There is mild regurgitation of the bioprosthetic aortic valve. 9. 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 10. Moderate mitral annular calcification present. 11. Moderate mitral regurgitation is present. 12. Mild mitral stenosis. 13. , with a MVA of 2.8cm (by PHT) 14. Moderate tricuspid regurgitation present. 15. There is moderate to severe pulmonary hypertension. 16. The right ventricular systolic pressure, as measured by Doppler, is 54.24mmHg. SLIP COVER CUTTER: Shavon Prabhakar RDCS
[2021-04-26 12:05] LABS: Glucose,Whole Blood 213 mg/dL (75-99)
[2021-04-26 17:05] LABS: Glucose,Whole Blood 248 mg/dL (75-99)
[2021-04-26] MEDS: APIXABAN 2.5 MG TABLET PO SCH ×2 (17:26→21:50)
[2021-04-26 21:11] LABS: Glucose,Whole Blood 320 mg/dL (75-99)
[2021-04-26] MEDS: LORazepam 1 MG TAB PO SCH (21:50)
[2021-04-26] MEDS: ATORVASTATIN 40 MG TAB PO SCH (21:50)
[2021-04-27 05:57] LABS: Glucose,Whole Blood 117 mg/dL (75-99)
[2021-04-27] MEDS: INSULIN ASPART (NovoLOG) 100 UNIT/ML VIAL SQ SCH ×4 (05:57→19:51)
[2021-04-27] MEDS: LEVOTHYROXINE 25 MCG TAB PO SCH (05:59)
[2021-04-27] MEDS: PANTOPRAZOLE 40 MG TABLET PO SCH (05:59)
--- NOTE | 2021-04-27 07:49 | XR ---
EXAMINATION TYPE: XR chest 1V portable DATE OF EXAM: 04/27/2021 Comparison: 04/26/2021 Clinical History: 85-year-old female covid-19 Findings: Heart is borderline enlarged. Scattered patchy interstitial densities in the mid and lower lungs, lef t greater than right. Median sternotomy wires are present. Post CABG clips in the mediastinum. Asymme tric elevation right hemidiaphragm is unchanged. Degenerative change right shoulder with loss of the subacromial space suggesting chronic full-thickness rotator cuff tear. Left shoulder arthroplasty par tially visualized. Impression: 1. Portal and cardiomegaly persists. 2. Some scattered interstitial infiltrates also persist, left greater than right.
[2021-04-27] MEDS: FLUTICASONE 110 MCG INHALER INHALATION SCH ×2 (08:27→19:59)
[2021-04-27] MEDS: ALBUTEROL HFA INHALER INHALATION SCH ×4 (08:27→19:59)
[2021-04-27] MEDS: Salmeterol 50 mcg INHALER INHALATION SCH ×2 (08:28→20:06)
[2021-04-27] MEDS: TIOTROPIUM 2.5 MCG INHALER INHALATION SCH (08:31)
[2021-04-27] MEDS: ASCORBIC ACID 500 MG TAB PO SCH (08:45)
[2021-04-27] MEDS: ASPIRIN 81 MG PO SCH (08:45)
[2021-04-27] MEDS: CHOLECALCIFEROL 25 MCG (1000 IU) TABLET PO SCH (08:45)
[2021-04-27] MEDS: allopurinoL 300 MG TAB PO SCH (08:45)
[2021-04-27] MEDS: ZINC SULFATE 220 MG CAP PO SCH (08:45)
[2021-04-27] MEDS: DEXAMETHASONE SOD PHOSPHATE 10 MG/ML 1 ML VIAL IV SCH (08:45)
[2021-04-27] MEDS: FUROSEMIDE 40 MG TAB PO SCH ×2 (08:45→15:50)
[2021-04-27] MEDS: METOPROLOL TARTRATE 50 MG TAB PO SCH ×2 (08:45→19:51)
[2021-04-27] MEDS: APIXABAN 2.5 MG TABLET PO SCH ×2 (08:45→19:51)
[2021-04-27] MEDS: GLIMEPIRIDE 2 MG TAB PO SCH (08:45)
[2021-04-27 08:46] LABS: Basophils % (A) 0 %; Eosinophils % (A) 0 %; HCT 35.6 % (34.0-46.0); HGB 11.8 gm/dL (11.4-16.0); Lymphocytes # (A) 0.5 k/uL (1.0-4.8); Lymphocytes % (A) 4 %; MCH 41.1 pg (25.0-35.0); MCHC 33.2 g/dL (31.0-37.0); Macrocytosis Marked; Mean Platelet Volume 9.1; Monocytes # (A) 0.3 k/uL (0-1.0); Monocytes % (A) 2 %; Neutrophils # (A) 11.4 k/uL (1.3-7.7); Neutrophils % (A) 93 %; Platelet Count 143 k/uL (150-450); RBC 2.87 m/uL (3.80-5.40); RDW 14.3 % (11.5-15.5); WBC 12.2 k/uL (3.8-10.6)
[2021-04-27] MEDS: REMDESIVIR 100 MG in SODIUM CHLORIDE 0.9% 250 ML IVPB SCH (08:46)
[2021-04-27 08:50] LABS: MCV 123.7 fL (80.0-100.0)
[2021-04-27 08:52] LABS: Albumin 3.3 g/dL (3.5-5.0); C Reactive Protein 6.3 mg/dL (<1.0); Calcium 9.1 mg/dL (8.4-10.2); Magnesium 1.8 mg/dL (1.6-2.3); Potassium 4.3 mmol/L (3.5-5.1); Total Bilirubin 0.7 mg/dL (0.2-1.3)
[2021-04-27 10:58] LABS: Erythrocyte Sedimentation Rate 53 mm/hr (0-20)
[2021-04-27 12:20] LABS: Glucose,Whole Blood 269 mg/dL (75-99)
--- NOTE | 2021-04-27 12:23 | P.PN ---
Subjective Progress Note Date: 04/27/21 Principal diagnosis: Acute hypoxic failure secondary to COVID-19 pneumonia This is an 85-year-old female patient who follows with Dr. Weiss is her primary care provider. She has a history of hypothyroidism, hypertension, diabetes mellitus, hyperlipidemia, asthma, coronary artery disease with previous 5 vessel artery bypass grafting along with aortic valve replacement, anticoagulated with Eliquis. Lifelong nonsmoker. She is brought into the emergency room yesterday with a four-day history of diarrhea, dehydration, weakness, multiple watery stools throughout the day and lower abdominal discomfort. She also was found to have altered mental status and difficulty walking. T scan of the abdomen and pelvis revealed no acute abdominal pelvic process. EKG revealed sinus rhythm with nonspecific ST and T wave abnormalities. His x-ray reveals bilateral interstitial pneumonia. Count 5.1. Hemoglobin 11.1. Platelets 103. D-dimer 1.0. Sodium 137. Potassium 3.3. Creatinine 1.55. AST 37. ALT 12. LDH 769. C-reactive protein 6.2. Bone and 0.14. 0.20. Urine with moderate leukocytes. Cloudy. See difficile negative. Saenz virus by PCR positive. The patient s tates she did have 1 shot Xander & Xander vaccine in January 2021. He is seen today in the emergency room. She is currently resting in bed. Awake and alert. Somewhat confused to time and place. She is febrile. T-max of 102.3. Tachycardic. Hypoxemic requiring 6 L high flow nasal cannula to maintain O2 saturations in the 90s. She's been initiated on a heparin drip. His been initiated on Decadron, vitamin supplements, bronchodilators. Patient was reevaluated today on 04/26/2021, patient is on 4 L nasal cannula, O2 saturation is 95%, patient isn't vaccinated patient with COVID-19 pneumonia, she is on REM and she is also on Decadron. Patient seems to be comfortable, she is not in any form of distress, remains on heparin for troponin leak, she is also on fluids for acute dehydration and diarrhea. Patient is on Eliquis for atrial fibrillation and aortic stenosis. Pro-calcitonin level today is 0.29. Not significantly elevated. Troponin was up to 0.20 yesterday. From 0.145 the day prior. ProBNP level was noted to be a bit elevated as above 7000. Reevaluated today on 04/27/2021, patient is feeling better, breathing easier, she is recovering quite nicely from COVID-19 pneumonia. She is down to 4 L nasal cannula, O2 saturations 91%. Patient continues to have some shortness of breath, intermittent cough, patient did receive remdesivir, and in addition to all of this the patient has been vaccinated. Remains on Decadron. She seems to be fairly comfortable, she is receiving anticoagulation therapy. for troponin leak, and she had a presentation with acute dehydration with diarrhea. Patient is on Eliquis now. CBC is relatively normal hemoglobin is 11.8 electrolytes are normal BUN is 61 creatinine 1.34. Improving over the last few days. Objective - Vital Signs Vital signs: Vital Signs Temp 97.8 F 04/27/21 11:49 Pulse 76 04/27/21 11:49 Resp 20 04/27/21 11:49 BP 126/55 04/27/21 11:49 Pulse Ox 90 L 04/27/21 08:45 Intake & Output 04/26/21 04/27/21 04/27/21 18:59 06:59 18:59 Intake Total 220 260 240 Balance 220 260 240 Weight 79.5 kg 78.5 kg Intake: Oral 220 260 240 Other: Voiding Method Bedside Commode Bedside Commode Bedside Commode # Voids 1 - Exam GENERAL EXAM: 85-year-old female patient, on 4 L nasal cannula, not in distress. Head: Atraumatic normocephalic. EENT: PERRLA, EOMI, nonicteric, no neck masses, no JVD, no stridor. CHEST: No chest wall deformity. LUNGS: Crackles at the bases bilaterally. CVS: S1 and S2 normal over 6 systolic murmur thought the precordium. ABDOMEN: No hepatosplenomegaly, normal bowel sounds, no guarding or rigidity. SKIN: No rashes CENTRAL NERVOUS SYSTEM: No focal deficits, tone is normal in all 4 extremities. EXTREMITIES: No clubbing edema or cyanosis, good pulses bilaterally. - Labs CBC & Chem 7: 04/27/21 07:36 04/27/21 07:36 Labs: Abnormal Lab Results - Last 24 Hours (Table) 04/26/21 04/26/21 04/26/21 Range/Units 11:44 17:00 21:02 WBC (3.8-10.6) k/uL RBC (3.80-5.40) m/uL MCV (80.0-100.0) fL MCH (25.0-35.0) pg Plt Count (150-450) k/uL Neutrophils # (1.3-7.7) k/uL Lymphocytes # (1.0-4.8) k/uL Macrocytosis ESR (0-20) mm/hr APTT 32.0 H (22.0-30.0) sec BUN (7-17) mg/dL Creatinine (0.52-1.04) mg/dL POC Glucose (mg/dL) 248 H 320 H (75-99) mg/dL AST (14-36) U/L C-Reactive Protein (<1.0) mg/dL Total Protein (6.3-8.2) g/dL Albumin (3.5-5.0) g/dL Procalcitonin (0.02-0.09) ng/mL 04/27/21 04/27/21 04/27/21 Range/Units 05:54 07:36 07:36 WBC 12.2 H (3.8-10.6) k/uL RBC 2.87 L (3.80-5.40) m/uL MCV 123.7 H (80.0-100.0) fL MCH 41.1 H (25.0-35.0) pg Plt Count 143 L (150-450) k/uL Neutrophils # 11.4 H (1.3-7.7) k/uL Lymphocytes # 0.5 L (1.0-4.8) k/uL Macrocytosis Marked A ESR 53 H (0-20) mm/hr APTT (22.0-30.0) sec BUN (7-17) mg/dL Creatinine (0.52-1.04) mg/dL POC Glucose (mg/dL) 117 H (75-99) mg/dL AST (14-36) U/L C-Reactive Protein (<1.0) mg/dL Total Protein (6.3-8.2) g/dL Albumin (3.5-5.0) g/dL Procalcitonin 0.28 H (0.02-0.09) ng/mL 04/27/21 Range/Units 07:36 WBC (3.8-10.6) k/uL RBC (3.80-5.40) m/uL MCV (80.0-100.0) fL MCH (25.0-35.0) pg Plt Count (150-450) k/uL Neutrophils # (1.3-7.7) k/uL Lymphocytes # (1.0-4.8) k/uL Macrocytosis ESR (0-20) mm/hr APTT (22.0-30.0) sec BUN 61 H (7-17) mg/dL Creatinine 1.34 H (0.52-1.04) mg/dL POC Glucose (mg/dL) (75-99) mg/dL AST 41 H (14-36) U/L C-Reactive Protein 6.3 H (<1.0) mg/dL Total Protein 6.0 L (6.3-8.2) g/dL Albumin 3.3 L (3.5-5.0) g/dL Procalcitonin (0.02-0.09) ng/mL Microbiology - Last 24 Hours (Table) 04/25/21 08:51 Blood Culture - Preliminary Blood No Growth after 48 hours 04/26/21 04:00 Urine Culture - Preliminary Urine,Voided Assessment and Plan Assessment: Impression: Acute hypoxic respiratory failure secondary to COVID-19 pneumonia patient is vaccinated, received Xander and Xander vaccination back in January 2021, symptoms within the last 5 days. Hence she qualified for remdesivir Acute metabolic encephalopathy secondary to COVID-19 infection. Improved. Acute kidney injury likely dehydration improving since admission. Chronic diarrhea. History of coronary artery disease and previous CABG and previous aortic valve replacement in 2011. Benign essential hypertension Hypothyroidism Dyslipidemia Type 2 diabetes Degenerative joint disease Recommendation: Continue the COVID-19 cocktail including vitamins and Decadron. Continue remdesivir Continue bronchodilators. Continue cardiac meds as per cardiology on the case. Consider discharge planning in the next couple of days. Or even possibly in the next 24 hours but she will need home oxygen. We will continue to follow. Time with Patient: Less than 30
--- NOTE | 2021-04-27 14:29 | PN ---
PROGRESS NOTE Mrs Stovall is a patient with a non-ST elevation SD, aortic valve replacement and bypass surgery. She still has some shortness of breath. The rate is fairly well controlled. Vitals are stable. I did not examine the patient. I am recommending that we continue current supportive care and I will see her as needed. HENRI / BENJAMIN: [id number] /
[2021-04-27 16:44] LABS: Glucose,Whole Blood 254 mg/dL (75-99)
[2021-04-27] MEDS: LORazepam 1 MG TAB PO SCH (19:51)
[2021-04-27] MEDS: ATORVASTATIN 40 MG TAB PO SCH (19:51)
[2021-04-27] MEDS: MELATONIN 3 MG TABLET PO SCH (19:51)
[2021-04-27 19:54] LABS: Glucose,Whole Blood 223 mg/dL (75-99)
--- NOTE | 2021-04-27 21:53 | PN ---
PROGRESS NOTE DATE OF SERVICE: 04/27/2021 This 85-year-old woman who was admitted with acute hypoxic respiratory failure secondary acute Covid 19 bilateral pneumonia also has some change in mental status. Dr. Fortune is following the patient closely. The most recent chest x-ray which was done today which was reviewed personally by me showed some bilateral pneumonia. Cardiology also has seen the patient for ST-elevation myocardial infarction, new onset paroxysmal atrial fibrillation. Toby's Vasc score was about 2, found to be 9 and a 2D echo with Doppler was also done. A 2D echo with Doppler showed ejection fraction about 55% to 60%, LA was severely dilated more than 40 and the patient being closely monitored at this time. Patient has severe stenosis of the bioprosthetic aortic valve as well as moderate to mitral calcification, moderate mitral regurgitation. PAST MEDICAL HISTORY: Reviewed. REVIEW OF SYSTEMS: Cardiovascular: No angina or palpitations. Respiratory: As mentioned earlier. GI: As mentioned earlier. : No nausea or vomiting. Nervous system: No numbness or weakness. CURRENT MEDICATIONS: Reviewed and include: Tylenol, Ventolin, Zyloprim, Eliquis, vitamin C, aspirin, Lipitor, doses and other medications reviewed. PHYSICAL EXAMINATION: The patient is alert and oriented times three. Pulse 70, irregular, blood pressure 86/53, respirations 20, temperature 97.7, pulse ox 94% on 4 L. HEENT is conjunctivae normal. Oral mucosa moist. Neck is no JVD. No carotid bruit. Cardiovascular systems: S1, S2 muffled. Ejection systolic murmur. Respiration: Breath sounds diminished in the bases. A few scattered rhonchi. Abdomen: Soft, nontender. Legs are no edema. No swelling. Nervous system no focal deficits. LAB STUDIES: WBC 12.2, MCV 123.7, ESR is 55 and creatinine is 1.34. Procalcitonin 0.28. ASSESSMENT: 1. Acute COVID-19 infection with acute hypoxic respiratory failure secondary to acute bilateral intention pneumonia. The patient is vaccinated with J&J. 2. Change in mental status, acute metabolic encephalopathy. 3. Atrial fibrillation with fast ventricular rate. 4. Severe aortic stenosis of the bioprosthetic aortic valve. 5. Moderate mitral annular calcification as well as moderate mitral regurgitation. 6. Moderate tricuspid regurgitation. 7. Moderate to severe pulmonary hypertension. 8. LA severely dilated. 9. Continued fever. 10.Acute on chronic kidney disease. 11.Congestive heart failure with chronic diastolic dysfunction. 12.CAD, CABG history. 13.Hypertension. 14.Hyperlipidemia. 15.Diabetes mellitus, type 2. 16.Increased creatinine with chronic kidney stage 3. 17.Increased WBC. 18.Increased MCV. RECOMMENDATIONS AND DISCUSSION: This 87-year-old woman who presented with multiple complex medical issues, we will monitor the patient closely, continue the current management and symptomatic treatment. Otherwise at this time I recommend continue with steroids. Continue the rest of the medications. Continue with anticoagulation. The patient is on Eliquis 2.5 mg twice daily. Otherwise continue the rest of medications. Guarded prognosis because of multiple complex medical issues. Repeat labs will be ordered and closely follow with Pulmonary, Dr. Fortune and as well as Cardiology. Further recommendations to follow. MMSANGEETHAL / TIERRAN: [id number] /
[2021-04-28] MEDS: PANTOPRAZOLE 40 MG TABLET PO SCH (06:14)
[2021-04-28] MEDS: LEVOTHYROXINE 25 MCG TAB PO SCH (06:14)
[2021-04-28] MEDS: INSULIN ASPART (NovoLOG) 100 UNIT/ML VIAL SQ SCH ×4 (06:14→20:46)
[2021-04-28 06:48] LABS: Glucose,Whole Blood 73 mg/dL (75-99)
[2021-04-28] MEDS: ALBUTEROL HFA INHALER INHALATION SCH ×4 (08:11→19:54)
[2021-04-28] MEDS: FLUTICASONE 110 MCG INHALER INHALATION SCH ×2 (08:11→19:54)
[2021-04-28] MEDS: TIOTROPIUM 2.5 MCG INHALER INHALATION SCH (08:12)
[2021-04-28] MEDS: Salmeterol 50 mcg INHALER INHALATION SCH ×2 (08:12→19:54)
[2021-04-28] MEDS: REMDESIVIR 100 MG in SODIUM CHLORIDE 0.9% 250 ML IVPB SCH (08:36)
[2021-04-28] MEDS: DEXAMETHASONE SOD PHOSPHATE 10 MG/ML 1 ML VIAL IV SCH (08:36)
[2021-04-28] MEDS: GLIMEPIRIDE 2 MG TAB PO SCH (08:37)
[2021-04-28] MEDS: FUROSEMIDE 40 MG TAB PO SCH ×2 (08:37→15:20)
[2021-04-28] MEDS: allopurinoL 300 MG TAB PO SCH (08:37)
[2021-04-28] MEDS: ZINC SULFATE 220 MG CAP PO SCH (08:37)
[2021-04-28] MEDS: ASPIRIN 81 MG PO SCH (08:37)
[2021-04-28] MEDS: METOPROLOL TARTRATE 50 MG TAB PO SCH ×2 (08:37→20:06)
[2021-04-28] MEDS: CHOLECALCIFEROL 25 MCG (1000 IU) TABLET PO SCH (08:37)
[2021-04-28] MEDS: ASCORBIC ACID 500 MG TAB PO SCH (08:37)
[2021-04-28] MEDS: APIXABAN 2.5 MG TABLET PO SCH ×2 (08:37→20:06)
[2021-04-28 09:16] LABS: Basophils % (A) 0 %; Eosinophils % (A) 0 %; HCT 32.7 % (34.0-46.0); HGB 10.8 gm/dL (11.4-16.0); Lymphocytes # (A) 0.5 k/uL (1.0-4.8); Lymphocytes % (A) 6 %; MCH 40.9 pg (25.0-35.0); MCHC 33.1 g/dL (31.0-37.0); MCV 123.3 fL (80.0-100.0); Macrocytosis Marked; Mean Platelet Volume 9.2; Monocytes # (A) 0.3 k/uL (0-1.0); Monocytes % (A) 4 %; Neutrophils # (A) 8.3 k/uL (1.3-7.7); Neutrophils % (A) 90 %; Platelet Count 118 k/uL (150-450); RBC 2.65 m/uL (3.80-5.40); RDW 14.2 % (11.5-15.5); WBC 9.2 k/uL (3.8-10.6)
[2021-04-28 09:18] LABS: Calcium 8.9 mg/dL (8.4-10.2); Potassium 3.9 mmol/L (3.5-5.1)
[2021-04-28 11:49] LABS: Glucose,Whole Blood 171 mg/dL (75-99)
[2021-04-28] MEDS: THIAMINE 100 MG TAB PO SCH (12:06)
[2021-04-28] MEDS: MULTIVITAMINS, THERA 1 EACH TAB PO SCH (12:06)
[2021-04-28] MEDS: FOLIC ACID 1 MG TAB PO SCH (12:06)
--- NOTE | 2021-04-28 12:42 | PN ---
PROGRESS NOTE This lady has history of CAD, prior bypass surgery and aortic valve replacement, has Covid infection, recovering slowly. She is in sinus rhythm. Appears to be quite stable overall. Vital signs stable. No JVD. S1-S2 heard normally. Short systolic murmur is noted at the base. Lungs reveal improved air entry Plan is to continue current medications and we will see her as needed. MMODL / IJN: [id number] /
--- NOTE | 2021-04-28 15:14 | P.PN ---
Subjective Progress Note Date: 04/28/21 Principal diagnosis: Acute hypoxic failure secondary to COVID-19 pneumonia This is an 85-year-old female patient who follows with Dr. Weiss is her primary care provider. She has a history of hypothyroidism, hypertension, diabetes mellitus, hyperlipidemia, asthma, coronary artery disease with previous 5 vessel artery bypass grafting along with aortic valve replacement, anticoagulated with Eliquis. Lifelong nonsmoker. She is brought into the emergency room yesterday with a four-day history of diarrhea, dehydration, weakness, multiple watery stools throughout the day and lower abdominal discomfort. She also was found to have altered mental status and difficulty walking. T scan of the abdomen and pelvis revealed no acute abdominal pelvic process. EKG revealed sinus rhythm with nonspecific ST and T wave abnormalities. His x-ray reveals bilateral interstitial pneumonia. Count 5.1. Hemoglobin 11.1. Platelets 103. D-dimer 1.0. Sodium 137. Potassium 3.3. Creatinine 1.55. AST 37. ALT 12. LDH 769. C-reactive protein 6.2. Bone and 0.14. 0.20. Urine with moderate leukocytes. Cloudy. See difficile negative. Saenz virus by PCR positive. The patient s tates she did have 1 shot Xander & Xander vaccine in January 2021. He is seen today in the emergency room. She is currently resting in bed. Awake and alert. Somewhat confused to time and place. She is febrile. T-max of 102.3. Tachycardic. Hypoxemic requiring 6 L high flow nasal cannula to maintain O2 saturations in the 90s. She's been initiated on a heparin drip. His been initiated on Decadron, vitamin supplements, bronchodilators. Patient was reevaluated today on 04/26/2021, patient is on 4 L nasal cannula, O2 saturation is 95%, patient isn't vaccinated patient with COVID-19 pneumonia, she is on REM and she is also on Decadron. Patient seems to be comfortable, she is not in any form of distress, remains on heparin for troponin leak, she is also on fluids for acute dehydration and diarrhea. Patient is on Eliquis for atrial fibrillation and aortic stenosis. Pro-calcitonin level today is 0.29. Not significantly elevated. Troponin was up to 0.20 yesterday. From 0.145 the day prior. ProBNP level was noted to be a bit elevated as above 7000. Reevaluated today on 04/27/2021, patient is feeling better, breathing easier, she is recovering quite nicely from COVID-19 pneumonia. She is down to 4 L nasal cannula, O2 saturations 91%. Patient continues to have some shortness of breath, intermittent cough, patient did receive remdesivir, and in addition to all of this the patient has been vaccinated. Remains on Decadron. She seems to be fairly comfortable, she is receiving anticoagulation therapy. for troponin leak, and she had a presentation with acute dehydration with diarrhea. Patient is on Eliquis now. CBC is relatively normal hemoglobin is 11.8 electrolytes are normal BUN is 61 creatinine 1.34. Improving over the last few days. Reevaluated today on 04/28/2021, a shunt is feeling much better, breathing a lot easier, she seems to be recovering fairly well from her COVID-19 pneumonia. Today she is on 3 L nasal cannula, and her O2 saturations 95%. Patient has been treated with the COVID-19 cocktail, she also received a full course of remdesivir, remains on the Decadron. Labs were reviewed today, BUN remains elevated at 65 creatinine is 1.39. Objective - Vital Signs Vital signs: Vital Signs Temp 98.1 F 04/28/21 13:27 Pulse 70 04/28/21 13:27 Resp 20 04/28/21 13:27 BP 114/67 04/28/21 13:27 Pulse Ox 95 04/28/21 13:27 Intake & Output 04/27/21 04/28/21 04/28/21 18:59 06:59 18:59 Intake Total 630 260 480 Output Total 500 100 801 Balance 130 160 -321 Weight 78 kg Intake: IV 20 Invasive Line 4 20 Intake, IV Titration 250 Amount Remdesivir 100 mg In 250 Sodium Chloride 0.9% 250 ml @ 250 mls/hr IVPB DAILY [facility] Rx#:[id number] Oral 380 240 480 Output: Urine 500 100 801 Other: Voiding Method Bedside Commode Bedside Commode # Voids 1 1 - Exam GENERAL EXAM: 85-year-old female patient, on 3 L nasal cannula, not in distress. Head: Atraumatic normocephalic. EENT: PERRLA, EOMI, nonicteric, no neck masses, no JVD, no stridor. CHEST: No chest wall deformity. LUNGS: Crackles at the bases bilaterally. CVS: S1 and S2 normal over 6 systolic murmur thought the precordium. ABDOMEN: No hepatosplenomegaly, normal bowel sounds, no guarding or rigidity. SKIN: No rashes CENTRAL NERVOUS SYSTEM: No focal deficits, tone is normal in all 4 extremities. EXTREMITIES: No clubbing edema or cyanosis, good pulses bilaterally. - Labs CBC & Chem 7: 04/28/21 07:14 04/28/21 07:14 Labs: Abnormal Lab Results - Last 24 Hours (Table) 04/27/21 04/27/21 04/28/21 Range/Units 16:41 19:47 06:06 RBC (3.80-5.40) m/uL Hgb (11.4-16.0) gm/dL Hct (34.0-46.0) % MCV (80.0-100.0) fL MCH (25.0-35.0) pg Plt Count (150-450) k/uL Neutrophils # (1.3-7.7) k/uL Lymphocytes # (1.0-4.8) k/uL Macrocytosis Carbon Dioxide (22-30) mmol/L BUN (7-17) mg/dL Creatinine (0.52-1.04) mg/dL POC Glucose (mg/dL) 254 H 223 H 73 L (75-99) mg/dL 04/28/21 04/28/21 04/28/21 Range/Units 07:14 07:14 11:47 RBC 2.65 L (3.80-5.40) m/uL Hgb 10.8 L (11.4-16.0) gm/dL Hct 32.7 L (34.0-46.0) % MCV 123.3 H (80.0-100.0) fL MCH 40.9 H (25.0-35.0) pg Plt Count 118 L (150-450) k/uL Neutrophils # 8.3 H (1.3-7.7) k/uL Lymphocytes # 0.5 L (1.0-4.8) k/uL Macrocytosis Marked A Carbon Dioxide 32 H (22-30) mmol/L BUN 65 H (7-17) mg/dL Creatinine 1.39 H (0.52-1.04) mg/dL POC Glucose (mg/dL) 171 H (75-99) mg/dL Microbiology - Last 24 Hours (Table) 04/25/21 08:51 Blood Culture - Preliminary Blood No Growth after 72 hours 04/24/21 19:44 Stool Culture - Preliminary Stool 04/26/21 04:00 Urine Culture - Final Urine,Voided Assessment and Plan Assessment: Impression: Acute hypoxic respiratory failure secondary to COVID-19 pneumonia patient is vaccinated, received Xander and Xander vaccination back in January 2021, sym ptoms within the last 5 days. Hence she qualified for remdesivir, and this was given. Acute metabolic encephalopathy secondary to COVID-19 infection. Improved. Acute kidney injury likely dehydration improving since admission. Chronic diarrhea. History of coronary artery disease and previous CABG and previous aortic valve replacement in 2011. Benign essential hypertension Hypothyroidism Dyslipidemia Type 2 diabetes Degenerative joint disease Recommendation: Present supportive care measures on present treatment. Continue remdesivir until the patient is finished with a 5 day course. Continue bronchodilators. Continue cardiac meds as per cardiology on the case. Pulmonary-spears, I believe the patient could be considered for discharge planning tomorrow may need to be on home O2 for a couple of weeks. Time with Patient: Less than 30
[2021-04-28 16:43] LABS: Glucose,Whole Blood 279 mg/dL (75-99)
[2021-04-28 19:52] VITALS: RESP 18
[2021-04-28] MEDS: MELATONIN 3 MG TABLET PO SCH (20:06)
[2021-04-28] MEDS: ATORVASTATIN 40 MG TAB PO SCH (20:06)
[2021-04-28] MEDS: LORazepam 1 MG TAB PO SCH (20:06)
--- NOTE | 2021-04-28 20:30 | PN ---
PROGRESS NOTE DATE OF SERVICE: 04/28/2021 This 85-year-old woman who was admitted with acute Covid 19 infection with acute hypoxic respiratory failure secondary to acute bilateral interstitial pneumonia, is being closely monitored at this time. The patient is vaccinated with J&J no chest pain. No palpitations. No fever. The patient is on Remdesivir which the last dose is supposed to be tomorrow. No chest pain. No palpitations. No fever. PHYSICAL EXAMINATION: Alert and oriented times three. Pulse 70. Blood pressure 140/60, respiration 20, temperature 98.2, pulse ox 94% on 3 L. HEENT: Conjunctivae normal. NECK: No JVD. CARDIOVASCULAR: S1, S2 muffled. RESPIRATION: A few scattered rhonchi. ABDOMEN: Soft. NERVOUS SYSTEM: No focal deficits. LABS: WBC 9.2, hemoglobin 10.8, sodium 130, potassium 3.9, Accu-Cheks are noted. ASSESSMENT: 1. Acute COVID-19 infection with acute hypoxic respiratory failure secondary to acute bilateral interstitial pneumonia. The patient is vaccinated with J&J. 2. Change in mental status, acute metabolic encephalopathy. 3. Atrial fibrillation with fast ventricular rate. 4. Severe aortic stenosis of the bioprosthetic aortic valve. 5. Moderate mitral annular calcification as well as moderate mitral regurgitation. 6. Moderate tricuspid regurgitation. 7. Moderate severe pulmonary hypertension. 8. LV severely dilated. 9. Continued fever. 10.Acute on chronic kidney disease. 11.Congestive heart failure with chronic diastolic dysfunction. 12.Coronary artery disease, coronary artery bypass grafting history. 13.Hypertension. 14.Hyperlipidemia. 15.Diabetes mellitus, type 2. 16.Increased creatinine with chronic kidney stage 3. 17.Increased WBC. 18.Increased MCV. RECOMMENDATIONS: Recommend to continue current medications, monitoring, management and symptomatic treatment. Otherwise, at this time, I would recommend continue Remdesivir. The patient might require home O2. Social Work and Case Management to follow. Guarded prognosis because of multiple complex medical issues. Further recommendations to follow. MMODL / IJN: [id number] /
[2021-04-28 20:45] LABS: Glucose,Whole Blood 314 mg/dL (75-99)
[2021-04-29 01:36] LABS: Glucose,Whole Blood 100 mg/dL (75-99)
[2021-04-29] MEDS: INSULIN ASPART (NovoLOG) 100 UNIT/ML VIAL SQ SCH ×2 (06:04→13:05)
[2021-04-29 06:06] LABS: Glucose,Whole Blood 53 mg/dL (75-99)
[2021-04-29] MEDS: PANTOPRAZOLE 40 MG TABLET PO SCH (06:06)
[2021-04-29] MEDS: LEVOTHYROXINE 25 MCG TAB PO SCH (06:06)
[2021-04-29 06:20] LABS: Glucose,Whole Blood 82 mg/dL (75-99)
[2021-04-29] MEDS: ALBUTEROL HFA INHALER INHALATION SCH ×3 (09:17→16:08)
[2021-04-29] MEDS: Salmeterol 50 mcg INHALER INHALATION SCH (09:18)
[2021-04-29] MEDS: FLUTICASONE 110 MCG INHALER INHALATION SCH (09:18)
[2021-04-29] MEDS: TIOTROPIUM 2.5 MCG INHALER INHALATION SCH (09:18)
[2021-04-29] MEDS: GLIMEPIRIDE 2 MG TAB PO SCH (09:50)
[2021-04-29] MEDS: ASCORBIC ACID 500 MG TAB PO SCH (09:50)
[2021-04-29] MEDS: CHOLECALCIFEROL 25 MCG (1000 IU) TABLET PO SCH (09:50)
[2021-04-29] MEDS: ZINC SULFATE 220 MG CAP PO SCH (09:50)
[2021-04-29] MEDS: ASPIRIN 81 MG PO SCH (09:50)
[2021-04-29] MEDS: FUROSEMIDE 40 MG TAB PO SCH (09:51)
[2021-04-29] MEDS: allopurinoL 300 MG TAB PO SCH (09:51)
[2021-04-29] MEDS: METOPROLOL TARTRATE 50 MG TAB PO SCH (09:51)
[2021-04-29] MEDS: DEXAMETHASONE SOD PHOSPHATE 10 MG/ML 1 ML VIAL IV SCH (09:51)
[2021-04-29] MEDS: APIXABAN 2.5 MG TABLET PO SCH (09:51)
[2021-04-29 10:35] VITALS: TEMP 98.2
[2021-04-29 11:56] LABS: Glucose,Whole Blood 181 mg/dL (75-99)
--- NOTE | 2021-04-29 12:36 | P.PN ---
Subjective Progress Note Date: 04/29/21 Principal diagnosis: Respiratory failure. Acute hypoxic failure secondary to COVID-19 pneumonia This is an 85-year-old female patient who follows with Dr. Weiss is her primary care provider. She has a history of hypothyroidism, hypertension, diabetes mellitus, hyperlipidemia, asthma, coronary artery disease with previous 5 vessel artery bypass grafting along with aortic valve replacement, anticoagulated with Eliquis. Lifelong nonsmoker. She is brought into the emergency room yesterday with a four-day history of diarrhea, dehydration, weakness, multiple watery stools throughout the day and lower abdominal discomfort. She also was found to have altered mental status and difficulty walking. T scan of the abdomen and pelvis revealed no acute abdominal pelvic process. EKG revealed sinus rhythm with nonspecific ST and T wave abnormalities. His x-ray reveals bilateral interstitial pneumonia. Count 5.1. Hemoglobin 11.1. Platelets 103. D-dimer 1.0. Sodium 137. Potassium 3.3. Creatinine 1.55. AST 37. ALT 12. LDH 769. C-reactive protein 6.2. Bone and 0.14. 0.20. Urine with moderate leukocytes. Cloudy. See difficile negative. Saenz virus by PCR positive. The patient states she did have 1 shot Xander & Xander vaccine in January 2021. He is seen today in the emergency room. She is currently resting in bed. Awake and alert. Somewhat confused to time and place. She is febrile. T-max of 102.3. Tachycardic. Hypoxemic requiring 6 L high flow nasal cannula to maintain O2 saturations in the 90s. She's been initiated on a heparin drip. His been initiated on Decadron, vitamin supplements, bronchodilators. Patient was reevaluated today on 04/26/2021, patient is on 4 L nasal cannula, O2 saturation is 95%, patient isn't vaccinated patient with COVID-19 pneumonia, she is on REM and she is also on Decadron. Patient seems to be comfortable, she is not in any form of distress, remains on heparin for troponin leak, she is also on fluids for acute dehydration and diarrhea. Patient is on Eliquis for atrial fibrillation and aortic stenosis. Pro-calcitonin level today is 0.29. Not significantly elevated. Troponin was up to 0.20 yesterday. From 0.145 the day prior. ProBNP level was noted to be a bit elevated as above 7000. Reevaluated today on 04/27/2021, patient is feeling better, breathing easier, she is recovering quite nicely from COVID-19 pneumonia. She is down to 4 L nasal cannula, O2 saturations 91%. Patient continues to have some shortness of breath, intermittent cough, patient did receive remdesivir, and in addition to all of this the patient has been vaccinated. Remains on Decadron. She seems to be fairly comfortable, she is receiving anticoagulation therapy. for troponin leak, and she had a presentation with acute dehydration with diarrhea. Patient is on Eliquis now. CBC is relatively normal hemoglobin is 11.8 electrolytes are normal BUN is 61 creatinine 1.34. Improving over the last few days. Reevaluated today on 04/28/2021, a shunt is feeling much better, breathing a lot easier, she seems to be recovering fairly well from her COVID-19 pneumonia. Today she is on 3 L nasal cannula, and her O2 saturations 95%. Patient has been treated with the COVID-19 cocktail, she also received a full course of remdesivir, remains on the Decadron. Labs were reviewed today, BUN remains elevated at 65 creatinine is 1.39. Progress note dated 04/29/2021. 85-year-old female, seen again in room 350. The patient is feeling much better and much less short of breath. The patient is down to 3 L nasal cannula. She's not receiving any IV fluids. The patient did receive a full course of REM, as well as vitamins. She remains on Decadron. Clinically she feels much better. She does have shortness of breath on exertion. That is also much improved. Blood sugar today was 181. No chest x-ray today. She is hoping to be discharged in the near future. Objective - Vital Signs Vital signs: Vital Signs Temp 98.2 F 04/29/21 08:00 Pulse 63 04/29/21 08:00 Resp 18 04/29/21 08:00 BP 123/77 04/29/21 08:00 Pulse Ox 98 04/29/21 11:29 Intake & Output 04/28/21 04/29/21 04/29/21 18:59 06:59 18:59 Intake Total 870 236 Output Total 1301 400 400 Balance -431 -400 -164 Intake: Intake, IV Titration 250 Amount Remdesivir 100 mg In 250 Sodium Chloride 0.9% 250 ml @ 250 mls/hr IVPB DAILY [facility] Rx#:[id number] Oral 620 236 Output: Urine 1301 400 400 Other: Voiding Method Bedside Commode Bedside Commode # Voids 1 - Exam No acute distress, oriented 3. Nasal O2 in place at 3 L. No conversational dyspnea or use of accessory muscles. HEENT examination is grossly unremarkable. Neck supple. Full range of motion. No adenopathy thyromegaly or neck vein distention. Cardiovascular examination reveals regular rhythm rate. S1-S2 normal. No S3 or S4. No discernible murmur noted. Heart sounds are distant. Heart rate 63 bpm. Lungs reveal scattered bilateral rhonchi. No wheezes or crackles. Breath sounds are equal bilaterally. Saturations are 91-93% on 3 L. Abdomen soft bowel sounds are heard. No masses or tenderness. Extremities are intact. No cyanosis clubbing or edema. Skin is without rash or lesion. Neurologic examination is brief but nonfocal. - Labs CBC & Chem 7: 04/28/21 07:14 04/28/21 07:14 Labs: Abnormal Lab Results - Last 24 Hours (Table) 04/28/21 04/28/21 04/29/21 Range/Units 16:40 20:41 01:34 POC Glucose (mg/dL) 279 H 314 H 100 H (75-99) mg/dL 04/29/21 04/29/21 Range/Units 06:01 11:38 POC Glucose (mg/dL) 53 L 181 H (75-99) mg/dL Microbiology - Last 24 Hours (Table) 04/25/21 08:51 Blood Culture - Preliminary Blood No Growth after 96 hours 04/24/21 19:44 Stool Culture - Final Stool Assessment and Plan Assessment: Acute hypoxemic respiratory failure secondary to coronavirus associated pneumonia. Acute metabolic encephalopathy secondary to coronavirus infection. Acute kidney injury, secondary to dehydration, much improved. Chronic diarrhea. History of CAD, with bypass grafting and aortic valve replacement 2011. History of essential hypertension. Hypothyroidism. Dyslipidemia. Type 2 diabetes. Degenerative joint disease. Plan: Plan dated 04/29/2021. The patient's doing well. She's been weaned down to 3 L. She received her vitamins, and a full course of REM. The patient is feeling much improved. The patient continues on albuterol inhaler. The patient is being considered for possible discharge. She likely will need to be discharged home on oxygen therapy. She should finish out a full 10 days of Decadron. She should continue on vitamin C, vitamin D3, and zinc. Time with Patient: Less than 30
[2021-04-29] MEDS: REMDESIVIR 100 MG in SODIUM CHLORIDE 0.9% 250 ML IVPB SCH (13:05)
[2021-04-29] MEDS: MULTIVITAMINS, THERA 1 EACH TAB PO SCH (13:05)
[2021-04-29] MEDS: FOLIC ACID 1 MG TAB PO SCH (13:05)
[2021-04-29] MEDS: THIAMINE 100 MG TAB PO SCH (13:05)
[2021-04-29 16:21] VITALS: BP 105/62; PULSE 56
[2021-04-29 16:56] LABS: Glucose,Whole Blood 237 mg/dL (75-99)
--- NOTE | 2021-04-29 17:57 | DS ---
DISCHARGE SUMMARY DATE OF SERVICE: 04/29/2021 FINAL DIAGNOSES: 1. Acute COVID-19 infection with acute hypoxic respiratory failure secondary to acute bilateral interstitial pneumonia. The patient is vaccinated with J and J. 2. Change in mental status, acute metabolic encephalopathy. 3. Atrial fibrillation with fast ventricular rate. 4. 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 5. Moderate mitral annular calcification and moderate mitral regurgitation. 6. Moderate tricuspid regurgitation. 7. Moderate to severe pulmonary hypertension. 8. LV severely dilated. 9. Continued fever. 10.Acute on chronic kidney failure. 11.Congestive heart failure with chronic diastolic dysfunction. 12.Coronary artery disease, coronary artery bypass grafting. 13.Hypertension. 14.Hyperlipidemia. 15.Diabetes mellitus, type 2. 16.Increased creatinine with chronic kidney disease, stage 3. 17.Increased white count. 18.Increased mean corpuscular volume. DISCHARGE DISPOSITION: The patient will be discharged in stable condition with guarded prognosis. HISTORY OF PRESENT ILLNESS: This 85-year-old woman with a past medical history of multiple medical problems, as mentioned earlier, was admitted with acute COVID-19 infection with acute hypoxic respiratory failure. The patient was monitored closely. Patient was treated in conjunction with Dr. Fortune. The patient is followed by Dr. Weiss in the outpatient setting. The patient improved significantly. The room-air pulse ox is 87% and the patient is being recommended home O2 also because of the severe hypoxia. On exam, vitals are stable. CARDIOVASCULAR: S1, S2 muffled. ABDOMEN: Soft. NERVOUS SYSTEM: No focal deficit. DISCHARGE ADVICE AND MEDICATIONS: 1. Discharge diet is cardiac. 2. Activity limited until followup. 3. Follow up with Dr. Mo Weiss in 1-2 days. 4. Follow up with Cardiology as recommended. 5. Follow up with Pulmonary as recommended. 6. Amaryl 2 mg p.o. daily. 7. Ativan 1 mg at bedtime. 8. Budesonide 2 puffs daily. 9. Calcitriol 0.5 daily. 10.Calcium 600 mg daily. 11.Aspirin 81 mg daily. 12.K-Dur 10 mEq p.o. daily. 13.Lipitor 40 mg at bedtime. 14.Lopressor 50 mg p.o. b.i.d. 15.Magnesium 200 mg p.o. daily. 16.Famotidine 1 tablet p.o. daily. 17.Prilosec 20 mg daily. 18.B complex 1 p.o. daily. 19.Synthroid 25 mcg p.o. daily. 20.Tylenol p.r.n. 21.Vitamin D2 50,000 . 22.Zyloprim 300 mg p.o. daily. 23.Bisacodyl daily. 24.Apixaban 2.5 daily. 25.Imodium 2 mg p.o. daily. 26.Lasix 40 mg p.o. b.i.d. 27.DuoNeb q.i.d. and p.r.n. MMSANGEETHAL / TIERRAN: [id number] /
== END 2021-04-29 17:59 | disposition home or self-care (01) | DRG 177 ==
LOC: EC 16:43 → 3SCARD 04-25 00:30
PROVIDERS: ADMIT Family Medicine; ATTEND Family Medicine
PROC: XW033E5 Introduction of Remdesivir Anti-infective into Peripheral Vein, Percutaneous Approach, New Technology Group 5 (ICD-10-PCS; principal; 2021-04-25)
PROC: 3E0F7SF Introduction of Other Gas into Respiratory Tract, Via Natural or Artificial Opening (ICD-10-PCS; 2021-04-25)
DX: U07.1 COVID-19 (principal); G93.41 Metabolic encephalopathy; I21.4 Non-ST elevation (NSTEMI) myocardial infarction; I50.33 Acute on chronic diastolic (congestive) heart failure; J12.82 Pneumonia due to coronavirus disease 2019; J96.01 Acute respiratory failure with hypoxia; I13.0 Hypertensive heart and chronic kidney disease with heart failure and stage 1 through stage 4 chronic kidney disease, or unspecified chronic kidney disease; N17.9 Acute kidney failure, unspecified; T82.857A Stenosis of other cardiac prosthetic devices, implants and grafts, initial encounter; D53.9 Nutritional anemia, unspecified; E03.9 Hypothyroidism, unspecified; E11.22 Type 2 diabetes mellitus with diabetic chronic kidney disease; E78.5 Hyperlipidemia, unspecified; N18.30 Chronic kidney disease, stage 3 unspecified; E86.0 Dehydration; E87.6 Hypokalemia; F41.8 Other specified anxiety disorders; I08.3 Combined rheumatic disorders of mitral, aortic and tricuspid valves; I25.10 Atherosclerotic heart disease of native coronary artery without angina pectoris; I27.20 Pulmonary hypertension, unspecified; I48.0 Paroxysmal atrial fibrillation; I49.3 Ventricular premature depolarization; J45.909 Unspecified asthma, uncomplicated; K21.9 Gastro-esophageal reflux disease without esophagitis; K52.9 Noninfective gastroenteritis and colitis, unspecified; I83.90 Asymptomatic varicose veins of unspecified lower extremity; M19.90 Unspecified osteoarthritis, unspecified site; R01.1 Cardiac murmur, unspecified; R00.0 Tachycardia, unspecified; Y83.1 Surgical operation with implant of artificial internal device as the cause of abnormal reaction of the patient, or of later complication, without mention of misadventure at the time of the procedure; Z79.01 Long term (current) use of anticoagulants; Z79.82 Long term (current) use of aspirin; Z79.84 Long term (current) use of oral hypoglycemic drugs; Z79.890 Hormone replacement therapy; Z79.899 Other long term (current) drug therapy; Z80.9 Family history of malignant neoplasm, unspecified; Z86.718 Personal history of other venous thrombosis and embolism; Z90.710 Acquired absence of both cervix and uterus; Z95.1 Presence of aortocoronary bypass graft; Z95.3 Presence of xenogenic heart valve; Z88.8 Allergy status to other drugs, medicaments and biological substances; Z96.612 Presence of left artificial shoulder joint
CPT/HCPCS: 36415; 71045; 74176; 80048; 80053; 80061; 81001; 82728; 82747; 83605; 83615; 83630; 83690; 83735; 83880; 84145; 84425; 84484; 85025; 85379; 85384; 85610; 85652; 85730; 86140; 87040; 87045; 87046; 87086; 87324; 87502; 87635; 93005; 93306; 94640; 94760; 96374; 99285

== ENCOUNTER 2021-05-23 16:41 | Inpatient (IN) | payer MEDICARE, BC ==
[2021-05-23] MEDS ORDERED: SODIUM CHLORIDE 0.9% 500 ML 500 ML IV STA (18:26)
[2021-05-23 19:12] LABS: Anisocytosis Slight; Basophils % (A) 0 %; Eosinophils # (A) 0.4 k/uL (0-0.7); Eosinophils % (A) 5 %; HCT 27.3 % (34.0-46.0); Hypochromasia Slight; Lymphocytes # (A) 1.1 k/uL (1.0-4.8); Lymphocytes % (A) 15 %; MCH 41.2 pg (25.0-35.0); MCHC 33.3 g/dL (31.0-37.0); MCV 123.7 fL (80.0-100.0); Macrocytosis Marked; Monocytes # (A) 0.6 k/uL (0-1.0); Monocytes % (A) 9 %; Neutrophils % (A) 69 %; Poikilocytosis Slight; RBC 2.21 m/uL (3.80-5.40); RDW 16.8 % (11.5-15.5); WBC 7.3 k/uL (3.8-10.6)
[2021-05-23 19:22] LABS: Albumin 3.3 g/dL (3.5-5.0); Calcium 9.3 mg/dL (8.4-10.2); Magnesium 1.7 mg/dL (1.6-2.3); Potassium 3.4 mmol/L (3.5-5.1); Total Bilirubin 0.7 mg/dL (0.2-1.3); Total Protein 6.3 g/dL (6.3-8.2)
[2021-05-23 19:33] LABS: HGB 9.1 gm/dL (11.4-16.0)
[2021-05-23 19:35] LABS: Partial Thromboplastin Time 22.7 sec (22.0-30.0); Prothrombin Time 10.6 sec (9.0-12.0)
[2021-05-23] MEDS ORDERED: SODIUM CHLORIDE 0.9% 1,000 ML IV ONE (20:24)
--- NOTE | 2021-05-23 20:24 | ED ---
General Adult HPI - General Chief complaint: Recheck/Abnormal Lab/Rx Stated complaint: Irregular labs-Sent by Dr. Weiss Time Seen by Provider: 05/23/21 17:05 Source: patient, RN notes reviewed, old records reviewed Mode of arrival: ambulatory Limitations: no limitations - History of Present Illness Initial comments: This is an 85-year-old female presents emergency department after having been seen by her physician. She was going in for a checkup after she was hospitalized. Patient states they told her her hemoglobin was 7.4. Patient states she's had no black or bloody stools but she has been feeling quite fatigued lately. Patient denies any difficulty breathing shortness of breath per patient denies any fever chills or cough per patient's chest pain or palpitations. Patient denies lightheadedness or dizziness. - Related Data Home Medications Medication Instructions Recorded Confirmed Allopurinol [Zyloprim] 300 mg PO DAILY 03/03/14 04/24/21 Atorvastatin [Lipitor] 40 mg PO HS 03/03/14 04/24/21 Glimepiride [Amaryl] 2 mg PO DAILY 03/03/14 04/24/21 LORazepam [Ativan] 1 mg PO HS 03/03/14 04/24/21 Metoprolol Tartrate [Lopressor] 50 mg PO BID 03/03/14 04/24/21 Omeprazole [PriLOSEC] 20 mg PO DAILY 03/03/14 04/24/21 calcitrioL [Calcitriol] 0.5 mcg PO MOTUWETHFR 03/03/14 04/24/21 Ergocalciferol [Vitamin D2 50,000 unit PO QMONTH 04/23/15 04/24/21 (DRISDOL)] Acetaminophen Tab [Tylenol] 1,000 mg PO Q6HR PRN 06/15/15 04/24/21 Aspirin EC [Ecotrin Low Dose] 81 mg PO DAILY 10/24/16 04/24/21 Calcium Carbonate [Calcium] 600 mg PO DAILY 10/24/16 04/24/21 B Complex W-C No.20/Folic Acid 1 mg PO DAILY 04/09/21 04/24/21 [Renal Caps Softgel] Budesonide/Glycopyr/Formoterol 2 puff INHALATION RT-BID 04/09/21 04/24/21 [Breztri Aerosphere Inhaler] Famotidine/Ca Carb/Mag Hydrox 1 tab PO DAILY 04/09/21 04/24/21 [Pepcid Complete Tablet Chew] Levothyroxine Sodium [Synthroid] 25 mcg PO DAILY 04/09/21 04/24/21 Magnesium 200 mg PO DAILY 04/09/21 04/24/21 Potassium Chloride [Klor-Con 10 ER] 10 meq PO DAILY 04/24/21 04/24/21 Previous Rx's Medication Instructions Recorded Furosemide [Lasix] 40 mg PO BID@0800,1600 #60 tab 04/14/21 Loperamide [Imodium] 2 mg PO DAILY PRN #0 04/14/21 bisacodyL [Dulcolax] 5 mg PO DAILY PRN #0 04/14/21 Apixaban [Eliquis] 2.5 mg PO BID 30 Days #60 tab 04/25/21 Albuterol Inhaler [Ventolin Hfa 2 puff INHALATION RT-QID #1 gm 04/29/21 Inhaler] Ascorbic Acid [Vitamin C] 1,000 mg PO DAILY #20 tab 04/29/21 Dexamethasone 6 mg PO DAILY #5 tablet 04/29/21 Multivitamins, Thera [Multivitamin 1 each PO DAILY@1200 #30 tab 04/29/21 (formulary)] Zinc Sulfate [Orazinc] 220 mg PO DAILY #10 cap 04/29/21 Allergies Allergy/AdvReac Type Severity Reaction Status Date / Time sulfamethoxazole Allergy Rash/Hives Verified 05/23/21 17:10 [From Bactrim] trimethoprim [From Bactrim] Allergy Rash/Hives Verified 05/23/21 17:10 Review of Systems ROS Statement: Those systems with pertinent positive or pertinent negative responses have been documented in the HPI. ROS Other: All systems not noted in ROS Statement are negative. Past Medical History Past Medical History: Coronary Artery Disease (CAD), Heart Failure, Diabetes Mellitus, Deep Vein Thrombosis (DVT), GERD/Reflux, Hyperlipidemia, Hypertension, Osteoarthritis (OA), Renal Disease, Skin Disorder, Thyroid Disorder Additional Past Medical History / Comment(s): GOUT. AORTIC VALVE REPLACED. Anemia. HX LLL DVT. RENAL DISEASE STAGE 4. VARICOSE VEINS, EDEMA MAXIMILIANO ANKLES. CYST ON BACK, STATES D/T POISONOUS SPIDER BITE 2011. Covid+ 04/2021 History of Any Multi-Drug Resistant Organisms: None Reported Past Surgical History: Cardiac Valve Replacement, Cholecystectomy, Coronary Bypass/CABG, Hysterectomy, Joint Replacement, Orthopedic Surgery Additional Past Surgical History / Comment(s): 2011 CABG w/ 5 vessel bypass and aortic valve. 03/07/14 Colonoscopy with EGD and BX. MOSHE. Maximiliano knee and L shoulder Replacement. Sinus surgery. Past Anesthesia/Blood Transfusion Reactions: No Reported Reaction Past Psychological History: Anxiety Smoking Status: Never smoker Past Alcohol Use History: None Reported Past Drug Use History: None Reported - Past Family History Daughter(s) Family Medical History: Cancer Father Family Medical History: Cancer, Coronary Artery Disease (CAD) Additional Family Medical History / Comment(s): Father had cancer but pt does not know what type. Father at age 77yrs. Mother Family Medical History: CVA/TIA Additional Family Medical History / Comment(s): Mother had a CVA. She at age 86yrs. General Exam - General Exam Comments Initial Comments: GENERAL: Patient is well-developed and well-nourished. Patient is nontoxic and well- hydrated and is in mild distress. ENT: Neck is soft and supple. No significant lymphadenopathy is noted. Oropharynx is clear. Moist mucous membranes. Neck has full range of motion without eliciting any pain. EYES: The sclera were anicteric and conjunctiva were pink and moist. Extraocular movements were intact and pupils were equal round and reactive to light. Eyelids were unremarkable. PULMONARY: Unlabored respirations. Good breath sounds bilaterally. No audible rales rhonchi or wheezing was noted. CARDIOVASCULAR: There is a regular rate and rhythm without any murmurs gallops or rubs. ABDOMEN: Soft and nontender with normal bowel sounds. SKIN: Skin is clear with no lesions or rashes and otherwise unremarkable. NEUROLOGIC: Patient is alert and oriented x3. Cranial nerves II through XII are grossly intact. Motor and sensory are also intact. Normal speech, volume and content. Symmetrical smile. MUSCULOSKELETAL: Normal extremities with adequate strength and full range of motion. No lower extremity swelling or edema. No calf tenderness. LYMPHATICS: No significant lymphadenopathy is noted PSYCHIATRIC: Normal psychiatric evaluation. Limitations: no limitations Course Vital Signs 05/23/21 17:04 Temperature 97.9 F Pulse Rate 69 Respiratory 18 Rate Blood Pressure 98/63 O2 Sat by Pulse 96 Oximetry Medical Decision Making - [facility]. I repeated CBCs every 6 hours. EKG shows sinus rhythm with occasional PAC at 66 bpm PA interval is 206 QT interval is 422 QTC is 442 QRS is 90. Patient's EKG shows no ST segment elevation or depression. - Lab Data Result diagrams: 05/23/21 18:35 05/23/21 18:35 Lab Results 05/23/21 05/23/21 05/23/21 Range/Units 18:35 18:35 18:35 WBC 7.3 (3.8-10.6) k/uL RBC 2.21 L (3.80-5.40) m/uL Hgb 9.1 L D (11.4-16.0) gm/dL Hct 27.3 L (34.0-46.0) % MCV 123.7 H (80.0-100.0) fL MCH 41.2 H (25.0-35.0) pg MCHC 33.3 (31.0-37.0) g/dL RDW 16.8 H (11.5-15.5) % Plt Count 193 D (150-450) k/uL MPV 9.0 Neutrophils % 69 % Lymphocytes % 15 % Monocytes % 9 % Eosinophils % 5 % Basophils % 0 % Neutrophils # 5.0 (1.3-7.7) k/uL Lymphocytes # 1.1 (1.0-4.8) k/uL Monocytes # 0.6 (0-1.0) k/uL Eosinophils # 0.4 (0-0.7) k/uL Basophils # 0.0 (0-0.2) k/uL Hypochromasia Slight Poikilocytosis Slight Anisocytosis Slight Macrocytosis Marked A PT 10.6 (9.0-12.0) sec INR 1.0 (<1.2) APTT 22.7 (22.0-30.0) sec Sodium 137 (137-145) mmol/L Potassium 3.4 L (3.5-5.1) mmol/L Chloride 98 (98-107) mmol/L Carbon Dioxide 28 (22-30) mmol/L Anion Gap 11 mmol/L BUN 73 H (7-17) mg/dL Creatinine 1.31 H (0.52-1.04) mg/dL Est GFR (CKD-EPI)AfAm 43 (>60 ml/min/1.73 sqM) Est GFR (CKD-EPI)NonAf 37 (>60 ml/min/1.73 sqM) Glucose 128 H (74-99) mg/dL Calcium 9.3 (8.4-10.2) mg/dL Magnesium 1.7 (1.6-2.3) mg/dL Total Bilirubin 0.7 (0.2-1.3) mg/dL AST 29 (14-36) U/L ALT 22 (4-34) U/L Alkaline Phosphatase 74 (38-126) U/L Troponin I (0.000-0.034) ng/mL Total Protein 6.3 (6.3-8.2) g/dL Albumin 3.3 L (3.5-5.0) g/dL 05/23/21 Range/Units 18:35 WBC (3.8-10.6) k/uL RBC (3.80-5.40) m/uL Hgb (11.4-16.0) gm/dL Hct (34.0-46.0) % MCV (80.0-100.0) fL MCH (25.0-35.0) pg MCHC (31.0-37.0) g/dL RDW (11.5-15.5) % Plt Count (150-450) k/uL MPV Neutrophils % % Lymphocytes % % Monocytes % % Eosinophils % % Basophils % % Neutrophils # (1.3-7.7) k/uL Lymphocytes # (1.0-4.8) k/uL Monocytes # (0-1.0) k/uL Eosinophils # (0-0.7) k/uL Basophils # (0-0.2) k/uL Hypochromasia Poikilocytosis Anisocytosis Macrocytosis PT (9.0-12.0) sec INR (<1.2) APTT (22.0-30.0) sec Sodium (137-145) mmol/L Potassium (3.5-5.1) mmol/L Chloride (98-107) mmol/L Carbon Dioxide (22-30) mmol/L Anion Gap mmol/L BUN (7-17) mg/dL Creatinine (0.52-1.04) mg/dL Est GFR (CKD-EPI)AfAm (>60 ml/min/1.73 sqM) Est GFR (CKD-EPI)NonAf (>60 ml/min/1.73 sqM) Glucose (74-99) mg/dL Calcium (8.4-10.2) mg/dL Magnesium (1.6-2.3) mg/dL Total Bilirubin (0.2-1.3) mg/dL AST (14-36) U/L ALT (4-34) U/L Alkaline Phosphatase (38-126) U/L Troponin I 0.017 (0.000-0.034) ng/mL Total Protein (6.3-8.2) g/dL Albumin (3.5-5.0) g/dL Disposition Clinical Impression: Anemia Disposition: ADMITTED IP TO THIS HOSP Referrals: Mo Weiss MD [Primary Care Provider] - 1-2 days Time of Disposition: 20:23
[2021-05-24] MEDS: MELATONIN 3 MG TABLET PO SCH ×2 (01:52→21:26)
[2021-05-24 02:18] LABS: Platelet Count 193 k/uL (150-450)
[2021-05-24 10:55] LABS: HCT 24.2 % (37.2-46.3); HGB 7.6 g/dL (12.0-15.0); MCH 41.5 pg (27.0-32.0); MCHC 31.4 g/dL (32.0-37.0); MCV 132.2 fL (80.0-97.0); Mean Platelet Volume 10.5 fL (9.5-12.2); Platelet Count 141 X 10*3/uL (140-440); RBC 1.83 X 10*6/uL (4.10-5.20); RDW 16.3 % (11.5-14.5); WBC 6.55 X 10*3/uL (4.50-10.00)
[2021-05-24 12:08] LABS: Basophils # (A) 0.03 X 10*3/uL (0.00-0.10); Basophils % (A) 0.5 %; Eosinophils # (A) 0.25 X 10*3/uL (0.04-0.35); Eosinophils % (A) 3.8 %; Lymphocytes # (A) 0.58 X 10*3/uL (0.90-5.00); Lymphocytes % (A) 8.9 %; Monocytes # (A) 0.82 X 10*3/uL (0.20-1.00); Monocytes % (A) 12.5 %; Neutrophils # (A) 4.76 X 10*3/uL (1.80-7.70); Neutrophils % (A) 72.6 %
[2021-05-24 12:09] LABS: Macrocytosis (M) 3+
[2021-05-24 12:48] LABS: Glucose,Whole Blood 137 mg/dL (75-99)
[2021-05-24] MEDS ORDERED: LORazepam 0.5 MG TAB PO PRN (16:27)
[2021-05-24] MEDS ORDERED: ACETAMINOPHEN TAB 500 MG TAB PO PRN (16:27)
--- NOTE | 2021-05-24 16:35 | P.CONS ---
History of Present Illness - Reason for Consult Consult date: 05/24/21 Anemia Requesting physician: Jessika Nieves - Chief Complaint Shortness of breath, abnormal outpatient labs - History of Present Illness This is an 85-year-old female with multiple comorbidities including coronary artery disease status post 5 vessel bypass as well as aortic valve replacement, who has a implanted defibrillator, diabetes mellitus and history of DVT, GERD, h yperlipidemia, peripheral tension chronic kidney disease and thyroid disorder. The patient was told by her primary care physician Dr. Weiss to come to the emergency department for a low hemoglobin of 7.4 found in the outpatient setting. The patient denies any signs or symptoms of GI bleed. She denies any black stool or blood in her stool. Denies any nausea vomiting or abdominal pain. She has no history of peptic ulcer disease. She did have a EGD in [address] Ramírez showing duodenitis and some chronic gastritis. The patient states that her colonoscopy was only significant for polypectomy. She believes she may have had one actually 4-5 years ago. The patient is on Eliquis 2.5 mg BID. Denies any use of NSAIDs. States she only uses Tylenol as needed. On admission she had a hemoglobin of 9.1 hematocrit 27 platelet count 193,000 with a repeat hemoglobin today of 7.6. Her labs are consistent with a macrocytic anemia. INR was 1.0, LFTs unremarkable. Review of Systems REVIEW OF SYSTEMS: CARDIOPULMONARY: No chest pain. Positive shortness of breath. Gastrointestinal: No abdominal pain No nausea or vomiting. No hematemesis, coffee-ground emesis. No rectal bleeding, or melena. GENITOURINARY: No dysuria or hematuria. MUSCULOSKELETAL: Reports normal range of motion., Joint pain. SKIN: No rashes. No jaundice. ENDOCRINE: No chills, fevers. No excessive weight gain or loss. No polydipsia or polyuria. PSYCHIATRIC: Unremarkable. NEUROLOGY: No change in mental status. Denies dizziness, headache. ENT: Vision unremarkable. CONSTITUTIONAL: No recent weight loss. No fever, chills, night sweats. Past Medical History Past Medical History: Coronary Artery Disease (CAD), Heart Failure, Diabetes Mellitus, Deep Vein Thrombosis (DVT), GERD/Reflux, Hyperlipidemia, Hypertension, Osteoarthritis (OA), Renal Disease, Skin Disorder, Thyroid Disorder Additional Past Medical History / Comment(s): NIDDM type II, neuropathy bilateral hands/feet, DVT L leg, CKD stage IV, gout, anemia, varicose veins, bilateral ankle edema, cyst on back from past spider bite. History of Any Multi-Drug Resistant Organisms: None Reported Past Surgical History: Cardiac Valve Replacement, Cholecystectomy, Coronary Bypass/CABG, Hysterectomy, Joint Replacement, Orthopedic Surgery Additional Past Surgical History / Comment(s): 2011 CABG w/ 5 vessel bypass and aortic valve. 03/07/14 Colonoscopy with EGD and BX. MOSHE. Maximiliano knee and L shoulder Replacement. Sinus surgery. Past Anesthesia/Blood Transfusion Reactions: No Reported Reaction Smoking Status: Never smoker - Past Family History Daughter(s) Family Medical History: Cancer Additional Family Medical History / Comment(s): 2 daughters had breast cancer. Father Family Medical History: Cancer, Coronary Artery Disease (CAD) Additional Family Medical History / Comment(s): Father had cancer but pt does not know what type. Father at age 77yrs. Mother Family Medical History: CVA/TIA Additional Family Medical History / Comment(s): Mother had a CVA. She at age 86yrs. Medications and Allergies Home Medications Medication Instructions Recorded Confirmed Type Allopurinol [Zyloprim] 300 mg PO DAILY 03/03/14 05/23/21 History Atorvastatin [Lipitor] 40 mg PO HS 03/03/14 05/23/21 History Glimepiride [Amaryl] 2 mg PO DAILY 03/03/14 05/23/21 History LORazepam [Ativan] 1 mg PO HS PRN 03/03/14 05/23/21 History Metoprolol Tartrate [Lopressor] 50 mg PO BID-W/MEALS 03/03/14 05/23/21 History Omeprazole [PriLOSEC] 20 mg PO AC-BRKFST 03/03/14 05/23/21 History calcitrioL [Calcitriol] 0.5 mcg PO Q48H 03/03/14 05/23/21 History Ergocalciferol [Vitamin D2 50,000 unit PO QMONTH 04/23/15 05/23/21 History (DRISDOL)] Acetaminophen Tab [Tylenol] 1,000 mg PO Q6HR PRN 06/15/15 05/23/21 History Aspirin EC [Ecotrin Low Dose] 81 mg PO DAILY 10/24/16 05/23/21 History Calcium Carbonate [Calcium] 600 mg PO DAILY 10/24/16 05/23/21 History B Complex W-C No.20/Folic Acid 1 mg PO DAILY 04/09/21 05/23/21 History [Renal Caps Softgel] Budesonide/Glycopyr/Formoterol 2 puff INHALATION RT-BID 04/09/21 05/23/21 History [Breztri Aerosphere Inhaler] Levothyroxine Sodium [Synthroid] 25 mcg PO DAILY 04/09/21 05/23/21 History Magnesium 200 mg PO DAILY 04/09/21 05/23/21 History Potassium Chloride [Klor-Con 10 ER] 10 meq PO DAILY 04/24/21 05/23/21 History Apixaban [Eliquis] 2.5 mg PO BID 30 Days #60 tab 04/25/21 05/23/21 Rx Ascorbic Acid [Vitamin C] 1,000 mg PO DAILY 05/23/21 05/23/21 History Furosemide [Lasix] 40 mg PO DAILY 05/23/21 05/23/21 History Multivitamins, Thera [Multivitamin 1 tab PO DAILY 05/23/21 05/23/21 History (formulary)] Zinc 50 mg PO DAILY 05/23/21 05/23/21 History Allergies Allergy/AdvReac Type Severity Reaction Status Date / Time sulfamethoxazole Allergy Rash/Hives Verified 05/23/21 17:10 [From Bactrim] trimethoprim [From Bactrim] Allergy Rash/Hives Verified 05/23/21 17:10 Physical Exam Vitals: Vital Signs Temp Pulse Pulse Resp BP BP BP 05/24/21 15:00 97.7 F 78 16 108/70 05/24/21 14:00 78 16 05/24/21 07:00 97.6 F 79 16 104/58 05/24/21 06:18 97.7 F 79 18 103/41 05/24/21 02:05 90 18 101/53 05/23/21 22:00 88 18 101/77 05/23/21 20:10 72 18 99/66 05/23/21 17:04 97.9 F 69 18 98/63 Pulse Ox 05/24/21 15:00 99 05/24/21 14:00 05/24/21 07:00 95 05/24/21 06:18 95 05/24/21 02:05 95 05/23/21 22:00 95 05/23/21 20:10 97 05/23/21 17:04 96 Intake and Output 05/24/21 05/24/21 05/24/21 06:59 14:59 22:59 Intake Total 1080 Balance 1080 Intake: Oral 1080 Other: # Voids 1 Weight 76.204 kg General appearance: The patient is alert, oriented, appears in no acute distress. HET: Head is normocephalic and atraumatic. Conjunctiva pink. Sclera anicteric. Neck: Supple without lymphadenopathy. Trachea midline. Heart: S1 S2. Regular rate and rhythm. Lungs: Clear to auscultation. Abdomen: Soft, nontender, nondistended with bowel sounds. No guarding or rigidity. Skin: No rashes. No jaundice. Extremities: Normal skin color and turgor. No pedal edema. Neurological: No focal deficits. Alert and oriented x3. Results CBC & Chem 7: 05/24/21 07:11 05/23/21 18:35 Labs: Abnormal Lab Results - Last 24 Hours (Table) 05/23/21 05/23/21 05/24/21 Range/Units 18:35 18:35 07:11 RBC 2.21 L 1.83 L (3.80-5.40) m/uL Hgb 9.1 L D 7.6 L (11.4-16.0) gm/dL Hct 27.3 L 24.2 L (34.0-46.0) % MCV 123.7 H 132.2 H (80.0-100.0) fL MCH 41.2 H 41.5 H (25.0-35.0) pg MCHC 31.4 L (32.0-37.0) g/dL RDW 16.8 H 16.3 H (11.5-15.5) % Immature Gran # 0.11 H (0.00-0.04) X 10*3/uL Lymphocytes # 0.58 L (0.90-5.00) X 10*3/uL Macrocytosis Marked A Potassium 3.4 L (3.5-5.1) mmol/L BUN 73 H (7-17) mg/dL Creatinine 1.31 H (0.52-1.04) mg/dL Glucose 128 H (74-99) mg/dL POC Glucose (mg/dL) (75-99) mg/dL Albumin 3.3 L (3.5-5.0) g/dL 05/24/21 Range/Units 12:47 RBC (3.80-5.40) m/uL Hgb (11.4-16.0) gm/dL Hct (34.0-46.0) % MCV (80.0-100.0) fL MCH (25.0-35.0) pg MCHC (32.0-37.0) g/dL RDW (11.5-15.5) % Immature Gran # (0.00-0.04) X 10*3/uL Lymphocytes # (0.90-5.00) X 10*3/uL Macrocytosis Potassium (3.5-5.1) mmol/L BUN (7-17) mg/dL Creatinine (0.52-1.04) mg/dL Glucose (74-99) mg/dL POC Glucose (mg/dL) 137 H (75-99) mg/dL Albumin (3.5-5.0) g/dL Assessment and Plan (1) Macrocytic anemia Narrative/Plan: 85-year-old female with multiple comorbidities including coronary artery disease and chronic kidney disease. Patient was sent in from her PCP for abnormal labs. She denies any black stool or blood in her stool. No hematemesis, no nausea vomiting or abdominal pain. She has no history of peptic ulcer disease. She's had a colonoscopy for 5 years ago which she states was significant for polypectomy. Had a EGD in 2013 that showed duodenitis and chronic gastritis. Patient has labs consistent with a macrocytic anemia. Repeat CBC tomorrow. Anemia workup ordered. Patient is without any signs or symptoms of GI bleed. Possibly anemia of chronic disease. Await anemia panel, and patient has evidence of iron deficiency anemia may set up outpatient EGD and colonoscopy. No plans at this time for any endoscopic evaluation as patient is not showing any signs or symptoms of a GI bleed. Current Visit: Yes Status: Acute Code(s): D53.9 - NUTRITIONAL ANEMIA, UNSPECIFIED SNOMED Code(s): 67284184 (2) Coronary artery disease Current Visit: Yes Status: Acute Code(s): I25.10 - ATHSCL HEART DISEASE OF [place] CORONARY ARTERY W/O ANG PCTRS SNOMED Code(s): 11297875 (3) Chronic renal disease Current Visit: Yes Status: Acute Code(s): N18.9 - CHRONIC KIDNEY DISEASE, UNSPECIFIED SNOMED Code(s): 121545761 Plan: 1. Continue symptomatic and supportive care 2. Diet as tolerated 3. Anemia panel ordered 4. No plans on endoscopic evaluation at this time as patient does not have any signs or symptoms of GI bleed 5. If anemia panel shows concerns for iron deficiency anemia Jackeline have patient follow-up with gastroenterology outpatient to set up outpatient EGD and colonoscopy Thank you for allowing us to participate in the care of the patient, the GI service will sign off, gastroenterology will not be available at the hospital this weekend and through next week. If further evaluation by gastroenterology is required the patient will need transfer as per the primary team's discretion. Dr. Neeru Arango I agree with the dictator's note, documented as a scribe by Trudy Rodas.
--- NOTE | 2021-05-24 17:03 | XR ---
EXAMINATION TYPE: XR chest 1V portable DATE OF EXAM: 05/24/2021 4:58 PM COMPARISON:Chest radiographs from 04/27/2021 CLINICAL INDICATION:Female, 85 years old with history of chf; TECHNIQUE: Frontal view of the chest. FINDINGS: Lungs/Pleura: Hazy opacities are seen throughout the predominantly left lung base. Evidence of pneumo thorax or pleural effusion. Pulmonary vascularity: Pulmonary vascular congestion. Heart/mediastinum: Cardiomediastinal silhouette is enlarged and stable. Atherosclerotic calcificatio ns are seen in the aorta. Musculoskeletal: No acute osseous pathology. Left shoulder arthroplasty changes. Sternotomy wires are noted. IMPRESSION: Findings suspicious of left-sided pneumonia superimposed congestive heart failure changes..
[2021-05-24 17:43] LABS: Glucose,Whole Blood 185 mg/dL (75-99)
[2021-05-24] MEDS: METOPROLOL TARTRATE 50 MG TAB PO SCH (18:06)
[2021-05-24 20:15] LABS: Glucose,Whole Blood 144 mg/dL (75-99)
[2021-05-24] MEDS: NON FORMULARY DRUG (Budesonide/Glycopyr/Formoterol [Breztri Aerosphere Inhaler] 10.7 GM Gm INHALATION SCH (20:41)
[2021-05-24] MEDS ORDERED: ATORVASTATIN 40 MG TAB PO SCH (21:00)
[2021-05-24] MEDS ORDERED: MELATONIN 3 MG TABLET PO SCH (21:00)
--- NOTE | 2021-05-24 21:01 | HP ---
HISTORY AND PHYSICAL DATE OF SERVICE: 05/24/2021. CHIEF COMPLAINTS: Abnormal labs and anemia. HISTORY OF PRESENT ILLNESS: This 85-year-old woman with a past medical history of multiple medical problems, including CAD, history of CHF, diabetes mellitus, DVT, GERD, hypertension, DJD, being followed Dr. Mo Weiss in the outpatient setting, was found to have hemoglobin of 7.4. Patient was complaining of tiredness and weakness. The patient was recently admitted to hospital last month with acute COVID-19 infection with acute hypoxic respiratory failure. The patient also had confusion and multiple other medical problems. The patient is being admitted for further evaluation and treatment. After admission, the hemoglobin is found to be 9.1 and 7.6 and glucose was 137. There is no history of any fever, rigor or chills at this time. PAST MEDICAL HISTORY: History of recent COVID-19 infection, history of CAD, CHF, diabetes mellitus, type 2, DVT, GERD, hypertension, hyperlipidemia, history of DJD, history of renal disease, history of hypothyroidism. HOME MEDICATIONS: Ativan 1 mg at bedtime p.r.n., vitamin D2 50,000 monthly, Lipitor, Tylenol, magnesium, Lasix, calcium, Symbicort, Renal Caps, Eliquis, calcitriol, chloroquine, Prilosec, Lopressor, aspirin, zinc, Amaryl, zyloprim. Doses and other medications are reviewed. ALLERGIES: BACTRIM. FAMILY HISTORY: History of cancer in the family. SOCIAL HISTORY: No history of smoking. No history of alcohol intake. REVIEW OF SYSTEMS: ENT: Diminished hearing. Diminished vision. CARDIOVASCULAR SYSTEM: As mentioned earlier. RESPIRATORY SYSTEM: As mentioned earlier. GI: No nausea, vomiting, diarrhea. : No dysuria. NERVOUS SYSTEM: Generalized weakness. ALLERGY/IMMUNOLOGY: No asthma or hay fever. MUSCULOSKELETAL: As mentioned earlier. HEMATOLOGY/ONCOLOGY: As mentioned earlier. ENDOCRINE: As mentioned earlier. CONSTITUTIONAL: As mentioned earlier. DERMATOLOGY: Negative. RHEUMATOLOGY: Negative. PSYCHIATRY: As mentioned earlier. PHYSICAL EXAMINATION: Patient alert and oriented x3. Pulse is 90, blood pressure 101/53, respiration 18, temperature 97.2, pulse ox 94% on 2 L. HEENT: Conjunctivae pale. Oral mucosa moist. NECK: No jugular venous distention. CARDIOVASCULAR: S1, S2 muffled. RESPIRATION: Breath sounds diminished at the bases. A few scattered rhonchi. ABDOMEN: Soft, nontender. No mass palpable. LEGS: No edema. No swelling. NERVOUS SYSTEM: Higher functions as mentioned earlier. Moves all 4 limbs. No focal motor or sensory deficit. LYMPHATICS: No lymph node palpable in neck, axillae or groin. SKIN: No ulcer, rash, bleeding. JOINTS: No active deforming arthropathy. LAB STUDIES: WBC 7.3, hemoglobin 9.1 and 7.6. MCV 132.2. Lymphocytes are 58. Glucose 137. ASSESSMENT: 1. Anemia, macrocytic, possibly nutritional, with severe symptoms and symptomatic anemia. 2. History of recent COVID-19 infection. 3. Atrial fibrillation with fast ventricular rate history. 4. 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 5. Moderate mitral annular calcification and moderate mitral regurgitation. 6. Moderate tricuspid regurgitation. 7. Moderate to severe pulmonary hypertension. 8. Left ventricle severely dilated in the 2D echo. 9. Acute on chronic kidney failure. 10.Congestive heart failure with chronic diastolic dysfunction. 11.History of coronary artery disease, coronary artery bypass grafting. 12.Hypertension. 13.Hyperlipidemia. 14.Diabetes mellitus, type 2. 15.Increased creatinine with chronic kidney disease, stage 3 possibly. 16.History of deep vein thrombosis. 17.Hypothyroidism. 18.History of anxiety. RECOMMENDATIONS AND DISCUSSION: In this 85-year-old woman who presented with multiple complex medical issues, we will monitor the patient closely, continue the current medications, continue symptomatic treatment. Otherwise, I would recommend a chest x-ray to rule out fluid overload. Also recommend transfusion. Supplement vitamins. Serum B12 and folate level. Prognosis guarded because of multiple complex medical issues. Further recommendations to follow. A copy of this dictation is being forwarded to Dr. Mo Weiss, who is the primary physician. Will also obtain stool guaiac. COVID-19 is negative currently. MMODL / IJN: [id number] /
[2021-05-24] MEDS: APIXABAN 2.5 MG TABLET PO SCH (21:26)
[2021-05-24] MEDS ORDERED: FUROSEMIDE 10 MG/ML 2 ML VIAL IV ONE (21:30)
[2021-05-24 22:11] LABS: Appearance,Urine Clear (Clear); Bacteria,Urine Rare /hpf; Bilirubin,Urine Negative (Negative); Blood,Urine Negative (Negative); Color,Urine Yellow; Glucose,Urine (UA) Negative (Negative); Ketones,Urine Negative (Negative); Leukocyte Esterase,Urine Trace (Negative); Nitrite,Urine Negative (Negative); PH, Urine 5.5 (5.0-8.0); Protein,Urine Negative (Negative); RBC,Urine <1 /hpf (0-5); Specific Gravity,Urine 1.014 (1.001-1.035); Squamous Epithelial Cell,Urine 2 /hpf (0-4); Urobilinogen,Urine <2.0 mg/dL (<2.0); WBC,Urine 1 /hpf (0-5)
[2021-05-25 03:18] LABS: % Iron Saturation 18.45 (12.00-45.00); Iron 37 ug/dL (50-170); Total Iron Binding Capacity 202 ug/dL (228-460)
[2021-05-25 05:30] LABS: Folate, Serum >20.00 ng/mL (4.40-31.00)
[2021-05-25] MEDS ORDERED: LEVOTHYROXINE 25 MCG TAB PO SCH (06:30)
[2021-05-25] MEDS ORDERED: PANTOPRAZOLE 40 MG TABLET PO SCH (07:30)
[2021-05-25 08:16] LABS: Glucose,Whole Blood 111 mg/dL (75-99)
[2021-05-25] MEDS ORDERED: allopurinoL 300 MG TAB PO SCH (09:00)
[2021-05-25] MEDS ORDERED: FUROSEMIDE 40 MG TAB PO SCH (09:00)
[2021-05-25] MEDS ORDERED: GLIMEPIRIDE 2 MG TAB PO SCH (09:00)
[2021-05-25] MEDS ORDERED: MAGNESIUM OXIDE 400 MG TAB PO SCH (09:00)
[2021-05-25] MEDS ORDERED: ASPIRIN 81 MG PO SCH (09:00)
[2021-05-25] MEDS ORDERED: POTASSIUM CHLORIDE ER 10 MEQ TAB.ER.PRT PO SCH (09:00)
[2021-05-25] MEDS ORDERED: MULTIVITAMINS, THERA 1 EACH TAB PO SCH (09:00)
[2021-05-25] MEDS ORDERED: CALCIUM CARBONATE 500 MG CHEWABLE PO SCH (09:00)
[2021-05-25] MEDS: METOPROLOL TARTRATE 50 MG TAB PO SCH (09:10)
[2021-05-25] MEDS: APIXABAN 2.5 MG TABLET PO SCH (09:10)
[2021-05-25] MEDS: NON FORMULARY DRUG (Budesonide/Glycopyr/Formoterol [Breztri Aerosphere Inhaler] 10.7 GM Gm INHALATION SCH (09:11)
[2021-05-25 10:09] VITALS: BP 105/62; PULSE 75; RESP 16; TEMP 98.5
[2021-05-25 10:10] LABS: African American GFR (CKD) 59.9 (60.0-200.0); Anion Gap 13.2 mmol/L (10.00-18.00); BUN/Creat Ratio 38.8 Ratio (12.00-20.00); Blood Urea Nitrogen 38.8 mg/dL (9.0-27.0); Calcium 8.8 mg/dL (8.7-10.3); Carbon Dioxide 24.8 mmol/L (20.0-27.5); Non-African American GFR(CKD) 51.7 (60.0-200.0); Potassium 3.6 mmol/L (3.5-5.5)
[2021-05-25 10:19] VITALS: BMI 30.7
[2021-05-25 10:23] LABS: Anisocytosis (M) 2+; Basophils # (A) 0.04 X 10*3/uL (0.00-0.10); Basophils % (A) 0.5 %; Eosinophils # (A) 0.27 X 10*3/uL (0.04-0.35); Eosinophils % (A) 3.7 %; HCT 29.3 % (37.2-46.3); HGB 9.3 g/dL (12.0-15.0); Lymphocytes # (A) 0.65 X 10*3/uL (0.90-5.00); Lymphocytes % (A) 8.8 %; MCH 40.4 pg (27.0-32.0); MCHC 31.7 g/dL (32.0-37.0); MCV 127.4 fL (80.0-97.0); Macrocytosis (M) 3+; Mean Platelet Volume 10.4 fL (9.5-12.2); Monocytes # (A) 0.91 X 10*3/uL (0.20-1.00); Monocytes % (A) 12.4 %; Neutrophils # (A) 5.37 X 10*3/uL (1.80-7.70); Neutrophils % (A) 73.1 %; Platelet Count 152 X 10*3/uL (140-440); RDW 23.1 % (11.5-14.5); WBC 7.35 X 10*3/uL (4.50-10.00)
[2021-05-25 11:38] LABS: Glucose,Whole Blood 219 mg/dL (75-99)
[2021-05-27 12:43] LABS: Zinc, Serum 58 ug/dL (60-130)
--- NOTE | 2021-05-31 00:02 | P.DS ---
Providers Date of admission: 05/25/21 08:44 Expected date of discharge: 05/25/21 Attending physician: Jessika Nieves Consults: 05/24/21 11:41 Consult Physician Routine Consulting Provider: Helena Arango Consult Reason/Comments: anemia Do you want consulting provider notified?: Yes Primary care physician: Mo Weiss Hospital Course: Final Diagnosis anemia, macrocytic possibly nutritional, with severe symptoms and symptomatic anemia History of recent covid 19 infection Atrial fibrillation with fast ventricular rate history Severe aortic stenosis of a prosthetic aortic valve Moderate mitral annular calcifications and moderated mitral regurgitation moderate tricuspid regurgitation moderate to severe pulmonary hypertension left ventricle severely dilated in the 2d echo acute on chronic kidney failure CHF with chronic diastolic dysfunction History of CAD, CABG hypertension hyperlipidemia DM, type 2 Increased creatinine with chronic kidney disease stage 3 possibly History of DVT hypothyroidism history of anxiety Discharge disposition Patient is being discharged in a stable condition with guarded prognosis to home. Patient will follow-up with Dr. Weiss upon discharge. Patient will also follow up with cardiology in the outpatient setting as previously scheduled. Total time taken is greater than 35 minutes. Hospital course This is a 85-year-old male who was recently admitted with tiredness and weakness and was being closely monitored. Hemoglobin was found to be low in outpatient setting at pcp office and sent here for further evaluation and transfusion. Patient hemoglobin stable in the hospital with no signs of bleeding noted. Recommend close outpatient follow up and repeat labs in the outpatient setting. Patient is extremely eager to go home. Currently no reports of chest pain, shortness of breath, or palpitations. Patient is afebrile. No reports of nausea or vomiting and patient is tolerating diet. Guarded prognosis. On exam vital signs are stable. Cardio S1, S2 are muffled. Respiratory shows diminished breath sounds at the bases with no wheezing or rhonchi noted. Abdomen is soft and nontender. Nervous system shows no focal deficits. Please refer to medication reconciliation sheet for a list of medications. Patient Condition at Discharge: Stable Plan - Discharge Summary Discharge Rx Participant: No New Discharge Prescriptions: New Ferrous Sulfate [Iron (65 MG Elemental)] 325 mg PO DAILY 30 Days #30 tab Docusate [Colace] 100 mg PO DAILY #30 capsule Continue Metoprolol Tartrate [Lopressor] 50 mg PO BID-W/MEALS LORazepam [Ativan] 1 mg PO HS PRN PRN Reason: Anxiety Allopurinol [Zyloprim] 300 mg PO DAILY Omeprazole [PriLOSEC] 20 mg PO AC-BRKFST Glimepiride [Amaryl] 2 mg PO DAILY Atorvastatin [Lipitor] 40 mg PO HS calcitrioL [Calcitriol] 0.5 mcg PO Q48H Ergocalciferol [Vitamin D2 (DRISDOL)] 50,000 unit PO QMONTH Acetaminophen Tab [Tylenol] 1,000 mg PO Q6HR PRN PRN Reason: Fever And/ Or Pain Calcium Carbonate [Calcium] 600 mg PO DAILY Aspirin EC [Ecotrin Low Dose] 81 mg PO DAILY Budesonide/Glycopyr/Formoterol [Breztri Aerosphere Inhaler] 2 puff INHALATION RT-BID Furosemide [Lasix] 40 mg PO DAILY Zinc 50 mg PO DAILY Multivitamins, Thera [Multivitamin (formulary)] 1 tab PO DAILY Ascorbic Acid [Vitamin C] 1,000 mg PO DAILY Magnesium 200 mg PO DAILY B Complex W-C No.20/Folic Acid [Renal Caps Softgel] 1 mg PO DAILY Levothyroxine Sodium [Synthroid] 25 mcg PO DAILY Potassium Chloride [Klor-Con 10 ER] 10 meq PO DAILY Apixaban [Eliquis] 2.5 mg PO BID 30 Days #60 tab Discharge Medication List Allopurinol [Zyloprim] 300 mg PO DAILY 03/03/14 [History] Atorvastatin [Lipitor] 40 mg PO HS 03/03/14 [History] Glimepiride [Amaryl] 2 mg PO DAILY 03/03/14 [History] LORazepam [Ativan] 1 mg PO HS PRN 03/03/14 [History] Metoprolol Tartrate [Lopressor] 50 mg PO BID-W/MEALS 03/03/14 [History] Omeprazole [PriLOSEC] 20 mg PO AC-BRKFST 03/03/14 [History] calcitrioL [Calcitriol] 0.5 mcg PO Q48H 03/03/14 [History] Ergocalciferol [Vitamin D2 (DRISDOL)] 50,000 unit PO QMONTH 04/23/15 [History] Acetaminophen Tab [Tylenol] 1,000 mg PO Q6HR PRN 06/15/15 [History] Aspirin EC [Ecotrin Low Dose] 81 mg PO DAILY 10/24/16 [History] Calcium Carbonate [Calcium] 600 mg PO DAILY 10/24/16 [History] B Complex W-C No.20/Folic Acid [Renal Caps Softgel] 1 mg PO DAILY 04/09/21 [History] Budesonide/Glycopyr/Formoterol [Breztri Aerosphere Inhaler] 2 puff INHALATION RT-BID 04/09/21 [History] Levothyroxine Sodium [Synthroid] 25 mcg PO DAILY 04/09/21 [History] Magnesium 200 mg PO DAILY 04/09/21 [History] Potassium Chloride [Klor-Con 10 ER] 10 meq PO DAILY 04/24/21 [History] Apixaban [Eliquis] 2.5 mg PO BID 30 Days #60 tab 04/25/21 [Rx] Ascorbic Acid [Vitamin C] 1,000 mg PO DAILY 05/23/21 [History] Furosemide [Lasix] 40 mg PO DAILY 05/23/21 [History] Multivitamins, Thera [Multivitamin (formulary)] 1 tab PO DAILY 05/23/21 [History] Zinc 50 mg PO DAILY 05/23/21 [History] Docusate [Colace] 100 mg PO DAILY #30 capsule 05/25/21 [Rx] Ferrous Sulfate [Iron (65 MG Elemental)] 325 mg PO DAILY 30 Days #30 tab 05/25/21 [Rx] Follow up Appointment(s)/Referral(s): Mo Weiss MD [Primary Care Provider] - 1-2 days Alvino Eric MD [STAFF PHYSICIAN] - 2 Weeks Helena Arango MD [STAFF PHYSICIAN] - 2 Weeks Activity/Diet/Wound Care/Special Instructions: Activity Limited until follow-up Follow-up primary care provider on discharge Continue medications as prescribed Follow-up with cardiology Dr. Alonso as discussed and scheduled for early June Watch for any signs of bleeding including black tarry stools, coffee-ground emesis, bright red blood from the rectum and notify provider immediately Iron supplements can cause dark stools and continue to monitor closely Continue stool softeners Resources provided for GI and hematology specialists as needed Recommend repeat labs in 2-3 days to monitor hemoglobin kidney functions, patient has a standing order with primary provider for labs this week Continue heart healthy diet continue with ensure supplements with meals Discharge Disposition: HOME WITH HOME HEALTH SERVICES
[2021-06-08] MEDS ORDERED: ERGOCALCIFEROL 1,250 MCG (50,000 IU) CAPSULE PO SCH (09:00)
== END 2021-05-25 14:02 | disposition home health service (06) | DRG 812 ==
LOC: EC 16:41 → 6NMEDSUR 20:24 → OBSVTOIN 05-25 08:44
PROVIDERS: ADMIT Hospitalist; ATTEND Hospitalist
DX: D50.9 Iron deficiency anemia, unspecified (principal); I50.32 Chronic diastolic (congestive) heart failure; I13.0 Hypertensive heart and chronic kidney disease with heart failure and stage 1 through stage 4 chronic kidney disease, or unspecified chronic kidney disease; N17.9 Acute kidney failure, unspecified; R79.9 Abnormal finding of blood chemistry, unspecified; E03.9 Hypothyroidism, unspecified; E78.5 Hyperlipidemia, unspecified; E11.22 Type 2 diabetes mellitus with diabetic chronic kidney disease; I08.3 Combined rheumatic disorders of mitral, aortic and tricuspid valves; I25.10 Atherosclerotic heart disease of native coronary artery without angina pectoris; I27.20 Pulmonary hypertension, unspecified; I48.91 Unspecified atrial fibrillation; Z20.822 Contact with and (suspected) exposure to COVID-19; Z79.01 Long term (current) use of anticoagulants; Z79.82 Long term (current) use of aspirin; Z79.84 Long term (current) use of oral hypoglycemic drugs; Z79.890 Hormone replacement therapy; Z79.899 Other long term (current) drug therapy; Z80.9 Family history of malignant neoplasm, unspecified; Z82.3 Family history of stroke; Z82.49 Family history of ischemic heart disease and other diseases of the circulatory system; Z86.16 Personal history of COVID-19; Z86.718 Personal history of other venous thrombosis and embolism; Z90.710 Acquired absence of both cervix and uterus; Z95.1 Presence of aortocoronary bypass graft; Z95.2 Presence of prosthetic heart valve; Z96.612 Presence of left artificial shoulder joint; Z96.653 Presence of artificial knee joint, bilateral
CPT/HCPCS: 36415; 71045; 80048; 80053; 81001; 82272; 82607; 82728; 82746; 82747; 83540; 83550; 83735; 84484; 84630; 85025; 85610; 85730; 86850; 86900; 86901; 86920; 87635; 93005; 94760; 99285

== ENCOUNTER → 2021-07-02 | Outpatient (CLI) | payer MEDICARE, BC ==
[~2021-07-02] MED LIST: SODIUM CHLORIDE 0.9% 1,000 ML IV SCH
[2021-07-02 07:46] LABS: Glucose,Whole Blood 135 mg/dL (75-99)
[2021-07-02 09:55] LABS: Glucose,Whole Blood 130 mg/dL (75-99)
--- NOTE | 2021-07-02 10:50 | CT ---
EXAMINATION TYPE: CT TAVR Planning DATE OF EXAM: 07/02/2021 HISTORY: Pre op TAVR planning CT DLP: 1574.8 mGycm Automated Exposure Control for Dose Reduction was Utilized. CONTRAST: CT scan of the chest, abdomen and pelvis is performed with IV Contrast, patient injected with 125 mL of Isovue 370. COMPARISON: None TECHNIQUE: Helical imaging obtained through the chest, abdomen and pelvis during arterial phase farrah tonio administration of radiographic contrast intravenously. FINDINGS: See report from [facility] regarding preprocedural planning CHEST: Lower Neck and Thyroid: No significant findings Lungs: Scattered subpleural fibrosis. Central Airway: No significant findings Pleura: No significant findings Pulmonary Arteries: No significant findings Heart and Pericardium: No significant findings Lymph Nodes: No significant findings Mediastinum & Esophagus: No significant findings ABDOMEN/PELVIS: Please note arterial phase of the imaging limits detailed evaluation of the solid abdominal organs. Liver: No significant findings Spleen: No significant findings Kidneys: Right renal cyst. Mild atrophic change left kidney. Adrenal Glands: No significant findings Pancreas: No significant findings Gallbladder: No significant findings Bowel and Mesentery: No significant findings Lymph Nodes: No significant findings Urinary Bladder: No significant findings Pelvic Organs: No significant findings Other: No significant findings Other Lines/Tubes/Devices/Hardware: None IMPRESSION: 1. Mild fibrosis noted of the lungs. 2. Mild atrophic change left kidney.
[2021-07-02 14:47] LABS: Appearance,Urine Clear (Clear); Bilirubin,Urine Negative (Negative); Blood,Urine Negative (Negative); Color,Urine Light Yellow; Glucose,Urine (UA) Negative (Negative); Ketones,Urine Negative (Negative); Leukocyte Esterase,Urine Negative (Negative); Nitrite,Urine Negative (Negative); Protein,Urine Negative (Negative); Specific Gravity,Urine 1.036 (1.001-1.035); Urobilinogen,Urine <2.0 mg/dL (<2.0)
[2021-07-02 15:10] LABS: ALT 11 U/L (4-34); AST 19 U/L (14-36); African American GFR (CKD) 59 (>60 ml/min/1.73 sqM); Albumin 3.1 g/dL (3.5-5.0); Alkaline Phosphatase 62 U/L (38-126); Anion Gap 7 mmol/L; Bilirubin,Unconjugated 0.6 mg/dL (0.0-1.1); Blood Urea Nitrogen 46 mg/dL (7-17); Calcium 9.5 mg/dL (8.4-10.2); Carbon Dioxide 33 mmol/L (22-30); Chloride 100 mmol/L (98-107); Glucose 164 mg/dL (74-99); Magnesium 1.7 mg/dL (1.6-2.3); Non-African American GFR(CKD) 51 (>60 ml/min/1.73 sqM); Potassium 3.5 mmol/L (3.5-5.1); Sodium 140 mmol/L (137-145); Total Bilirubin 0.6 mg/dL (0.2-1.3); Total Protein 5.6 g/dL (6.3-8.2)
[2021-07-02 15:15] LABS: INR 0.9 (<1.2); Partial Thromboplastin Time 23.6 sec (22.0-30.0); Prothrombin Time 10.2 sec (9.0-12.0)
[2021-07-03 02:20] LABS: Chol/HDL Ratio 2.48 Ratio; LDL Cholesterol,Calculated 60.3 mg/dL (0.0-131.0); VLDL Calculation 14.22 mg/dL (5.00-40.00)
== END ==
LOC: CPPFTMAIN 06:32
PROVIDERS: ATTEND Thoracic Surgery (Cardiothoracic Vascular Surgery)
DX: I35.1 Nonrheumatic aortic (valve) insufficiency (principal); Z01.818 Encounter for other preprocedural examination; E87.8 Other disorders of electrolyte and fluid balance, not elsewhere classified; R58 Hemorrhage, not elsewhere classified; E07.9 Disorder of thyroid, unspecified; R35.0 Frequency of micturition; E11.9 Type 2 diabetes mellitus without complications; N28.9 Disorder of kidney and ureter, unspecified; E78.5 Hyperlipidemia, unspecified; Z79.01 Long term (current) use of anticoagulants; Z79.899 Other long term (current) drug therapy; Z88.2 Allergy status to sulfonamides
CPT/HCPCS: 94150; 83880; 80061; 80053; 84443; 82248; 83735; 85610; 85730; 81003; 87086; 83036; 87635; 71275; 74174; Q9967

== ENCOUNTER → 2021-07-15 | Outpatient (CLI) | payer MEDICARE, BC ==
[2021-07-15 09:36] LABS: Anisocytosis Slight; Basophils # (A) 0.1 k/uL (0-0.2); Basophils % (A) 1 %; Eosinophils # (A) 0.7 k/uL (0-0.7); Eosinophils % (A) 9 %; HCT 36.6 % (34.0-46.0); HGB 11.5 gm/dL (11.4-16.0); Hypochromasia Slight; Lymphocytes % (A) 13 %; MCHC 31.5 g/dL (31.0-37.0); MCV 126.7 fL (80.0-100.0); Macrocytosis Marked; Mean Platelet Volume 8.6; Monocytes # (A) 0.5 k/uL (0-1.0); Monocytes % (A) 6 %; Neutrophils # (A) 5.3 k/uL (1.3-7.7); Neutrophils % (A) 69 %; Platelet Count 107 k/uL (150-450); RBC 2.89 m/uL (3.80-5.40); RDW 17.7 % (11.5-15.5); WBC 7.7 k/uL (3.8-10.6)
== END | disposition home or self-care (01) ==
LOC: LABWHC1 07:42
PROVIDERS: ATTEND Thoracic Surgery (Cardiothoracic Vascular Surgery)
DX: D64.9 Anemia, unspecified (principal)
CPT/HCPCS: 36415; 85025

== ENCOUNTER → 2021-07-15 | Outpatient (CLI) | payer MEDICARE, BC ==
--- NOTE | 2021-07-15 08:19 | US ---
EXAMINATION TYPE: US abdomen complete DATE OF EXAM: 07/15/2021 COMPARISON: Ultrasound kidneys 04/10/2021 CLINICAL HISTORY: 86-year-old female [id number] THROMBOCYTOPENIA. Abnormal labs, GB removed TECHNIQUE: Multiple sonographic images of the abdomen are obtained. FINDINGS: EXAM MEASUREMENTS: Liver Length: 15.0 cm CBD: 0.5 cm Spleen: 12.3 cm Right Kidney: 10.5 x 4.5 x 5.3 cm Left Kidney: 9.2 x 5.1 x 4.4 cm Pancreas: 2mm pancreatic duct visualized, within normal limits. Tail obscured by overlying bowel gas Liver: Slight parenchymal heterogeneity may be on a technical basis. No focal lesion is seen. Gallbladder: Surgically absent Evidence for sonographic Blankenship's sign: No CBD: wnl, post reyes Spleen: Small calcification within suggesting a calcified granuloma Right Kidney: Cortical thinning, cyst mid/lateral= 3.3 x 2.7 x 2.6 cm (versus 3.4 cm on 04/10/2021), lower pole gassed out Left Kidney: Cortical thinning, lower pole gassed out Upper IVC: wnl Abd Aorta: No evidence of AAA, atherosclerosis visualized IMPRESSION: 1. Slight heterogeneity to the liver parenchyma may be on a technical basis or could represent nonspe cific hepatocellular disease. The former is favored. Clinically correlate. 2. Spleen within normal limits of size at 12.3 cm. 3. Stable benign 3.3 cm right renal cyst. 4. Status post cholecystectomy. No biliary ductal dilatation.
== END | disposition home or self-care (01) ==
LOC: RADUSWWP 07:34
PROVIDERS: ATTEND Internal Medicine Hematology & Oncology
DX: N28.1 Cyst of kidney, acquired (principal); K76.89 Other specified diseases of liver; Z90.49 Acquired absence of other specified parts of digestive tract
CPT/HCPCS: 76700

== ENCOUNTER 2021-07-17 05:45 | Inpatient (IN) | payer MEDICARE, BC ==
[2021-07-17] MEDS ORDERED: ATORVASTATIN 10 MG TAB PO ONE (06:00)
[2021-07-17] MEDS ORDERED: LACTATED RINGERS 1,000 ML IV SCH ×2 (06:00→09:55)
[2021-07-17] MEDS ORDERED: ELECTROLYTE-A SOLUTION 1,000 ML with POTASSIUM CHLORIDE 100 MEQ, MAGNESIUM SULFATE 16 M... IV PRN ×5 (06:00)
[2021-07-17] MEDS ORDERED: CLEVIDIPINE BUTYRATE 25 MG in EMPTY BAG 1 BAG IV PRN (06:00)
[2021-07-17] MEDS ORDERED: CLOPIDOGREL 75 MG TAB PO ONE (06:00)
[2021-07-17] MEDS ORDERED: NITROGLYCERIN-D5W PMX 25 MG/250 ML BTL IV PRN (06:00)
[2021-07-17] MEDS ORDERED: INSULIN REGULAR 100 UNIT in SODIUM CHLORIDE 0.9% 100 ML IV PRN (06:00)
[2021-07-17] MEDS ORDERED: METOPROLOL TARTRATE 25 MG TAB PO ONE (06:00)
[2021-07-17] MEDS ORDERED: SODIUM CHLORIDE 0.9% 500 ML 500 ML INTRAARTER PRN (06:00)
[2021-07-17] MEDS ORDERED: TRANEXAMIC ACID 2,000 MG in SODIUM CHLORIDE 0.9% 80 ML IV PRN (06:00)
[2021-07-17] MEDS ORDERED: PROTAMINE SULFATE 250 MG in EMPTY BAG 1 BAG IV PRN (06:00)
[2021-07-17] MEDS ORDERED: ASPIRIN 325 MG TAB PO ONE (06:00)
[2021-07-17 06:38] LABS: Glucose,Whole Blood 139 mg/dL (75-99)
[2021-07-17] MEDS ORDERED: SODIUM CHLORIDE 0.9% 1,000 ML IV ONE (06:45)
[2021-07-17] MEDS ORDERED: IOPAMIDOL-370 125ML BTL INJ ONE (09:39)
[2021-07-17] MEDS ORDERED: IPRATROPIUM-ALBUTEROL 3 ML NEB INHALATION PRN (09:55)
[2021-07-17] MEDS ORDERED: ACETAMINOPHEN TAB 500 MG TAB PO PRN (09:55)
[2021-07-17] MEDS ORDERED: ONDANSETRON 4 MG/2 ML VIAL IVP PRN (09:55)
[2021-07-17 10:13] LABS: Glucose,Whole Blood 135 mg/dL (75-99)
[2021-07-17 10:19] LABS: Glucose,Whole Blood 123 mg/dL (75-99)
--- NOTE | 2021-07-17 10:50 | P.OP ---
Date of Procedure: 07/17/21 Preoperative Diagnosis: Prosthetic valve calcific aortic stenosis Postoperative Diagnosis: Same Procedure(s) Performed: Transcatheter valve and the valve aortic valve replacement with 26 mm Medtronic CorValve Pro-+ via left transfemoral percutaneous approach = Implants: 26 mm core valve Anesthesia: GETA Surgeon: Malachi Fagan Lead Coater #1: Arsenio Alonso (wild oyster harvester) Lead Coater #2: Edgar Carlos (Second channel manager) Estimated Blood Loss (ml): 25 IV fluids (ml): 1,000 Urine output (ml): 200 Pathology: none sent Condition: stable Disposition: PACU Indications for Procedure: 86-year-old female who presents with severe dyspnea and shortness of breath. Began following a episode of Coban pneumonia in March. She has been slowly improving but his developed increasing heart failure symptoms including bilateral lower extremity edema and JVD. Workup has revealed severe aortic valvular stenosis. Patient underwent aVR and CABG 10 years ago. She has patent TAVERAS to the LAD and a patent vein graft to a diagonal. Right coronary artery and circumflex coronary artery had moderate disease. The aortic valve is very tightly stenotic with a 55 mm gradient. It is a 23 mm trifecta valve. Patient underwent to have her workup and was evaluated in the [facility]. She was felt to be hiatal extreme risk for redo aortic valve surgery. She was felt to be at increased risk for Lane however this appeared to be the best option. Primary concern was the possibility of coronary occlusion due to the leaflets of the trifecta valve impacting on the sinuses of Valsalva. Plans were made to possibly stent the left main coronary artery with a snorkel stent in order to obviate this if this appeared to be a problem. Risks of the procedure were discussed with the patient. Given her persistent pulmonary symptomatology he wanted to proceed with procedure. Operative Findings: Predilatation of the aortic valve was performed with an 18 mm balloon and a root injection was performed with the balloon inflated. This demonstrated good flow to the coronary arteries which was reassuring. We also did a root injection at 80% deployment of the Lane valve and again saw good flow to both coronary arteries. Final root injection following full deployment of the valves showed good flow to both coronary arteries with only trivial aortic insufficiency. MOSHE at the completion of the procedure demonstrated only trivial aortic valvular insufficiency with excellent position of the valve and good expansion of the valve frame. Description of Procedure: Patient was brought to the catheterization laboratory and placed supine on the table. Gen. anesthesia was induced. The anterior torso bilateral groins and right wrist were sterilely prepped and draped. Prophylactic antibiotics were given and timeout was performed. The right subclavian vein was accessed with an 18-gauge needle and a guidewire threaded into the right atrium. Introducer and dilator placed over the guidewire and through the introducer sheath a Medtronic screw-in ventricular lead was positioned in the apex of the right ventricle. Pacing threshold below 1. The lead was secured to the skin with 2-0 silk suture ligature. Bilateral femoral arterial access was obtained by Dr. Alonso under ultrasound guidance. On the right 6-Argentine sheath was placed and on the left a 7-Argentine sheath was placed. Perclose device was deployed on the left femoral artery and upsized to a 9 sheath. The right sheath was exchanged for a long 6- Argentine sheath and a pigtail catheter advanced into the non-coronary sinus of Valsalva from the right. Patient was systemically heparinized and a CTs were maintained greater than 250. On the left the 9-Argentine sheath was exchanged for a 14-Argentine sheath over a stiff wire. The valve was crossed from the left and a pigtail catheter positioned in the apex of the ventricle. Gradients were obtained. Stiff wire was placed in the apex of the ventricle and an 18 elevator balloon was advanced over the stiff wire and across the aortic valve. Aortic valvuloplasty was performed under rapid ventricular pacing. During the aortic valvuloplasty we performed a root injection and demonstrated good flow to both coronary arteries. 26 mm core valve and the loaded on the back table and checked under fluoroscopy. Stiff wire was maintained in the apex of the ventricle and the 14-Argentine sheath was now exchanged for the core valve delivery system. This was advanced across the aortic valve and deployed under fluoroscopy and rapid ventricular pacing. Appointment levels were 3-1/2 on the left and 2-1/2 on the right. Prior to full deployment of the valve and 80% appointment a root injection was performed and demonstrated good perfusion of both coronary arteries. The valve was fully deployed and the deployment system pulled back. Root injection demonstrated only mild aortic insufficiency and good flow to the coronary arteries. MOSHE confirmed mild aortic insufficiency and this improved over the next short period of time. The core valve delivery system was exchanged for the 14-Argentine sheath. Once we had confirmed only trivial aortic regurgitation heparin was reversed with protamine. 14-Argentine sheath was removed and the Perclose device was deployed with excellent hemostasis being obtained by cardiology bilaterally. Patient was extubated and transferred to the ICU in stable condition. Neurologic function was grossly intact.
--- NOTE | 2021-07-17 10:57 | XR ---
EXAMINATION TYPE: XR chest 1V portable DATE OF EXAM: 07/17/2021 COMPARISON: Chest x-ray 05/24/2021 HISTORY: Postop cardiac surgery TECHNIQUE: Single frontal view of the chest is obtained. FINDINGS: Patient is post median sternotomy, superior sternal wire is fractured. There is no evident pneumothorax or pleural effusion, right hemidiaphragm is elevated. Cardiac mediastinal silhouette is stable, aorta is dense. There is a transvenous pacemaker lead present within the right ventricle whi ch is been placed in the interval. Patchy densities present within the lungs as on prior. Patient is status post TAVR procedure. Right jugular central venous catheter is present and coursing toward the cavoatrial junction level. Tip is obscured. IMPRESSION: No evident complication status post transvenous pacemaker placement.
[2021-07-17 11:03] LABS: Anisocytosis Slight; Basophils % (A) 0 %; Eosinophils # (A) 0.6 k/uL (0-0.7); Eosinophils % (A) 8 %; HCT 31.8 % (34.0-46.0); HGB 10.2 gm/dL (11.4-16.0); Hypochromasia Slight; Lymphocytes # (A) 0.9 k/uL (1.0-4.8); Lymphocytes % (A) 14 %; MCH 40.5 pg (25.0-35.0); MCHC 32.1 g/dL (31.0-37.0); MCV 126.4 fL (80.0-100.0); Macrocytosis Marked; Mean Platelet Volume 8.2; Monocytes # (A) 0.3 k/uL (0-1.0); Monocytes % (A) 5 %; Neutrophils # (A) 4.8 k/uL (1.3-7.7); Neutrophils % (A) 72 %; RBC 2.51 m/uL (3.80-5.40); RDW 17.4 % (11.5-15.5); WBC 6.6 k/uL (3.8-10.6)
[2021-07-17 11:25] LABS: Partial Thromboplastin Time 23.2 sec (22.0-30.0); Prothrombin Time 10.6 sec (9.0-12.0)
[2021-07-17 11:42] LABS: Ionized Calcium 5.2 mg/dL (4.5-5.3)
[2021-07-17 11:49] LABS: Albumin 2.7 g/dL (3.5-5.0); Magnesium 1.7 mg/dL (1.6-2.3); Potassium 3.4 mmol/L (3.5-5.1); Total Bilirubin 0.6 mg/dL (0.2-1.3); Total Protein 4.9 g/dL (6.3-8.2)
--- NOTE | 2021-07-17 11:59 | P.CNPUL ---
History of Present Illness Consult date: 07/17/21 Requesting physician: Malachi Fagan Reason for consult: dyspnea Chief complaint: Shortness of breath, aortic valve stenosis History of present illness: This 86-year-old female patient of Dr. Mo Weiss, with past medical history of coronary artery disease with history of five-vessel coronary artery bypass grafting and aortic valvular stenosis with previous history of aortic valve replacement by Dr. Joya in 2011. Medical history includes hypothyroidism, hypertension, diabetes mellitus type 2, hyperlipidemia, chronic bronchial asthma, unspecified, chronic kidney disease stage IV, previous history of DVT, on Eliquis. Patient also had history of COVID-19 pneumonia in April 2021. Patient was vaccinated with Xander & Xander vaccine in January 2021. She did recover and she was discharged home on home oxygen at 2 L/min. She has been complaining of increased shortness of breath with exertion, she had a transesophageal echocardiogram on 06/13/[address] Alonso, and her b ioprosthetic aortic valve had severe decreased mobility of the leaflets, consistent with severe bioprosthetic aortic valve stenosis. Heart catheterization was done on the same day in 06/13/2021 showing RCA stenosis of more than 60-70% with the recommendation for medical treatment. Her preoperative FEV1 was 1.02 L or 59% of predicted, FVC of 1.12 L or 48% of predicted with FEV1 to FEC ratio of 105 consistent with moderately severe restriction. Patient was referred to CT surgery for evaluation of possible SAVR, however her preoperative risk was 24% and she was then recommended a TAVR. Today on 07/17/2021 patient had a TAVR with 26 mm Medtronic CorValve Pro + via left transfemoral percutaneous approach. Patient tolerated procedure very well. She seen in the ICU following her procedure, she is currently lethargic but opens her eyes to voice, responds appropriately, she states she feels very tired, but denies any acute complaints, she is currently on simple mask, and her pulse ox is 100%, she is hemodynamically stable, in sinus mechanism sinus bradycardia with a rate of 56 BPM, blood pressure is 145/46. She is on 0.0 with a rate of 75 ML per hour, no other drips. Chest x-ray shows no evident complications status post transvenous pacemaker placement, right hemidiaphragm was noted to be elevated, transvenous pacemaker lead present within the right ventricle there are patchy densities within the lungs. Right upper subclavian external pacemaker lead insertion site is clean dry and intact. Left groin puncture site is clean dry and intact. Pedal pulses are palpable, extremities are warm. Review of Systems All systems: negative Constitutional: Denies chills, Denies fever Eyes: denies blurred vision, denies pain Ears, nose, mouth and throat: Denies headache, Denies sore throat Cardiovascular: Denies chest pain, Denies shortness of breath Respiratory: Reports dyspnea, Denies cough Gastrointestinal: Denies abdominal pain, Denies diarrhea, Denies nausea, Denies vomiting Genitourinary: Denies dysuria, Denies hematuria Musculoskeletal: Denies myalgias Integumentary: Denies pruritus, Denies rash Neurological: Denies numbness, Denies weakness Psychiatric: Denies anxiety, Denies depression Endocrine: Denies fatigue, Denies weight change Past Medical History Past Medical History: Atrial Fibrillation, Coronary Artery Disease (CAD), Heart Failure, Diabetes Mellitus, Deep Vein Thrombosis (DVT), GERD/Reflux, Hyperlipidemia, Hypertension, Osteoarthritis (OA), Renal Disease, Skin Disorder, Thyroid Disorder Additional Past Medical History / Comment(s): NIDDM type II, neuropathy bilateral hands/feet, DVT L leg, CKD stage IV, gout, anemia-recent transfusion end of May, varicose veins, bilateral ankle edema, cyst on back from past spider bite, had covid in Apr., SOB w/exertion, uses 2l O2 @home prn History of Any Multi-Drug Resistant Organisms: None Reported Past Surgical History: Cardiac Valve Replacement, Cholecystectomy, Coronary Bypass/CABG, Heart Catheterization, Hysterectomy, Joint Replacement, Orthopedic Surgery Additional Past Surgical History / Comment(s): 2011 CABG w/ 5 vessel bypass and aortic valve. 03/07/14 Colonoscopy with EGD and BX. MOSHE. Maximiliano knee and L shoulder Replacement. Sinus surgery. Past Anesthesia/Blood Transfusion Reactions: No Reported Reaction Smoking Status: Never smoker - Past Family History Daughter(s) Family Medical History: Cancer Additional Family Medical History / Comment(s): 2 daughters had breast cancer. Father Family Medical History: Cancer, Coronary Artery Disease (CAD) Additional Family Medical History / Comment(s): Father had cancer but pt does not know what type. Father at age 77yrs. Mother Family Medical History: CVA/TIA Additional Family Medical History / Comment(s): Mother had a CVA. She at age 86yrs. Medications and Allergies Home Medications Medication Instructions Recorded Confirmed Type Allopurinol [Zyloprim] 300 mg PO DAILY 03/03/14 07/17/21 History Atorvastatin [Lipitor] 40 mg PO HS 03/03/14 07/17/21 History Glimepiride [Amaryl] 2 mg PO QAM 03/03/14 07/17/21 History LORazepam [Ativan] 1 mg PO HS 03/03/14 07/17/21 History Metoprolol Tartrate [Lopressor] 50 mg PO BID-W/MEALS 03/03/14 07/17/21 History Omeprazole [PriLOSEC] 20 mg PO QAM 03/03/14 07/17/21 History calcitrioL [Calcitriol] 0.5 mcg PO MOFR 03/03/14 07/17/21 History Ergocalciferol [Vitamin D2 50,000 unit PO QMONTH 04/23/15 07/17/21 History (LEV)] Acetaminophen Tab [Tylenol] 1,000 mg PO Q6HR PRN 06/15/15 07/17/21 History Aspirin EC [Ecotrin Low Dose] 81 mg PO DAILY 10/24/16 07/17/21 History Calcium Carbonate [Calcium] 600 mg PO AC-SUPPER 10/24/16 07/17/21 History B Complex W-C No.20/Folic Acid 1 mg PO DAILY 04/09/21 07/17/21 History [Renal Caps Softgel] Budesonide/Glycopyr/Formoterol 2 puff INHALATION BID PRN 04/09/21 07/17/21 History [Breztri Aerosphere Inhaler] Levothyroxine Sodium [Synthroid] 25 mcg PO QAM 04/09/21 07/17/21 History Magnesium 200 mg PO DAILY 04/09/21 07/17/21 History Potassium Chloride [Klor-Con 10 ER] 10 meq PO QAM 04/24/21 07/16/21 History Apixaban [Eliquis] 2.5 mg PO BID 30 Days #60 tab 04/25/21 07/16/21 Rx Ascorbic Acid [Vitamin C] 1,000 mg PO DAILY 05/23/21 07/17/21 History Furosemide [Lasix] 40 mg PO QAM 05/23/21 07/17/21 History Multivitamins, Thera [Multivitamin 1 tab PO AC-SUPPER 05/23/21 07/17/21 History (formulary)] Zinc 50 mg PO QAM 05/23/21 07/17/21 History Ferrous Sulfate [Iron (65 MG 325 mg PO DAILY 30 Days #30 tab 05/25/21 07/17/21 Rx Elemental)] Docusate [Colace] 100 mg PO HS 06/07/21 07/17/21 History Allergies Allergy/AdvReac Type Severity Reaction Status Date / Time sulfamethoxazole Allergy Rash/Hives Verified 07/17/21 06:17 [From Bactrim] trimethoprim [From Bactrim] Allergy Rash/Hives Verified 07/17/21 06:17 Physical Exam Vitals: Vital Signs Temp Pulse Resp BP BP BP BP 07/17/21 06:45 97.8 F 66 18 145/70 146/69 158/62 146/69 Pulse Ox 07/17/21 06:45 92 L Intake and Output 07/16/21 07/17/21 07/17/21 22:59 06:59 14:59 Intake Total 100 750 Balance 100 750 Intake: IV 100 750 Other: Weight 75.6 kg GENERAL EXAM: Alert, very pleasant, 86-year-old white female, resting in bed, currently on simple mask satting 100%, hemodynamically stable, sinus mechanism, not on any vasoactive drips, comfortable in no apparent distress. HEAD: Normocephalic/atraumatic. EYES: Normal reaction of pupils, equal size. Conjunctiva pink, sclera white. NOSE: Clear with pink turbinates. THROAT: No erythema or exudates. NECK: No masses, no JVD, no thyroid enlargement, no adenopathy. CHEST: No chest wall deformity. Symmetrical expansion. Right upper subclavian area external pacemaker lead insertion site is clean dry and intact, surrounding area is slightly bruised with petechial rash, site is soft, no hematoma LUNGS: Equal air entry with no crackles, wheeze, rhonchi or dullness. CVS: Regular rate and rhythm, normal S1 and S2, no gallops, no murmurs, no rubs ABDOMEN: Soft, nontender. No hepatosplenomegaly, normal bowel sounds, no guardi ng or rigidity. EXTREMITIES: No clubbing, no edema, no cyanosis, 2+ pulses and upper and lower extremities. MUSCULOSKELETAL: Muscle strength and tone normal. SPINE: No scoliosis or deformity SKIN: No rashes CENTRAL NERVOUS SYSTEM: Alert and oriented -3. No focal deficits, tone is normal in all 4 extremities. PSYCHIATRIC: Alert and oriented -3. Appropriate affect. Intact judgment and insight. Results - Laboratory Findings PT/INR, D-dimer PT 10.6 sec (9.0-12.0) 07/17/21 10:12 INR 1.0 (<1.2) 07/17/21 10:12 Abnormal lab findings: Abnormal Labs 07/17/21 07/17/21 07/17/21 06:31 10:12 10:18 POC Glucose (mg/dL) 139 H 135 H 123 H - Diagnostic Findings Chest x-ray: report reviewed, image reviewed Assessment and Plan Plan: Assessment: #1. Severe prosthetic valve calcific aortic stenosis, status post transcatheter aortic valve replacement with 26 mm Medtronic CorValve Pro+ via left transfemoral percutaneous approach on not 07/17/2021. #2. Worsening exertional dyspnea and medical debility related to the above #3. Previous history of bioprosthetic aortic valve replacement and 5 vessel coronary artery bypass grafting [place] [address] Salas Joya #4. History of COVID-19 infection with pneumonia in April 2021. Patient had been on oxygen at 2 L since that time. Patient is status post vaccination with Xander & Xander vaccine in January 2021. Status of her booster is unknown at this time #5. Hypertension #6. Hypothyroidism #7. Hyperlipidemia #8. Diabetes mellitus type 2 with diabetic neuropathy #9. History of coronary artery disease with previous bypass grafting #10. History of DVT on Eliquis for chronic anticoagulation #11. Lifelong nonsmoker #11. Anxiety Plan: Postprocedure chest x-ray has been reviewed showing patchy densities similar to the prior chest x-ray from May 2021 Wean FiO2 to keep O2 sat patient's at or above 92% Provide incentive spirometer Hemodynamically patient is stable, not any vasoactive drips, GI and DVT prophylaxis per CT surgery and cardiology, home dose Eliquis has been resumed Prophylactic antibiotics per CT surgery Home medications have been resumed Glucose monitoring and Humalog per sliding scale Follow-up chest x-ray labs and echocardiogram in the morning We'll continue to monitor the patient in the ICU I performed a history & physical examination of the patient and discussed their management with my nurse practitioner, Serene Sanders. I reviewed the nurse practitioner's note and agree with the documented findings and plan of care. Lung sounds are positive for dim breath sounds throughout the lung odonnell. The findings and the impression was discussed with the patient. I attest to the documentation by the nurse practitioner. Time with Patient: Greater than 30
[2021-07-17 12:56] LABS: Platelet Count 85 k/uL (150-450)
--- NOTE | 2021-07-17 12:57 | P.ANPRN ---
Procedure Note - Anesthesia - Invasive Line Right Central Line Time Out Performed: Yes Date of Procedure: 07/17/21 Location of Patient: [facility] (labor delivery specialist) Preparation: Sterile Prep, Sterile Dressing Ultrasound Used: Yes Purpose - Visualization and Identification of Vasculature: Yes Image Stored and Saved: Yes Narrative: Central line placement per sterile protocol utilized. Informed consent obtained. Central line placement per sterile protocol utilized. Right Internal jugular vein cannulated under aseptic precautions. 3cc 1% lidocaine infiltrated initially after cleaning with iodine based prep and draping. Ultrasound used to locate the vein and selginger technique used. Triple-lumen central line inserted after the finding the needle with pilot fuel engineer needle/catheter, and dilating with the introducer. After the insertion the Catheter the line is dressed with biopatch and tegaderm. Patient tolerated the procedure well. - MOSHE Intraop Pre Bypass MOSHE Intraop - Anesthesia Indication: Transcatheter aortic valve replacement Date of Procedure: 07/17/21 Pre-operative Diagnosis: Severe aortic stenosis Post-operative Diagnosis: Severe aortic stenosis status post TAVR Surgeon: Malachi Fagan Left Ventricle: Ejection fraction 55% and no regional wall motion abnormalities observed. Ejection Fraction: Normal Regional Wall Motion Abnormalities: None Left Ventricle Hypertrophy: No R. Ventricle Function: Normal Aortic Valve: Prosthetic aortic valve seen. Mild aortic regurgitation seen. Severe aortic stenosis seen with mean gradient of 42 mmHg and peak gradient of 54 mmHg. Valve area is 0.46 cm by continuity equation. Aortic Stenosis: Severe Aortic Regurgitation: Mild Mitral Regurgitation: Mild Tricuspid Stenosis: None Tricuspid Regurgitation: Moderate Pulmonic Stenosis: None Pulmonic Regurgitation: None R. Atrial Dilation: No R. Atrial PFO: No L. Atrial Dilation: Yes Aortic Dissection: No Aortic Calcification: None Plural Effusion: None - MOSHE Intraop Post Bypass MOSHE Intraop Post Bypass Procedure Performed: Transcatheter aortic valve replacement Left Ventricle: EF 55-60% Ejection Fraction: Normal Regional Wall Motion Abnormalities: None R. Ventricle Function: Normal Aortic Valve: New Prosthetic aortic valve in position (valve through valve). Appears to be seated well. Mild paravalvular regurgitation seen. Peak gradient across the new prosthetic valve is 12 mmHg and mean gradient is 5 mmHg. Mitral Valve: Unchanged Tricuspid: Unchanged Pulmonic: Unchanged
[2021-07-17] MEDS: MAGNESIUM SULFATE-D5W PMX 1 GM in DEXTROSE/WATER 1 100ML.BAG IVPB SCH ×2 (13:46→15:51)
[2021-07-17] MEDS: INSULIN ASPART (NovoLOG) 100 UNIT/ML VIAL SQ SCH ×3 (13:46→20:22)
[2021-07-17] MEDS: POTASSIUM CHLORIDE ER 20 MEQ TAB.ER PO SCH ×2 (13:46→15:50)
[2021-07-17] MEDS: IPRATROPIUM 0.5 MG/2.5 ML NEBU INHALATION SCH ×2 (15:27→21:45)
[2021-07-17] MEDS: HEPARIN SODIUM,PORCINE/PF 5,000 UNIT/0.5 ML SYRINGE SQ SCH ×2 (15:52→23:18)
[2021-07-17 17:07] LABS: Glucose,Whole Blood 165 mg/dL (75-99)
[2021-07-17] MEDS: METOPROLOL TARTRATE 50 MG TAB PO SCH (17:11)
[2021-07-17] MEDS ORDERED: MULTIVITAMINS, THERA 1 EACH TAB PO SCH (17:30)
[2021-07-17] MEDS ORDERED: CALCIUM CARB-VIT D 500 MG-5 MCG TAB PO SCH (17:30)
[2021-07-17] MEDS ORDERED: Potassium Replacement Protocol 1 EACH MISC MISCELLANE PRN (18:46)
[2021-07-17] MEDS ORDERED: POTASSIUM CHLORIDE ER 20 MEQ TAB.ER PO SCH (19:00)
--- NOTE | 2021-07-17 19:00 | P.CONS ---
History of Present Illness - Reason for Consult Consult date: 07/17/21 Medical management Requesting physician: Malachi Fagan - Chief Complaint Severe prosthetic aortic valve stenosis - History of Present Illness Patient is a pleasant 86-year-old female with past medical history of coronary artery disease, 5 vessel CABG, aortic valvular stenosis with previous valve replacement by Dr. Joya in 2011. Other medical history includes hyp othyroidism, hypertension, type II diabetes, hyperlipidemia, anemia with recent blood transfusion that being worked up by hematology, chronic kidney disease stage IV, osteoarthritis, GERD, history of DVT and is currently on eliquis. Patient arrived to the hospital for a planned TAVR procedure with Dr. Fgaan due to severe bioprosthetic aortic valve stenosis. 07/17/2021 Patient seen and examined in ICU, status post TAVR. Patient is alert and oriented but drowsy from anesthesia. Currently on bedrest. Denies chest pain, shortness of breath, headache. Reports feeling well, no complaints at this time. Hemoglobin stable at 10.2, red blood cell 2.5, hematocrit 31. kidney function at baseline BUN 38 creatinine 1.02. Potassium 3.4, protocol ordered. Review of Systems Denies chest pain, shortness of breath, abdominal pain, headache, weakness, dizziness. Does report feeling tired after anesthesia. Past Medical History Past Medical History: Atrial Fibrillation, Coronary Artery Disease (CAD), Heart Failure, Diabetes Mellitus, Deep Vein Thrombosis (DVT), GERD/Reflux, Hyperlipidemia, Hypertension, Osteoarthritis (OA), Renal Disease, Skin Disorder, Thyroid Disorder Additional Past Medical History / Comment(s): NIDDM type II, neuropathy bilateral hands/feet, DVT L leg, CKD stage IV, gout, anemia-recent transfusion end of May, varicose veins, bilateral ankle edema, cyst on back from past spider bite, had covid in Apr., SOB w/exertion, uses 2l O2 @home prn History of Any Multi-Drug Resistant Organisms: None Reported Past Surgical History: Cardiac Valve Replacement, Cholecystectomy, Coronary Bypass/CABG, Heart Catheterization, Hysterectomy, Joint Replacement, Orthopedic Surgery Additional Past Surgical History / Comment(s): 2011 CABG w/ 5 vessel bypass and aortic valve. 03/07/14 Colonoscopy with EGD and BX. MOSHE. Maximiliano knee and L shoulder Replacement. Sinus surgery. Past Anesthesia/Blood Transfusion Reactions: No Reported Reaction Smoking Status: Never smoker - Past Family History Daughter(s) Family Medical History: Cancer Additional Family Medical History / Comment(s): 2 daughters had breast cancer. Father Family Medical History: Cancer, Coronary Artery Disease (CAD) Additional Family Medical History / Comment(s): Father had cancer but pt does not know what type. Father at age 77yrs. Mother Family Medical History: CVA/TIA Additional Family Medical History / Comment(s): Mother had a CVA. She at age 86yrs. Medications and Allergies Home Medications Medication Instructions Recorded Confirmed Type Allopurinol [Zyloprim] 300 mg PO DAILY 03/03/14 07/17/21 History Atorvastatin [Lipitor] 40 mg PO HS 03/03/14 07/17/21 History Glimepiride [Amaryl] 2 mg PO QAM 03/03/14 07/17/21 History LORazepam [Ativan] 1 mg PO HS 03/03/14 07/17/21 History Metoprolol Tartrate [Lopressor] 50 mg PO BID-W/MEALS 03/03/14 07/17/21 History Omeprazole [PriLOSEC] 20 mg PO QAM 03/03/14 07/17/21 History calcitrioL [Calcitriol] 0.5 mcg PO MOFR 03/03/14 07/17/21 History Ergocalciferol [Vitamin D2 50,000 unit PO QMONTH 04/23/15 07/17/21 History (DRISDOL)] Acetaminophen Tab [Tylenol] 1,000 mg PO Q6HR PRN 06/15/15 07/17/21 History Aspirin EC [Ecotrin Low Dose] 81 mg PO DAILY 10/24/16 07/17/21 History Calcium Carbonate [Calcium] 600 mg PO AC-SUPPER 10/24/16 07/17/21 History B Complex W-C No.20/Folic Acid 1 mg PO DAILY 04/09/21 07/17/21 History [Renal Caps Softgel] Budesonide/Glycopyr/Formoterol 2 puff INHALATION BID PRN 04/09/21 07/17/21 History [Breztri Aerosphere Inhaler] Levothyroxine Sodium [Synthroid] 25 mcg PO QAM 04/09/21 07/17/21 History Magnesium 200 mg PO DAILY 04/09/21 07/17/21 History Potassium Chloride [Klor-Con 10 ER] 10 meq PO QAM 04/24/21 07/16/21 History Apixaban [Eliquis] 2.5 mg PO BID 30 Days #60 tab 04/25/21 07/16/21 Rx Ascorbic Acid [Vitamin C] 1,000 mg PO DAILY 05/23/21 07/17/21 History Furosemide [Lasix] 40 mg PO QAM 05/23/21 07/17/21 History Multivitamins, Thera [Multivitamin 1 tab PO AC-SUPPER 05/23/21 07/17/21 History (formulary)] Zinc 50 mg PO QAM 05/23/21 07/17/21 History Ferrous Sulfate [Iron (65 MG 325 mg PO DAILY 30 Days #30 tab 05/25/21 07/17/21 Rx Elemental)] Docusate [Colace] 100 mg PO HS 06/07/21 07/17/21 History Allergies Allergy/AdvReac Type Severity Reaction Status Date / Time sulfamethoxazole Allergy Rash/Hives Verified 07/17/21 06:17 [From Bactrim] trimethoprim [From Bactrim] Allergy Rash/Hives Verified 07/17/21 06:17 Physical Exam Vitals: Vital Signs Temp Pulse Pulse Resp BP BP BP 07/17/21 17:00 64 15 122/52 07/17/21 16:00 97.8 F 59 L 15 136/56 07/17/21 15:37 57 L 07/17/21 15:27 55 L 07/17/21 15:00 63 22 134/58 07/17/21 14:45 55 L 21 07/17/21 14:30 57 L 07/17/21 14:15 57 L 129/52 07/17/21 14:00 57 L 19 07/17/21 13:45 54 L 21 07/17/21 13:30 57 L 07/17/21 13:15 54 L 21 121/48 07/17/21 13:00 56 L 20 07/17/21 12:45 56 L 21 07/17/21 12:30 55 L 18 07/17/21 12:15 55 L 19 119/46 07/17/21 12:00 97.3 F L 57 L 15 07/17/21 11:45 58 L 17 132/48 07/17/21 11:30 57 L 18 07/17/21 11:15 57 L 16 132/48 07/17/21 11:00 58 L 18 07/17/21 10:45 60 17 07/17/21 10:30 64 21 134/54 07/17/21 10:15 96.0 F L 67 13 07/17/21 06:45 97.8 F 66 18 145/70 146/69 BP BP Pulse Ox 07/17/21 17:00 95 07/17/21 16:00 95 07/17/21 15:37 07/17/21 15:27 07/17/21 15:00 98 07/17/21 14:45 98 07/17/21 14:30 100 07/17/21 14:15 95 07/17/21 14:00 93 L 07/17/21 13:45 96 07/17/21 13:30 96 07/17/21 13:15 94 L 07/17/21 13:00 95 07/17/21 12:45 94 L 07/17/21 12:30 93 L 07/17/21 12:15 95 07/17/21 12:00 90 L 07/17/21 11:45 94 L 07/17/21 11:30 99 07/17/21 11:15 98 07/17/21 11:00 99 07/17/21 10:45 97 07/17/21 10:30 95 07/17/21 10:15 96 07/17/21 06:45 158/62 146/69 92 L Intake and Output 07/17/21 07/17/21 07/17/21 06:59 14:59 22:59 Intake Total 100 900 Output Total 0 100 Balance 100 900 -100 Intake: IV 100 900 Lactated Ringers 1,000 ml 150 @ 50 mls/hr IV .Q20H [facility] Rx#:[id number] Output: Urine 0 100 Other: Voiding Method Bedside Commode Weight 75.6 kg ABP, PAP, CO, CI - Last 8 Hours Arterial Blood Pressure 132/42 Arterial Blood Pressure 135/44 Arterial Blood Pressure 132/42 Arterial Blood Pressure 138/43 Arterial Blood Pressure 133/42 Arterial Blood Pressure 132/41 Arterial Blood Pressure 128/41 Arterial Blood Pressure 130/41 Arterial Blood Pressure 134/43 Arterial Blood Pressure 140/43 Arterial Blood Pressure 145/45 Arterial Blood Pressure 146/45 Arterial Blood Pressure 149/47 - Constitutional General appearance: no acute distress, obese - EENT Eyes: EOMI, PERRLA ENT: normal oropharynx Ears: bilateral: normal - Neck Neck: normal ROM Carotids: bilateral: upstroke normal Thyroid: negative: normal size - Respiratory Respiratory: bilateral: diminished - Cardiovascular Heart rate: 60 Rhythm: regular Heart sounds: normal: S1, S2 radial pulse Peripheral Pulses: bilateral: Normal dorsalis pedis Peripheral Pulses: bilateral: Normal - Gastrointestinal General gastrointestinal: normal bowel sounds - Integumentary surgical incisions on bilateral groin are clean, dry, intact, no swelling or redness Integumentary: normal, normal turgor - Neurologic Awake, alert, following commands, memory intact - Musculoskeletal On bedrest status post tavr - Psychiatric Psychiatric: A&O x's 3, appropriate affect, intact judgment & insight Results CBC & Chem 7: 07/17/21 10:12 07/17/21 10:12 Labs: Abnormal Lab Results - Last 24 Hours (Table) 07/17/21 07/17/21 07/17/21 Range/Units 06:31 10:12 10:12 RBC 2.51 L (3.80-5.40) m/uL Hgb 10.2 L (11.4-16.0) gm/dL Hct 31.8 L (34.0-46.0) % MCV 126.4 H (80.0-100.0) fL MCH 40.5 H (25.0-35.0) pg RDW 17.4 H (11.5-15.5) % Plt Count 85 L (150-450) k/uL Lymphocytes # 0.9 L (1.0-4.8) k/uL Macrocytosis Marked A Potassium 3.4 L (3.5-5.1) mmol/L Carbon Dioxide 32 H (22-30) mmol/L BUN 38 H (7-17) mg/dL Glucose 116 H (74-99) mg/dL POC Glucose (mg/dL) 139 H (75-99) mg/dL Total Protein 4.9 L (6.3-8.2) g/dL Albumin 2.7 L (3.5-5.0) g/dL 07/17/21 07/17/21 07/17/21 Range/Units 10:12 10:18 17:06 RBC (3.80-5.40) m/uL Hgb (11.4-16.0) gm/dL Hct (34.0-46.0) % MCV (80.0-100.0) fL MCH (25.0-35.0) pg RDW (11.5-15.5) % Plt Count (150-450) k/uL Lymphocytes # (1.0-4.8) k/uL Macrocytosis Potassium (3.5-5.1) mmol/L Carbon Dioxide (22-30) mmol/L BUN (7-17) mg/dL Glucose (74-99) mg/dL POC Glucose (mg/dL) 135 H 123 H 165 H (75-99) mg/dL Total Protein (6.3-8.2) g/dL Albumin (3.5-5.0) g/dL Chest x-ray: image reviewed Assessment and Plan Assessment: Severe prosthetic aortic valve stenosis Status post TAVR placement Hypokalemia Anemia Type 2 diabetes Hypertension Hyperlipidemia Hypothyroidism History of coronary artery disease with previous CABG History of DVT, on eliquis Plan: Follow cardiothoracic surgery recommendations, post op TAVR Continue monitoring blood glucose achs, sliding scale insulin in addition to oral diabetic medications Potassium was replaced, continue to monitor electrolytes Recheck CBC and CMP in the morning to assess hemoglobin and kidney function Continue home medications Full code Further recommendations to come based on patient's clinical course Time with Patient: Greater than 30
[2021-07-17 20:19] LABS: Glucose,Whole Blood 189 mg/dL (75-99)
--- NOTE | 2021-07-17 20:27 | P.OP ---
Description of Procedure: Transcatheter Aoritc Valve Replacement Operative report PROCEDURE PERFORMED: 1. Percutaneous Aortic Valve Implantation using a 26 mm Core-Valve Evolut-Pro Plus. 2. Transesophageal echocardiography (performed by anesthesia) 3. Ultrasound guided access and repair of left femoral artery access site by Perclose closure device. 4. Placement of temporary pacemaker wire. 5. Aortic root angiography 6. Pre TAVR balloon aortic valvuloplasty with a 18mm True balloon INDICATIONS: 1. 86 year-old with a history of severe symptomatic bioprosthetic aortic valve stenosis. 2. NYHA class 4 symptoms 3. Chronic respiratory failure with oxygen dependence 4. Hypertension 5. CAD s/p CABG 6. S/p prior bioprosthetic aortic valve replacement 7. Paroxysmal Afib PERFORMING PHYSICIANS: 1. Arsenio Alonso DO Interventional Cardiology 2. Edgar Carlos MD Interventional Cardiology. 3. Malachi Fagan MD, Cardiothoracic Surgeon. 4. Hector Eid MD Proctoring Interventional cardiology SEDATION: General anesthesia provided by anesthesia, see separate note APPROACH: Left femoral artery via percutaneous approach PROCEDURE DESCRIPTION: The patient was discussed at valve clinic with multidisciplinary approach with cardiothoracic surgeon as well as animal cop and thought better treated with TAVR. Risks, benefits, and alternatives of the procedure had been explained to the patient who understood the risks and agreed to proceed. After consents were obtained, patient was brought to the transcatheter aortic valve implantation room in the cardiac receiver/laborer and general anesthesia was provided by the anesthesiologist (see separate report). Once full body sterile prep was performed, right subclavian venous access was obtained and a temporary pacemaker was screwed in, performed by cardiothoracic surgery. Pacing threshholds were checked and deemed appropriate. Next the [] femoral artery was accessed using a modified Seldinger technique, ultrasound guidance and micropuncture technique. A 6 Niuean Rabi sheath was placed in the right femoral artery. Next, a 6- Niuean pigtail catheter was advanced into the aorta and positioned in the aortic root, aortic root angiography was performed to determine optimal deployment angle. The left femoral artery was accessed using modified Seldinger technique, micropuncture technique and under direct ultrasound guidance. Femoral angiogram was done showing access in the common femoral artery and a 6Fr sheath was placed. Next preclose technique was performed using 2 Percloses at 10 and 2 oclock position. Next a 0.035 Lunderquist wire was placed in the Aorta via a pigtail catheter. Over that the arteriotomy was serially dilated and a 14 Fr [place] sheath was placed. Next a 6F- AL1 catheter was advanced over a wire to the aortic root. A straight wire was advanced through the catheter and used to cross the severely stenotic valve. The AL1 was then exchanged for a 6Fr pigtail catheter and pressure measurements were obtained. The 0.035 Lunderquist wire was then positioned in the apex. Next an 18mm True balloon was advanced and used to perform pre TAVR balloon aortic valvuloplasty with rapid pacing. During BAV, aortic root angiogram showed continued adequate flow into the coronary arteries given some concern of possibility of coronary obstruction with valve deployment. Next a 26 mm Corevalve Evolut-Pro Plus was advanced. The valve was then positioned across the aortic valve and confirmed with aortic root angiography. The valve was then deployed in proper position using slow deploymen t and with rapid pacing in conjuncture with aortic root angiography and MOSHE. The delivery system was withdrawn back into the arch and an aortic root injection in conjunction with MOSHE demonstrated a satisfactory result. There was mild para valvular leak. There was no evidence of any other significant abnormalities. The preclose Perclose was then deployed in the left femoral artery and hemostasis was achieved. The pigtail was then advanced to the level of the iliac bifurcation via the right femoral access. Femoral angiogram was performed that showed no contrast leak. The right femoral angiogram demonstrated an arteriotomy in the common femoral artery and this was repaired using a 6F angioseal device with complete hemostasis. The temporary venous pacemaker was sutured in place. The patient was then transported to the ICU in hemodynamically stable condition, requiring no pressor support. COMPLICATIONS: None CONCLUSION: 1. Implantaion of 26mm Core-Valve Evolut-Pro Plus transcatheter aortic valve via left femoral approach under MOSHE and fluoro guidance with mild rosa isela-valvular aortic regurgitation. 2. Placement of temporary pacemaker wire 3. Aortic Root Aortogram. 4. Pre TAVR BAV with a 18mm True balloon RECOMMENDATIONS: The patient will be monitored in the ICU for hemodynamic and electrical stability. Patient will be on Plavix and Eliquis.
[2021-07-17] MEDS ORDERED: DOCUSATE 100 MG CAP PO SCH (21:00)
[2021-07-17] MEDS ORDERED: LORazepam 1 MG TAB PO SCH (21:00)
[2021-07-17] MEDS ORDERED: ATORVASTATIN 40 MG TAB PO SCH (21:00)
[2021-07-17] MEDS: SYMBICORT 80-4.5 MCG INHALER INHALATION SCH (21:45)
[2021-07-18 05:32] LABS: Glucose,Whole Blood 86 mg/dL (75-99)
[2021-07-18 05:44] VITALS: TEMP 98.3
[2021-07-18] MEDS: INSULIN ASPART (NovoLOG) 100 UNIT/ML VIAL SQ SCH ×2 (05:50→11:59)
[2021-07-18] MEDS: METOPROLOL TARTRATE 50 MG TAB PO SCH (06:09)
[2021-07-18 06:24] LABS: Anisocytosis Slight; Basophils % (A) 1 %; Eosinophils # (A) 0.6 k/uL (0-0.7); Eosinophils % (A) 7 %; HCT 32.9 % (34.0-46.0); HGB 10.6 gm/dL (11.4-16.0); Hypochromasia Moderate; Lymphocytes # (A) 0.8 k/uL (1.0-4.8); Lymphocytes % (A) 10 %; MCH 41.2 pg (25.0-35.0); MCHC 32.2 g/dL (31.0-37.0); Macrocytosis Marked; Mean Platelet Volume 8.2; Monocytes # (A) 0.5 k/uL (0-1.0); Monocytes % (A) 7 %; Neutrophils # (A) 5.7 k/uL (1.3-7.7); Neutrophils % (A) 73 %; Platelet Count 90 k/uL (150-450); RBC 2.57 m/uL (3.80-5.40); RDW 17.1 % (11.5-15.5); WBC 7.8 k/uL (3.8-10.6)
[2021-07-18 06:30] LABS: Ionized Calcium 5.2 mg/dL (4.5-5.3)
[2021-07-18] MEDS ORDERED: LEVOTHYROXINE 25 MCG TAB PO SCH (06:30)
[2021-07-18 06:45] LABS: Albumin 2.9 g/dL (3.5-5.0); Calcium 9.7 mg/dL (8.4-10.2); Total Bilirubin 0.8 mg/dL (0.2-1.3); Total Protein 5.4 g/dL (6.3-8.2)
[2021-07-18 06:58] LABS: Potassium 4.8 mmol/L (3.5-5.1)
[2021-07-18 06:59] LABS: Magnesium 2.2 mg/dL (1.6-2.3)
[2021-07-18] MEDS ORDERED: GLIMEPIRIDE 2 MG TAB PO SCH (07:30)
[2021-07-18] MEDS ORDERED: PANTOPRAZOLE 40 MG TABLET PO SCH (07:30)
[2021-07-18] MEDS ORDERED: NEOSTIGMINE 1 MG/ML 10 ML VIAL ONE (07:54)
[2021-07-18] MEDS ORDERED: LIDOCAINE 1% INJ 10MG/ML (20 ML MDV) ONE (07:54)
[2021-07-18] MEDS ORDERED: GLYCOPYRROLATE 0.2 MG/ML 2 ML VIAL ONE (07:54)
[2021-07-18] MEDS ORDERED: SUCCINYLCHOLINE CHLORIDE 100 MG/5 ML SYR IV ONE (07:54)
[2021-07-18] MEDS ORDERED: ROCURONIUM 10 MG/ML (5 ML VIAL) IV ONE (07:54)
[2021-07-18] MEDS ORDERED: HEPARIN SODIUM,PORCINE 10,000 UNIT/ML 1 ML VIAL ONE (07:54)
[2021-07-18] MEDS ORDERED: PROTAMINE SULFATE 10 MG/ML 5 ML VIAL IV ONE (07:54)
[2021-07-18] MEDS ORDERED: PROPOFOL 10 MG/ML 20 ML VIAL IV ONE (07:54)
--- NOTE | 2021-07-18 08:15 | XR ---
EXAMINATION TYPE: XR chest 1V portable DATE OF EXAM: 07/18/2021 COMPARISON: Chest x-ray 07/17/2021, CT 07/02/2021 HISTORY: Postop cardiac surgery TECHNIQUE: Single frontal view of the chest is obtained. FINDINGS: There is some improvement in aeration. There are overlying artifacts. Transvenous pacemake r lead is stable, patient is post median sternotomy, TAVR procedure. Postop change noted to the left shoulder. Aorta is dense and aneurysmal. Cardiac mediastinal silhouette is stable. No evident pneumot horax or pleural effusion. Right hemidiaphragm is elevated. Prominence of pulmonary artery may be due to technique. IMPRESSION: There is improvement in aeration. Correlate for possible pulmonary artery hypertension. Aortic aneurysm. Additional findings above.
[2021-07-18] MEDS: IPRATROPIUM 0.5 MG/2.5 ML NEBU INHALATION SCH ×2 (08:24→11:45)
[2021-07-18] MEDS: SYMBICORT 80-4.5 MCG INHALER INHALATION SCH (08:27)
[2021-07-18] MEDS ORDERED: ASCORBIC ACID 500 MG TAB PO SCH (09:00)
[2021-07-18] MEDS ORDERED: FUROSEMIDE 40 MG TAB PO SCH (09:00)
[2021-07-18] MEDS ORDERED: ZINC SULFATE 220 MG CAP PO SCH (09:00)
[2021-07-18] MEDS ORDERED: allopurinoL 300 MG TAB PO SCH (09:00)
[2021-07-18] MEDS ORDERED: APIXABAN 2.5 MG TABLET PO SCH (09:00)
[2021-07-18] MEDS ORDERED: bisacodyL 10 MG SUPP RECTAL PRN (09:00)
[2021-07-18] MEDS ORDERED: FERROUS SULFATE 325 MG TAB PO SCH (09:00)
[2021-07-18] MEDS ORDERED: MAGNESIUM HYDROXIDE 2,400 MG/10 ML CUP PO PRN (09:00)
[2021-07-18] MEDS ORDERED: FOLIC ACID-VIT B COMPLEX-VIT C 1 CAP PO SCH (09:00)
[2021-07-18] MEDS ORDERED: POTASSIUM CHLORIDE ER 10 MEQ TAB.ER.PRT PO SCH (09:00)
[2021-07-18] MEDS ORDERED: CLOPIDOGREL 75 MG TAB PO SCH (09:00)
[2021-07-18] MEDS ORDERED: MAGNESIUM OXIDE 400 MG TAB PO SCH (09:00)
[2021-07-18 10:50] VITALS: BMI 30.9
--- NOTE | 2021-07-18 11:00 | ECHOF ---
Referral Reason:post TAVR MEASUREMENTS -------- HEIGHT: 157.5 cm WEIGHT: 75.3 kg BP: RVIDd: 2.4 cm (< 3.3) IVSd: 1.3 cm (0.6 - 1.1) LVIDd: 3.8 cm (3.9 - 5.3) LVPWd: 1.4 cm (0.6 - 1.1) IVSs: 2.1 cm LVIDs: 1.8 cm LVPWs: 1.9 cm LAESV Index (A-L): 29.99 ml/m MV EXCURSION: 6.594 mm (> 18.000) MV EF SLOPE: 65 mm/s (70 - 150) EPSS: 0.3 cm MV E Blaine: 1.09 m/s MV DecT: 284 ms MV A Blaine: 1.27 m/s MV E/A Ratio: 0.86 AV maxP.66 mmHg AV meanP.46 mmHg AR PHT: 477 ms RAP: 5.00 mmHg RVSP: 33.39 mmHg FINDINGS -------- This was a technically good study. The left ventricular size is normal. There is mild concentric left ventricular hypertrophy. Overa ll left ventricular systolic function is normal with, an EF between 55 - 60 %. The diastolic fillin g pattern is normal for the age of the patient 11.23. The right ventricle is normal in size. LA is midly dilated 29-33ml/m2. The right atrial size is normal. Peak/mean gradient across the Aortic Valve is 14.66mmHg / 9.46mmHg. Normally functioning bioprosthe tic valve. There is mild rosa isela-prosthetic regurgitation of the bioprosthetic aortic valve. TAVR pr ocedure done The mitral valve is normal. The mitral valve leaflets are mildly thickened. Mild mitral regurgita tion is present. The tricuspid valve appears structurally normal. Mild tricuspid regurgitation present. Right vent ricular systolic pressure is normal at < 35 mmHg. There is no pulmonic regurgitation present. The aortic root size is normal. Normal inferior vena cava with normal inspiratory collapse consistent with estimated right atrial pre ssure of 5 mmHg. There is no pericardial effusion. CONCLUSIONS -------- 1. The left ventricular size is normal. 2. There is mild concentric left ventricular hypertrophy. 3. Overall left ventricular systolic function is normal with, an EF between 55 - 60 %. 4. The diastolic filling pattern is normal for the age of the patient 11.23 5. LA is midly dilated 29-33ml/m2. 6. Peak/mean gradient across the Aortic Valve is 14.66mmHg / 9.46mmHg. 7. Normally functioning bioprosthetic valve. 8. There is mild rosa isela-prosthetic regurgitation of the bioprosthetic aortic valve. 9. TAVR procedure done 10. The mitral valve leaflets are mildly thickened. 11. Mild mitral regurgitation is present. 12. Mild tricuspid regurgitation present. 13. There is no pericardial effusion. PATROL MOTHER: Soumya Lemus RDCS
--- NOTE | 2021-07-18 11:01 | P.DS ---
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 Severe symptomatic bioprosthetic aortic valve stenosis 2. NYHA class IV symptoms 3. Chronic respiratory failure with oxygen dependence 4. Hypertension 5. CAD status post 5 vessel CABG in 2011 6. Aortic stenosis status post #23 Trifecta bioprosthetic aortic valve replacement in 2011 7. Paroxysmal atrial fibrillation, on Eliquis for anticoagulation 8. Chronic diastolic heart failure 9. Chronic kidney disease 10. Hypothyroid 11. Chronic anemia and thrombocytopenia 12. COVID-19 infection in April 2021 13. Left lower extremity DVT in 2016 PROCEDURE: 1. Percutaneous aortic valve implantation using a 26 mm Core Valve Evolute-Pro Plus under MOSHE and fluoroscopy guidance 2. Transesophageal echocardiography performed by anesthesia 3. Ultrasound-guided access and repair of left femoral artery access site by Perclose closure device 4. Placement of temporary pacemaker wire 5. Aortic root angiography 6. Pre-balloon aortic valvuloplasty with a 18 mm True balloon HISTORY OF PRESENT ILLNESS: This is a 86-year-old female who follows on an outpatient basis with Dr. Mo Weiss for primary care and Dr. Alonso for cardiology. She has a known history of severe aortic stenosis with previous aortic valve replacement. She has been symptomatic with exertional dyspnea and oxygen dependence since her Covid diagnosis last April. Over the last couple months she has developed new symptoms consistent with heart failure including peripheral edema and JVD. Sh had been referred to structural heart clinic for evaluation for transcatheter aortic valve replacement after heart catheterization and transesophageal echocardiogram were completed. Echocardiography demonstrated systolic function with EF 55%, aortic valve area 0.8 cm with a peak/mean gradient 88/53 mmHg. Heart catheterization showed patent DAMI to the LAD and saphenous vein graft to the diagonal artery, occluded saphenous vein graft to the PDA, PLV, OM. After workup was completed STS risk score was calculated along with incremental risk and the patient was felt to be very high risk for surgical aortic valve replacement, therefore transcatheter aortic valve replacement was recommended. The usual course of TAVR was discussed in detail the patient, risks and benefits were reviewed, shared decision making between cardiology, surgery, and the patient/family took place, and the patient consented to proceed with the procedure. HOSPITAL COURSE: The patient was brought to the hospital on 07/17/2021, was taken to the extended stay area, prepared in the usual fashion, and subsequently taken to the cardiac catheterization laboratory where Dr. Alonso and Dr. Fagan completed TAVR procedure under general anesthesia with fluoroscopy and MOSHE. The valve was deployed under rapid ventricular pacing and proceeded without event. At the end of the procedure mean gradient was 5 mmHg, hemodynamics were felt to be acceptable, and there was mild perivalvular leak. Upon completion of the procedure the patient was extubated and was transferred to the cardiovascular intensive care unit where she was recovered and monitored hemodynamically. Her oxygen was titrated down to her home dose, she was tolerating oral diet, her pain was controlled, follow-up TTE demonstrated mild aortic insufficiency, and she was ready to be discharged to home on postoperative day #1. She received written and verbal instruction regarding her medications, activity restrictions, signs and symptoms requiring physician notification, and follow-up appointments. Patient Condition at Discharge: Stable Plan - Discharge Summary Discharge Rx Participant: No New Discharge Prescriptions: New Clopidogrel [Plavix] 75 mg PO DAILY #30 tab Continue Metoprolol Tartrate [Lopressor] 50 mg PO BID-W/MEALS LORazepam [Ativan] 1 mg PO HS Allopurinol [Zyloprim] 300 mg PO DAILY Omeprazole [PriLOSEC] 20 mg PO QAM Glimepiride [Amaryl] 2 mg PO QAM Atorvastatin [Lipitor] 40 mg PO HS calcitrioL [Calcitriol] 0.5 mcg PO MOFR Ergocalciferol [Vitamin D2 (DRISDOL)] 50,000 unit PO QMONTH Acetaminophen Tab [Tylenol] 1,000 mg PO Q6HR PRN PRN Reason: Fever And/ Or Pain Calcium Carbonate [Calcium] 600 mg PO AC-SUPPER Budesonide/Glycopyr/Formoterol [Breztri Aerosphere Inhaler] 2 puff INHALATION BID PRN PRN Reason: Shortness Of Breath Furosemide [Lasix] 40 mg PO QAM Zinc 50 mg PO QAM Multivitamins, Thera [Multivitamin (formulary)] 1 tab PO AC-SUPPER Ascorbic Acid [Vitamin C] 1,000 mg PO DAILY Ferrous Sulfate [Iron (65 MG Elemental)] 325 mg PO DAILY 30 Days #30 tab Docusate [Colace] 100 mg PO HS Magnesium 200 mg PO DAILY B Complex W-C No.20/Folic Acid [Renal Caps Softgel] 1 mg PO DAILY Levothyroxine Sodium [Synthroid] 25 mcg PO QAM Potassium Chloride [Klor-Con 10 ER] 10 meq PO QAM Apixaban [Eliquis] 2.5 mg PO BID 30 Days #60 tab Discontinued Aspirin EC [Ecotrin Low Dose] 81 mg PO DAILY Discharge Medication List Allopurinol [Zyloprim] 300 mg PO DAILY 03/03/14 [History] Atorvastatin [Lipitor] 40 mg PO HS 03/03/14 [History] Glimepiride [Amaryl] 2 mg PO QAM 03/03/14 [History] LORazepam [Ativan] 1 mg PO HS 03/03/14 [History] Metoprolol Tartrate [Lopressor] 50 mg PO BID-W/MEALS 03/03/14 [History] Omeprazole [PriLOSEC] 20 mg PO QAM 03/03/14 [History] calcitrioL [Calcitriol] 0.5 mcg PO MOFR 03/03/14 [History] Ergocalciferol [Vitamin D2 (DRISDOL)] 50,000 unit PO QMONTH 04/23/15 [History] Acetaminophen Tab [Tylenol] 1,000 mg PO Q6HR PRN 06/15/15 [History] Calcium Carbonate [Calcium] 600 mg PO AC-SUPPER 10/24/16 [History] B Complex W-C No.20/Folic Acid [Renal Caps Softgel] 1 mg PO DAILY 04/09/21 [History] Budesonide/Glycopyr/Formoterol [Breztri Aerosphere Inhaler] 2 puff INHALATION BID PRN 04/09/21 [History] Levothyroxine Sodium [Synthroid] 25 mcg PO QAM 04/09/21 [History] Magnesium 200 mg PO DAILY 04/09/21 [History] Potassium Chloride [Klor-Con 10 ER] 10 meq PO QAM 04/24/21 [History] Apixaban [Eliquis] 2.5 mg PO BID 30 Days #60 tab 04/25/21 [Rx] Ascorbic Acid [Vitamin C] 1,000 mg PO DAILY 05/23/21 [History] Furosemide [Lasix] 40 mg PO QAM 05/23/21 [History] Multivitamins, Thera [Multivitamin (formulary)] 1 tab PO AC-SUPPER 05/23/21 [History] Zinc 50 mg PO QAM 05/23/21 [History] Ferrous Sulfate [Iron (65 MG Elemental)] 325 mg PO DAILY 30 Days #30 tab 05/25/21 [Rx] Docusate [Colace] 100 mg PO HS 06/07/21 [History] Clopidogrel [Plavix] 75 mg PO DAILY #30 tab 07/18/21 [Rx] Follow up Appointment(s)/Referral(s): Mo Weiss MD [Primary Care Provider] - As Needed Kei Fortune MD [STAFF PHYSICIAN] - As Needed Soumya Goldberg NPC [Nurse Practitioner] - 08/27/21 2:30 pm (Appointment will be in the valve clinic in [facility], [address] [place] [address] [address], 08/27/2021 for 30 day TAVR follow-up. This appointment will be right before your echocardiogram appointment with Dr. Alonso) Arsenio Alonso DO [STAFF PHYSICIAN] - 07/26/21 3:15 pm (Your appointment on July 26 will be for a groin check. You also have an appointment 08/27/2021 at 3 PM for 30 day follow-up TAVR echo) Activity/Diet/Wound Care/Special Instructions: DISCHARGE INSTRUCTIONS: 1. No driving for 1 week, or until physician gives their ok. 2. No lifting, pushing, or pulling more than 5-10 pounds for 1 week. 3. Hold both groins when you cough or sneeze for the next 2 weeks. Bruising is common, but report increased swelling, pain or fever >101F 4. Shower daily. No pool, hot tub, or bathtub for 1 week 5. No powders, lotions, ointments on incisions. 6. No straining, including for bowel movements. Use stool softner if necessary 7. Stairs are not an issue. Go slowly, using handrail and take 1 step at a time. Ambulate several times daily 8. Continue pain control per as needed orders. 9. Take only the medications listed on your discharge form 10. Eat low salt (limited to 2 grams or 2000 milligrams) daily, avoid adding salt, avoid canned/processed foods 11. Take your weight daily in the morning and record, bring with you to your follow up appointments 12. Keep all follow up appointments. You will need a valve clinic appointment at 30 days and 1 year post procedure for follow up 13. You have been referred to and are expected to begin Cardiac Rehab in approximately 4 weeks. 14. You will need antibiotics prior to any dental work, including cleanings, and any surgeries to prevent Endocarditis (bacterial infection in your heart) For any questions or concerns please call your valve coordinators: Soumya or Heath @ Discharge Disposition: HOME WITH HOME HEALTH SERVICES
[2021-07-18 11:29] LABS: Glucose,Whole Blood 188 mg/dL (75-99)
[2021-07-18 12:19] VITALS: BP 123/76; PULSE 63; RESP 16
--- NOTE | 2021-07-18 12:33 | P.PN ---
Subjective Progress Note Date: 07/18/21 Principal diagnosis: Status post T aVR, postoperative day #1 This 86-year-old female patient of Dr. Mo Weiss, with past medical history of coronary artery disease with history of five-vessel coronary artery bypass grafting and aortic valvular stenosis with previous history of aortic valve replacement by Dr. Joya in 2011. Medical history includes hypothyroidism, hypertension, diabetes mellitus type 2, hyperlipidemia, chronic bronchial asthma, unspecified, chronic kidney disease stage IV, previous history of DVT, on Eliquis. Patient also had history of COVID-19 pneumonia in April 2021. Patient was vaccinated with Xander & Xander vaccine in January 2021. She did recover and she was discharged home on home oxygen at 2 L/min. She has been complaining of increased shortness of breath with exertion, she had a transesophageal echocardiogram on 06/13/[address] Alonso, and her bioprosthetic aortic valve had severe decreased mobility of the leaflets, cons istent with severe bioprosthetic aortic valve stenosis. Heart catheterization was done on the same day in 06/13/2021 showing RCA stenosis of more than 60-70% with the recommendation for medical treatment. Her preoperative FEV1 was 1.02 L or 59% of predicted, FVC of 1.12 L or 48% of predicted with FEV1 to FEC ratio of 105 consistent with moderately severe restriction. Patient was referred to CT surgery for evaluation of possible SAVR, however her preoperative risk was 24% and she was then recommended a TAVR. Today on 07/17/2021 patient had a TAVR with 26 mm Medtronic CorValve Pro + via left transfemoral percutaneous approach. Patient tolerated procedure very well. She seen in the ICU following her procedure, she is currently lethargic but opens her eyes to voice, responds appropriately, she states she feels very tired, but denies any acute complaints, she is currently on simple mask, and her pulse ox is 100%, she is hemodynamically stable, in sinus mechanism sinus bradycardia with a rate of 56 BPM, blood pressure is 145/46. She is on 0.0 with a rate of 75 ML per hour, no other drips. Chest x-ray shows no evident complications status post transvenous pacemaker placement, right hemidiaphragm was noted to be elevated, transvenous pacemaker lead present within the right ventricle there are patchy densities within the lungs. Right upper subclavian external pacemaker lead insertion site is clean dry and intact. Left groin puncture site is clean dry and intact. Pedal pulses are palpable, extremities are warm. Reevaluated today on 07/18/2021, patient remains in the ICU, however she is only on 2 L nasal cannula, not in any distress, doing great, and discharge planning i s in progress. No cough no wheezing no shortness of breath, no hemodynamic instability. Objective - Vital Signs Vital signs: Vital Signs Temp 98.3 F 07/18/21 08:00 Pulse 63 07/18/21 12:00 Resp 16 07/18/21 12:00 BP 123/76 07/18/21 12:00 Pulse Ox 92 L 07/18/21 12:00 Intake & Output 07/17/21 07/18/21 07/18/21 18:59 06:59 18:59 Intake Total 900 650 220 Output Total 100 800 250 Balance 800 -150 -30 Weight 76.7 kg 76.7 kg Intake: IV 900 Lactated Ringers 1,000 ml 150 @ 50 mls/hr IV .Q20H KAROLINA Rx#:[id number] Oral 650 220 Output: Urine 100 800 250 Other: Voiding Method Bedside Commode Bedside Commode Toilet # Voids 1 # Bowel Movements 1 ABP, PAP, CO, CI - Last Documented Arterial Blood Pressure 132/42 - Exam Physical Exam: Revealed a 86-year-old female in no distress. On 2 L nasal cannula HEENT:[Neck is supple.] [No neck masses.] [No thyromegaly.] [No JVD.] Chest: [Fine crackles at the bases.] Cardiac Exam: [Normal S1 and S2, no S3 gallop, no murmur.] Abdomen: [Soft, nontender, no megaly, no rebound, no guarding, normal bowel sounds.] Extremities: [No clubbing, no edema, no cyanosis.] Neurological Exam: [No focal neurologic deficit.] - Labs CBC & Chem 7: 07/18/21 06:01 07/18/21 06:01 Labs: Abnormal Lab Results - Last 24 Hours (Table) 07/17/21 07/17/21 07/17/21 Range/Units 10:12 10:12 17:06 RBC (3.80-5.40) m/uL Hgb (11.4-16.0) gm/dL Hct (34.0-46.0) % MCV (80.0-100.0) fL MCH (25.0-35.0) pg RDW (11.5-15.5) % Plt Count 85 L (150-450) k/uL Lymphocytes # 0.9 L (1.0-4.8) k/uL Macrocytosis Sodium (137-145) mmol/L Potassium 3.4 L (3.5-5.1) mmol/L Carbon Dioxide 32 H (22-30) mmol/L BUN 38 H (7-17) mg/dL Creatinine (0.52-1.04) mg/dL Glucose 116 H (74-99) mg/dL POC Glucose (mg/dL) 165 H (75-99) mg/dL Total Protein 4.9 L (6.3-8.2) g/dL Albumin 2.7 L (3.5-5.0) g/dL 07/17/21 07/18/21 07/18/21 Range/Units 20:17 06:01 06:01 RBC 2.57 L (3.80-5.40) m/uL Hgb 10.6 L (11.4-16.0) gm/dL Hct 32.9 L (34.0-46.0) % MCV 128.0 H (80.0-100.0) fL MCH 41.2 H (25.0-35.0) pg RDW 17.1 H (11.5-15.5) % Plt Count 90 L (150-450) k/uL Lymphocytes # 0.8 L (1.0-4.8) k/uL Macrocytosis Marked A Sodium 135 L (137-145) mmol/L Potassium (3.5-5.1) mmol/L Carbon Dioxide (22-30) mmol/L BUN 33 H (7-17) mg/dL Creatinine 1.13 H (0.52-1.04) mg/dL Glucose (74-99) mg/dL POC Glucose (mg/dL) 189 H (75-99) mg/dL Total Protein 5.4 L (6.3-8.2) g/dL Albumin 2.9 L (3.5-5.0) g/dL 07/18/21 Range/Units 11:26 RBC (3.80-5.40) m/uL Hgb (11.4-16.0) gm/dL Hct (34.0-46.0) % MCV (80.0-100.0) fL MCH (25.0-35.0) pg RDW (11.5-15.5) % Plt Count (150-450) k/uL Lymphocytes # (1.0-4.8) k/uL Macrocytosis Sodium (137-145) mmol/L Potassium (3.5-5.1) mmol/L Carbon Dioxide (22-30) mmol/L BUN (7-17) mg/dL Creatinine (0.52-1.04) mg/dL Glucose (74-99) mg/dL POC Glucose (mg/dL) 188 H (75-99) mg/dL Total Protein (6.3-8.2) g/dL Albumin (3.5-5.0) g/dL Assessment and Plan Assessment: Impression: #1. Severe prosthetic valve calcific aortic stenosis, status post transcatheter aortic valve replacement with 26 mm Medtronic CorValve Pro+ via left transfemoral percutaneous approach on not 07/17/2021. #2. Worsening exertional dyspnea and medical debility related to the above #3. Previous history of bioprosthetic aortic valve replacement and 5 vessel coronary artery bypass grafting [place] [address] Salas Joya #4. History of COVID-19 infection with pneumonia in April 2021. Patient had been on oxygen at 2 L since that time. Patient is status post vaccination with Xander & Xander vaccine in January 2021. Status of her booster is unknown at this time #5. Hypertension #6. Hypothyroidism #7. Hyperlipidemia #8. Diabetes mellitus type 2 with diabetic neuropathy #9. History of coronary artery disease with previous bypass grafting #10. History of DVT on Eliquis for chronic anticoagulation #11. Lifelong nonsmoker Recommendation: Agree with discharge planning today. Continue incentive spirometry. Follow-up on outpatient basis. Cleared for discharge planning from our perspective Time with Patient: Less than 30
--- NOTE | 2021-07-18 13:24 | P.PN ---
Subjective Progress Note Date: 07/18/21 Principal diagnosis: Severe prosthetic aortic valve stenosis Patient is a pleasant 86-year-old female with past medical history of coronary artery disease, 5 vessel CABG, aortic valvular stenosis with previous valve replacement by Dr. Joya in 2011. Other medical history includes hypothyroidism, hypertension, type II diabetes, hyperlipidemia, anemia with recent blood transfusion that being worked up by hematology, chronic kidney disease stage IV, osteoarthritis, GERD, history of DVT and is currently on eliquis. Patient arrived to the hospital for a planned TAVR procedure with Dr. Fagan due to severe bioprosthetic aortic valve stenosis. 07/17/2021 Patient seen and examined in ICU, status post TAVR. Patient is alert and oriented but drowsy from anesthesia. Currently on bedrest. Denies chest pain, shortness of breath, headache. Reports feeling well, no complaints at this time. Hemoglobin stable at 10.2, red blood cell 2.5, hematocrit 31. kidney function at baseline BUN 38 creatinine 1.02. Potassium 3.4, protocol ordered. 07/18/21 Patient seen and examined, sitting up in chair. Denies shortness of breath, chest pain, headache. Reports feeling very well and ready to go home. Hemoglobin and kidney function continue to remain stable. Cleared for discharge medically. Objective - Vital Signs Vital signs: Vital Signs Temp 98.3 F 07/18/21 08:00 Pulse 63 07/18/21 12:00 Resp 16 07/18/21 12:00 BP 123/76 07/18/21 12:00 Pulse Ox 92 L 07/18/21 12:00 Intake & Output 07/17/21 07/18/21 07/18/21 18:59 06:59 18:59 Intake Total 900 650 220 Output Total 100 800 250 Balance 800 -150 -30 Weight 76.7 kg 76.7 kg Intake: IV 900 Lactated Ringers 1,000 ml 150 @ 50 mls/hr IV .Q20H KAROLINA Rx#:[id number] Oral 650 220 Output: Urine 100 800 250 Other: Voiding Method Bedside Commode Bedside Commode Toilet # Voids 1 # Bowel Movements 1 ABP, PAP, CO, CI - Last Documented Arterial Blood Pressure 132/42 - Constitutional General appearance: Present: cooperative, no acute distress - EENT Eyes: Present: EOMI, PERRLA ENT: Present: normal oropharynx Ears: bilateral: normal - Neck Neck: Present: normal ROM Carotids: bilateral: upstroke normal Thyroid: bilateral: normal size - Respiratory Respiratory: bilateral: CTA - Cardiovascular Heart rate: 70 Rhythm: regular Heart sounds: normal: S1, S2 - Peripheral pulses radial pulse Peripheral Pulses: bilateral: Normal - Gastrointestinal General gastrointestinal: Present: normal bowel sounds, soft - Integumentary Integumentary: Present: normal, normal turgor - Neurologic Neurologic: Present: CNII-XII intact - Psychiatric Psychiatric: Present: A&O x's 3, appropriate affect - Allied health notes Allied health notes reviewed: nursing - Labs CBC & Chem 7: 07/18/21 06:01 07/18/21 06:01 Labs: Abnormal Lab Results - Last 24 Hours (Table) 07/17/21 07/17/21 07/17/21 Range/Units 10:12 10:12 17:06 RBC (3.80-5.40) m/uL Hgb (11.4-16.0) gm/dL Hct (34.0-46.0) % MCV (80.0-100.0) fL MCH (25.0-35.0) pg RDW (11.5-15.5) % Plt Count 85 L (150-450) k/uL Lymphocytes # 0.9 L (1.0-4.8) k/uL Macrocytosis Sodium (137-145) mmol/L Potassium 3.4 L (3.5-5.1) mmol/L Carbon Dioxide 32 H (22-30) mmol/L BUN 38 H (7-17) mg/dL Creatinine (0.52-1.04) mg/dL Glucose 116 H (74-99) mg/dL POC Glucose (mg/dL) 165 H (75-99) mg/dL Total Protein 4.9 L (6.3-8.2) g/dL Albumin 2.7 L (3.5-5.0) g/dL 07/17/21 07/18/21 07/18/21 Range/Units 20:17 06:01 06:01 RBC 2.57 L (3.80-5.40) m/uL Hgb 10.6 L (11.4-16.0) gm/dL Hct 32.9 L (34.0-46.0) % MCV 128.0 H (80.0-100.0) fL MCH 41.2 H (25.0-35.0) pg RDW 17.1 H (11.5-15.5) % Plt Count 90 L (150-450) k/uL Lymphocytes # 0.8 L (1.0-4.8) k/uL Macrocytosis Marked A Sodium 135 L (137-145) mmol/L Potassium (3.5-5.1) mmol/L Carbon Dioxide (22-30) mmol/L BUN 33 H (7-17) mg/dL Creatinine 1.13 H (0.52-1.04) mg/dL Glucose (74-99) mg/dL POC Glucose (mg/dL) 189 H (75-99) mg/dL Total Protein 5.4 L (6.3-8.2) g/dL Albumin 2.9 L (3.5-5.0) g/dL 07/18/21 Range/Units 11:26 RBC (3.80-5.40) m/uL Hgb (11.4-16.0) gm/dL Hct (34.0-46.0) % MCV (80.0-100.0) fL MCH (25.0-35.0) pg RDW (11.5-15.5) % Plt Count (150-450) k/uL Lymphocytes # (1.0-4.8) k/uL Macrocytosis Sodium (137-145) mmol/L Potassium (3.5-5.1) mmol/L Carbon Dioxide (22-30) mmol/L BUN (7-17) mg/dL Creatinine (0.52-1.04) mg/dL Glucose (74-99) mg/dL POC Glucose (mg/dL) 188 H (75-99) mg/dL Total Protein (6.3-8.2) g/dL Albumin (3.5-5.0) g/dL Assessment and Plan Assessment: Severe prosthetic aortic valve stenosis Status post TAVR placement Hypokalemia, resolved Anemia, hemoglobin stable Type 2 diabetes Hypertension Hyperlipidemia Hypothyroidism History of coronary artery disease with previous CABG History of DVT, on eliquis Plan: Follow cardiothoracic surgery recommendations, post op TAVR Continue monitoring blood glucose achs, sliding scale insulin in addition to oral diabetic medications Labs reviewed and are stable Continue home medications Full code Anticipate discharge to home today Further recommendations to come based on patient's clinical course
[2021-07-18] MEDS ORDERED: SENNOSIDES-DOCUSATE SODIUM 1 EACH TAB PO SCH (21:00)
[2021-07-31] MEDS ORDERED: ERGOCALCIFEROL 1,250 MCG (50,000 IU) CAPSULE PO SCH (09:00)
== END 2021-07-18 12:40 | disposition home health service (06) | DRG 267 ==
LOC: 2ORMAIN 05:45 → 2SICU 09:52
PROVIDERS: ADMIT Internal Medicine; ATTEND Internal Medicine
PROC: 04QL0ZZ Repair Left Femoral Artery, Open Approach (ICD-10-PCS; 2021-07-17)
PROC: B246ZZ4 Ultrasonography of Right and Left Heart, Transesophageal (ICD-10-PCS; 2021-07-17)
PROC: B3101ZZ Fluoroscopy of Thoracic Aorta using Low Osmolar Contrast (ICD-10-PCS; 2021-07-17)
PROC: 5A1223Z Performance of Cardiac Pacing, Continuous (ICD-10-PCS; 2021-07-17)
PROC: 02RF38Z Replacement of Aortic Valve with Zooplastic Tissue, Percutaneous Approach (ICD-10-PCS; principal; 2021-07-17 08:00)
DX: T82.857A Stenosis of other cardiac prosthetic devices, implants and grafts, initial encounter (principal); N18.4 Chronic kidney disease, stage 4 (severe); I50.32 Chronic diastolic (congestive) heart failure; I13.0 Hypertensive heart and chronic kidney disease with heart failure and stage 1 through stage 4 chronic kidney disease, or unspecified chronic kidney disease; J96.10 Chronic respiratory failure, unspecified whether with hypoxia or hypercapnia; Z00.6 Encounter for examination for normal comparison and control in clinical research program; I35.0 Nonrheumatic aortic (valve) stenosis; I35.2 Nonrheumatic aortic (valve) stenosis with insufficiency; D64.9 Anemia, unspecified; D69.6 Thrombocytopenia, unspecified; E03.9 Hypothyroidism, unspecified; E11.22 Type 2 diabetes mellitus with diabetic chronic kidney disease; E11.40 Type 2 diabetes mellitus with diabetic neuropathy, unspecified; E78.5 Hyperlipidemia, unspecified; E87.6 Hypokalemia; F41.9 Anxiety disorder, unspecified; Z20.822 Contact with and (suspected) exposure to COVID-19; I25.10 Atherosclerotic heart disease of native coronary artery without angina pectoris; I48.0 Paroxysmal atrial fibrillation; Z86.718 Personal history of other venous thrombosis and embolism; J45.909 Unspecified asthma, uncomplicated; Z99.81 Dependence on supplemental oxygen; Z79.82 Long term (current) use of aspirin; Z79.84 Long term (current) use of oral hypoglycemic drugs; Z79.890 Hormone replacement therapy; Z79.899 Other long term (current) drug therapy; Z80.9 Family history of malignant neoplasm, unspecified; Z82.3 Family history of stroke; Z82.49 Family history of ischemic heart disease and other diseases of the circulatory system; Z86.16 Personal history of COVID-19; Z87.01 Personal history of pneumonia (recurrent); Z90.710 Acquired absence of both cervix and uterus; Z95.1 Presence of aortocoronary bypass graft; Z96.612 Presence of left artificial shoulder joint; Y83.1 Surgical operation with implant of artificial internal device as the cause of abnormal reaction of the patient, or of later complication, without mention of misadventure at the time of the procedure; Z79.01 Long term (current) use of anticoagulants
CPT/HCPCS: 33361; 36415; 71045; 76700; 80053; 82330; 83735; 84132; 85025; 85610; 85730; 86850; 86900; 86901; 87635; 93306; 93312; 93320; 93325; 94640

== ENCOUNTER → 2021-08-27 | Outpatient (CLI) | payer MEDICARE, BC ==
[2021-08-27 22:36] LABS: Basophils # (A) 0.04 X 10*3/uL (0.00-0.10); Basophils % (A) 0.7 %; Eosinophils # (A) 0.65 X 10*3/uL (0.04-0.35); Eosinophils % (A) 11.2 %; HCT 33.4 % (37.2-46.3); HGB 10.8 g/dL (12.0-15.0); Immature Grans, Automated 0.5 %; Lymphocytes # (A) 1.02 X 10*3/uL (0.90-5.00); Lymphocytes % (A) 17.5 %; MCH 41.2 pg (27.0-32.0); MCHC 32.3 g/dL (32.0-37.0); MCV 127.5 fL (80.0-97.0); Mean Platelet Volume 10.5 fL (9.5-12.2); Monocytes % (A) 8.6 %; NRBC Per 100 WBC 0 /100 WBCS (0.0-0.0); Neutrophils # (A) 3.58 X 10*3/uL (1.80-7.70); Neutrophils % (A) 61.5 %; Platelet Count 123 X 10*3/uL (140-440); RBC 2.62 X 10*6/uL (4.10-5.20); WBC 5.82 X 10*3/uL (4.50-10.00)
[2021-08-27 23:00] LABS: African American GFR (CKD) 25.7 (60.0-200.0); Anion Gap 12.4 mmol/L (10.00-18.00); Calcium 10.4 mg/dL (8.7-10.3); Carbon Dioxide 30.6 mmol/L (20.0-27.5); Non-African American GFR(CKD) 22.2 (60.0-200.0); Potassium 4.6 mmol/L (3.5-5.5)
== END | disposition home or self-care (01) ==
LOC: LABWHC1 16:04
PROVIDERS: ATTEND Thoracic Surgery (Cardiothoracic Vascular Surgery)
DX: I35.1 Nonrheumatic aortic (valve) insufficiency (principal)
CPT/HCPCS: 36415; 80048; 85025

== ENCOUNTER 2022-01-20 12:01 | Emergency (ER) | payer MEDICARE, BC ==
[2022-01-20 12:57] LABS: Basophils % (A) 1 %; Eosinophils # (A) 0.4 k/uL (0-0.7); Eosinophils % (A) 7 %; HCT 29.8 % (34.0-46.0); Hypochromasia Slight; Lymphocytes # (A) 0.8 k/uL (1.0-4.8); Lymphocytes % (A) 14 %; MCHC 33.5 g/dL (31.0-37.0); MCV 128.2 fL (80.0-100.0); Macrocytosis Marked; Mean Platelet Volume 8.8; Monocytes # (A) 0.4 k/uL (0-1.0); Monocytes % (A) 7 %; Neutrophils # (A) 4.1 k/uL (1.3-7.7); Neutrophils % (A) 70 %; Platelet Count 117 k/uL (150-450); Poikilocytosis Slight; RBC 2.32 m/uL (3.80-5.40); WBC 5.9 k/uL (3.8-10.6)
[2022-01-20 13:08] LABS: Calcium 9.2 mg/dL (8.4-10.2); Magnesium 1.9 mg/dL (1.6-2.3); Potassium 4.3 mmol/L (3.5-5.1)
--- NOTE | 2022-01-20 13:10 | ED ---
General Adult HPI - General Chief complaint: Extremity Problem,Nontraumatic Stated complaint: Left leg swolen Time Seen by Provider: 01/20/22 12:20 Source: patient, RN notes reviewed, old records reviewed Mode of arrival: ambulatory Limitations: no limitations - History of Present Illness Initial comments: Patient is an 86-year-old female who was sent in by her PCP for further evaluation over concern for bilateral ankle swelling. Patient states left is worse than right. Began approximately one week ago. Does have a history of cardiac disease including cardiac bypass, heart failure, A. fib, stent compliant with Eliquis. Denies any worsening shortness of breath, exertional dyspnea, orthopnea, PND. Denies any worsening lower extremity edema above the ankles bilaterally. States she does have a history of a DVT in the left lower extremity. Denies any chest pain. Denies any abdominal pain, nausea, vomiting. Denies any change in bowel habits or urinary complaints. Does have history of CK D. They did increase her Lasix dosing outpatient, however was sent in today for evaluation over concern for continued worsening left ankle swelling. Denies any trauma. His been able to ambulate without difficulty. Otherwise has no acute complaints. She presents for further evaluation of the bilateral ankle swelling with left worse than right. - Related Data Home Medications Medication Instructions Recorded Confirmed Atorvastatin [Lipitor] 40 mg PO HS 03/03/14 07/17/21 Glimepiride [Amaryl] 2 mg PO QAM 03/03/14 07/17/21 LORazepam [Ativan] 1 mg PO HS 03/03/14 07/17/21 Metoprolol Tartrate [Lopressor] 50 mg PO BID-W/MEALS 03/03/14 07/17/21 Omeprazole [PriLOSEC] 20 mg PO QAM 03/03/14 07/17/21 allopurinoL [Zyloprim] 300 mg PO DAILY 03/03/14 07/17/21 calcitrioL [Calcitriol] 0.5 mcg PO MOFR 03/03/14 07/17/21 Ergocalciferol [Vitamin D2 50,000 unit PO QMONTH 04/23/15 07/17/21 (DRISDOL)] Acetaminophen Tab [Tylenol] 1,000 mg PO Q6HR PRN 06/15/15 07/17/21 Calcium Carbonate [Calcium] 600 mg PO AC-SUPPER 10/24/16 07/17/21 B Complex W-C No.20/Folic Acid 1 mg PO DAILY 04/09/21 07/17/21 [Renal Caps Softgel] Budesonide/Glycopyr/Formoterol 2 puff INHALATION BID PRN 04/09/21 07/17/21 [Breztri Aerosphere Inhaler] Levothyroxine Sodium [Synthroid] 25 mcg PO QAM 04/09/21 07/17/21 Magnesium 200 mg PO DAILY 04/09/21 07/17/21 Potassium Chloride [Klor-Con 10 ER] 10 meq PO QAM 04/24/21 07/16/21 Ascorbic Acid [Vitamin C] 1,000 mg PO DAILY 05/23/21 07/17/21 Furosemide [Lasix] 40 mg PO QAM 05/23/21 07/17/21 Multivitamins, Thera [Multivitamin 1 tab PO AC-SUPPER 05/23/21 07/17/21 (formulary)] Zinc 50 mg PO QAM 05/23/21 07/17/21 Docusate [Colace] 100 mg PO HS 06/07/21 07/17/21 Previous Rx's Medication Instructions Recorded Apixaban [Eliquis] 2.5 mg PO BID 30 Days #60 tab 04/25/21 Ferrous Sulfate [Iron (65 MG 325 mg PO DAILY 30 Days #30 tab 05/25/21 Elemental)] Clopidogrel [Plavix] 75 mg PO DAILY #30 tab 07/18/21 Allergies Allergy/AdvReac Type Severity Reaction Status Date / Time sulfamethoxazole Allergy Rash/Hives Verified 01/20/22 12:06 [From Bactrim] trimethoprim [From Bactrim] Allergy Rash/Hives Verified 01/20/22 12:06 Review of Systems ROS Statement: Those systems with pertinent positive or pertinent negative responses have been documented in the HPI. Review of Systems: CONST: Denies fever EYES: Denies blurry vision ENT: Denies nasal congestion C/V: Denies Chest pain RESP: Denies shortness of breath GI: Denies abdominal pain : Denies dysuria SKIN: Denies rash. MSK: bilateral ankle swelling. NEURO: Denies headache ROS Other: All systems not noted in ROS Statement are negative. Past Medical History Past Medical History: Atrial Fibrillation, Coronary Artery Disease (CAD), Heart Failure, Diabetes Mellitus, Deep Vein Thrombosis (DVT), GERD/Reflux, Hyperlipidemia, Hypertension, Osteoarthritis (OA), Renal Disease, Skin Disorder, Thyroid Disorder Additional Past Medical History / Comment(s): NIDDM type II, neuropathy bilateral hands/feet, DVT L leg, CKD stage IV, gout, anemia-recent transfusion end of May, varicose veins, bilateral ankle edema, cyst on back from past spider bite, had covid in Apr., SOB w/exertion, uses 2l O2 @home prn History of Any Multi-Drug Resistant Organisms: None Reported Past Surgical History: Cardiac Valve Replacement, Cholecystectomy, Coronary Bypass/CABG, Heart Catheterization, Hysterectomy, Joint Replacement, Orthopedic Surgery Additional Past Surgical History / Comment(s): 2011 CABG w/ vessel bypass and aortic valve. 03/07/14 Colonoscopy with EGD and BX. MOSHE. Maximiliano knee and L shoulder Replacement. Sinus surgery. Past Anesthesia/Blood Transfusion Reactions: No Reported Reaction Past Psychological History: Anxiety Smoking Status: Never smoker Past Alcohol Use History: None Reported Past Drug Use History: None Reported - Past Family History Daughter(s) Family Medical History: Cancer Additional Family Medical History / Comment(s): 2 daughters had breast cancer. Father Family Medical History: Cancer, Coronary Artery Disease (CAD) Additional Family Medical History / Comment(s): Father had cancer but pt does not know what type. Father at age 77yrs. Mother Family Medical History: CVA/TIA Additional Family Medical History / Comment(s): Mother had a CVA. She at age 86yrs. General Exam - General Exam Comments Initial Comments: General: Appears in no acute distress. HEAD: Normal with no signs of head trauma. EYES: PERRLA, EOMI, conjunctiva normal, no discharge. ENT: Hearing grossly intact, normal oropharynx. RESPIRATORY: Clear breath sounds bilaterally. No wheezes, rales, or rhonchi. No hypoxia. No increased work of breathing. C/V: Regular rate and rhythm. S1 and S2 auscultated, no edema, peripheral pulses 2+ and intact throughout ABD: Abd is soft, nontender, nondistended EXT: Normal range of motion, no obvious deformity. Patient does have bilateral lower extremity mild pitting edema which appears within normal limits and chronic per patient. Patient's left ankle is slightly more swollen than the right. Both are tender to palpation. No obvious deformities. SKIN: No rashes or lesions observed on exposed skin. NEURO: Alert and oriented 4. No focal deficits. Limitations: no limitations Course Vital Signs 01/20/22 12:04 Temperature 98.1 F Pulse Rate 65 Respiratory 20 Rate Blood Pressure 127/57 O2 Sat by Pulse 96 Oximetry Medical Decision Making - Medical Decision Making Based on the patient's presentation and physical exam, she is having isolated bilateral ankle swelling. Has no signs or symptoms of cardiac disease associated with that, she is having a worsening exertional shortness of breath, no hypoxia noted however she was sent in by her PCP for workup of this. Patient is compliant with blood thinning medication, however did recommend we obtain x- rays and duplexes the lower extremities. X-rays of the ankles. She was in agreement this plan. We'll also obtain basic labs, BNP, screening EKG, chest x- ray. She'll be monitored on cardiac monitoring. She was in agreement with this plan.Vital signs within normal limits. EKG shows no signs of acute ischemia.Laboratory studies are remarkable for a chronic anemia with a hemoglobin of 10 which is stable for the patient. Patient has chronic thrombocytopenia with platelets of 117, which is chronic for the pa antonio. Patient is elevated BUN/creatinine which appears to be near her baseline in the setting of CK D. BNP is within normal limits for her age at 680. Chest x-ray shows no acute cardiopulmonary process. Ankle x-ray shows no acute process, but there is some soft tissue edema. Venous Doppler studies revealed no signs of DVT bilaterally. On reevaluation, patient remains asymptomatic other than the ankle edema. Vital signs remain within normal limits. We discussed results. I believe it is safer to be discharged home with follow-up with her PCP. She was in agreement this plan. Strict return precautions were discussed, including worsening respiratory status or chest pain. We discussed continuing her home Lasix dosing as well as obtaining compression stockings. Patient will attempt to elevate her legs as well. She expressed understanding was in agreement this plan. I instructed the patient to follow up with their PCP in the next 1-3 days. I explained that the patient should return to the emergency department if they experience any worsening symptoms. Strict return precautions were discussed with the patient. The patient expressed understanding of these instructions. I answered all questions that the patient had. The patient was discharged home in good condition with their prescriptions and follow up information. - Lab Data Result diagrams: 01/20/22 12:48 01/20/22 12:48 Lab Results 01/20/22 01/20/22 01/20/22 Range/Units 12:48 12:48 12:48 WBC 5.9 (3.8-10.6) k/uL RBC 2.32 L (3.80-5.40) m/uL Hgb 10.0 L (11.4-16.0) gm/dL Hct 29.8 L (34.0-46.0) % MCV 128.2 H (80.0-100.0) fL MCH 43.0 H (25.0-35.0) pg MCHC 33.5 (31.0-37.0) g/dL RDW 16.0 H (11.5-15.5) % Plt Count 117 L (150-450) k/uL MPV 8.8 Neutrophils % 70 % Lymphocytes % 14 % Monocytes % 7 % Eosinophils % 7 % Basophils % 1 % Neutrophils # 4.1 (1.3-7.7) k/uL Lymphocytes # 0.8 L (1.0-4.8) k/uL Monocytes # 0.4 (0-1.0) k/uL Eosinophils # 0.4 (0-0.7) k/uL Basophils # 0.0 (0-0.2) k/uL Manual Slide Review Performed Hypochromasia Slight Poikilocytosis Slight Macrocytosis Marked A Sodium 138 (137-145) mmol/L Potassium 4.3 (3.5-5.1) mmol/L Chloride 97 L (98-107) mmol/L Carbon Dioxide 35 H (22-30) mmol/L Anion Gap 6 mmol/L BUN 51 H (7-17) mg/dL Creatinine 1.68 H (0.52-1.04) mg/dL Est GFR (CKD-EPI)AfAm 32 (>60 ml/min/1.73 sqM) Est GFR (CKD-EPI)NonAf 28 (>60 ml/min/1.73 sqM) Glucose 156 H (74-99) mg/dL Calcium 9.2 (8.4-10.2) mg/dL Magnesium 1.9 (1.6-2.3) mg/dL NT-Pro-B Natriuret Pep 679 pg/mL - EKG Data -: EKG Interpreted by Me EKG Comments: 12-lead Electrocardiogram Interpretation Note EKG was reviewed and interpreted by myself. 12-lead ECG performed at 1252 is interpreted by me as revealing sinus bradycardia with first-degree AV block at a rate of 57 beats per minute. [place] is normal. [place] interval is 272 ms, QRS duration is 80 ms, QTc is 441 ms.. There were no ST or T wave abnormalities to suggest myocardial ischemia or injury. R wave progression across the precordium was satisfactory. By my interpretation this EKG is non-diagnostic for acute ischemia. Disposition Clinical Impression: Ankle swelling Disposition: HOME SELF-CARE Condition: Good Instructions (If sedation given, give patient instructions): Leg Edema (ED) Is patient prescribed a controlled substance at d/c from ED?: No Referrals: Mo Weiss MD [Primary Care Provider] - 1-2 days Time of Disposition: 14:50
--- NOTE | 2022-01-20 14:02 | XR ---
EXAMINATION TYPE: XR chest 2V DATE OF EXAM: 01/20/2022 1:52 PM COMPARISON: Chest radiographs from 09/09/2021 TECHNIQUE: XR chest 2V Frontal and lateral views of the chest. CLINICAL INDICATION:Female, 86 years old with history of leg swelling, hx of chf; FINDINGS: Lungs/Pleura: There is no evidence of pleural effusion, focal consolidation, or pneumothorax. Contin ued elevation of the right hemidiaphragm. Pulmonary vascularity: Unremarkable. Heart/mediastinum: Cardiomediastinal silhouette is enlarged and stable. Atherosclerotic calcification of the aorta. Postsurgical changes from TAVR. Musculoskeletal: No acute osseous pathology. Midline sternotomy wires are noted and stable. Postsurgi deepali changes from left shoulder arthroplasty. Other findings: Surgical clips in the upper abdomen. IMPRESSION: No acute cardiopulmonary disease/process. Postsurgical changes.
--- NOTE | 2022-01-20 14:05 | XR ---
EXAMINATION TYPE: XR ankle complete bilateral DATE OF EXAM: 01/20/2022 1:52 PM INDICATION: Patient age:Female; 86 years old; Reason for study: bilateral ankle swelling; PHH. COMPARISON: None TECHNIQUE: Both ankles are imaged in AP, lateral, and oblique projections. FINDINGS: There is no evidence of acute osseous pathology. No evidence of subluxation or dislocation. Mild dege nerative changes of the midfoot bilaterally. Diffuse bilateral lower extremity soft tissue edema. [place]'s fat pad is intact. Osteoarthritic changes of the first right MTP joint . Postsurgical clips are demonstrated within the soft tissues of the bilateral lower extremities. Bilateral pes planus. Small bilateral plantar calcaneal spurring. Vascular sclerosis bilaterally. IMPRESSION: 1. No evidence of acute fracture. 2. Diffuse bilateral lower extremity soft tissue edema.
--- NOTE | 2022-01-20 14:41 | US ---
EXAMINATION TYPE: US venous doppler duplex LE DATE OF EXAM: 01/20/2022 2:22 PM COMPARISON: NONE CLINICAL HISTORY: ankle/leg swelling. Eval for dvt.. edema ankles SIDE PERFORMED: Bilateral TECHNIQUE: The lower extremity deep venous system is examined utilizing real time linear array sonog ata with graded compression, doppler sonography and color-flow sonography. VESSELS IMAGED: Common Femoral Vein Deep Femoral Vein Greater Saphenous Vein * Femoral Vein Popliteal Vein Small Saphenous Vein * Proximal Calf Veins (* superficial vessels) Grayscale, color doppler, spectral doppler imaging performed of the deep veins of the lower extremiti es. There is normal flow, compressibility, vascular waveforms. Right Leg: Negative for DVT Left Leg: Negative for DVT IMPRESSION: No deep venous thrombosis of the bilateral lower extremities.
[2022-01-20 15:25] VITALS: BP 158/72; PULSE 62; RESP 18; TEMP 97.8
== END 2022-01-20 15:12 | disposition home or self-care (01) ==
LOC: EC 12:01
DX: R22.43 Localized swelling, mass and lump, lower limb, bilateral (principal); I48.91 Unspecified atrial fibrillation; I25.10 Atherosclerotic heart disease of native coronary artery without angina pectoris; I13.0 Hypertensive heart and chronic kidney disease with heart failure and stage 1 through stage 4 chronic kidney disease, or unspecified chronic kidney disease; I50.9 Heart failure, unspecified; E11.9 Type 2 diabetes mellitus without complications; Z86.718 Personal history of other venous thrombosis and embolism; K21.9 Gastro-esophageal reflux disease without esophagitis; E78.5 Hyperlipidemia, unspecified; M19.90 Unspecified osteoarthritis, unspecified site; E07.9 Disorder of thyroid, unspecified; N18.9 Chronic kidney disease, unspecified; F41.9 Anxiety disorder, unspecified; Z88.2 Allergy status to sulfonamides; Z79.899 Other long term (current) drug therapy; Z79.84 Long term (current) use of oral hypoglycemic drugs; Z79.4 Long term (current) use of insulin
CPT/HCPCS: 36415; 71046; 80048; 83735; 83880; 85025; 93005; 93970; 99284

== ENCOUNTER 2023-08-20 14:34 | Observation (INO) | payer MEDICARE, BC ==
--- NOTE | 2023-08-20 16:04 | XR ---
EXAMINATION TYPE: XR Hip Complete LT DATE OF EXAM: 08/20/2023 3:49 PM CLINICAL INDICATION:Female, 88 years old with history of pain; PHH COMPARISON: None. TECHNIQUE: XR Hip Complete LT; hip was examined in the frontal and lateral projections and a AP pelvi s. FINDINGS: No evidence for acute process, joint dislocation or significant soft tissue swelling. Osteo phyte formation of the superior acetabulum of the hip. IMPRESSION: 1. No evidence for acute process. 2. Mild hip osteoarthrosis.
[2023-08-20] MEDS: KETOROLAC 15 MG/ML 1 ML VIAL IVP STA (16:23)
[2023-08-20] MEDS: MORPHINE SULFATE 4 MG/ML SYRINGE IV STA (17:49)
--- NOTE | 2023-08-20 19:04 | CT ---
EXAMINATION TYPE: CT hip LT wo con DATE OF EXAM: 08/20/2023 COMPARISON: Radiograph 08/20/2023 HISTORY: 88-year-old female sciatica pain, no injury TECHNIQUE: Contiguous axial scanning of the left hip without IV contrast. Coronal and sagittal recons tructions performed. 3-D reconstructions generated on a dedicated independent workstation. CT DLP: 567.5 mGycm Automated exposure control for dose reduction was used. FINDINGS: Prominent sigmoid diverticulosis. Chronic inflammatory change. Uterus surgically absent. Left ovary is visualized. Moderate to advanced degenerative disc disease L5-S1. Left SI joint appears intact. There is mild degenerative change of the left hip. Osteopenia. No acute fracture seen. No abnormal mass lesion identified along the expected course of the left sciatic nerve. IMPRESSION: 1. OSTEOPENIA. 2. MILD LEFT HIP OA. 3. NO ACUTE OSSEOUS ABNORMALITY SEEN.
[2023-08-20 19:15] LABS: Basophils % (A) 0 %; Eosinophils # (A) 0.3 k/uL (0-0.7); Eosinophils % (A) 5 %; HCT 28.6 % (34.0-46.0); HGB 9.7 gm/dL (11.4-16.0); Hypochromasia Slight; Lymphocytes # (A) 0.8 k/uL (1.0-4.8); Lymphocytes % (A) 14 %; MCHC 33.8 g/dL (31.0-37.0); Macrocytosis Marked; Monocytes # (A) 0.3 k/uL (0-1.0); Monocytes % (A) 6 %; Neutrophils # (A) 4.3 k/uL (1.3-7.7); Neutrophils % (A) 73 %; RBC 2.27 m/uL (3.80-5.40); RDW 15.5 % (11.5-15.5); WBC 5.8 k/uL (3.8-10.6)
[2023-08-20 19:16] LABS: MCH 42.5 pg (25.0-35.0); MCV 125.8 fL (80.0-100.0)
[2023-08-20 19:42] LABS: African American GFR (CKD) 42 (>60 ml/min/1.73 sqM); Anion Gap 8 mmol/L; Blood Urea Nitrogen 56 mg/dL (7-17); C Reactive Protein 0.5 mg/dL (<1.0); Carbon Dioxide 22 mmol/L (22-30); Chloride 109 mmol/L (98-107); Glucose 88 mg/dL (74-99); Non-African American GFR(CKD) 37 (>60 ml/min/1.73 sqM); Sodium 139 mmol/L (137-145)
[2023-08-20 19:45] LABS: Potassium 4.6 mmol/L (3.5-5.1)
[2023-08-20 19:48] LABS: Polychromasia Present
[2023-08-20 19:49] LABS: Large Platelets Present; Platelet Count 96 k/uL (150-450)
--- NOTE | 2023-08-20 20:25 | ED ---
General Adult HPI - General Chief complaint: Extremity Injury, Lower Stated complaint: Leg Pain Time Seen by Provider: 08/20/23 15:15 Source: patient Mode of arrival: EMS Limitations: no limitations - History of Present Illness Initial comments: This 88-year-old female presents with complaint of some left hip pain. She states that this just occurred earlier today. The patient was at her doctor's office and apparently was sitting in a hard chair for approximately 1 hour. Once she got home, the pain apparently became fairly severe. She denies any trauma or overuse. She denies any previous similar incidents. She has never had hip problems before. She had extreme difficulty with attempts at ambulation. She does present via EMS and receives 50 mcg of fentanyl and route with some relief. She denies any fevers or chills. There is no abdominal pain. There is no leg pain or swelling or tenderness otherwise. No other modifying factors. - Related Data Home Medications Medication Instructions Recorded Confirmed Atorvastatin [Lipitor] 40 mg PO HS 03/03/14 08/20/23 Glimepiride [Amaryl] 2 mg PO DAILY 03/03/14 08/20/23 Omeprazole [PriLOSEC] 20 mg PO DAILY 03/03/14 08/20/23 allopurinoL [Zyloprim] 300 mg PO DAILY 03/03/14 08/20/23 calcitrioL 0.5 mcg PO MOFR 03/03/14 08/20/23 Acetaminophen Tab [Tylenol] 1,000 mg PO Q6HR PRN 06/15/15 08/20/23 B Complex W-C No.20/Folic Acid 1 mg PO DAILY 04/09/21 08/20/23 [Renal Caps Softgel] Levothyroxine Sodium [Synthroid] 25 mcg PO DAILY 04/09/21 08/20/23 Magnesium 200 mg PO DAILY 04/09/21 08/20/23 Potassium Chloride [Klor-Con 10 ER] 10 meq PO DAILY 04/24/21 08/20/23 Furosemide [Lasix] 40 mg PO DAILY 05/23/21 08/20/23 Multivitamins, Thera [Multivitamin 1 tab PO DAILY 05/23/21 08/20/23 (formulary)] Zinc 50 mg PO DAILY 05/23/21 08/20/23 Metoprolol Tartrate [Lopressor] 25 mg PO BID 08/20/23 08/20/23 Previous Rx's Medication Instructions Recorded Apixaban [Eliquis] 2.5 mg PO BID 30 Days #60 tab 04/25/21 Ferrous Sulfate [Iron (65 MG 325 mg PO DAILY 30 Days #30 tab 05/25/21 Elemental)] Allergies Allergy/AdvReac Type Severity Reaction Status Date / Time sulfamethoxazole Allergy Rash/Hives Verified 08/20/23 19:50 [From Bactrim] trimethoprim [From Bactrim] Allergy Rash/Hives Verified 08/20/23 19:50 Review of Systems ROS Statement: Those systems with pertinent positive or pertinent negative responses have been documented in the HPI. ROS Other: All systems not noted in ROS Statement are negative. Past Medical History Past Medical History: Atrial Fibrillation, Coronary Artery Disease (CAD), Heart Failure, Diabetes Mellitus, Deep Vein Thrombosis (DVT), GERD/Reflux, Hyperlipidemia, Hypertension, Osteoarthritis (OA), Renal Disease, Skin Disorder, Thyroid Disorder Additional Past Medical History / Comment(s): NIDDM type II, neuropathy bilateral hands/feet, DVT L leg, CKD stage IV, gout, anemia-recent transfusion end of May, varicose veins, bilateral ankle edema, cyst on back from past spider bite, had covid in Apr., SOB w/exertion, uses 2l O2 @home prn History of Any Multi-Drug Resistant Organisms: None Reported Past Surgical History: Cardiac Valve Replacement, Cholecystectomy, Coronary Bypass/CABG, Heart Catheterization, Hysterectomy, Joint Replacement, Orthopedic Surgery Additional Past Surgical History / Comment(s): 2011 CABG w/ 5 vessel bypass and aortic valve. 03/07/14 Colonoscopy with EGD and BX. MOSHE. Maximiliano knee and L shoulder Replacement. Sinus surgery. Past Anesthesia/Blood Transfusion Reactions: No Reported Reaction Past Psychological History: Anxiety Smoking Status: Never smoker Past Alcohol Use History: None Reported Past Drug Use History: None Reported - Past Family History Daughter(s) Family Medical History: Cancer Additional Family Medical History / Comment(s): 2 daughters had breast cancer. Father Family Medical History: Cancer, Coronary Artery Disease (CAD) Additional Family Medical History / Comment(s): Father had cancer but pt does not know what type. Father at age 77yrs. Mother Family Medical History: CVA/TIA Additional Family Medical History / Comment(s): Mother had a CVA. She at age 86yrs. General Exam - General Exam Comments Initial Comments: GENERAL: The patient is well nourished and well hydrated. VITAL SIGNS: Heart rate, blood pressure, respiratory rate reviewed as recorded in nurse's notes. EYES: Pupils are round and reactive. Extraocular movements are intact. No con junctival / lid redness or swelling. ENT: No external evidence of injury, swelling, or ecchymosis. Airway is patent. Throat is clear. NECK: Nontender. No swelling or evidence of injury. No subcutaneous emphysema. Trachea is midline. No thyroid mass. HEART: Regular rate and rhythm. Good peripheral pulses. LUNGS/CHEST: Breath sounds clear and equal bilaterally. No rales, rhonchi, or wheezes. No ecchymosis, subcutaneous emphysema, or tenderness. ABDOMEN: Abdomen soft without tenderness. No palpable masses or organomegaly. No peritoneal signs. No abdominal wall swelling or ecchymosis. EXTREMITIES: Tenderness noted over the left hip. There is significant pain at attempts at range of motion of the left hip. There is no other leg tenderness noted. No calf tenderness noted. Normal muscle tone and function. No thoracolumbar tenderness. NEUROLOGIC: Sensation is grossly intact. Cranial nerve exam reveals face is symmetrical, tongue is midline, speech is clear. Vascular: There is good pedal pulses and capillary refill bilateral lower extremities. SKIN: No abrasions or ecchymosis is noted. No induration or masses noted. PSYCHIATRIC: Alert and oriented. Appropriate behavior and judgment. Limitations: no limitations Course Vital Signs 08/20/23 14:38 Temperature 97.7 F Pulse Rate 65 Respiratory 16 Rate Blood Pressure 152/61 O2 Sat by Pulse 92 L Oximetry Medical Decision Making - Medical Decision Making The patient was seen and examined. IV was previously established and patient received some fentanyl via EMS. She received some Toradol. She later has increased pain and received some morphine with increased relief. She has an x- ray of the left hip and pelvis and this does not show any acute process per my interpretation. There is no evidence of fracture identified. She had an ambulation trial but was not even able to get out of the cart to stand up due to the significant pain. Laboratory therefore is ordered and does show a degree of anemia but no elevated white blood cell count. There is mild renal insufficiency noted. CT scan of the left hip is also done and this still shows arthritis to the left hip but no evidence of acute fracture. Patient is unable to ambulate or perform activities of daily living. It is felt as though she would require admission to the hospital. Case is discussed with Dr. Aguila who is agreeable with admission. Orthopedics will be consulted. Was pt. sent in by a medical professional or institution (, PATSY, ENTREPRENEURSHIP PROGRAM DIRECTOR, urgent care, hospital, or jail...) When possible be specific @ -No Did you speak to anyone other than the patient for history (EMS, parent, family, police, friend...)? What history was obtained from this source @ -6 family members are present in the room and additional history is obtained from them. Did you review nursing and triage notes (agree or disagree)? Why? @ -I reviewed and agree with nursing and triage notes Were old charts reviewed (outside hosp., previous admission, EMS record, old EKG, old radiological studies, urgent care reports/EKG's, jail records)? Report findings @ -Old charts were reviewed and additional past medical history is obtained. Differential Diagnosis (chest pain, altered mental status, abdominal pain women, abdominal pain men, vaginal bleeding, weakness, fever, dyspnea, syncope, headache, dizziness, GI bleed, back pain, seizure, CVA, palpatations, mental health, musculoskeletal)? @ -Hip fracture, hip strain, hip arthritis, intractable pain, inability to ambulate. EKG interpreted by me (3pts min.). @ -As above X-rays interpreted by me (1pt min.). @ -As above CT interpreted by me (1pt min.). @ -As above U/S interpreted by me (1pt. min.). @ -None done What testing was considered but not performed or refused? (CT, X-rays, U/S, labs)? Why? @ -None What meds were considered but not given or refused? Why? @ -The patient became fairly sleepy with occasional slight desaturations with 4 mg of morphine and therefore only 2 mg of morphine will be ordered in the future. Did you discuss the management of the patient with other professionals (professionals i.e. , PATSY, ENTREPRENEURSHIP PROGRAM DIRECTOR, lab, RT, psych nurse, nursing home social worker, legal billing analyst, teacher, accounts officer, case manager specialist)? Give summary @ -Case is discussed with internal medicine and they are agreeable with admission and orthopedic consultation. Was smoking cessation discussed for >3mins.? @ -No Was critical care preformed (if so, how long)? @ -No Were there social determinants of health that impacted care today? How? (Homelessness, low income, unemployed, alcoholism, drug addiction, transportation, low edu. Level, literacy, decrease access to med. care, alf, rehab)? @ -No Was there de-escalation of care discussed even if they declined (Discuss DNR or withdrawal of care, Hospice)? DNR status @ -No What co-morbidities impacted this encounter? (DM, HTN, Smoking, COPD, CAD, Cancer, CVA, ARF, Chemo, Hep., AIDS, mental health diagnosis, sleep apnea, morbid obesity)? @ -Arthritis Was patient admitted / discharged? Hospital course, mention meds given and route, prescriptions, significant lab abnormalities, going to OR and other pertinent info. @ -Patient is admitted to the hospital. Please see above Undiagnosed new problem with uncertain prognosis? @ -No Drug Therapy requiring intensive monitoring for toxicity (Heparin, Nitro, Insulin, Cardizem)? @ -No Were any procedures done? @ -No Diagnosis/symptom? @ -Intractable left hip pain, inability to ambulate, anemia, mild renal insufficiency, advanced age. Acute, or Chronic, or Acute on Chronic? @ -Acute Uncomplicated (without systemic symptoms) or Complicated (systemic symptoms)? @ -Uncomplicated Side effects of treatment? @ -No Exacerbation, Progression, or Severe Exacerbation? @ -No Poses a threat to life or bodily function? How? (Chest pain, [place], [place], pneumonia, PE, COPD, DKA, ARF, appy, cholecystitis, CVA, Diverticulitis, Homicidal, Suicidal, threat to staff... and all critical care pts) @ -No - Lab Data Result diagrams: 08/20/23 20:07 08/20/23 18:41 Lab Results 08/20/23 08/20/23 08/20/23 Range/Units 18:41 18:41 20:07 WBC 5.8 5.9 (3.8-10.6) k/uL RBC 2.27 L 2.45 L (3.80-5.40) m/uL Hgb 9.7 L 10.3 L (11.4-16.0) gm/dL Hct 28.6 L 30.7 L (34.0-46.0) % MCV 125.8 H 125.0 H (80.0-100.0) fL MCH 42.5 H 42.1 H (25.0-35.0) pg MCHC 33.8 33.7 (31.0-37.0) g/dL RDW 15.5 15.9 H (11.5-15.5) % Plt Count 96 L (150-450) k/uL MPV 9.0 9.5 Neutrophils % 73 % Lymphocytes % 14 % Monocytes % 6 % Eosinophils % 5 % Basophils % 0 % Neutrophils # 4.3 (1.3-7.7) k/uL Lymphocytes # 0.8 L (1.0-4.8) k/uL Monocytes # 0.3 (0-1.0) k/uL Eosinophils # 0.3 (0-0.7) k/uL Basophils # 0.0 (0-0.2) k/uL Manual Slide Review Performed Large Platelets Present Polychromasia Present Hypochromasia Slight Macrocytosis Marked A Marked A ESR Cancelled Sodium 139 (137-145) mmol/L Potassium 4.6 (3.5-5.1) mmol/L Chloride 109 H (98-107) mmol/L Carbon Dioxide 22 (22-30) mmol/L Anion Gap 8 mmol/L BUN 56 H (7-17) mg/dL Creatinine 1.31 H (0.52-1.04) mg/dL Est GFR (CKD-EPI)AfAm 42 (>60 ml/min/1.73 sqM) Est GFR (CKD-EPI)NonAf 37 (>60 ml/min/1.73 sqM) Glucose 88 (74-99) mg/dL Calcium 9.0 (8.4-10.2) mg/dL C-Reactive Protein 0.5 (<1.0) mg/dL Disposition Clinical Impression: Hip pain, Intractable pain, Anemia, Inability to walk Disposition: ADMITTED IP TO THIS HOSP Condition: Fair Is patient prescribed a controlled substance at d/c from ED?: No Referrals: Mo Weiss MD [Primary Care Provider] - 1-2 days Time of Disposition: 21:01 Decision Date: 08/20/23 Decision Time: 21:01
[2023-08-20 20:46] LABS: Basophils # (A) 0.1 k/uL (0-0.2); Basophils % (A) 1 %; Eosinophils # (A) 0.3 k/uL (0-0.7); Eosinophils % (A) 6 %; HCT 30.7 % (34.0-46.0); HGB 10.3 gm/dL (11.4-16.0); Lymphocytes # (A) 0.8 k/uL (1.0-4.8); Lymphocytes % (A) 14 %; MCHC 33.7 g/dL (31.0-37.0); Macrocytosis Marked; Mean Platelet Volume 9.5; Monocytes # (A) 0.4 k/uL (0-1.0); Monocytes % (A) 7 %; Neutrophils # (A) 4.2 k/uL (1.3-7.7); Neutrophils % (A) 71 %; RBC 2.45 m/uL (3.80-5.40); RDW 15.9 % (11.5-15.5); WBC 5.9 k/uL (3.8-10.6)
[2023-08-20] MEDS ORDERED: ACETAMINOPHEN TAB 325 MG TAB PO PRN (20:46)
[2023-08-20] MEDS ORDERED: ONDANSETRON 4 MG/2 ML VIAL IVP PRN (20:46)
[2023-08-20] MEDS ORDERED: NALOXONE 0.4 MG/ML 1 ML VIAL IV PRN (20:46)
[2023-08-20 20:47] LABS: MCH 42.1 pg (25.0-35.0); Platelet Count 96 k/uL (150-450)
[2023-08-20 20:57] LABS: NT-Pro-B-Type Natriuretic Pept 778 pg/mL
[2023-08-20 21:04] LABS: ALT 12 U/L (4-34); AST 24 U/L (14-36); African American GFR (CKD) 36 (>60 ml/min/1.73 sqM); Albumin 3.2 g/dL (3.5-5.0); Alkaline Phosphatase 81 U/L (38-126); Amylase 36 U/L (30-110); Anion Gap 2 mmol/L; Blood Urea Nitrogen 60 mg/dL (7-17); Calcium 9.6 mg/dL (8.4-10.2); Carbon Dioxide 33 mmol/L (22-30); Chloride 103 mmol/L (98-107); Glucose 96 mg/dL (74-99); Non-African American GFR(CKD) 31 (>60 ml/min/1.73 sqM); Potassium 4.5 mmol/L (3.5-5.1); Sodium 138 mmol/L (137-145); Total Bilirubin 0.6 mg/dL (0.2-1.3); Total Protein 5.5 g/dL (6.3-8.2)
[2023-08-20 21:11] LABS: Polychromasia Present
[2023-08-20 21:12] LABS: Large Platelets Present
[2023-08-20] MEDS: ATORVASTATIN 40 MG TAB PO SCH (22:22)
[2023-08-20] MEDS: METOPROLOL TARTRATE 25 MG TAB PO SCH (22:23)
[2023-08-20] MEDS: methylPREDNISolone SOD SUCCI 125 MG/2 ML VIAL IV SCH (22:23)
[2023-08-20] MEDS: HYDROcodone/APAP 5-325MG 1 EACH TAB PO PRN (22:23)
[2023-08-20] MEDS: APIXABAN 2.5 MG TABLET PO SCH (22:23)
[2023-08-21] MEDS: LEVOTHYROXINE 25 MCG TAB PO SCH (05:38)
[2023-08-21 07:17] LABS: Glucose,Whole Blood 113 mg/dL (70-110)
[2023-08-21] MEDS: FUROSEMIDE 40 MG TAB PO SCH (08:30)
[2023-08-21] MEDS: FERROUS SULFATE 325 MG TAB PO SCH (08:30)
[2023-08-21] MEDS: MULTIVITAMINS, THERA 1 EACH TAB PO SCH (08:30)
[2023-08-21] MEDS: PANTOPRAZOLE 40 MG TABLET PO SCH (08:30)
[2023-08-21] MEDS: MAGNESIUM OXIDE 400 MG TAB PO SCH (08:30)
[2023-08-21] MEDS: POTASSIUM CHLORIDE ER 10 MEQ TAB.ER.PRT PO SCH (08:30)
[2023-08-21] MEDS: ZINC SULFATE 220 MG CAP PO SCH (08:30)
[2023-08-21] MEDS: FOLIC ACID-VIT B COMPLEX-VIT C 1 CAP PO SCH (08:30)
[2023-08-21] MEDS: allopurinoL 300 MG TAB PO SCH (08:30)
[2023-08-21] MEDS: GLIMEPIRIDE 2 MG TAB PO SCH (09:14)
--- NOTE | 2023-08-21 11:50 | P.CNOR ---
History of Present Illness - HPI Consult date: 08/21/23 Requesting physician: Mio Paul Consult reason: other (left hip pain) History of present illness: History of Presenting Illness Patient is a pleasant 88-year-old female who presents to the ER via EMS due to intractable left hip pain. Patient reports that she was at her physician's office today and was sitting any hard chair for approximately 1 hour with an onset of left hip pain. After she had gotten home her pain had increased and s he was unable to ambulate on her left lower extremity. Patient is normally independent. She does live at her son's home. Patient does report some numbness and tingling into her bilateral lower extremities. Patient does have a significant past medical history of Atrial Fibrillation, Coronary Artery Disease (CAD), Heart Failure, Deep Vein Thrombosis (DVT), GERD/Reflux, Hyperlipidemia, Hypertension, Osteoarthritis (OA), Renal Disease, Skin Disorder, Thyroid Disorder, NIDDM type II, neuropathy bilateral hands/feet, DVT L leg, CKD stage IV, gout, anemia, varicose veins, bilateral ankle edema, SOB w/exertion, uses 2l O2 @home prn. Patient does have a Orthopedic history of bilateral knee replac ement and left shoulder. Patient seen and examined this morning. Patient is resting comfortably in bed with eyes closed. Patient was easily awoken with verbal stimuli. She did have difficulty providing her current situation and medical history. Patient denies any recent injury or trauma. Patient does state that she has increased lower back pain that radiates into the left hip. During her physical exam patient was unable to lift her left lower extremity off the bed. Assisted patient with elevating her left foot off the bed, patient was unable to hold position on her own. CT of the left hip demonstrates osteopenia, mild left hip osteoarthritis and negative for any fractures. Review of Systems Pertinent positives and negatives as discussed in HPI, a complete review of systems was performed and all other systems are negative. Physical Examination Inspection: Negative for any open fractures, ecchymosis, significant erythema/ulcers. Sensation: Sensation is equal, symmetric, bilaterally intact throughout the upper and lower extremities Palpation: Nontender to palpation throughout bilateral upper and right lower extremities and throughout spine exam. Mild tenderness over the left hip. Range of motion: Patient does have full range of motion bilateral upper and right lower extremities on exam. Limited ROM to left hip due to pain and weakness. Motor: 4/5 in all major motor groups in the bilateral upper and right lower extremities, 4-/5 in left lower extremity. Special tests: Log roll maneuver to bilateral lower extremities does not produce any pain. Silfverskiold test is positive in the left lower extremity. Negative Homans bilaterally. Negative Brad bilaterally. Negative clonus bilaterally. Neurovascular: Radial pulse intact, 2+ bilaterally. Cap refill under 3 seconds in digits upper extremities. Assessment and Plan Intractable left hip pain Mild left hip osteoarthritis Osteopenia Multiple complex comorbidities 1. MRI of the Left Hip has been ordered for further evaluation to r/o fracture. 2. Appreciate medical management 3. Pain management - Continue with oral and IV pain medications, patient may benefit from a consult with pain management. 4. GI prophylaxis - per medicine 5. DVT prophylaxis - Eliquis 6. PT/OT - Bedrest until fracture is ruled out. 7. Appreciate consult I reviewed and discussed this case with my attending Dr. Nunes, whom has reviewed this chart and films and is in agreement with assessment and plan of care as outlined above. I have personally seen and examined the patient, performed the documentation and the assessment and plan as written. Number of minutes spent on the visit: 20m. Past Medical History Past Medical History: Atrial Fibrillation, Coronary Artery Disease (CAD), Heart Failure, Diabetes Mellitus, Deep Vein Thrombosis (DVT), GERD/Reflux, Hyperlipidemia, Hypertension, Osteoarthritis (OA), Renal Disease, Skin Disorder, Thyroid Disorder Additional Past Medical History / Comment(s): NIDDM type II, neuropathy bilateral hands/feet, DVT L leg, CKD stage IV, gout, anemia-recent transfusion end of May, varicose veins, bilateral ankle edema, cyst on back from past spider bite, had covid in Apr., SOB w/exertion, uses 2l O2 @home prn History of Any Multi-Drug Resistant Organisms: None Reported Past Surgical History: Cardiac Valve Replacement, Cholecystectomy, Coronary Bypass/CABG, Heart Catheterization, Hysterectomy, Joint Replacement, Orthopedic Surgery Additional Past Surgical History / Comment(s): 2011 CABG w/ 5 vessel bypass and aortic valve. 03/07/14 Colonoscopy with EGD and BX. MOSHE. Maximiliano knee and L shoulder Replacement. Sinus surgery. Past Anesthesia/Blood Transfusion Reactions: No Reported Reaction Past Psychological History: Anxiety Additional Psychological History / Comment(s): Pt resides with her son. She uses a walker prn. She drives. She is independent. Smoking Status: Never smoker Past Alcohol Use History: None Reported Past Drug Use History: None Reported - Past Family History Daughter(s) Family Medical History: Cancer Additional Family Medical History / Comment(s): 2 daughters had breast cancer. Father Family Medical History: Cancer, Coronary Artery Disease (CAD) Additional Family Medical History / Comment(s): Father had cancer but pt does not know what type. Father at age 77yrs. Mother Family Medical History: CVA/TIA Additional Family Medical History / Comment(s): Mother had a CVA. She at age 86yrs. Medications and Allergies Home Medications Medication Instructions Recorded Confirmed Type Atorvastatin [Lipitor] 40 mg PO HS 03/03/14 08/20/23 History Glimepiride [Amaryl] 2 mg PO DAILY 03/03/14 08/20/23 History Omeprazole [PriLOSEC] 20 mg PO DAILY 03/03/14 08/20/23 History allopurinoL [Zyloprim] 300 mg PO DAILY 03/03/14 08/20/23 History calcitrioL 0.5 mcg PO MOFR 03/03/14 08/20/23 History Acetaminophen Tab [Tylenol] 1,000 mg PO Q6HR PRN 06/15/15 08/20/23 History B Complex W-C No.20/Folic Acid 1 mg PO DAILY 04/09/21 08/20/23 History [Renal Caps Softgel] Levothyroxine Sodium [Synthroid] 25 mcg PO DAILY 04/09/21 08/20/23 History Magnesium 200 mg PO DAILY 04/09/21 08/20/23 History Potassium Chloride [Klor-Con 10 ER] 10 meq PO DAILY 04/24/21 08/20/23 History Apixaban [Eliquis] 2.5 mg PO BID 30 Days #60 tab 04/25/21 08/20/23 Rx Furosemide [Lasix] 40 mg PO DAILY 05/23/21 08/20/23 History Multivitamins, Thera [Multivitamin 1 tab PO DAILY 05/23/21 08/20/23 History (formulary)] Zinc 50 mg PO DAILY 05/23/21 08/20/23 History Ferrous Sulfate [Iron (65 MG 325 mg PO DAILY 30 Days #30 tab 05/25/21 08/20/23 Rx Elemental)] Metoprolol Tartrate [Lopressor] 25 mg PO BID 08/20/23 08/20/23 History Allergies Allergy/AdvReac Type Severity Reaction Status Date / Time sulfamethoxazole Allergy Rash/Hives Verified 08/20/23 19:50 [From Bactrim] trimethoprim [From Bactrim] Allergy Rash/Hives Verified 08/20/23 19:50 Results - Labs Labs: Abnormal Lab Results - Last 24 Hours (Table) 08/20/23 08/20/23 08/20/23 Range/Units 18:41 18:41 20:07 RBC 2.27 L (3.80-5.40) m/uL Hgb 9.7 L (11.4-16.0) gm/dL Hct 28.6 L (34.0-46.0) % MCV 125.8 H (80.0-100.0) fL MCH 42.5 H (25.0-35.0) pg RDW (11.5-15.5) % Plt Count 96 L (150-450) k/uL Lymphocytes # 0.8 L (1.0-4.8) k/uL Macrocytosis Marked A Chloride 109 H (98-107) mmol/L Carbon Dioxide 33 H (22-30) mmol/L BUN 56 H 60 H (7-17) mg/dL Creatinine 1.31 H 1.51 H (0.52-1.04) mg/dL POC Glucose (mg/dL) (70-110) mg/dL Total Protein 5.5 L (6.3-8.2) g/dL Albumin 3.2 L (3.5-5.0) g/dL 08/20/23 08/21/23 Range/Units 20:07 07:15 RBC 2.45 L (3.80-5.40) m/uL Hgb 10.3 L (11.4-16.0) gm/dL Hct 30.7 L (34.0-46.0) % MCV 125.0 H (80.0-100.0) fL MCH 42.1 H (25.0-35.0) pg RDW 15.9 H (11.5-15.5) % Plt Count 96 L (150-450) k/uL Lymphocytes # 0.8 L (1.0-4.8) k/uL Macrocytosis Marked A Chloride (98-107) mmol/L Carbon Dioxide (22-30) mmol/L BUN (7-17) mg/dL Creatinine (0.52-1.04) mg/dL POC Glucose (mg/dL) 113 H (70-110) mg/dL Total Protein (6.3-8.2) g/dL Albumin (3.5-5.0) g/dL H & H 08/20/23 08/20/23 Range/Units 18:41 20:07 Hgb 9.7 L 10.3 L (11.4-16.0) gm/dL Hct 28.6 L 30.7 L (34.0-46.0) % Result Diagrams: 08/20/23 20:07 08/20/23 20:07
[2023-08-21 12:34] LABS: Glucose,Whole Blood 159 mg/dL (70-110)
[2023-08-21] MEDS: MORPHINE SULFATE 2 MG/ML SYRINGE IV PRN (16:17)
--- NOTE | 2023-08-21 17:14 | MR ---
EXAMINATION TYPE: MR hip LT wo con DATE OF EXAM: 08/21/2023 4:53 PM CLINICAL INDICATION:Female, 88 years old with history of fracture; PHH, Left hip fracture. COMPARISON: CT 08/20/2023 TECHNIQUE: Multiplanar multi-sequential magnetic resonance imaging of the left hip without contrast. IV Contrast: None FINDINGS: No abnormal bone marrow edema to suggest fracture. There is left iliopsoas muscle edema tracking along its course with masslike area probably representi ng hematoma measuring 34 x 19 mm near the lesser trochanter on the left. A few fibers are felt to rem ain. Degeneration changes with osteophyte formation of the hips bilaterally. Diffuse edema throughout the subcutaneous soft tissues. There is high T2 signal edema within the right hamstring origin series 601 image 11. Also edema withi n the iliopsoas muscle on the right 601 image 19. Other: Uterus appears surgically absent. No lymphadenopathy definitively visualized. Scattered coloni c diverticula present. I discussed the vasculature. Degeneration changes of the spine. IMPRESSION: 1. No evidence for fracture. 2. Edema tracking along the iliopsoas muscle with partial tear of the iliopsoas tendon at its insert ion with few fibers remaining. Findings likely account for patient's pain. 3. Right hamstring origin intrasubstance tear. 4. Small right psoas muscle intrasubstance tear. 5. Mild bilateral hip osteoporosis changes.
[2023-08-21 17:26] LABS: Glucose,Whole Blood 309 mg/dL (70-110)
[2023-08-21] MEDS: INSULIN ASPART (NovoLOG) 100 UNIT/ML VIAL SQ SCH (18:05)
--- NOTE | 2023-08-21 18:34 | P.HPIM ---
History of Present Illness H&P Date: 08/21/23 Chief Complaint: Leg pain 88-year-old female presents with complaint of some left hip pain. She states that this just occurred earlier today. The patient was at her doctor's office and apparently was sitting in a hard chair for approximately 1 hour. Once she got home, the pain apparently became fairly severe. She denies any trauma or overuse. She denies any previous similar incidents. She has never had hip problems before. She had extreme difficulty with attempts at ambulation. She does present via EMS and receives 50 mcg of fentanyl and route with some relief. She denies any fevers or chills. There is no abdominal pain. There is no leg pain or swelling or tenderness otherwise. No other modifying factors. Blood work completed in ED reveals a WBC of 5.9, hemoglobin of 10.0 and platelet count of 96, sodium 139, potassium 4.6, BUNs/creatinine of 56/1.3 and blood glucose of 88 CT of left hip reveals osteopenia with mild hip osteoarthritis Review of Systems REVIEW OF SYSTEMS: CONSTITUTIONAL: No fever, no malaise, no fatigue. HEENT: No recent visual problems or hearing problems. Denied any sore throat. CARDIOVASCULAR: No chest pain, orthopnea, PND, no palpitations, no syncope. PULMONARY: No shortness of breath, no cough, no hemoptysis. GASTROINTESTINAL: No diarrhea, no nausea, no vomiting, no abdominal pain. NEUROLOGICAL: No headaches, no weakness, no numbness. HEMATOLOGICAL: Denies any bleeding or petechiae. GENITOURINARY: Denies any burning micturition, frequency, or urgency. MUSCULOSKELETAL/RHEUMATOLOGICAL: Denies any joint pain, swelling, or any muscle pain. ENDOCRINE: Denies any polyuria or polydipsia. The rest of the 14-point review of systems is negative. Past Medical History Past Medical History: Atrial Fibrillation, Coronary Artery Disease (CAD), Heart Failure, Diabetes Mellitus, Deep Vein Thrombosis (DVT), GERD/Reflux, Hyperlipidemia, Hypertension, Osteoarthritis (OA), Renal Disease, Skin Disorder, Thyroid Disorder Additional Past Medical History / Comment(s): NIDDM type II, neuropathy bilateral hands/feet, DVT L leg, CKD stage IV, gout, anemia-recent transfusion end of May, varicose veins, bilateral ankle edema, cyst on back from past spider bite, had covid in Nov., SOB w/exertion, uses 2l O2 @home prn History of Any Multi-Drug Resistant Organisms: None Reported Past Surgical History: Cardiac Valve Replacement, Cholecystectomy, Coronary Bypass/CABG, Heart Catheterization, Hysterectomy, Joint Replacement, Orthopedic Surgery Additional Past Surgical History / Comment(s): 2011 CABG w/ 5 vessel bypass and aortic valve. 03/07/14 Colonoscopy with EGD and BX. MOSHE. Maximiliano knee and L shoulder Replacement. Sinus surgery. Past Anesthesia/Blood Transfusion Reactions: No Reported Reaction Past Psychological History: Anxiety Additional Psychological History / Comment(s): Pt resides with her son. She uses a walker prn. She drives. She is independent. Smoking Status: Never smoker Past Alcohol Use History: None Reported Past Drug Use History: None Reported - Past Family History Daughter(s) Family Medical History: Cancer Additional Family Medical History / Comment(s): 2 daughters had breast cancer. Father Family Medical History: Cancer, Coronary Artery Disease (CAD) Additional Family Medical History / Comment(s): Father had cancer but pt does not know what type. Father at age 77yrs. Mother Family Medical History: CVA/TIA Additional Family Medical History / Comment(s): Mother had a CVA. She at age 86yrs. Medications and Allergies Home Medications Medication Instructions Recorded Confirmed Type Atorvastatin [Lipitor] 40 mg PO HS 03/03/14 08/20/23 History Glimepiride [Amaryl] 2 mg PO DAILY 03/03/14 08/20/23 History Omeprazole [PriLOSEC] 20 mg PO DAILY 03/03/14 08/20/23 History allopurinoL [Zyloprim] 300 mg PO DAILY 03/03/14 08/20/23 History calcitrioL 0.5 mcg PO MOFR 03/03/14 08/20/23 History Acetaminophen Tab [Tylenol] 1,000 mg PO Q6HR PRN 06/15/15 08/20/23 History B Complex W-C No.20/Folic Acid 1 mg PO DAILY 04/09/21 08/20/23 History [Renal Caps Softgel] Levothyroxine Sodium [Synthroid] 25 mcg PO DAILY 04/09/21 08/20/23 History Magnesium 200 mg PO DAILY 04/09/21 08/20/23 History Potassium Chloride [Klor-Con 10 ER] 10 meq PO DAILY 04/24/21 08/20/23 History Apixaban [Eliquis] 2.5 mg PO BID 30 Days #60 tab 04/25/21 08/20/23 Rx Furosemide [Lasix] 40 mg PO DAILY 05/23/21 08/20/23 History Multivitamins, Thera [Multivitamin 1 tab PO DAILY 05/23/21 08/20/23 History (formulary)] Zinc 50 mg PO DAILY 05/23/21 08/20/23 History Ferrous Sulfate [Iron (65 MG 325 mg PO DAILY 30 Days #30 tab 05/25/21 08/20/23 Rx Elemental)] Metoprolol Tartrate [Lopressor] 25 mg PO BID 08/20/23 08/20/23 History Allergies Allergy/AdvReac Type Severity Reaction Status Date / Time sulfamethoxazole Allergy Rash/Hives Verified 08/20/23 19:50 [From Bactrim] trimethoprim [From Bactrim] Allergy Rash/Hives Verified 08/20/23 19:50 Physical Exam Vitals: Vital Signs Temp Pulse Pulse Resp BP BP Pulse Ox 08/21/23 07:09 99.3 F 95 16 109/54 93 L 08/20/23 23:34 97.5 F L 69 17 120/70 92 L 08/20/23 23:08 69 17 08/20/23 22:34 76 16 160/88 98 08/20/23 14:38 97.7 F 65 16 152/61 92 L Intake and Output 08/20/23 08/21/23 08/21/23 22:59 06:59 14:59 Output Total 350 Balance -350 Output: Urine 350 Other: Voiding Method Self-Catheterization External Catheter Weight 75.75 kg VITAL SIGNS: Heart rate, blood pressure, respiratory rate reviewed as recorded in nurse's notes. EYES: Pupils are round and reactive. Extraocular movements are intact. No conjunctival / lid redness or swelling. ENT: No external evidence of injury, swelling, or ecchymosis. Airway is patent. Throat is clear. NECK: Nontender. No swelling or evidence of injury. No subcutaneous emphysema. Trachea is midline. No thyroid mass. HEART: Regular rate and rhythm. Good peripheral pulses. LUNGS/CHEST: Breath sounds clear and equal bilaterally. No rales, rhonchi, or wheezes. No ecchymosis, subcutaneous emphysema, or tenderness. ABDOMEN: Abdomen soft without tenderness. No palpable masses or organomegaly. No peritoneal signs. No abdominal wall swelling or ecchymosis. EXTREMITIES: Tenderness noted over the left hip. There is significant pain at attempts at range of motion of the left hip. There is no other leg tenderness noted. No calf tenderness noted. Normal muscle tone and function. No thoracolumbar tenderness. NEUROLOGIC: Sensation is grossly intact. Cranial nerve exam reveals face is symmetrical, tongue is midline, speech is clear. SKIN: No abrasions or ecchymosis is noted. No induration or masses noted. PSYCHIATRIC: Alert and oriented. Appropriate behavior and judgment Results CBC & Chem 7: 08/20/23 20:07 08/20/23 20:07 Labs: Abnormal Lab Results - Last 24 Hours (Table) 08/20/23 08/20/23 08/20/23 Range/Units 18:41 18:41 20:07 RBC 2.27 L (3.80-5.40) m/uL Hgb 9.7 L (11.4-16.0) gm/dL Hct 28.6 L (34.0-46.0) % MCV 125.8 H (80.0-100.0) fL MCH 42.5 H (25.0-35.0) pg RDW (11.5-15.5) % Plt Count 96 L (150-450) k/uL Lymphocytes # 0.8 L (1.0-4.8) k/uL Macrocytosis Marked A Chloride 109 H (98-107) mmol/L Carbon Dioxide 33 H (22-30) mmol/L BUN 56 H 60 H (7-17) mg/dL Creatinine 1.31 H 1.51 H (0.52-1.04) mg/dL POC Glucose (mg/dL) (70-110) mg/dL Total Protein 5.5 L (6.3-8.2) g/dL Albumin 3.2 L (3.5-5.0) g/dL 08/20/23 08/21/23 Range/Units 20:07 07:15 RBC 2.45 L (3.80-5.40) m/uL Hgb 10.3 L (11.4-16.0) gm/dL Hct 30.7 L (34.0-46.0) % MCV 125.0 H (80.0-100.0) fL MCH 42.1 H (25.0-35.0) pg RDW 15.9 H (11.5-15.5) % Plt Count 96 L (150-450) k/uL Lymphocytes # 0.8 L (1.0-4.8) k/uL Macrocytosis Marked A Chloride (98-107) mmol/L Carbon Dioxide (22-30) mmol/L BUN (7-17) mg/dL Creatinine (0.52-1.04) mg/dL POC Glucose (mg/dL) 113 H (70-110) mg/dL Total Protein (6.3-8.2) g/dL Albumin (3.5-5.0) g/dL Thrombosis Risk Factor Assmnt - Choose All That Apply Any of the Below Risk Factors Present?: No Other Risk Factors: Yes Each Risk Factor Represents 3 Points: Age 75 years or older Other congenital or acquired thrombophilia - If yes, enter type in comment: No Thrombosis Risk Factor Assessment Total Risk Factor Score: 3 Thrombosis Risk Factor Assessment Level: Moderate Risk Assessment and Plan Assessment: 1. Intractable left hip pain --CT of the head completed in ED reveals osteopenia and mild left hip osteoarthritis -- Patient unable to bear any weight on the hip -- Patient will be admitted for pain control; consult orthopedic surgery -- Will plan to consult PT/OT once okayed by orthopedic surgery 2. Acute renal injury; IV fluid hydration with normal saline at a rate of 75 cc an hour; will monitor strict FEDERICO's, daily weights, renal function electrolytes; avoid nephrotoxins and hypotension 3. Hypertension; Lopressor 25 mg twice daily 4. Hyperlipidemia; Lipitor 40 mg daily 5. Diabetes mellitus type II; patient takes Amaryl 2 mg daily; monitor Accu- Cheks before every meal and at bedtime with insulin sliding scale 6. History of DVT; Eliquis 2.5 mg twice daily 7. Atrial fibrillation; patient is currently on Eliquis; Lopressor 25 mg twice daily 9. Hypothyroidism; levothyroxine 25 mcg daily DVT prophylaxis; SCDs/Eliquis CODE STATUS; full code
[2023-08-21 20:09] LABS: Glucose,Whole Blood 333 mg/dL (70-110)
[2023-08-22 07:42] LABS: Glucose,Whole Blood 197 mg/dL (70-110)
[2023-08-22 09:37] LABS: Basophils # (A) 0.01 X 10*3/uL (0.00-0.10); Basophils % (A) 0.1 %; Eosinophils # (A) 0.01 X 10*3/uL (0.04-0.35); Eosinophils % (A) 0.1 %; Lymphocytes % (A) 4.3 %; MCH 41.7 pg (27.0-32.0); MCHC 33.3 g/dL (32.0-37.0); Mean Platelet Volume 11.3 FL (9.5-12.2); Monocytes # (A) 0.39 X 10*3/uL (0.20-1.00); Monocytes % (A) 3.3 %; NRBC Per 100 WBC 0 X 10*3/uL (0.00-0.01); Neutrophils # (A) 10.71 X 10*3/uL (1.80-7.70); Neutrophils % (A) 91.4 %; Platelet Count 99 X 10*3/uL (140-440); RBC 2.16 X 10*6/uL (4.10-5.20); WBC 11.71 X 10*3/uL (4.50-10.00)
[2023-08-22 10:09] LABS: Blood Urea Nitrogen 63.6 mg/dL (9.0-27.0); Calcium 9.3 mg/dL (8.7-10.3); Carbon Dioxide 31.8 mmol/L (21.6-31.8); Chloride 100 mmol/L (96-109); Glucose 190 mg/dL (70-110); Potassium 5.4 mmol/L (3.5-5.5); Sodium 141 mmol/L (135-145)
--- NOTE | 2023-08-22 10:22 | P.PN ---
Subjective Progress Note Date: 08/22/23 Principal diagnosis: Left Hip Pain Patient seen and examined this morning. Patient was resting comfortably in bed. She does report pain in her left hip has improved significantly. Encouraged patient to work with physical therapy today. MRI results have been reviewed and discussed. Patient will benefit from home care with physical therapy. No acute concerns at this time. Objective - Vital Signs Vital signs: Vital Signs Temp 97.6 F 08/22/23 08:00 Pulse 79 08/22/23 08:00 Resp 17 08/22/23 08:00 BP 108/61 08/22/23 08:00 Pulse Ox 98 08/22/23 08:00 FiO2 Intake & Output 08/21/23 08/22/23 08/22/23 18:59 06:59 18:59 Output Total 300 300 Balance -300 -300 Output: Urine 300 300 Other: Voiding Method External Catheter External Catheter - Exam Inspection: Negative for any open fractures, ecchymosis, significant erythema/ulcers. Sensation: Sensation is equal, symmetric, bilaterally intact throughout the upper and lower extremities Palpation: Nontender to palpation throughout bilateral upper and right lower extremities and throughout spine exam. Mild tenderness over the left hip. Range of motion: Patient does have full range of motion bilateral upper and lower extremities on exam. Motor: 4/5 in all major motor groups in the bilateral upper and lower extremities Special tests: Log roll maneuver to bilateral lower extremities does not produce any pain. Negative Homans bilaterally. Negative Brad bilaterally. Negative clonus bilaterally. Neurovascular: Radial pulse intact, 2+ bilaterally. Cap refill under 3 seconds in digits upper extremities. - Labs CBC & Chem 7: 08/22/23 05:16 08/22/23 05:16 Labs: Abnormal Lab Results - Last 24 Hours (Table) 08/21/23 08/21/23 08/21/23 Range/Units 12:16 17:23 20:05 POC Glucose (mg/dL) 159 H 309 H 333 H (70-110) mg/dL 08/22/23 Range/Units 07:25 POC Glucose (mg/dL) 197 H (70-110) mg/dL Assessment and Plan Assessment: MRI of the left hip taken on 08/21/23 demonstrates No evidence for fracture. Edema tracking along the iliopsoas muscle with partial tear of the iliopsoas tendon at its insertion with few fibers remaining. Findings likely account for patient's pain. Right hamstring origin intrasubstance tear. Small right psoas muscle intrasubstance tear. Mild bilateral hip osteoporosis changes. Intractable left hip pain- resolved Mild bilateral hip osteoarthritis Osteopenia Multiple complex comorbidities Plan: At this time we do not recommend any emergent/urgent orthopedic surgical intervention. Patient may follow-up with Dr. Nunes's office for further evaluation as needed. Orthopedics is signing off at this time. Please do not hesitate to contact us for any further questions. 2. Appreciate medical management 3. Pain management - Continue with conservative management, Motrin 4. GI prophylaxis - per medicine 5. DVT prophylaxis - per medicine 6. PT/OT - weightbearing as tolerated with a walker as needed. Patient will b enefit from home PT. 7. Appreciate consult
[2023-08-22 13:03] LABS: Glucose,Whole Blood 300 mg/dL (70-110)
--- NOTE | 2023-08-22 15:26 | P.PN ---
Subjective Progress Note Date: 08/22/23 88-year-old female presents with complaint of some left hip pain. She states that this just occurred earlier today. The patient was at her doctor's office and apparently was sitting in a hard chair for approximately 1 hour. Once she got home, the pain apparently became fairly severe. She denies any trauma or overuse. She denies any previous similar incidents. She has never had hip problems before. She had extreme difficulty with attempts at ambulation. She does present via EMS and receives 50 mcg of fentanyl and route with some relief. She denies any fevers or chills. There is no abdominal pain. There is no leg pain or swelling or tenderness otherwise. No other modifying factors. Blood work completed in ED reveals a WBC of 5.9, hemoglobin of 10.0 and platelet count of 96, sodium 139, potassium 4.6, BUNs/creatinine of 56/1.3 and blood glucose of 88 CT of left hip reveals osteopenia with mild hip osteoarthritis Objective - Vital Signs Vital signs: Vital Signs Temp 97.6 F 08/22/23 08:00 Pulse 79 08/22/23 08:00 Resp 17 08/22/23 08:00 BP 108/61 08/22/23 08:00 Pulse Ox 98 08/22/23 08:00 FiO2 Intake & Output 08/21/23 08/22/23 08/22/23 18:59 06:59 18:59 Output Total 300 300 Balance -300 -300 Output: Urine 300 300 Other: Voiding Method External Catheter External Catheter - Exam VITAL SIGNS: Heart rate, blood pressure, respiratory rate reviewed as recorded in nurse's notes. EYES: Pupils are round and reactive. Extraocular movements are intact. No conjunctival / lid redness or swelling. ENT: No external evidence of injury, swelling, or ecchymosis. Airway is patent. Throat is clear. NECK: Nontender. No swelling or evidence of injury. No subcutaneous emphysema. Trachea is midline. No thyroid mass. HEART: Regular rate and rhythm. Good peripheral pulses. LUNGS/CHEST: Breath sounds clear and equal bilaterally. No rales, rhonchi, or wheezes. No ecchymosis, subcutaneous emphysema, or tenderness. ABDOMEN: Abdomen soft without tenderness. No palpable masses or organomegaly. No peritoneal signs. No abdominal wall swelling or ecchymosis. EXTREMITIES: Tenderness noted over the left hip. There is significant pain at attempts at range of motion of the left hip. There is no other leg tenderness noted. No calf tenderness noted. Normal muscle tone and function. No thoracolumbar tenderness. NEUROLOGIC: Sensation is grossly intact. Cranial nerve exam reveals face is symmetrical, tongue is midline, speech is clear. SKIN: No abrasions or ecchymosis is noted. No induration or masses noted. PSYCHIATRIC: Alert and oriented. Appropriate behavior and judgment - Labs CBC & Chem 7: 08/22/23 05:16 08/22/23 05:16 Labs: Abnormal Lab Results - Last 24 Hours (Table) 08/21/23 08/21/23 08/21/23 Range/Units 12:16 17:23 20:05 WBC (4.50-10.00) X 10*3/uL RBC (4.10-5.20) X 10*6/uL Hgb (12.0-15.0) g/dL Hct (37.2-46.3) % MCV (80.0-97.0) FL MCH (27.0-32.0) pg Plt Count (140-440) X 10*3/uL Immature Gran # (0.00-0.04) X 10*3/uL Neutrophils # (1.80-7.70) X 10*3/uL Lymphocytes # (0.90-5.00) X 10*3/uL Eosinophils # (0.04-0.35) X 10*3/uL BUN (9.0-27.0) mg/dL Creatinine (0.6-1.5) mg/dL Est GFR (CKD-EPI) (>=60) BUN/Creatinine Ratio (12.00-20.00) Ratio Glucose (70-110) mg/dL POC Glucose (mg/dL) 159 H 309 H 333 H (70-110) mg/dL 08/22/23 08/22/23 08/22/23 Range/Units 05:16 05:16 07:25 WBC 11.71 H (4.50-10.00) X 10*3/uL RBC 2.16 L (4.10-5.20) X 10*6/uL Hgb 9.0 L (12.0-15.0) g/dL Hct 27.0 L (37.2-46.3) % MCV 125.0 H (80.0-97.0) FL MCH 41.7 H (27.0-32.0) pg Plt Count 99 L (140-440) X 10*3/uL Immature Gran # 0.09 H (0.00-0.04) X 10*3/uL Neutrophils # 10.71 H (1.80-7.70) X 10*3/uL Lymphocytes # 0.50 L (0.90-5.00) X 10*3/uL Eosinophils # 0.01 L (0.04-0.35) X 10*3/uL BUN 63.6 H (9.0-27.0) mg/dL Creatinine 2.0 H (0.6-1.5) mg/dL Est GFR (CKD-EPI) 24 L (>=60) BUN/Creatinine Ratio 31.80 H (12.00-20.00) Ratio Glucose 190 H (70-110) mg/dL POC Glucose (mg/dL) 197 H (70-110) mg/dL Assessment and Plan Assessment: 1. Intractable left hip pain --CT of the head completed in ED reveals osteopenia and mild left hip osteoarthritis -- Patient unable to bear any weight on the hip -- Patient will be admitted for pain control; consult orthopedic surgery -- Will plan to consult PT/OT once okayed by orthopedic surgery 2. Acute renal injury; IV fluid hydration with normal saline at a rate of 75 cc an hour; will monitor strict FEDERICO's, daily weights, renal function electrolytes; avoid nephrotoxins and hypotension 3. Hypertension; Lopressor 25 mg twice daily 4. Hyperlipidemia; Lipitor 40 mg daily 5. Diabetes mellitus type II; patient takes Amaryl 2 mg daily; monitor Accu- Cheks before every meal and at bedtime with insulin sliding scale 6. History of DVT; Eliquis 2.5 mg twice daily 7. Atrial fibrillation; patient is currently on Eliquis; Lopressor 25 mg twice daily 9. Hypothyroidism; levothyroxine 25 mcg daily DVT prophylaxis; SCDs/Eliquis CODE STATUS; full code
[2023-08-22 17:26] LABS: Glucose,Whole Blood 121 mg/dL (70-110)
[2023-08-22 19:48] LABS: Glucose,Whole Blood 219 mg/dL (70-110)
[2023-08-22 20:00] VITALS: RESP 16
[2023-08-23 07:28] LABS: Glucose,Whole Blood 260 mg/dL (70-110)
[2023-08-23 07:49] VITALS: BP 133/70; PULSE 64; TEMP 97.5
[2023-08-23 11:30] LABS: BUN/Creat Ratio 34.81 Ratio (12.00-20.00); Blood Urea Nitrogen 73.1 mg/dL (9.0-27.0); Calcium 9.1 mg/dL (8.7-10.3); Carbon Dioxide 26.7 mmol/L (21.6-31.8); Chloride 99 mmol/L (96-109); Glucose 249 mg/dL (70-110); Potassium 5.4 mmol/L (3.5-5.5); Sodium 138 mmol/L (135-145)
== END 2023-08-23 13:50 | disposition home health service (06) ==
LOC: EC 14:34 → 5NMEDONC 20:46
PROVIDERS: ADMIT Internal Medicine; ATTEND Internal Medicine
DX: M16.0 Bilateral primary osteoarthritis of hip (principal); M85.852 Other specified disorders of bone density and structure, left thigh; N17.9 Acute kidney failure, unspecified; I48.91 Unspecified atrial fibrillation; I25.10 Atherosclerotic heart disease of native coronary artery without angina pectoris; I13.0 Hypertensive heart and chronic kidney disease with heart failure and stage 1 through stage 4 chronic kidney disease, or unspecified chronic kidney disease; N18.4 Chronic kidney disease, stage 4 (severe); I50.9 Heart failure, unspecified; K21.9 Gastro-esophageal reflux disease without esophagitis; E78.5 Hyperlipidemia, unspecified; E11.40 Type 2 diabetes mellitus with diabetic neuropathy, unspecified; D63.1 Anemia in chronic kidney disease; E11.22 Type 2 diabetes mellitus with diabetic chronic kidney disease; F41.9 Anxiety disorder, unspecified; E03.9 Hypothyroidism, unspecified; Z86.16 Personal history of COVID-19; Z86.718 Personal history of other venous thrombosis and embolism; Z95.1 Presence of aortocoronary bypass graft; Z95.2 Presence of prosthetic heart valve; Z79.899 Other long term (current) drug therapy; Z79.84 Long term (current) use of oral hypoglycemic drugs; Z79.890 Hormone replacement therapy; Z79.01 Long term (current) use of anticoagulants; Z88.2 Allergy status to sulfonamides
CPT/HCPCS: 96376 ×3; 96374; 96375; 99285; 36415; 97161; 83880; 80053; 80048 ×3; 85652; 82150; 85025 ×2; 86140; 73502; 73700; 73721; G0378 ×4; J2270 ×2; J2930 ×4; J1885

== ENCOUNTER 2024-11-18 00:59 | Inpatient (IN) | payer MEDICARE, BC ==
--- NOTE | 2024-11-18 01:13 | ED ---
General Adult HPI - General Chief complaint: Shortness of Breath Stated complaint: Difficulty Breathing Time Seen by Provider: 11/18/24 01:01 Source: patient, EMS, RN notes reviewed, old records reviewed Mode of arrival: EMS Limitations: no limitations - History of Present Illness Initial comments: 89-year-old female presenting for difficulty breathing. Patient was seen by primary care today and was apparently diagnosed with pneumonia. She has a his tory of atrial fibrillation, diabetes, congestive heart failure. She does report cough and dyspnea. No chest pain. Patient denies fever or vomiting. She has had increased lower extremity edema as well. - Related Data Home Medications Medication Instructions Recorded Confirmed Atorvastatin [Lipitor] 40 mg PO HS 03/03/14 08/20/23 Glimepiride [Amaryl] 2 mg PO DAILY 03/03/14 08/20/23 Omeprazole [PriLOSEC] 20 mg PO DAILY 03/03/14 08/20/23 allopurinoL [Zyloprim] 300 mg PO DAILY 03/03/14 08/20/23 calcitrioL [Rocaltrol (GEQ)] 0.5 mcg PO MOFR 03/03/14 08/20/23 Acetaminophen Tab [Tylenol] 1,000 mg PO Q6HR PRN 06/15/15 08/20/23 B Complex W-C No.20/Folic Acid 1 mg PO DAILY 04/09/21 08/20/23 [Renal Caps Softgel] Levothyroxine Sodium [Synthroid] 25 mcg PO DAILY 04/09/21 08/20/23 Magnesium 200 mg PO DAILY 04/09/21 08/20/23 Potassium Chloride [Klor-Con 10 ER] 10 meq PO DAILY 04/24/21 08/20/23 Furosemide [Lasix] 40 mg PO DAILY 05/23/21 08/20/23 Multivitamins, Thera [Multivitamin 1 tab PO DAILY 05/23/21 08/20/23 (formulary)] Zinc 50 mg PO DAILY 05/23/21 08/20/23 Metoprolol Tartrate [Lopressor] 25 mg PO BID 08/20/23 08/20/23 Previous Rx's Medication Instructions Recorded Apixaban [Eliquis] 2.5 mg PO BID 30 Days #60 tab 04/25/21 Ferrous Sulfate [Iron (65 MG 325 mg PO DAILY 30 Days #30 tab 05/25/21 Elemental)] Allergies Allergy/AdvReac Type Severity Reaction Status Date / Time sulfamethoxazole Allergy Rash/Hives Verified 11/18/24 01:12 [From Bactrim] trimethoprim [From Bactrim] Allergy Rash/Hives Verified 11/18/24 01:12 Review of Systems ROS Statement: Those systems with pertinent positive or pertinent negative responses have been documented in the HPI. ROS Other: All systems not noted in ROS Statement are negative. Past Medical History Past Medical History: Atrial Fibrillation, Coronary Artery Disease (CAD), Heart Failure, Diabetes Mellitus, Deep Vein Thrombosis (DVT), GERD/Reflux, Hyperlipidemia, Hypertension, Osteoarthritis (OA), Renal Disease, Skin Disorder, Thyroid Disorder Additional Past Medical History / Comment(s): NIDDM type II, neuropathy bilateral hands/feet, DVT L leg, CKD stage IV, gout, anemia-recent transfusion end of May, varicose veins, bilateral ankle edema, cyst on back from past spider bite, had covid in Apr., SOB w/exertion, uses 2l O2 @home prn History of Any Multi-Drug Resistant Organisms: None Reported Past Surgical History: Cardiac Valve Replacement, Cholecystectomy, Coronary Bypass/CABG, Heart Catheterization, Hysterectomy, Joint Replacement, Orthopedic Surgery Additional Past Surgical History / Comment(s): 2011 CABG w/ 5 vessel bypass and aortic valve. 03/07/14 Colonoscopy with EGD and BX. MOSHE. Maximiliano knee and L shoulder Replacement. Sinus surgery. Past Anesthesia/Blood Transfusion Reactions: No Reported Reaction Past Psychological History: Anxiety Smoking Status: Never smoker Past Alcohol Use History: None Reported Past Drug Use History: None Reported - Past Family History Daughter(s) Family Medical History: Cancer Additional Family Medical History / Comment(s): 2 daughters had breast cancer. Father Family Medical History: Cancer, Coronary Artery Disease (CAD) Additional Family Medical History / Comment(s): Father had cancer but pt does not know what type. Father at age 77yrs. Mother Family Medical History: CVA/TIA Additional Family Medical History / Comment(s): Mother had a CVA. She at age 86yrs. General Exam Limitations: no limitations General appearance: alert, lethargic, in distress Head exam: Present: atraumatic, normocephalic ENT exam: Present: mucous membranes dry Neck exam: Present: normal inspection. Absent: tenderness Respiratory exam: Present: rhonchi, decreased breath sounds. Absent: wheezes Cardiovascular Exam: Present: tachycardia, irregular rhythm GI/Abdominal exam: Present: soft. Absent: distended, tenderness, guarding Extremities exam: Present: pedal edema Neurological exam: Present: alert, oriented X3, CN II-XII intact. Absent: motor sensory deficit, reflexes normal Skin exam: Present: warm, dry Course Vital Signs 11/18/24 11/18/24 11/18/24 01:00 02:22 03:13 Temperature 97.9 F 98.3 F Pulse Rate 135 H 134 H 131 H Respiratory 22 22 20 Rate Blood Pressure 132/61 132/61 111/64 O2 Sat by Pulse 94 L 95 96 Oximetry 11/18/24 03:56 Temperature Pulse Rate 135 H Respiratory 18 Rate Blood Pressure 138/92 O2 Sat by Pulse 96 Oximetry Medical Decision Making - Medical Decision Making Was pt. sent in by a medical professional or institution (, PA, SIX [employer] BLACK TRAINER, urgent care, hospital, or custodial...) When possible be specific @ -No Did you speak to anyone other than the patient for history (EMS, parent, family, police, friend...)? What history was obtained from this source @ -No Did you review nursing and triage notes (agree or disagree)? Why? @ -I reviewed and agree with nursing and triage notes Were old charts reviewed (outside hosp., previous admission, EMS record, old EKG, old radiological studies, urgent care reports/EKG's, custodial records)? Report findings @ -No old charts were reviewed Differential Dyspnea: Coronary syndrome, arrhythmia, tamponade, asthma, COPD, pulmonary embolism, pneumonia, pneumothorax, pulmonary effusion, anaphylaxis, diabetic ketoacidosis, flailed chest, pulmonary contusion, diaphragmatic rupture, anemia, maria t romuscular, this is not meant to be an all-inclusive list. EKG interpreted by me (3pts min.). @ -[EKG: Atrial fibrillation with RVR, rate of 134, QRS duration 88, QTc [address] segment elevation. X-rays interpreted by me (1pt min.). @ -Chest x-ray shows CHF versus atypical pneumonia. CT interpreted by me (1pt min.). @ -None done U/S interpreted by me (1pt. min.). @ -None done What testing was considered but not performed or refused? (CT, X-rays, U/S, labs)? Why? @ -None What meds were considered but not given or refused? Why? @ -None Did you discuss the management of the patient with other professionals (professionals i.e. , PA, S[employer] BLACK TRAINER, lab, RT, psych nurse, family welfare social work professor, system administration advisor, teacher, corrections officer, continuous pillowcase cutter)? Give summary @ -Case discussed with EM. Was smoking cessation discussed for >3mins.? @ -No Was critical care preformed (if so, how long)? @ -Yes, 35 minutes Were there social determinants of health that impacted care today? How? (Homelessness, low income, unemployed, alcoholism, drug addiction, transportation, low edu. Level, literacy, decrease access to med. care, penitentiary, rehab)? @ -No Was there de-escalation of care discussed even if they declined (Discuss DNR or withdrawal of care, Hospice)? DNR status @ -No What co-morbidities impacted this encounter? (DM, HTN, Smoking, COPD, CAD, Cancer, CVA, ARF, Chemo, Hep., AIDS, mental health diagnosis, sleep apnea, morbid obesity)? @ -CHF, chronic kidney disease, A-fib Was patient admitted / discharged? Hospital course, mention meds given and route, prescriptions, significant lab abnormalities, going to OR and other pertinent info. @ -89-year-old female presenting with dyspnea, recent diagnosis of pneumonia. Chest x-ray shows either CHF or atypical pneumonia. Patient started on antibiotics. She is also in atrial fibrillation with RVR and is requiring rate control with Cardizem. She is admitted to internal medicine with cardiology on consult. Undiagnosed new problem with uncertain prognosis? @ -No Drug Therapy requiring intensive monitoring for toxicity (Heparin, Nitro, Insulin, Cardizem)? @ -No Were any procedures done? @ -No Diagnosis/symptom? @A-fib with RVR, pneumonia, Acute, or Chronic, or Acute on Chronic? @Acute Uncomplicated (without systemic symptoms) or Complicated (systemic symptoms)? @ -Default Side effects of treatment? @ -No Exacerbation, Progression, or Severe Exacerbation? @ -No Poses a threat to life or bodily function? How? (Chest pain, USA, CA, pneumonia, PE, COPD, DKA, ARF, appy, cholecystitis, CVA, Diverticulitis, Homicidal, Suicidal, threat to staff... and all critical care pts) @ -Yes, arrhythmia, sepsis - Lab Data Result diagrams: 11/18/24 01:32 11/18/24 01:32 Lab Results 11/18/24 11/18/24 11/18/24 Range/Units 01:32 01:32 01:32 WBC 22.17 H (4.50-10.00) 10*3/uL RBC 1.89 L (4.10-5.20) 10*6/uL Hgb 8.5 L (12.0-15.0) g/dL Hct 25.0 L (37.2-46.3) % MCV 132.3 H (80.0-97.0) fL MCH 45.0 H (27.0-32.0) pg MCHC 34.0 (32.0-37.0) g/dL Plt Count 133 L (140-440) 10*3/uL MPV 11.0 (9.5-12.2) fL Immature Gran % (Auto) 2.6 % Neutrophils % 85.2 % Lymphocytes % 2.5 % Monocytes % 8.7 % Eosinophils % 0.6 % Basophils % 0.4 % Immature Gran # 0.57 H (0.00-0.04) 10*3/uL Neutrophils # 18.90 H (1.80-7.70) 10*3/uL Lymphocytes # 0.56 L (0.90-5.00) 10*3/uL Monocytes # 1.92 H (0.20-1.00) 10*3/uL Eosinophils # 0.14 (0.04-0.35) 10*3/uL Basophils # 0.08 (0.00-0.10) 10*3/uL Manual Slide Review Performed Anisocytosis (manual) Present Tear Drop Cells Present Fragmented RBCs Present PT 11.6 (10.0-12.5) sec INR 1.1 (<1.2) APTT 23.2 (22.0-30.0) sec Sodium 136 L (137-145) mmol/L Potassium 4.0 (3.5-5.1) mmol/L Chloride 98 (98-107) mmol/L Carbon Dioxide 31 H (22-30) mmol/L Anion Gap 7 mmol/L BUN 104 H* (7-17) mg/dL Creatinine 1.74 H (0.52-1.04) mg/dL Est GFR (CKD-EPI)AfAm 30 (>60 ml/min/1.73 sqM) Est GFR (CKD-EPI)NonAf 26 (>60 ml/min/1.73 sqM) Glucose 294 H (74-99) mg/dL Plasma Lactic Acid Eldon (0.7-2.0) mmol/L Calcium 9.3 (8.4-10.2) mg/dL Magnesium 2.2 (1.6-2.3) mg/dL Total Bilirubin 0.8 (0.2-1.3) mg/dL AST 21 (14-36) U/L ALT 23 (4-34) U/L Alkaline Phosphatase 113 (38-126) U/L Troponin I (0.000-0.034) ng/mL NT-Pro-B Natriuret Pep 3120 pg/mL Total Protein 6.2 L (6.3-8.2) g/dL Albumin 3.8 (3.5-5.0) g/dL 11/18/24 11/18/24 Range/Units 01:32 01:32 WBC (4.50-10.00) 10*3/uL RBC (4.10-5.20) 10*6/uL Hgb (12.0-15.0) g/dL Hct (37.2-46.3) % MCV (80.0-97.0) fL MCH (27.0-32.0) pg MCHC (32.0-37.0) g/dL Plt Count (140-440) 10*3/uL MPV (9.5-12.2) fL Immature Gran % (Auto) % Neutrophils % % Lymphocytes % % Monocytes % % Eosinophils % % Basophils % % Immature Gran # (0.00-0.04) 10*3/uL Neutrophils # (1.80-7.70) 10*3/uL Lymphocytes # (0.90-5.00) 10*3/uL Monocytes # (0.20-1.00) 10*3/uL Eosinophils # (0.04-0.35) 10*3/uL Basophils # (0.00-0.10) 10*3/uL Manual Slide Review Anisocytosis (manual) Tear Drop Cells Fragmented RBCs PT (10.0-12.5) sec INR (<1.2) APTT (22.0-30.0) sec Sodium (137-145) mmol/L Potassium (3.5-5.1) mmol/L Chloride (98-107) mmol/L Carbon Dioxide (22-30) mmol/L Anion Gap mmol/L BUN (7-17) mg/dL Creatinine (0.52-1.04) mg/dL Est GFR (CKD-EPI)AfAm (>60 ml/min/1.73 sqM) Est GFR (CKD-EPI)NonAf (>60 ml/min/1.73 sqM) Glucose (74-99) mg/dL Plasma Lactic Acid Eldon 1.8 (0.7-2.0) mmol/L Calcium (8.4-10.2) mg/dL Magnesium (1.6-2.3) mg/dL Total Bilirubin (0.2-1.3) mg/dL AST (14-36) U/L ALT (4-34) U/L Alkaline Phosphatase (38-126) U/L Troponin I 0.015 (0.000-0.034) ng/mL NT-Pro-B Natriuret Pep pg/mL Total Protein (6.3-8.2) g/dL Albumin (3.5-5.0) g/dL Critical Care Time Critical Care Time: Yes Total Critical Care Time: 35 Disposition Clinical Impression: Chronic renal disease, CHF exacerbation, Community acquired pneumonia, Atrial fibrillation with RVR Disposition: ADMITTED IP TO THIS HOSP Condition: Stable Is patient prescribed a controlled substance at d/c from ED?: No Time of Disposition: 05:48
[2024-11-18 01:43] LABS: Basophils # (A) 0.08 10*3/uL (0.00-0.10); Basophils % (A) 0.4 %; Eosinophils # (A) 0.14 10*3/uL (0.04-0.35); Eosinophils % (A) 0.6 %; HGB 8.5 g/dL (12.0-15.0); Lymphocytes # (A) 0.56 10*3/uL (0.90-5.00); Lymphocytes % (A) 2.5 %; MCV 132.3 fL (80.0-97.0); Monocytes # (A) 1.92 10*3/uL (0.20-1.00); Monocytes % (A) 8.7 %; Neutrophils % (A) 85.2 %; Platelet Count 133 10*3/uL (140-440); RBC 1.89 10*6/uL (4.10-5.20); RDW 15.4 % (11.5-14.5); WBC 22.17 10*3/uL (4.50-10.00)
[2024-11-18 01:55] LABS: INR 1.1 (<1.2); Partial Thromboplastin Time 23.2 sec (22.0-30.0); Prothrombin Time 11.6 sec (10.0-12.5)
[2024-11-18 02:08] LABS: ALT 23 U/L (4-34); AST 21 U/L (14-36); African American GFR (CKD) 30 (>60 ml/min/1.73 sqM); Albumin 3.8 g/dL (3.5-5.0); Alkaline Phosphatase 113 U/L (38-126); Anion Gap 7 mmol/L; Calcium 9.3 mg/dL (8.4-10.2); Carbon Dioxide 31 mmol/L (22-30); Chloride 98 mmol/L (98-107); Glucose 294 mg/dL (74-99); Magnesium 2.2 mg/dL (1.6-2.3); Non-African American GFR(CKD) 26 (>60 ml/min/1.73 sqM); Sodium 136 mmol/L (137-145); Total Bilirubin 0.8 mg/dL (0.2-1.3); Total Protein 6.2 g/dL (6.3-8.2)
[2024-11-18 02:16] LABS: NT-Pro-B-Type Natriuretic Pept 3120 pg/mL
[2024-11-18 02:24] LABS: Blood Urea Nitrogen 104 mg/dL (7-17)
[2024-11-18] MEDS: DILTIAZEM 125 MG in DEXTROSE 5% IN WATER 100 ML IV SCH (03:06)
[2024-11-18] MEDS: DILTIAZEM 5 MG/ML 5 ML VIAL IVP STA (03:07)
[2024-11-18 03:29] LABS: Anisocytosis (M) Present
[2024-11-18 03:30] LABS: RBC Fragments Present; Tear Drop Cells Present
[2024-11-18] MEDS ORDERED: NALOXONE 0.4 MG/ML 1 ML VIAL IV PRN (04:01)
--- NOTE | 2024-11-18 04:56 | XR ---
EXAM: XR Chest, 2 Views CLINICAL HISTORY: Difficulty breathing TECHNIQUE: Frontal and lateral views of the chest. COMPARISON: Chest radiograph 03/17/2022 FINDINGS: Lungs: Bilateral airspace opacities may represent pulmonary edema and/or atypical infection. Pleural space: Small bilateral pleural effusions. No pneumothorax. Heart: Cardiomegaly. Mediastinum: Unremarkable. Normal mediastinal contour. Bones/joints: Redemonstrated left shoulder arthroplasty. Degenerative changes of the spine are noted. No acute fracture. IMPRESSION: 1. Bilateral airspace opacities may represent pulmonary edema and/or atypical infection. 2. Cardiomegaly. 3. Small bilateral pleural effusions.
[2024-11-18] MEDS: AZITHROMYCIN 500 MG in SODIUM CHLORIDE 0.9% 250 ML IVPB STA (05:30)
[2024-11-18] MEDS: SODIUM CHLORIDE 0.9% 1,000 ML IV SCH (06:57)
[2024-11-18] MEDS: METOPROLOL TARTRATE 25 MG TAB PO SCH (08:33)
[2024-11-18] MEDS: APIXABAN 2.5 MG TABLET PO SCH (08:33)
[2024-11-18] MEDS: SODIUM CHLORIDE 0.9% 500 ML 500 ML IV ONE (08:33)
--- NOTE | 2024-11-18 10:26 | P.CRDCN ---
History of Present Illness History of present illness: HISTORY OF PRESENT ILLNESS: This is a 89-year-old female with a past medical history significant for TAVR, atrial fibrillation, coronary artery disease with previous CABG, congestive hear t failure, diabetes. Patient follows in the office with []. We have been asked to see the patient in consultation for A-fib with RVR. Patient examined at the bedside in the emergency room. Patient's family is present. Patient reports she has been having a cough recently. She is also been complaining of shortness of breath. She denies any chest pain or pressure. Patient was found to be in A-fib with RVR. She was started on IV Cardizem which is infusing at 10 mg an hour. She remains in atrial fibrillation with heart rate around 110. Blood pressure 81/47 at the time of examination. DIAGNOSTICS: - EKG reveals A-fib with RVR - Chest xray bilateral airspace opacities may represent pulmonary edema and/or atypical infection, cardiomegaly, small bilateral pleural effusions - Laboratory data: WBC 22.17. Hemoglobin 8.5. Platelet count 133. Sodium 136. Potassium 4.0. BUN 104. Creatinine 1.74. Troponin negative x 1. proBNP 3120. - Current home cardiac medications include Eliquis 2.5 mg twice a day, Lipitor 40 mg at night, Lasix 60 mg daily, metoprolol tartrate 12.5 mg twice daily. - Most recent echocardiogram obtained in August 2024 at the cardiology office reveals ejection fraction 55%, transcatheter AV prosthesis with normal function, aortic valve prosthetic mechanical dysfunction, mild mitral stenosis, mild tricuspid regurgitation. - Cardiac catheterization history: June 2021 revealed [place] CAD with 90% proximal LAD, mid circumflex 75 to 80% and mid RCA 60 to 70% stenosis. Patent TAVERAS to LAD, SVG, and diagonal grafts. Occluded SVG graft to PDA/PLV and SVG to OM. REVIEW OF SYSTEMS: At the time of my exam: CONSTITUTIONAL: Denies fever or chills. HEENT: Denies blurred vision, vision changes, or eye pain. Denies hemoptysis CARDIOVASCULAR: Denies chest pain. Denies orthopnea. Denies PND. Denies palpitations RESPIRATORY: + shortness of breath. + cough GASTROINTESTINAL: Denies abdominal pain. Denies nausea or vomiting. HEMATOLOGIC: Denies bleeding disorders. GENITOURINARY: Denies any blood in urine. SKIN: Denies pruitis. Denies rash. PHYSICAL EXAM: VITAL SIGNS: Reviewed. GENERAL: Well-developed in no acute distress. HEENT: Head is normocephalic. Pupils are equal, round. Sclerae anicteric. Mucous membranes of the mouth are moist. Neck supple. No JVD or thyromegaly LUNGS: Respirations even and unlabored. Lungs diminished. HEART: Tachycardic. Irregular rate and rhythm. S1 and S2 heard. Systolic murmur noted ABDOMEN: Soft. Nondistended. Nontender. EXTREMITIES: Normal range of motion. No clubbing or cyanosis. Peripheral pulses intact. No lower extremity edema NEUROLOGIC: Awake and alert. Oriented x 3. ASSESSMENT: Shortness of breath Leukocytosis Possible pneumonia Hypotension Acute hypoxic respiratory failure Paroxysmal atrial fibrillation with RVR Coronary artery disease with previous CABG History of TAVR, 2021 Chronic kidney disease Congestive heart failure with preserved EF, currently euvolemic Diabetes Obesity: BMI 43.3 PLAN: No need to repeat echocardiogram as this was performed in the office in August 2024 Decrease Cardizem drip to 5 mg an hour due to hypotension Resume metoprolol. Increase dose to 25 mg twice a day Continue anticoagulation with Eliquis Hold home dose of Lasix secondary to hypotension Continue telemetry monitoring Further recommendations pending patient course Nurse practitioner note has been reviewed by physician. Signing provider agrees with the documented findings, assessment, and plan of care documented by WORKERS COMPENSATION MANAGER as a scribe. Past Medical History Past Medical History: Atrial Fibrillation, Coronary Artery Disease (CAD), Heart Failure, Diabetes Mellitus, Deep Vein Thrombosis (DVT), GERD/Reflux, Hyperlipidemia, Hypertension, Osteoarthritis (OA), Renal Disease, Skin Disorder, Thyroid Disorder Additional Past Medical History / Comment(s): NIDDM type II, neuropathy bilateral hands/feet, DVT L leg, CKD stage IV, gout, anemia-recent transfusion end of May, varicose veins, bilateral ankle edema, cyst on back from past spider bite, had covid in Apr., SOB w/exertion, uses 2l O2 @home prn History of Any Multi-Drug Resistant Organisms: None Reported Past Surgical History: Cardiac Valve Replacement, Cholecystectomy, Coronary Bypass/CABG, Heart Catheterization, Hysterectomy, Joint Replacement, Orthopedic Surgery Additional Past Surgical History / Comment(s): 2011 CABG w/ vessel bypass and aortic valve. 03/07/14 Colonoscopy with EGD and BX. MOSHE. Maximiliano knee and L shoulder Replacement. Sinus surgery. Past Anesthesia/Blood Transfusion Reactions: No Reported Reaction Past Psychological History: Anxiety Smoking Status: Never smoker Past Alcohol Use History: None Reported Past Drug Use History: None Reported - Past Family History Daughter(s) Family Medical History: Cancer Additional Family Medical History / Comment(s): 2 daughters had breast cancer. Father Family Medical History: Cancer, Coronary Artery Disease (CAD) Additional Family Medical History / Comment(s): Father had cancer but pt does not know what type. Father at age 77yrs. Mother Family Medical History: CVA/TIA Additional Family Medical History / Comment(s): Mother had a CVA. She at age 86yrs. Medications and Allergies Home Medications Medication Instructions Recorded Confirmed Type Atorvastatin [Lipitor] 40 mg PO HS 03/03/14 11/18/24 History Glimepiride [Amaryl] 2 mg PO DAILY 03/03/14 11/18/24 History Omeprazole [PriLOSEC] 20 mg PO DAILY 03/03/14 11/18/24 History allopurinoL [Zyloprim] 300 mg PO DAILY 03/03/14 11/18/24 History B Complex W-C No.20/Folic Acid 1 mg PO DAILY 04/09/21 11/18/24 History [Renal Caps Softgel] Levothyroxine Sodium [Synthroid] 25 mcg PO DAILY 04/09/21 11/18/24 History Apixaban [Eliquis] 2.5 mg PO BID 30 Days #60 tab 04/25/21 11/18/24 Rx Furosemide [Lasix] 60 mg PO DAILY 05/23/21 11/18/24 History Multivitamins, Thera [Multivitamin 1 tab PO DAILY 05/23/21 11/18/24 History (formulary)] Zinc 50 mg PO DAILY 05/23/21 11/18/24 History Ferrous Sulfate [Iron (65 MG 325 mg PO DAILY 30 Days #30 tab 05/25/21 11/18/24 Rx Elemental)] Metoprolol Tartrate [Lopressor] 12.5 mg PO BID 08/20/23 11/18/24 History Allergies Allergy/AdvReac Type Severity Reaction Status Date / Time sulfamethoxazole Allergy Rash/Hives Verified 11/18/24 09:48 [From Bactrim] trimethoprim [From Bactrim] Allergy Rash/Hives Verified 11/18/24 09:48 Physical Exam Vitals: Vital Signs Temp Pulse Resp BP Pulse Ox 11/18/24 08:29 111 H 18 120/66 93 L 11/18/24 06:54 109 H 20 96/57 91 L 11/18/24 05:15 113 H 18 132/67 92 L 11/18/24 03:56 135 H 18 138/92 96 11/18/24 03:13 98.3 F 131 H 20 111/64 96 11/18/24 02:22 97.9 F 134 H 22 132/61 95 11/18/24 01:00 135 H 22 132/61 94 L Intake and Output 11/17/24 11/18/24 11/18/24 22:59 06:59 14:59 Intake Total 4.5 41.333 Balance 4.5 41.333 Intake: Intake, IV Titration 4.5 41.333 Amount Diltiazem 125 mg In 4.5 41.333 Dextrose 5% in Water 100 ml @ 5 MG/HR 5 mls/hr IV .Q24H [facility] Rx#:[id number] Other: Weight 107.501 kg Results 11/18/24 01:32 11/18/24 01:32 Cardiac Enzymes 11/18/24 11/18/24 Range/Units 01:32 01:32 AST 21 (14-36) U/L Troponin I 0.015 (0.000-0.034) ng/mL Coagulation 11/18/24 Range/Units 01:32 PT 11.6 (10.0-12.5) sec APTT 23.2 (22.0-30.0) sec CBC 11/18/24 Range/Units 01:32 WBC 22.17 H (4.50-10.00) 10*3/uL RBC 1.89 L (4.10-5.20) 10*6/uL Hgb 8.5 L (12.0-15.0) g/dL Hct 25.0 L (37.2-46.3) % Plt Count 133 L (140-440) 10*3/uL Comprehensive Metabolic Panel 11/18/24 Range/Units 01:32 Sodium 136 L (137-145) mmol/L Potassium 4.0 (3.5-5.1) mmol/L Chloride 98 (98-107) mmol/L Carbon Dioxide 31 H (22-30) mmol/L BUN 104 H* (7-17) mg/dL Creatinine 1.74 H (0.52-1.04) mg/dL Glucose 294 H (74-99) mg/dL Calcium 9.3 (8.4-10.2) mg/dL AST 21 (14-36) U/L ALT 23 (4-34) U/L Alkaline Phosphatase 113 (38-126) U/L Total Protein 6.2 L (6.3-8.2) g/dL Albumin 3.8 (3.5-5.0) g/dL Current Medications Generic Name Dose Route Start Last Admin Trade Name Freq PRN Reason Stop Dose Admin Acetaminophen 650 mg 11/18/24 04:01 Acetaminophen Tab 325 Mg Tab PO Q6HR PRN Mild Pain or Fever > 100.5 Apixaban 2.5 mg 11/18/24 09:00 11/18/24 08:33 Apixaban 2.5 Mg Tablet PO 2.5 mg BID KAROLINA Administration Protocol Diltiazem HCl 125 mg/ Dextrose 125 mls @ 5 mls/hr 11/18/24 02:45 11/18/24 08:08 /Water IV 5 mg/hr .Q24H KAROLINA 5 mls/hr Titration Protocol 5 MG/HR Sodium Chloride 1,000 mls @ 75 mls/hr 11/18/24 04:15 11/18/24 06:57 Saline 0.9% IV 75 mls/hr .[id number] KAROLINA Administration Sodium Chloride 500 mls @ 999 mls/hr 11/18/24 08:07 11/18/24 08:33 Saline 0.9% IV 11/18/24 08:37 999 mls/hr .Q31M ONE Administration Metoprolol Tartrate 25 mg 11/18/24 09:00 11/18/24 08:33 Metoprolol Tartrate 25 Mg Tab PO 25 mg BID KAROLINA Administration Naloxone HCl 0.2 mg 11/18/24 04:01 Naloxone 0.4 Mg/Ml 1 Ml Vial IV Q2M PRN Opioid Reversal Intake and Output 11/17/24 11/18/24 11/18/24 22:59 06:59 14:59 Intake Total 4.5 41.333 Balance 4.5 41.333 Intake: Intake, IV Titration 4.5 41.333 Amount Diltiazem 125 mg In 4.5 41.333 Dextrose 5% in Water 100 ml @ 5 MG/HR 5 mls/hr IV .Q24H [facility] Rx#:[id number] Other: Weight 107.501 kg 11/18/24 01:32 11/18/24 01:32
--- NOTE | 2024-11-18 11:52 | P.HPIM ---
History of Present Illness This is a pleasant 89 years old female with past medical history of multiple medical problems as below. Presents because of confusion and some shortness of breath. She went to see her PCP Dr. Weiss 2 days ago for regular follow-up and that time she was coughing so chest x-ray ordered next days which came back positive for possible pneumonia and patient was referred to the emergency room. Over the last 2 days also family reports patient is going downhill becoming more confused not realizing what was going on around her and she got more tachypneic. Usually she uses 2 L of oxygen all the time. Patient complains from some chest pain with coughing but she is very weak and lethargic Abdomen looks soft no vomiting or diarrhea. No specific urinary complaint. Patient is very generally weak. Family including son at bedside requesting to think about her CODE STATUS, they request to stay full code for now. Patient is hemodynamically stable, she is tachycardic with 111, currently 72. She is saturating 96% on room air. She was slightly hypotensive. She has leukocytosis of 22,000 which is new, hemoglobin 8.5, platelet 130 th rough. Creatinine 1.7 with baseline 1.2-1.7. proBNP is elevated 3120. Chest x-ray showing cardiomegaly with pulmonary vascular congestion rule out atypical infection. EKG showing A-fib with heart rate of 134. Review of Systems Review of systems, with the help of the family CONSTITUTIONAL: No fever, as above HEENT: No recent visual problems or hearing problems. Denied any sore throat. CARDIOVASCULAR: No orthopnea, PND, no palpitations, no syncope. PULMONARY: No chest wall tenderness, no hemoptysis. GASTROINTESTINAL: No diarrhea, no nausea, no vomiting, no abdominal pain. Normoactive bowel sounds. NEUROLOGICAL: No headaches, no weakness, no numbness. HEMATOLOGICAL: Denies any bleeding or petechiae. GENITOURINARY: Denies any burning micturition, frequency, or urgency. MUSCULOSKELETAL/RHEUMATOLOGICAL: Denies any joint pain, swelling, or any muscle pain. ENDOCRINE: Denies any polyuria or polydipsia. Past Medical History Past Medical History: Atrial Fibrillation, Coronary Artery Disease (CAD), Heart Failure, Diabetes Mellitus, Deep Vein Thrombosis (DVT), GERD/Reflux, Hyperlipidemia, Hypertension, Osteoarthritis (OA), Renal Disease, Skin Disorder, Thyroid Disorder Additional Past Medical History / Comment(s): NIDDM type II, neuropathy bilateral hands/feet, DVT L leg, CKD stage IV, gout, anemia-recent transfusion end of May, varicose veins, bilateral ankle edema, cyst on back from past spider bite, had covid in Apr., SOB w/exertion, uses 2l O2 @home prn History of Any Multi-Drug Resistant Organisms: None Reported Past Surgical History: Cardiac Valve Replacement, Cholecystectomy, Coronary Bypass/CABG, Heart Catheterization, Hysterectomy, Joint Replacement, Orthopedic Surgery Additional Past Surgical History / Comment(s): 2011 CABG w/ vessel bypass and aortic valve. 03/07/14 Colonoscopy with EGD and BX. MOSHE. Maximiliano knee and L shoulder Replacement. Sinus surgery. Past Anesthesia/Blood Transfusion Reactions: No Reported Reaction Past Psychological History: Anxiety Smoking Status: Never smoker Past Alcohol Use History: None Reported Past Drug Use History: None Reported - Past Family History Daughter(s) Family Medical History: Cancer Additional Family Medical History / Comment(s): 2 daughters had breast cancer. Father Family Medical History: Cancer, Coronary Artery Disease (CAD) Additional Family Medical History / Comment(s): Father had cancer but pt does not know what type. Father at age 77yrs. Mother Family Medical History: CVA/TIA Additional Family Medical History / Comment(s): Mother had a CVA. She at age 86yrs. Medications and Allergies Home Medications Medication Instructions Recorded Confirmed Type Atorvastatin [Lipitor] 40 mg PO HS 03/03/14 11/18/24 History Glimepiride [Amaryl] 2 mg PO DAILY 03/03/14 11/18/24 History Omeprazole [PriLOSEC] 20 mg PO DAILY 03/03/14 11/18/24 History allopurinoL [Zyloprim] 300 mg PO DAILY 03/03/14 11/18/24 History B Complex W-C No.20/Folic Acid 1 mg PO DAILY 04/09/21 11/18/24 History [Renal Caps Softgel] Levothyroxine Sodium [Synthroid] 25 mcg PO DAILY 04/09/21 11/18/24 History Apixaban [Eliquis] 2.5 mg PO BID 30 Days #60 tab 04/25/21 11/18/24 Rx Furosemide [Lasix] 60 mg PO DAILY 05/23/21 11/18/24 History Multivitamins, Thera [Multivitamin 1 tab PO DAILY 05/23/21 11/18/24 History (formulary)] Zinc 50 mg PO DAILY 05/23/21 11/18/24 History Ferrous Sulfate [Iron (65 MG 325 mg PO DAILY 30 Days #30 tab 05/25/21 11/18/24 Rx Elemental)] Metoprolol Tartrate [Lopressor] 12.5 mg PO BID 08/20/23 11/18/24 History Allergies Allergy/AdvReac Type Severity Reaction Status Date / Time sulfamethoxazole Allergy Rash/Hives Verified 11/18/24 09:48 [From Bactrim] trimethoprim [From Bactrim] Allergy Rash/Hives Verified 11/18/24 09:48 Physical Exam Vitals: Vital Signs Temp Pulse Resp BP Pulse Ox 11/18/24 09:56 72 18 120/71 96 11/18/24 08:29 111 H 18 120/66 93 L 11/18/24 06:54 109 H 20 96/57 91 L 11/18/24 05:15 113 H 18 132/67 92 L 11/18/24 03:56 135 H 18 138/92 96 11/18/24 03:13 98.3 F 131 H 20 111/64 96 11/18/24 02:22 97.9 F 134 H 22 132/61 95 11/18/24 01:00 135 H 22 132/61 94 L Intake and Output 11/17/24 11/18/24 11/18/24 22:59 06:59 14:59 Intake Total 4.5 50.416 Balance 4.5 50.416 Intake: Intake, IV Titration 4.5 50.416 Amount Diltiazem 125 mg In 4.5 50.416 Dextrose 5% in Water 100 ml @ 5 MG/HR 5 mls/hr IV .Q24H [facility] Rx#:[id number] Other: Weight 107.501 kg -GENERAL: The patient is alert and oriented x 1-2, confused, not in any acute distress. Well developed, well nourished. Generally weak HEENT: Pupils are round and equally reacting to light. EOMI. No scleral icterus. No conjunctival pallor. Normocephalic, atraumatic. No pharyngeal erythema. No t hyromegaly. CARDIOVASCULAR: S1 and S2 present. No murmurs, rubs, or gallops. -PULMONARY: Chest is clear to auscultation, no wheezing , bilateral crackles. Tachypneic ABDOMEN: Soft, nontender, nondistended, normoactive bowel sounds. No palpable organomegaly. MUSCULOSKELETAL: No joint swelling or deformity. EXTREMITIES: No cyanosis, clubbing, or pedal edema. NEUROLOGICAL: Gross neurological examination did not reveal any focal deficits. SKIN: No rashes. no petechiae. Results CBC & Chem 7: 11/18/24 01:32 11/18/24 01:32 Labs: Abnormal Lab Results - Last 24 Hours (Table) 11/18/24 11/18/24 Range/Units 01:32 01:32 WBC 22.17 H (4.50-10.00) 10*3/uL RBC 1.89 L (4.10-5.20) 10*6/uL Hgb 8.5 L (12.0-15.0) g/dL Hct 25.0 L (37.2-46.3) % MCV 132.3 H (80.0-97.0) fL MCH 45.0 H (27.0-32.0) pg Plt Count 133 L (140-440) 10*3/uL Immature Gran # 0.57 H (0.00-0.04) 10*3/uL Neutrophils # 18.90 H (1.80-7.70) 10*3/uL Lymphocytes # 0.56 L (0.90-5.00) 10*3/uL Monocytes # 1.92 H (0.20-1.00) 10*3/uL Sodium 136 L (137-145) mmol/L Carbon Dioxide 31 H (22-30) mmol/L BUN 104 H* (7-17) mg/dL Creatinine 1.74 H (0.52-1.04) mg/dL Glucose 294 H (74-99) mg/dL Total Protein 6.2 L (6.3-8.2) g/dL Assessment and Plan Assessment: Bilateral community-acquired pneumonia, could be atypical versus gram-negative Hypotension secondary to above Acute on chronic CHF A-fib with RVR, present on admission Acute kidney injury on CKD stage III Generalized weakness. Coronary artery disease Diabetes mellitus Hypertension Hyperlipidemia History of osteoarthritis Hypothyroidism Plan: Continue with Cardizem drip Continue with Eliquis Cardiac team consult recommended continue with IV fluid Resume antibiotics ceftriaxone Zithromax Check procalcitonin Pulmonary team consult Labs and medication were reviewed.. Continue same treatment. Continue with symptomatic treatment. Resume home medication. Monitor lytes and vitals. DVT and GI prophylaxis. Further recommendations depends on the clinical course of the patient DVT prophylaxis: Eliquis GI Prophylaxis: Pepcid PT/OT: Pending Prognosis is guarded
[2024-11-18] MEDS: FUROSEMIDE 20 MG TAB PO SCH (12:28)
--- NOTE | 2024-11-18 15:39 | P.NPCON ---
History of Present Illness - Reason for Consult chronic renal failure - History of Present Illness Patient is an 89-year-old female with history of chronic kidney disease stage IV with baseline creatinine 1.4 to 1.7 mg/dL. Underlying history of type 2 diabetes, hypertension, A-fib. Patient has had cough for about 1 to 2 weeks, progressively getting worse. She was seen by her PCP and chest x-ray was performed. Patient was advised to go to the hospital as there was concern for pneumonia. No history of fever. Cough has been productive No significant chest pain Patient was noted to be in A-fib with RVR with heart rate in the 130s. Chest x-ray shows bilateral infiltrates. Pleural effusions noted along with cardiomegaly. No significant urinary symptoms. Serum creatinine at 1.7 mg/dL. Blood pressure was low with systolic noted in the 90s Currently maintained on Cardizem drip Past Medical History Past Medical History: Atrial Fibrillation, Coronary Artery Disease (CAD), Heart Failure, Diabetes Mellitus, Deep Vein Thrombosis (DVT), GERD/Reflux, Hyperli pidemia, Hypertension, Osteoarthritis (OA), Renal Disease, Skin Disorder, Thyroid Disorder Additional Past Medical History / Comment(s): NIDDM type II, neuropathy bilateral hands/feet, DVT L leg, CKD stage IV, gout, anemia-recent transfusion end of May, varicose veins, bilateral ankle edema, cyst on back from past spider bite, had covid in Apr., SOB w/exertion, uses 2l O2 @home prn History of Any Multi-Drug Resistant Organisms: None Reported Past Surgical History: Cardiac Valve Replacement, Cholecystectomy, Coronary Bypass/CABG, Heart Catheterization, Hysterectomy, Joint Replacement, Orthopedic Surgery Additional Past Surgical History / Comment(s): 2011 CABG w/ 5 vessel bypass and aortic valve. 03/07/14 Colonoscopy with EGD and BX. MOSHE. Maximiliano knee and L shoulder Replacement. Sinus surgery. Past Anesthesia/Blood Transfusion Reactions: No Reported Reaction Past Psychological History: Anxiety Smoking Status: Never smoker Past Alcohol Use History: None Reported Past Drug Use History: None Reported - Past Family History Daughter(s) Family Medical History: Cancer Additional Family Medical History / Comment(s): 2 daughters had breast cancer. Father Family Medical History: Cancer, Coronary Artery Disease (CAD) Additional Family Medical History / Comment(s): Father had cancer but pt does not know what type. Father at age 77yrs. Mother Family Medical History: CVA/TIA Additional Family Medical History / Comment(s): Mother had a CVA. She at age 86yrs. Medications and Allergies Home Medications Medication Instructions Recorded Confirmed Type Atorvastatin [Lipitor] 40 mg PO HS 03/03/14 11/18/24 History Glimepiride [Amaryl] 2 mg PO DAILY 03/03/14 11/18/24 History Omeprazole [PriLOSEC] 20 mg PO DAILY 03/03/14 11/18/24 History allopurinoL [Zyloprim] 300 mg PO DAILY 03/03/14 11/18/24 History B Complex W-C No.20/Folic Acid 1 mg PO DAILY 04/09/21 11/18/24 History [Renal Caps Softgel] Levothyroxine Sodium [Synthroid] 25 mcg PO DAILY 04/09/21 11/18/24 History Apixaban [Eliquis] 2.5 mg PO BID 30 Days #60 tab 04/25/21 11/18/24 Rx Furosemide [Lasix] 60 mg PO DAILY 05/23/21 11/18/24 History Multivitamins, Thera [Multivitamin 1 tab PO DAILY 05/23/21 11/18/24 History (formulary)] Zinc 50 mg PO DAILY 05/23/21 11/18/24 History Ferrous Sulfate [Iron (65 MG 325 mg PO DAILY 30 Days #30 tab 05/25/21 11/18/24 Rx Elemental)] Metoprolol Tartrate [Lopressor] 12.5 mg PO BID 08/20/23 11/18/24 History Allergies Allergy/AdvReac Type Severity Reaction Status Date / Time sulfamethoxazole Allergy Rash/Hives Verified 11/18/24 09:48 [From Bactrim] trimethoprim [From Bactrim] Allergy Rash/Hives Verified 11/18/24 09:48 Physical Exam Vitals: Vital Signs Temp Pulse Resp BP Pulse Ox 11/18/24 11:52 83 20 116/70 94 L 11/18/24 09:56 72 18 120/71 96 11/18/24 08:29 111 H 18 120/66 93 L 11/18/24 06:54 109 H 20 96/57 91 L 11/18/24 05:15 113 H 18 132/67 92 L 11/18/24 03:56 135 H 18 138/92 96 11/18/24 03:13 98.3 F 131 H 20 111/64 96 11/18/24 02:22 97.9 F 134 H 22 132/61 95 11/18/24 01:00 135 H 22 132/61 94 L Intake and Output 11/18/24 11/18/24 11/18/24 06:59 14:59 22:59 Intake Total 4.5 50.416 Balance 4.5 50.416 Intake: Intake, IV Titration 4.5 50.416 Amount Diltiazem 125 mg In 4.5 50.416 Dextrose 5% in Water 100 ml @ 5 MG/HR 5 mls/hr IV .Q24H [facility] Rx#:[id number] Other: Weight 107.501 kg Patient is awake, no acute distress Examination of the heart S1 and S2 Examination of the lungs bilateral basal crackles are heard occasional wheezing Abdomen is soft obese nontender Examination of lower extremity shows edema 1+ bilateral WILDLIFE SCIENCE PROFESSOR exam grossly intact Results - Lab Results Most recent lab results Calcium 9.3 mg/dL (8.4-10.2) 11/18/24 01:32 Magnesium 2.2 mg/dL (1.6-2.3) 11/18/24 01:32 11/18/24 01:32 11/18/24 01:32 Assessment and Plan Assessment: 1. Chronic kidney disease stage IV with baseline creatinine 1.4 to 1.7 mg/dL secondary to nephrosclerosis. Check UA. Check ultrasound of the kidneys if renal function continues to worsen 2. A-fib with RVR maintained on Cardizem drip 3. Volume overload 4. CHF with preserved ejection fraction, EF was 50 to 55% in 2021 5. Pneumonia, maintained on antibiotics Plan: DC IV fluids Continue with oral Lasix Repeat labs in a.m. Check UA Check ultrasound of the kidneys if renal function continues to worsen Avoid nephrotoxic agents Continue with antibiotics Thank you for the consultation. We will continue to follow the patient with you during her hospitalization.
[2024-11-18 16:26] LABS: Appearance,Urine Cloudy (Clear); Bacteria,Urine Occasional /hpf; Bilirubin,Urine Negative (Negative); Blood,Urine Small (Negative); Color,Urine Yellow; Glucose,Urine (UA) Negative (Negative); Ketones,Urine Negative (Negative); Leukocyte Esterase,Urine Large (Negative); Mucus,Urine Rare /hpf; Nitrite,Urine Negative (Negative); Protein,Urine Trace (Negative); RBC,Urine 1 /hpf (0-5); Specific Gravity,Urine 1.025 (1.001-1.035); Squamous Epithelial Cell,Urine 1 /hpf (0-4); WBC,Urine 71 /hpf (0-5)
[2024-11-18] MEDS: FAMOTIDINE 20 MG/2 ML VIAL IV SCH (21:03)
[2024-11-18] MEDS: ATORVASTATIN 40 MG TAB PO SCH (21:03)
[2024-11-18] MEDS: IPRATROPIUM-ALBUTEROL 3 ML NEB INHALATION STA (21:08)
[2024-11-19] MEDS ORDERED: IPRATROPIUM-ALBUTEROL 3 ML NEB INHALATION SCH
[2024-11-19 05:57] LABS: Glucose,Whole Blood 227 mg/dL (70-110)
[2024-11-19] MEDS: LEVOTHYROXINE 25 MCG TAB PO SCH (06:04)
[2024-11-19] MEDS ORDERED: DEXTROSE 50% SYRINGE 50 ML IVP PRN ×2 (07:21)
[2024-11-19 07:31] LABS: Glucose,Whole Blood 233 mg/dL (70-110)
[2024-11-19] MEDS: IPRATROPIUM-ALBUTEROL 3 ML NEB INHALATION SCH (07:57)
[2024-11-19] MEDS: AZITHROMYCIN 500 MG TAB PO SCH (08:27)
[2024-11-19] MEDS: allopurinoL 300 MG TAB PO SCH (08:27)
[2024-11-19] MEDS: FUROSEMIDE 10 MG/ML 4 ML VIAL IV STA (08:36)
[2024-11-19 08:45] LABS: Basophils % (A) 0.4 %; Eosinophils # (A) 0.12 10*3/uL (0.04-0.35); Eosinophils % (A) 0.4 %; HCT 25.5 % (37.2-46.3); HGB 8.4 g/dL (12.0-15.0); Lymphocytes % (A) 2.5 %; MCHC 32.9 g/dL (32.0-37.0); MCV 136.4 fL (80.0-97.0); Mean Platelet Volume 11.4 fL (9.5-12.2); Monocytes % (A) 6.8 %; Neutrophils # (A) 24.45 10*3/uL (1.80-7.70); Neutrophils % (A) 87.4 %; Platelet Count 129 10*3/uL (140-440); RBC 1.87 10*6/uL (4.10-5.20); RDW 15.4 % (11.5-14.5); WBC 27.96 10*3/uL (4.50-10.00)
[2024-11-19 08:47] LABS: African American GFR (CKD) 33 (>60 ml/min/1.73 sqM); Anion Gap 12 mmol/L; Blood Urea Nitrogen 99 mg/dL (7-17); Calcium 9.1 mg/dL (8.4-10.2); Carbon Dioxide 27 mmol/L (22-30); Chloride 102 mmol/L (98-107); Glucose 203 mg/dL (74-99); Non-African American GFR(CKD) 28 (>60 ml/min/1.73 sqM); Potassium 3.9 mmol/L (3.5-5.1); Sodium 141 mmol/L (137-145)
[2024-11-19 08:50] LABS: MCH 44.9 pg (27.0-32.0)
--- NOTE | 2024-11-19 09:04 | XR ---
EXAMINATION TYPE: XR chest 1V portable DATE OF EXAM: 11/19/2024 8:57 AM COMPARISON: Chest radiographs from 11/18/2024. CLINICAL INDICATION: Female, 89 years old with history of increased O2 demand; TECHNIQUE: XR chest 1V portable Frontal view of the chest. FINDINGS: Lungs/Pleura: Multifocal airspace opacities. No evidence of pneumothorax or pleural effusion. Pulmonary vascularity: Diffuse haziness the lungs Heart/mediastinum: Cardiomediastinal silhouette is enlarged. Atherosclerotic calcifications are seen in the aorta. Musculoskeletal: No acute osseous pathology. Left shoulder arthroplasty appears intact. Midline adames otomy wires are noted. IMPRESSION: Multifocal airspace opacities concerning for pneumonia versus pulmonary edema. [facility], , 11/19/2024 9:02 AM
--- NOTE | 2024-11-19 10:14 | P.PN ---
Subjective Progress Note Date: 11/19/24 following for DONNY on CKD patient seen today. no significant events, getting IV antibiotics Cr. 1.6 from 1.7 on PO Lasix, UO not charted , on 12 L O 2 this morning Objective - Vital Signs Vital signs: Vital Signs Temp 98.2 F 11/18/24 21:10 Pulse 104 H 11/19/24 08:07 Resp 20 11/19/24 03:46 BP 143/76 11/19/24 03:45 Pulse Ox 96 11/19/24 07:57 FiO2 Intake & Output 11/18/24 11/19/24 11/19/24 18:59 06:59 18:59 Intake Total 50.416 780 Balance 50.416 780 Weight 78.4 kg Intake: Intake, IV Titration 50.416 Amount Diltiazem 125 mg In 50.416 Dextrose 5% in Water 100 ml @ 5 MG/HR 5 mls/hr IV .Q24H [facility] Rx#:[id number] Oral 780 Other: Voiding Method Diaper # Voids 2 # Bowel Movements 1 - Exam Patient is awake, no acute distress Examination of the heart S1 and S2 Examination of the lungs bilateral basal crackles are heard occasional wheezing Abdomen is soft obese nontender Examination of lower extremity shows edema 1+ bilateral CEREAL CHEMIST exam grossly intact - Labs CBC & Chem 7: 11/19/24 07:45 11/19/24 07:45 Labs: Abnormal Lab Results - Last 24 Hours (Table) 11/18/24 11/19/24 11/19/24 Range/Units 16:09 05:56 07:30 WBC (4.50-10.00) 10*3/uL RBC (4.10-5.20) 10*6/uL Hgb (12.0-15.0) g/dL Hct (37.2-46.3) % MCV (80.0-97.0) fL MCH (27.0-32.0) pg Plt Count (140-440) 10*3/uL Immature Gran # (0.00-0.04) 10*3/uL BUN (7-17) mg/dL Creatinine (0.52-1.04) mg/dL Glucose (74-99) mg/dL POC Glucose (mg/dL) 227 H 233 H (70-110) mg/dL Urine Appearance Cloudy H (Clear) Urine Protein Trace H (Negative) Urine Blood Small H (Negative) Ur Leukocyte Esterase Large H (Negative) Urine WBC 71 H (0-5) /hpf Urine Bacteria Occasional H (None) /hpf Urine Mucus Rare H (None) /hpf 11/19/24 11/19/24 Range/Units 07:45 07:45 WBC 27.96 H (4.50-10.00) 10*3/uL RBC 1.87 L (4.10-5.20) 10*6/uL Hgb 8.4 L (12.0-15.0) g/dL Hct 25.5 L (37.2-46.3) % MCV 136.4 H (80.0-97.0) fL MCH 44.9 H (27.0-32.0) pg Plt Count 129 L (140-440) 10*3/uL Immature Gran # 0.69 H (0.00-0.04) 10*3/uL BUN 99 H (7-17) mg/dL Creatinine 1.61 H (0.52-1.04) mg/dL Glucose 203 H (74-99) mg/dL POC Glucose (mg/dL) (70-110) mg/dL Urine Appearance (Clear) Urine Protein (Negative) Urine Blood (Negative) Ur Leukocyte Esterase (Negative) Urine WBC (0-5) /hpf Urine Bacteria (None) /hpf Urine Mucus (None) /hpf Assessment and Plan Assessment: 1. Chronic kidney disease stage IV with baseline creatinine 1.4 to 1.7 mg/dL secondary to nephrosclerosis. UA + WBC, trace proteins. Check ultrasound of the kidneys if renal function continues to worsen 2. A-fib with RVR maintained on Cardizem drip 3. Volume overload 4. CHF with preserved ejection fraction, EF was 50 to 55% in 2021 5. Pneumonia, maintained on antibiotics Plan: stable renal function, Continue with oral Lasix monitor UO Repeat labs in a.m. Check ultrasound of the kidneys if renal function continues to worsen Avoid nephrotoxic agents Continue with antibiotics
--- NOTE | 2024-11-19 10:58 | P.PN ---
Subjective HISTORY OF PRESENT ILLNESS: This is a 89-year-old female with a past medical history significant for TAVR, atrial fibrillation, coronary artery disease with previous CABG, congestive heart failure, diabetes. Patient follows in the office with []. We have been asked to see the patient in consultation for A-fib with RVR. Patient examined at the bedside in the emergency room. Patient's family is present. Patient reports she has been having a cough recently. She is also been complaining of shortness of breath. She denies any chest pain or pressure. Patient was found to be in A-fib with RVR. She was started on IV Cardizem which is infusing at 10 mg an hour. She remains in atrial fibrillation with heart rate around 110. Blood pressure 81/47 at the time of examination. DIAGNOSTICS: - EKG reveals A-fib with RVR - Chest xray bilateral airspace opacities may represent pulmonary edema and/or atypical infection, cardiomegaly, small bilateral pleural effusions - Laboratory data: WBC 22.17. Hemoglobin 8.5. Platelet count 133. Sodium 136. Potassium 4.0. BUN 104. Creatinine 1.74. Troponin negative x 1. proBNP 3120. - Current home cardiac medications include Eliquis 2.5 mg twice a day, Lipitor 40 mg at night, Lasix 60 mg daily, metoprolol tartrate 12.5 mg twice daily. - Most recent echocardiogram obtained in August 2024 at the cardiology office reveals ejection fraction 55%, transcatheter AV prosthesis with normal function, aortic valve prosthetic mechanical dysfunction, mild mitral stenosis, mild tricuspid regurgitation. - Cardiac catheterization history: June 2021 revealed chicken [place] CAD with 90% proximal LAD, mid circumflex 75 to 80% and mid RCA 60 to 70% stenosis. Patent TAVERAS to LAD, SVG, and diagonal grafts. Occluded SVG graft to PDA/PLV and SVG to OM. 11/19/2024 Patient examined this morning at bedside. Patient currently denies chest pain or pressure. Patient did have an episode this morning of increased hypoxia and shortness of breath. She has been given a dose of IV Lasix per primary medicine. She remains in atrial fibrillation with controlled ventricular rate. Cardizem drip has been off. She is currently on 12 L nasal cannula. PHYSICAL EXAM: VITAL SIGNS: Reviewed. GENERAL: Well-developed in no acute distress. HEENT: Head is normocephalic. Pupils are equal, round. Sclerae anicteric. Mucous membranes of the mouth are moist. Neck supple. No JVD or thyromegaly LUNGS: Respirations even and unlabored. Lungs diminished with wheezing and bibasilar crackles HEART: Irregular rate and rhythm. S1 and S2 heard. Systolic murmur noted ABDOMEN: Soft. Nondistended. Nontender. EXTREMITIES: Normal range of motion. No clubbing or cyanosis. Peripheral pulses intact. No lower extremity edema NEUROLOGIC: Awake and alert. Oriented x 3. ASSESSMENT: Shortness of breath Leukocytosis Bilateral pneumonia Hypotension, resolved Acute on chronic heart failure with preserved EF Acute hypoxic respiratory failure Paroxysmal atrial fibrillation with RVR Coronary artery disease with previous CABG History of TAVR, 2021 Chronic kidney disease Diabetes Obesity: BMI 43.3 PLAN: No need to repeat echocardiogram as this was performed in the office in August 2024 Patient to receive a one-time dose of IV Lasix this morning. Then resume oral Lasix Continue additional cardiac medications Continue telemetry monitoring Further recommendations pending patient course Nurse practitioner note has been reviewed by physician. Signing provider agrees with the documented findings, assessment, and plan of care documented by SENIOR INSPECTOR as a scribe. Objective - Vital Signs Vital signs: Vital Signs Temp 98.2 F 11/18/24 21:10 Pulse 104 H 11/19/24 08:07 Resp 20 11/19/24 03:46 BP 143/76 11/19/24 03:45 Pulse Ox 96 11/19/24 07:57 FiO2 Intake & Output 11/18/24 11/19/24 11/19/24 18:59 06:59 18:59 Intake Total 50.416 780 Balance 50.416 780 Weight 78.4 kg Intake: Intake, IV Titration 50.416 Amount Diltiazem 125 mg In 50.416 Dextrose 5% in Water 100 ml @ 5 MG/HR 5 mls/hr IV .Q24H [facility] Rx#:[id number] Oral 780 Other: Voiding Method Diaper # Voids 2 # Bowel Movements 1 - Labs CBC & Chem 7: 11/19/24 07:45 11/19/24 07:45 Labs: Abnormal Lab Results - Last 24 Hours (Table) 11/18/24 11/19/24 11/19/24 Range/Units 16:09 05:56 07:30 WBC (4.50-10.00) 10*3/uL RBC (4.10-5.20) 10*6/uL Hgb (12.0-15.0) g/dL Hct (37.2-46.3) % MCV (80.0-97.0) fL MCH (27.0-32.0) pg Plt Count (140-440) 10*3/uL Immature Gran # (0.00-0.04) 10*3/uL BUN (7-17) mg/dL Creatinine (0.52-1.04) mg/dL Glucose (74-99) mg/dL POC Glucose (mg/dL) 227 H 233 H (70-110) mg/dL Urine Appearance Cloudy H (Clear) Urine Protein Trace H (Negative) Urine Blood Small H (Negative) Ur Leukocyte Esterase Large H (Negative) Urine WBC 71 H (0-5) /hpf Urine Bacteria Occasional H (None) /hpf Urine Mucus Rare H (None) /hpf 11/19/24 11/19/24 Range/Units 07:45 07:45 WBC 27.96 H (4.50-10.00) 10*3/uL RBC 1.87 L (4.10-5.20) 10*6/uL Hgb 8.4 L (12.0-15.0) g/dL Hct 25.5 L (37.2-46.3) % MCV 136.4 H (80.0-97.0) fL MCH 44.9 H (27.0-32.0) pg Plt Count 129 L (140-440) 10*3/uL Immature Gran # 0.69 H (0.00-0.04) 10*3/uL BUN 99 H (7-17) mg/dL Creatinine 1.61 H (0.52-1.04) mg/dL Glucose 203 H (74-99) mg/dL POC Glucose (mg/dL) (70-110) mg/dL Urine Appearance (Clear) Urine Protein (Negative) Urine Blood (Negative) Ur Leukocyte Esterase (Negative) Urine WBC (0-5) /hpf Urine Bacteria (None) /hpf Urine Mucus (None) /hpf
--- NOTE | 2024-11-19 11:28 | P.PN ---
Subjective This is a pleasant 89 years old female with past medical history of multiple medical problems as below. Presents because of confusion and some shortness of breath. She went to see her PCP Dr. Weiss 2 days ago for regular follow-up and that time she was coughing so chest x-ray ordered next days which came back positive for possible pneumonia and patient was referred to the emergency room. Over the last 2 days also family reports patient is going downhill becoming more confused not realizing what was going on around her and she got more tachypneic. Usually she uses 2 L of oxygen all the time. Patient complains from some chest pain with coughing but she is very weak and lethargic Abdomen looks soft no vomiting or diarrhea. No specific urinary complaint. Patient is very generally weak. Family including son at bedside requesting to think about her CODE STATUS, they request to stay full code for now. Patient is hemodynamically stable, she is tachycardic with 111, currently 72. She is saturating 96% on room air. She was slightly hypotensive. She has leukocytosis of 22,000 which is new, hemoglobin 8.5, platelet 130 through. Creatinine 1.7 with baseline 1.2-1.7. proBNP is elevated 3120. Chest x-ray showing cardiomegaly with pulmonary vascular congestion rule out atypical infection. EKG showing A-fib with heart rate of 134. 6/14 Patient required more oxygen today 12 L/min She is more confused cannot provide information Family at bedside I discussed the case with the family they considering DNR for her Repeat chest x-ray today showing similar findings. Multifocal airspace opacity concerning for pneumonia versus pulmonary edema Currently on ceftriaxone Zithromax and Lasix x 1 She is continued on Cardizem drip for tachycardia and Eliquis 2.5, this can to be switched to oral medication per test clerk Active Medications Generic Name Dose Route Start Last Admin Trade Name Freq PRN Reason Stop Dose Admin Acetaminophen 650 mg 11/18/24 04:01 Acetaminophen Tab 325 Mg Tab PO Q6HR PRN Mild Pain or Fever > 100.5 Albuterol/Ipratropium 3 ml 11/19/24 08:00 11/19/24 07:57 Ipratropium-Albuterol 3 Ml Neb INHALATION 3 ml RT-QID AKROLINA Administration Allopurinol 300 mg 11/19/24 09:00 11/19/24 08:27 Allopurinol 300 Mg Tab PO 300 mg DAILY KAROLINA Administration Apixaban 2.5 mg 11/18/24 09:00 11/19/24 08:27 Apixaban 2.5 Mg Tablet PO 2.5 mg BID KAROLINA Administration Protocol Atorvastatin Calcium 40 mg 11/18/24 21:00 11/18/24 21:03 Atorvastatin 40 Mg Tab PO 40 mg HS KAROLINA Administration Azithromycin 500 mg 11/19/24 09:00 11/19/24 08:27 Azithromycin 500 Mg Tab PO 11/20/24 09:01 500 mg DAILY KAROLINA Administration Protocol Dextrose/Water 25 ml 11/19/24 07:21 Dextrose 50% Syringe 50 Ml IVP PER PROTOCOL PRN Hypoglycemia Protocol Dextrose/Water 50 ml 11/19/24 07:21 Dextrose 50% Syringe 50 Ml IVP PER PROTOCOL PRN Hypoglycemia Protocol Famotidine 10 mg 11/18/24 21:00 11/19/24 08:27 Famotidine 20 Mg/2 Ml Vial IV 10 mg Q12HR KAROLINA Administration Furosemide 60 mg 11/18/24 12:00 11/19/24 08:28 Furosemide 20 Mg Tab PO Not Given DAILY [facility] Ceftriaxone Sodium 1 gm/ 50 mls @ 100 mls/hr 11/19/24 09:00 11/19/24 08:28 Sodium Chloride IVPB 100 mls/hr Q24HR [facility] Administration Protocol Insulin Human Lispro 0 unit 11/19/24 12:30 Insulin Lispro (Humalog) 100 Unit/Ml 10 Ml Vl SQ ACHS [facility] Protocol Levothyroxine Sodium 25 mcg 11/19/24 06:30 11/19/24 06:04 Levothyroxine 25 Mcg Tab PO Not Given DAILY@0630 [facility] Metoprolol Tartrate 25 mg 11/18/24 09:00 11/19/24 08:27 Metoprolol Tartrate 25 Mg Tab PO 25 mg BID KAROLINA Administration Naloxone HCl 0.2 mg 11/18/24 04:01 Naloxone 0.4 Mg/Ml 1 Ml Vial IV Q2M PRN Opioid Reversal Objective - Vital Signs Vital signs: Vital Signs Temp 98.2 F 11/18/24 21:10 Pulse 104 H 11/19/24 08:07 Resp 20 11/19/24 03:46 BP 143/76 11/19/24 03:45 Pulse Ox 96 11/19/24 07:57 FiO2 Intake & Output 11/18/24 11/19/24 11/19/24 18:59 06:59 18:59 Intake Total 50.416 780 Balance 50.416 780 Weight 78.4 kg Intake: Intake, IV Titration 50.416 Amount Diltiazem 125 mg In 50.416 Dextrose 5% in Water 100 ml @ 5 MG/HR 5 mls/hr IV .Q24H [facility] Rx#:[id number] Oral 780 Other: Voiding Method Diaper # Voids 2 # Bowel Movements 1 - Exam -GENERAL: The patient is al drowsy and confused, not in any acute distress. Well developed, well nourished. HEENT: Pupils are round and equally reacting to light. EOMI. No scleral icterus. No conjunctival pallor. Normocephalic, atraumatic. No pharyngeal erythema. No thyromegaly. CARDIOVASCULAR: S1 and S2 present. No murmurs, rubs, or gallops. -PULMONARY: Chest is clear to auscultation, no wheezing , bilateral crackles. Decreased air entry on both sides ABDOMEN: Soft, nontender, nondistended, normoactive bowel sounds. No palpable organomegaly. MUSCULOSKELETAL: No joint swelling or deformity. EXTREMITIES: No cyanosis, clubbing, or pedal edema. NEUROLOGICAL: Gross neurological examination did not reveal any focal deficits. SKIN: No rashes. no petechiae. - Labs CBC & Chem 7: 11/19/24 07:45 11/19/24 07:45 Labs: Abnormal Lab Results - Last 24 Hours (Table) 11/18/24 11/19/24 11/19/24 Range/Units 16:09 05:56 07:30 WBC (4.50-10.00) 10*3/uL RBC (4.10-5.20) 10*6/uL Hgb (12.0-15.0) g/dL Hct (37.2-46.3) % MCV (80.0-97.0) fL MCH (27.0-32.0) pg Plt Count (140-440) 10*3/uL Immature Gran # (0.00-0.04) 10*3/uL BUN (7-17) mg/dL Creatinine (0.52-1.04) mg/dL Glucose (74-99) mg/dL POC Glucose (mg/dL) 227 H 233 H (70-110) mg/dL Urine Appearance Cloudy H (Clear) Urine Protein Trace H (Negative) Urine Blood Small H (Negative) Ur Leukocyte Esterase Large H (Negative) Urine WBC 71 H (0-5) /hpf Urine Bacteria Occasional H (None) /hpf Urine Mucus Rare H (None) /hpf 11/19/24 11/19/24 Range/Units 07:45 07:45 WBC 27.96 H (4.50-10.00) 10*3/uL RBC 1.87 L (4.10-5.20) 10*6/uL Hgb 8.4 L (12.0-15.0) g/dL Hct 25.5 L (37.2-46.3) % MCV 136.4 H (80.0-97.0) fL MCH 44.9 H (27.0-32.0) pg Plt Count 129 L (140-440) 10*3/uL Immature Gran # 0.69 H (0.00-0.04) 10*3/uL BUN 99 H (7-17) mg/dL Creatinine 1.61 H (0.52-1.04) mg/dL Glucose 203 H (74-99) mg/dL POC Glucose (mg/dL) (70-110) mg/dL Urine Appearance (Clear) Urine Protein (Negative) Urine Blood (Negative) Ur Leukocyte Esterase (Negative) Urine WBC (0-5) /hpf Urine Bacteria (None) /hpf Urine Mucus (None) /hpf Assessment and Plan Assessment: Bilateral community-acquired pneumonia, could be atypical versus gram-negative Acute hypoxic respiratory failure Hypotension secondary to above Acute on chronic CHF A-fib with RVR, present on admission Acute kidney injury on CKD stage III Generalized weakness. Coronary artery disease Diabetes mellitus Hypertension Hyperlipidemia History of osteoarthritis Hypothyroidism Plan: Continue with Cardizem drip Continue with Eliquis Continue with Lasix. Hold IV fluids Resume antibiotics ceftriaxone Zithromax Check procalcitonin Pulmonary team consult Labs and medication were reviewed.. Continue same treatment. Continue with symptomatic treatment. Resume home medication. Monitor lytes and vitals. DVT and GI prophylaxis. Further recommendations depends on the clinical course of the patient DVT prophylaxis: Eliquis GI Prophylaxis: Pepcid PT/OT: Pending Prognosis is guarded
[2024-11-19 11:42] LABS: Glucose,Whole Blood 252 mg/dL (70-110)
[2024-11-19] MEDS: INSULIN LISPRO (HumaLOG) 100 UNIT/ML 10 mL VL SQ SCH (11:48)
--- NOTE | 2024-11-19 13:19 | P.CNPUL ---
History of Present Illness Consult date: 11/19/24 Requesting physician: Jessika Nieves Reason for consult: dyspnea Chief complaint: Shortness of breath History of present illness: This is an 89-year-old female with history of multiple medical problems including previous history of TAVR, chronic atrial fibrillation, coronary artery disease with previous CABG, chronic diastolic congestive heart failure, diabetes, chronic kidney disease, and again she had previous history of congestive heart failure with preserved ejection fraction. Patient was brought into the ER mostly with complaints of shortness of breath. Upon arrival patient was noted to be in atrial fibrillation with RVR, she was started on Cardizem initially at 10 mg/h, and during my evaluation the patient was on 5 mg/h of Cardizem drip. Blood pressure initially was 81/47 with a heart rate of 110. When I was seeing the patient, patient had a heart rate of 83, blood pressure w as 120/73, she was also on 12 L high flow nasal cannula. Chest x-ray showed leukocytosis with WBC of 27.96 hemoglobin was noted to be low at 8.4, her usual hemoglobin is in the range of 9.5-10. Electrolytes were noted to be normal BUN 99 creatinine 1.61. Her BNP level is 12,700. Procalcitonin level is pending. Symptoms spears the patient is not a great historian, but she denied any fever or chills, denied any cough, but she does have shortness of breath. Chest x-ray showed bilateral interstitial opacities, of course the differential diagnosis would be pneumonia and/or pulmonary edema, based on her elevated BNP level and based on her cardiac history, I believe this is mostly pulmonary edema in the setting of atrial fibrillation with RVR, doubt pneumonia but the patient will be empirically now on antibiotics, in the meantime she is receiving also diuretics. Follow-up chest x-ray will be done in the next 24 hours, and procalcitonin will be available by tomorrow. Review of Systems Patient is a very poor historian could not get much information from the betty alvarez, and no family members available. Reviewed the review of systems from other consultants. Past Medical History Past Medical History: Atrial Fibrillation, Coronary Artery Disease (CAD), Heart Failure, Diabetes Mellitus, Deep Vein Thrombosis (DVT), GERD/Reflux, Hyperlipidemia, Hypertension, Osteoarthritis (OA), Renal Disease, Skin Disorder, Thyroid Disorder Additional Past Medical History / Comment(s): NIDDM type II, neuropathy bilateral hands/feet, DVT L leg, CKD stage IV, gout, anemia-recent transfusion end of May, varicose veins, bilateral ankle edema, cyst on back from past spider bite, had covid in Apr., SOB w/exertion, uses 2l O2 @home prn History of Any Multi-Drug Resistant Organisms: None Reported Past Surgical History: Cardiac Valve Replacement, Cholecystectomy, Coronary Bypass/CABG, Heart Catheterization, Hysterectomy, Joint Replacement, Orthopedic Surgery Additional Past Surgical History / Comment(s): 2011 CABG w/ vessel bypass and aortic valve. 03/07/14 Colonoscopy with EGD and BX. MOSHE. Maximiliano knee and L shoulder Replacement. Sinus surgery. Past Anesthesia/Blood Transfusion Reactions: No Reported Reaction Past Psychological History: Anxiety Additional Psychological History / Comment(s): Pt resides with her son. She uses a walker Smoking Status: Never smoker Past Alcohol Use History: None Reported Past Drug Use History: None Reported - Past Family History Daughter(s) Family Medical History: Cancer Additional Family Medical History / Comment(s): 2 daughters had breast cancer. Father Family Medical History: Cancer, Coronary Artery Disease (CAD) Additional Family Medical History / Comment(s): Father had cancer but pt does not know what type. Father at age 77yrs. Mother Family Medical History: CVA/TIA Additional Family Medical History / Comment(s): Mother had a CVA. She at age 86yrs. Medications and Allergies Home Medications Medication Instructions Recorded Confirmed Type Atorvastatin [Lipitor] 40 mg PO HS 03/03/14 11/18/24 History Glimepiride [Amaryl] 2 mg PO DAILY 03/03/14 11/18/24 History Omeprazole [PriLOSEC] 20 mg PO DAILY 03/03/14 11/18/24 History allopurinoL [Zyloprim] 300 mg PO DAILY 03/03/14 11/18/24 History B Complex W-C No.20/Folic Acid 1 mg PO DAILY 04/09/21 11/18/24 History [Renal Caps Softgel] Levothyroxine Sodium [Synthroid] 25 mcg PO DAILY 04/09/21 11/18/24 History Apixaban [Eliquis] 2.5 mg PO BID 30 Days #60 tab 04/25/21 11/18/24 Rx Furosemide [Lasix] 60 mg PO DAILY 05/23/21 11/18/24 History Multivitamins, Thera [Multivitamin 1 tab PO DAILY 05/23/21 11/18/24 History (formulary)] Zinc 50 mg PO DAILY 05/23/21 11/18/24 History Ferrous Sulfate [Iron (65 MG 325 mg PO DAILY 30 Days #30 tab 05/25/21 11/18/24 Rx Elemental)] Metoprolol Tartrate [Lopressor] 12.5 mg PO BID 08/20/23 11/18/24 History Allergies Allergy/AdvReac Type Severity Reaction Status Date / Time sulfamethoxazole Allergy Rash/Hives Verified 11/18/24 09:48 [From Bactrim] trimethoprim [From Bactrim] Allergy Rash/Hives Verified 11/18/24 09:48 Physical Exam Vitals: Vital Signs Temp Pulse Pulse Resp BP BP Pulse Ox 11/19/24 12:00 96.6 F L 83 22 120/73 100 11/19/24 11:51 78 11/19/24 11:37 80 11/19/24 08:07 104 H 11/19/24 08:00 97.4 F L 105 H 25 H 118/74 97 11/19/24 07:57 102 H 96 11/19/24 03:46 20 90 L 11/19/24 03:45 89 20 143/76 86 L 11/18/24 23:34 89 24 116/78 90 L 11/18/24 23:30 24 85 L 11/18/24 21:10 98.2 F 106 H 22 142/72 94 L 11/18/24 19:42 98.7 F 92 20 134/56 91 L 11/18/24 15:56 92 18 134/56 90 L Intake and Output 11/18/24 11/19/24 11/19/24 22:59 06:59 14:59 Intake Total 540 240 240 Output Total 400 Balance 540 240 -160 Intake: Oral 540 240 240 Output: Urine 400 Other: Voiding Method Diaper Diaper Diaper External Catheter # Voids 2 1 # Bowel Movements 1 1 Weight 107.501 kg 78.4 kg GENERAL: Revealed 89-year-old female, confused, on 12 L high flow nasal cannula, but not in distress. HEENT: Pupils are round and equally reacting to light. EOMI. No scleral icterus. No conjunctival pallor. Normocephalic, atraumatic. No pharyngeal erythema. No thyromegaly. CARDIOVASCULAR: Irregular irregular rhythm, normal S1 and S2 present. 2/6 systolic murmur throughout the precordium. -PULMONARY: Minimal crackles at the bases no rhonchi no wheezes ABDOMEN: Obese, soft, nontender, nondistended, normoactive bowel sounds. No palpable organomegaly. MUSCULOSKELETAL: No joint swelling or deformity. EXTREMITIES: No clubbing, no edema, no cyanosis NEUROLOGICAL: Patient is confused, otherwise no gross focal deficits oriented x 1. SKIN: No rashes, no erythema. Results - Laboratory Findings CBC and BMP: 11/19/24 07:45 11/19/24 07:45 PT/INR, D-dimer PT 11.6 sec (10.0-12.5) 11/18/24 01:32 INR 1.1 (<1.2) 11/18/24 01:32 Abnormal lab findings: Abnormal Labs 11/18/24 11/18/24 11/18/24 01:32 01:32 16:09 WBC 22.17 H RBC 1.89 L Hgb 8.5 L Hct 25.0 L MCV 132.3 H MCH 45.0 H Plt Count 133 L Immature Gran # 0.57 H Neutrophils # 18.90 H Lymphocytes # 0.56 L Monocytes # 1.92 H Sodium 136 L Carbon Dioxide 31 H BUN 104 H* Creatinine 1.74 H Glucose 294 H POC Glucose (mg/dL) Total Protein 6.2 L Urine Appearance Cloudy H Urine Protein Trace H Urine Blood Small H Ur Leukocyte Esterase Large H Urine WBC 71 H Urine Bacteria Occasional H Urine Mucus Rare H 11/19/24 11/19/24 11/19/24 05:56 07:30 07:45 WBC 27.96 H RBC 1.87 L Hgb 8.4 L Hct 25.5 L MCV 136.4 H MCH 44.9 H Plt Count 129 L Immature Gran # 0.69 H Neutrophils # 24.45 H Lymphocytes # 0.70 L Monocytes # 1.90 H Sodium Carbon Dioxide BUN Creatinine Glucose POC Glucose (mg/dL) 227 H 233 H Total Protein Urine Appearance Urine Protein Urine Blood Ur Leukocyte Esterase Urine WBC Urine Bacteria Urine Mucus 11/19/24 11/19/24 07:45 11:40 WBC RBC Hgb Hct MCV MCH Plt Count Immature Gran # Neutrophils # Lymphocytes # Monocytes # Sodium Carbon Dioxide BUN 99 H Creatinine 1.61 H Glucose 203 H POC Glucose (mg/dL) 252 H Total Protein Urine Appearance Urine Protein Urine Blood Ur Leukocyte Esterase Urine WBC Urine Bacteria Urine Mucus - Diagnostic Findings Chest x-ray: image reviewed (As noted in HPI) Assessment and Plan Assessment: Impression: Acute hypoxic respiratory failure Acute on chronic diastolic congestive heart failure in the setting of atrial fibrillation with RVR and elevated BNP level, patient has history of preserved LV function. Doubt pneumonia although this is not entirely ruled out, but the clinical history does not point to pneumonia but she does have leukocytosis and it is be st to continue antibiotics for now empirically until procalcitonin level is available. Pyuria and bacteriuria, suspect underlying urinary tract infection contributing to her leukocytosis, urine cultures are pending. Nonetheless patient is on ceftriaxone and she is also on Zithromax for presumptive, but unproven pneumonia yet. Atrial fibrillation with RVR, on Cardizem drip she is also on metoprolol orally Hypotension secondary to atrial fibrillation with RVR and worsened by Cardizem drip. Acute on chronic kidney injury Underlying coronary artery disease and history of TAVR History of benign essential hypertension Dyslipidemia Degenerative joint disease Recommendation: Continue oxygen and titrate accordingly Continue diuretics, and monitor electrolytes monitor renal profile Continue antibiotics for now empirically she will definitely need to be empirically on ceftriaxone for presumptive UTI and continue Zithromax for now Repeat chest x-ray after a good course of diuretics Procalcitonin level may not be of value considering the patient may have urinary tract infection at the same time. Continue bronchodilators Patient is on Eliquis, DVT prophylaxis Continue Pepcid for GI prophylaxis Will continue to follow Time with Patient: Greater than 30
[2024-11-19 16:11] LABS: Glucose,Whole Blood 144 mg/dL (70-110)
[2024-11-19 20:06] LABS: Glucose,Whole Blood 194 mg/dL (70-110)
[2024-11-20 06:11] LABS: Glucose,Whole Blood 213 mg/dL (70-110)
--- NOTE | 2024-11-20 09:12 | P.PN ---
Subjective Progress Note Date: 11/20/24 following for DONNY on CKD patient seen today. no significant events, getting IV antibiotics Cr. 1.6 , no labs this am UO not charted , on 10 L O 2 this morning , on IV Lasix 40 mg BID Objective - Vital Signs Vital signs: Vital Signs Temp 98.8 F 11/19/24 20:00 Pulse 78 11/20/24 08:22 Resp 22 11/20/24 04:00 BP 111/58 11/20/24 04:00 Pulse Ox 94 L 11/20/24 08:12 FiO2 Intake & Output 11/19/24 11/20/24 11/20/24 18:59 06:59 18:59 Intake Total 240 240 Output Total 400 1 Balance -160 239 Weight 66.5 kg Intake: Oral 240 240 Output: Urine 400 Stool 1 Other: Voiding Method Diaper Diaper External Catheter External Catheter # Voids 3 # Bowel Movements 1 - Exam Patient is awake, no acute distress Examination of the heart S1 and S2 Examination of the lungs bilateral basal crackles are heard occasional wheezing Abdomen is soft obese nontender Examination of lower extremity shows edema 1+ bilateral [employer] 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 exam grossly intact - Labs CBC & Chem 7: 11/19/24 07:45 11/19/24 07:45 Labs: Abnormal Lab Results - Last 24 Hours (Table) 11/19/24 11/19/24 11/19/24 Range/Units 07:45 07:45 07:45 Neutrophils # 24.45 H (1.80-7.70) 10*3/uL Lymphocytes # 0.70 L (0.90-5.00) 10*3/uL Monocytes # 1.90 H (0.20-1.00) 10*3/uL POC Glucose (mg/dL) (70-110) mg/dL Hemoglobin A1c 6.4 H (<=6.0) % Procalcitonin 0.70 H (0.02-0.50) ng/mL 11/19/24 11/19/24 11/19/24 Range/Units 11:40 16:09 20:05 Neutrophils # (1.80-7.70) 10*3/uL Lymphocytes # (0.90-5.00) 10*3/uL Monocytes # (0.20-1.00) 10*3/uL POC Glucose (mg/dL) 252 H 144 H 194 H (70-110) mg/dL Hemoglobin A1c (<=6.0) % Procalcitonin (0.02-0.50) ng/mL 11/20/24 Range/Units 06:09 Neutrophils # (1.80-7.70) 10*3/uL Lymphocytes # (0.90-5.00) 10*3/uL Monocytes # (0.20-1.00) 10*3/uL POC Glucose (mg/dL) 213 H (70-110) mg/dL Hemoglobin A1c (<=6.0) % Procalcitonin (0.02-0.50) ng/mL Microbiology - Last 24 Hours (Table) 11/18/24 01:32 Blood Culture - Preliminary Blood Assessment and Plan Assessment: 1. Chronic kidney disease stage IV with baseline creatinine 1.4 to 1.7 mg/dL secondary to nephrosclerosis. UA + WBC, trace proteins. Check ultrasound of the kidneys if renal function continues to worsen 2. A-fib with RVR maintained on Cardizem drip 3. Volume overload 4. CHF with preserved ejection fraction, EF was 50 to 55% in 2021 5. Pneumonia, maintained on antibiotics Plan: started on IV Lasix for worsening pulmonary status, ok to continue pending renal function status today, adjust diuretics accordingly check BMP daily monitor UO Check ultrasound of the kidneys if renal function continues to worsen Avoid nephrotoxic agents Continue with antibiotics
--- NOTE | 2024-11-20 09:37 | P.PN ---
Subjective HISTORY OF PRESENT ILLNESS: This is a 89-year-old female with a past medical history significant for TAVR, atrial fibrillation, coronary artery disease with previous CABG, congestive heart failure, diabetes. Patient follows in the office with []. We have been asked to see the patient in consultation for A-fib with RVR. Patient examined at the bedside in the emergency room. Patient's family is present. Patient reports she has been having a cough recently. She is also been complaining of shortness of breath. She denies any chest pain or pressure. Patient was found to be in A-fib with RVR. She was started on IV Cardizem which is infusing at 10 mg an hour. She remains in atrial fibrillation with heart rate around 110. Blood pressure 81/47 at the time of examination. DIAGNOSTICS: - EKG reveals A-fib with RVR - Chest xray bilateral airspace opacities may represent pulmonary edema and/or atypical infection, cardiomegaly, small bilateral pleural effusions - Laboratory data: WBC 22.17. Hemoglobin 8.5. Platelet count 133. Sodium 136. Potassium 4.0. BUN 104. Creatinine 1.74. Troponin negative x 1. proBNP 3120. - Current home cardiac medications include Eliquis 2.5 mg twice a day, Lipitor 40 mg at night, Lasix 60 mg daily, metoprolol tartrate 12.5 mg twice daily. - Most recent echocardiogram obtained in August 2024 at the cardiology office reveals ejection fraction 55%, transcatheter AV prosthesis with normal function, aortic valve prosthetic mechanical dysfunction, mild mitral stenosis, mild tricuspid regurgitation. - Cardiac catheterization history: June 2021 revealed tribe CAD with 90% proximal LAD, mid circumflex 75 to 80% and mid RCA 60 to 70% stenosis. Patent TAVERAS to LAD, SVG, and diagonal grafts. Occluded SVG graft to PDA/PLV and SVG to OM. 11/19/2024 Patient examined this morning at bedside. Patient currently denies chest pain or pressure. Patient did have an episode this morning of increased hypoxia and shortness of breath. She has been given a dose of IV Lasix per primary medicine. She remains in atrial fibrillation with controlled ventricular rate. Cardizem drip has been off. She is currently on 12 L nasal cannula. 11/20/2024 Patient examined this morning at the bedside. Patient continues to report shortness of breath. She is requiring supplemental oxygen to maintain oxygen saturations greater than 92%. Patient did receive a one-time dose of IV Lasix yesterday. She is currently on oral Lasix. PHYSICAL EXAM: VITAL SIGNS: Reviewed. GENERAL: Well-developed in no acute distress. HEENT: Head is normocephalic. Pupils are equal, round. Sclerae anicteric. Mucous membranes of the mouth are moist. Neck supple. No JVD or thyromegaly LUNGS: Respirations even and unlabored. Lungs diminished with wheezing and bibasilar crackles HEART: Irregular rate and rhythm. S1 and S2 heard. Systolic murmur noted ABDOMEN: Soft. Nondistended. Nontender. EXTREMITIES: Normal range of motion. No clubbing or cyanosis. Peripheral pulses intact. No lower extremity edema NEUROLOGIC: Awake and alert. Oriented x 3. ASSESSMENT: Shortness of breath Leukocytosis Bilateral pneumonia Hypotension, resolved Acute on chronic heart failure with preserved EF Acute hypoxic respiratory failure Paroxysmal atrial fibrillation with RVR Coronary artery disease with previous CABG History of TAVR, 2021 Chronic kidney disease Diabetes Obesity: BMI 43.3 PLAN: No need to repeat echocardiogram as this was performed in the office in August 2024 Begin IV Lasix 40 mg every 12 hours for 24 hours Daily weights, accurate intake and output, monitoring of kidney function Continue additional cardiac medications Continue telemetry monitoring Further recommendations pending patient course Nurse practitioner note has been reviewed by physician. Signing provider agrees with the documented findings, assessment, and plan of care documented by VISITOR SERVICES COORDINATOR as a scribe. Objective - Vital Signs Vital signs: Vital Signs Temp 98.8 F 11/19/24 20:00 Pulse 78 11/20/24 08:22 Resp 22 11/20/24 04:00 BP 111/58 11/20/24 04:00 Pulse Ox 94 L 11/20/24 08:12 FiO2 Intake & Output 11/19/24 11/20/24 11/20/24 18:59 06:59 18:59 Intake Total 240 240 Output Total 400 1 Balance -160 239 Weight 66.5 kg Intake: Oral 240 240 Output: Urine 400 Stool 1 Other: Voiding Method Diaper Diaper External Catheter External Catheter # Voids 3 # Bowel Movements 1 - Labs CBC & Chem 7: 11/19/24 07:45 11/19/24 07:45 Labs: Abnormal Lab Results - Last 24 Hours (Table) 11/19/24 11/19/24 11/19/24 Range/Units 07:45 07:45 07:45 Neutrophils # 24.45 H (1.80-7.70) 10*3/uL Lymphocytes # 0.70 L (0.90-5.00) 10*3/uL Monocytes # 1.90 H (0.20-1.00) 10*3/uL POC Glucose (mg/dL) (70-110) mg/dL Hemoglobin A1c 6.4 H (<=6.0) % Procalcitonin 0.70 H (0.02-0.50) ng/mL 11/19/24 11/19/24 11/19/24 Range/Units 11:40 16:09 20:05 Neutrophils # (1.80-7.70) 10*3/uL Lymphocytes # (0.90-5.00) 10*3/uL Monocytes # (0.20-1.00) 10*3/uL POC Glucose (mg/dL) 252 H 144 H 194 H (70-110) mg/dL Hemoglobin A1c (<=6.0) % Procalcitonin (0.02-0.50) ng/mL 11/20/24 Range/Units 06:09 Neutrophils # (1.80-7.70) 10*3/uL Lymphocytes # (0.90-5.00) 10*3/uL Monocytes # (0.20-1.00) 10*3/uL POC Glucose (mg/dL) 213 H (70-110) mg/dL Hemoglobin A1c (<=6.0) % Procalcitonin (0.02-0.50) ng/mL Microbiology - Last 24 Hours (Table) 11/18/24 01:32 Blood Culture - Preliminary Blood
[2024-11-20] MEDS: FUROSEMIDE 10 MG/ML 4 ML VIAL IV SCH (09:46)
[2024-11-20 10:27] LABS: African American GFR (CKD) 30 (>60 ml/min/1.73 sqM); Anion Gap 5 mmol/L; Blood Urea Nitrogen 100 mg/dL (7-17); Calcium 9.1 mg/dL (8.4-10.2); Carbon Dioxide 34 mmol/L (22-30); Chloride 105 mmol/L (98-107); Glucose 142 mg/dL (74-99); Non-African American GFR(CKD) 26 (>60 ml/min/1.73 sqM); Potassium 3.7 mmol/L (3.5-5.1); Sodium 144 mmol/L (137-145)
[2024-11-20 11:37] LABS: Glucose,Whole Blood 256 mg/dL (70-110)
[2024-11-20] MEDS: ACETAMINOPHEN TAB 325 MG TAB PO PRN (11:59)
--- NOTE | 2024-11-20 13:28 | P.PN ---
Subjective This is a pleasant 89 years old female with past medical history of multiple medical problems as below. Presents because of confusion and some shortness of breath. She went to see her PCP Dr. Weiss 2 days ago for regular follow-up and that time she was coughing so chest x-ray ordered next days which came back positive for possible pneumonia and patient was referred to the emergency room. Over the last 2 days also family reports patient is going downhill becoming more confused not realizing what was going on around her and she got more tachypneic. Usually she uses 2 L of oxygen all the time. Patient complains from some chest pain with coughing but she is very weak and lethargic Abdomen looks soft no vomiting or diarrhea. No specific urinary complaint. Patient is very generally weak. Family including son at bedside requesting to think about her CODE STATUS, they request to stay full code for now. Patient is hemodynamically stable, she is tachycardic with 111, currently 72. She is saturating 96% on room air. She was slightly hypotensive. She has leukocytosis of 22,000 which is new, hemoglobin 8.5, platelet 130 through. Creatinine 1.7 with baseline 1.2-1.7. proBNP is elevated 3120. Chest x-ray showing cardiomegaly with pulmonary vascular congestion rule out atypical infection. EKG showing A-fib with heart rate of 134. 11/19 Patient required more oxygen today 12 L/min She is more confused cannot provide information Family at bedside I discussed the case with the family they considering DNR for her Repeat chest x-ray today showing similar findings. Multifocal airspace opacity concerning for pneumonia versus pulmonary edema Currently on ceftriaxone Zithromax and Lasix x 1 She is continued on Cardizem drip for tachycardia and Eliquis 2.5, this can to be switched to oral medication per screen printing press operator 11/20 Patient this morning was saturating 94% on 10 L oxygen, later on through the afternoon her oxygen requirement went up to 12 L She is on oral Lasix 4 mg daily, increased to 40 mg IV twice daily by cardiology team Creatinine 1.7 Patient herself is little bit more awake and interactive, she is very tired and somewhat drowsy. She was complaining from right thigh pain earlier to improved with Tylenol No chest pain no abdominal symptoms She remains on ceftriaxone and Zithromax Eliquis and metoprolol. Cardizem drip discontinued Active Medications Generic Name Dose Route Start Last Admin Trade Name Toq PRN Reason Stop Dose Admin Acetaminophen 650 mg 11/18/24 04:01 11/20/24 11:59 Acetaminophen Tab 325 Mg Tab PO 650 mg Q6HR PRN Administration Mild Pain or Fever > 100.5 Albuterol/Ipratropium 3 ml 11/19/24 08:00 11/20/24 12:23 Ipratropium-Albuterol 3 Ml Neb INHALATION 3 ml RT-QID KAROLINA Administration Allopurinol 300 mg 11/19/24 09:00 11/20/24 09:46 Allopurinol 300 Mg Tab PO 300 mg DAILY KAROLINA Administration Apixaban 2.5 mg 11/18/24 09:00 11/20/24 09:46 Apixaban 2.5 Mg Tablet PO 2.5 mg BID KAROLINA Administration Protocol Atorvastatin Calcium 40 mg 11/18/24 21:00 11/19/24 20:18 Atorvastatin 40 Mg Tab PO 40 mg HS KAROLINA Administration Dextrose/Water 25 ml 11/19/24 07:21 Dextrose 50% Syringe 50 Ml IVP PER PROTOCOL PRN Hypoglycemia Protocol Dextrose/Water 50 ml 11/19/24 07:21 Dextrose 50% Syringe 50 Ml IVP PER PROTOCOL PRN Hypoglycemia Protocol Famotidine 10 mg 11/18/24 21:00 11/20/24 09:46 Famotidine 20 Mg/2 Ml Vial IV 10 mg Q12HR KAROLINA Administration Furosemide 40 mg 11/20/24 09:00 11/20/24 09:46 Furosemide 10 Mg/Ml 4 Ml Vial IV 40 mg Q12HR KAROLINA Administration Ceftriaxone Sodium 1 gm/ 50 mls @ 100 mls/hr 11/19/24 09:00 11/20/24 09:46 Sodium Chloride IVPB 100 mls/hr Q24HR KAROLINA Administration Protocol Insulin Human Lispro 0 unit 11/19/24 12:30 11/20/24 11:59 Insulin Lispro (Humalog) 100 Unit/Ml 10 Ml Vl SQ 6 unit ACHS KAROLINA Administration Protocol Levothyroxine Sodium 25 mcg 11/19/24 06:30 11/20/24 06:22 Levothyroxine 25 Mcg Tab PO 25 mcg DAILY@0630 KAROLINA Administration Metoprolol Tartrate 25 mg 11/18/24 09:00 11/20/24 09:46 Metoprolol Tartrate 25 Mg Tab PO 25 mg BID KAROLINA Administration Naloxone HCl 0.2 mg 11/18/24 04:01 Naloxone 0.4 Mg/Ml 1 Ml Vial IV Q2M PRN Opioid Reversal Objective - Vital Signs Vital signs: Vital Signs Temp 97.5 F L 11/20/24 12:00 Pulse 82 11/20/24 12:36 Resp 18 11/20/24 12:15 BP 130/74 11/20/24 12:00 Pulse Ox 91 L 11/20/24 12:15 FiO2 Intake & Output 11/19/24 11/20/24 11/20/24 18:59 06:59 18:59 Intake Total 240 240 Output Total 400 1 Balance -160 239 Weight 66.5 kg Intake: Oral 240 240 Output: Urine 400 Stool 1 Other: Voiding Method Diaper Diaper External Catheter External Catheter # Voids 3 # Bowel Movements 1 - Exam -GENERAL: The patient is al drowsy and confused, not in any acute distress. Well developed, well nourished. HEENT: Pupils are round and equally reacting to light. EOMI. No scleral icterus. No conjunctival pallor. Normocephalic, atraumatic. No pharyngeal erythema. No thyromegaly. CARDIOVASCULAR: S1 and S2 present. No murmurs, rubs, or gallops. -PULMONARY: Chest is clear to auscultation, no wheezing , bilateral crackles. Decreased air entry on both sides ABDOMEN: Soft, nontender, nondistended, normoactive bowel sounds. No palpable organomegaly. MUSCULOSKELETAL: No joint swelling or deformity. EXTREMITIES: No cyanosis, clubbing, or pedal edema. NEUROLOGICAL: Gross neurological examination did not reveal any focal deficits. SKIN: No rashes. no petechiae. - Labs CBC & Chem 7: 11/19/24 07:45 11/20/24 09:37 Labs: Abnormal Lab Results - Last 24 Hours (Table) 11/19/24 11/19/24 11/19/24 Range/Units 07:45 07:45 16:09 Carbon Dioxide (22-30) mmol/L BUN (7-17) mg/dL Creatinine (0.52-1.04) mg/dL Glucose (74-99) mg/dL POC Glucose (mg/dL) 144 H (70-110) mg/dL Hemoglobin A1c 6.4 H (<=6.0) % Procalcitonin 0.70 H (0.02-0.50) ng/mL 11/19/24 11/20/24 11/20/24 Range/Units 20:05 06:09 09:37 Carbon Dioxide 34 H (22-30) mmol/L BUN 100 H (7-17) mg/dL Creatinine 1.73 H (0.52-1.04) mg/dL Glucose 142 H (74-99) mg/dL POC Glucose (mg/dL) 194 H 213 H (70-110) mg/dL Hemoglobin A1c (<=6.0) % Procalcitonin (0.02-0.50) ng/mL 11/20/24 Range/Units 11:36 Carbon Dioxide (22-30) mmol/L BUN (7-17) mg/dL Creatinine (0.52-1.04) mg/dL Glucose (74-99) mg/dL POC Glucose (mg/dL) 256 H (70-110) mg/dL Hemoglobin A1c (<=6.0) % Procalcitonin (0.02-0.50) ng/mL Microbiology - Last 24 Hours (Table) 11/18/24 01:32 Blood Culture - Preliminary Blood Assessment and Plan Assessment: Bilateral community-acquired pneumonia, could be atypical versus gram-negative Acute hypoxic respiratory failure Hypotension secondary to above Acute on chronic CHF A-fib with RVR, present on admission Acute kidney injury on CKD stage III Generalized weakness. Coronary artery disease Diabetes mellitus Hypertension Hyperlipidemia History of osteoarthritis Hypothyroidism Plan: Cardizem drip discontinued Continue with metoprolol Continue with Eliquis Continue with Lasix. Switch to IV dosing Resume antibiotics ceftriaxone Zithromax Pulmonary team consult Labs and medication were reviewed.. Continue same treatment. Continue with symptomatic treatment. Resume home medication. Monitor lytes and vitals. DVT and GI prophylaxis. Further recommendations depends on the clinical course of the patient DVT prophylaxis: Eliquis GI Prophylaxis: Pepcid PT/OT: Pending Prognosis is guarded
--- NOTE | 2024-11-20 15:20 | P.PN ---
Subjective Progress Note Date: 11/20/24 Principal diagnosis: Acute hypoxic respiratory failure, multifactorial mostly related to acute on chronic diastolic congestive heart failure This is an 89-year-old female with history of multiple medical problems including previous history of TAVR, chronic atrial fibrillation, coronary artery disease with previous CABG, chronic diastolic congestive heart failure, diabetes, chronic kidney disease, and again she had previous history of congestive heart failure with preserved ejection fraction. Patient was brought into the ER mostly with complaints of shortness of breath. Upon arrival patient was noted to be in atrial fibrillation with RVR, she was started on Cardizem in itially at 10 mg/h, and during my evaluation the patient was on 5 mg/h of Cardizem drip. Blood pressure initially was 81/47 with a heart rate of 110. When I was seeing the patient, patient had a heart rate of 83, blood pressure was 120/73, she was also on 12 L high flow nasal cannula. Chest x-ray showed leukocytosis with WBC of 27.96 hemoglobin was noted to be low at 8.4, her usual hemoglobin is in the range of 9.5-10. Electrolytes were noted to be normal BUN 99 creatinine 1.61. Her BNP level is 12,700. Procalcitonin level is pending. Symptoms spears the patient is not a great historian, but she denied any fever or chills, denied any cough, but she does have shortness of breath. Chest x-ray showed bilateral interstitial opacities, of course the differential diagnosis would be pneumonia and/or pulmonary edema, based on her elevated BNP level and based on her cardiac history, I believe this is mostly pulmonary edema in the setting of atrial fibrillation with RVR, doubt pneumonia but the patient will be empirically now on antibiotics, in the meantime she is receiving also diuretics. Follow-up chest x-ray will be done in the next 24 hours, and procalcitonin will be available by tomorrow. Seen today on 11/20/2024, patient tells me that she is basically about the same, continues to have intermittent cough, no wheezing, no fever no chills no hemoptysis no chest pain. Patient is still receiving diuretics, on Lasix at 40 mg IV push every 12 hours, patient is also on antibiotics empirically although my index of suspicion for pneumonia is rather low, blood cultures remain nega tive urinalysis is suspicious for UTI, urine culture is pending. Objective - Vital Signs Vital signs: Vital Signs Temp 97.5 F L 11/20/24 12:00 Pulse 91 11/20/24 13:55 Resp 18 11/20/24 13:55 BP 130/74 11/20/24 12:00 Pulse Ox 91 L 11/20/24 12:15 FiO2 Intake & Output 11/19/24 11/20/24 11/20/24 18:59 06:59 18:59 Intake Total 240 240 Output Total 400 1 1 Balance -160 239 -1 Weight 66.5 kg Intake: Oral 240 240 Output: Urine 400 Stool 1 1 Other: Voiding Method Diaper Diaper Diaper External Catheter External Catheter External Catheter # Voids 3 # Bowel Movements 1 - Exam GENERAL: Revealed 89-year-old female, confused, on 12 L high flow nasal cannula, but not in distress. HEENT: Pupils are round and equally reacting to light. EOMI. No scleral icterus. No conjunctival pallor. Normocephalic, atraumatic. No pharyngeal erythema. No thyromegaly. CARDIOVASCULAR: Irregular irregular rhythm, normal S1 and S2 present. 2/6 systolic murmur throughout the precordium. -PULMONARY: Minimal crackles at the bases no rhonchi no wheezes ABDOMEN: Obese, soft, nontender, nondistended, normoactive bowel sounds. No palpable organomegaly. MUSCULOSKELETAL: No joint swelling or deformity. EXTREMITIES: No clubbing, no edema, no cyanosis NEUROLOGICAL: Patient is confused, otherwise no gross focal deficits oriented x 1. SKIN: No rashes, no erythema. - Labs CBC & Chem 7: 11/19/24 07:45 11/20/24 09:37 Labs: Abnormal Lab Results - Last 24 Hours (Table) 11/19/24 11/19/24 11/19/24 Range/Units 07:45 16:09 20:05 Carbon Dioxide (22-30) mmol/L BUN (7-17) mg/dL Creatinine (0.52-1.04) mg/dL Glucose (74-99) mg/dL POC Glucose (mg/dL) 144 H 194 H (70-110) mg/dL Hemoglobin A1c 6.4 H (<=6.0) % 11/20/24 11/20/24 11/20/24 Range/Units 06:09 09:37 11:36 Carbon Dioxide 34 H (22-30) mmol/L BUN 100 H (7-17) mg/dL Creatinine 1.73 H (0.52-1.04) mg/dL Glucose 142 H (74-99) mg/dL POC Glucose (mg/dL) 213 H 256 H (70-110) mg/dL Hemoglobin A1c (<=6.0) % Microbiology - Last 24 Hours (Table) 11/18/24 01:32 Blood Culture - Preliminary Blood Assessment and Plan Assessment: Impression: Acute hypoxic respiratory failure Acute on chronic diastolic congestive heart failure in the setting of atrial fibrillation with RVR and elevated BNP level, patient has history of preserved LV function. Doubt pneumonia although this is not entirely ruled out, but the clinical history does not point to pneumonia but she does have leukocytosis and it is best to continue antibiotics for now empirically, procalcitonin level is elevated but that could also be related to her underlying UTI. Pyuria and bacteriuria, suspect underlying urinary tract infection contributing to her leukocytosis, urine cultures are pending. Nonetheless patient is on ceftriaxone and she is also on Zithromax for presumptive, but unproven pneumonia yet. Atrial fibrillation with RVR, on Cardizem drip she is also on metoprolol orally Hypotension secondary to atrial fibrillation with RVR and worsened by Cardizem drip. Acute on chronic kidney injury Underlying coronary artery disease and history of TAVR History of benign essential hypertension Dyslipidemia Degenerative joint disease Recommendation: Continue oxygen and titrate accordingly Continue diuretics, and monitor electrolytes monitor renal profile Continue antibiotics for now empirically she will definitely need to be empirically on ceftriaxone for presumptive UTI and continue Zithromax for now Continue bronchodilators Patient is on Eliquis, DVT prophylaxis Continue Pepcid for GI prophylaxis Will continue to follow Time with Patient: Less than 30
[2024-11-20 16:28] LABS: Glucose,Whole Blood 107 mg/dL (70-110)
[2024-11-20 20:23] LABS: Glucose,Whole Blood 120 mg/dL (70-110)
[2024-11-21 06:18] LABS: Glucose,Whole Blood 173 mg/dL (70-110)
[2024-11-21 07:19] LABS: African American GFR (CKD) 28 (>60 ml/min/1.73 sqM); Anion Gap 10 mmol/L; Calcium 8.7 mg/dL (8.4-10.2); Carbon Dioxide 31 mmol/L (22-30); Chloride 104 mmol/L (98-107); Glucose 148 mg/dL (74-99); Non-African American GFR(CKD) 24 (>60 ml/min/1.73 sqM); Potassium 3.9 mmol/L (3.5-5.1); Sodium 145 mmol/L (137-145)
[2024-11-21 07:45] LABS: Blood Urea Nitrogen 103 mg/dL (7-17)
--- NOTE | 2024-11-21 10:10 | P.PN ---
Subjective Patient is seen in follow-up for acute kidney injury on chronic kidney disease. Renal function fairly stable. On IV Lasix. Family present at bedside. Patient is not a reliable historian. Vital signs are stable. General: No acute distress. HEENT: Head exam is unremarkable. On nasal cannula. LUNGS: Scattered rhonchi. HEART: Rate and Rhythm are regular. ABDOMEN: Nontender. EXTREMITITES: Trace edema. Objective - Vital Signs Vital signs: Vital Signs Temp 97.7 F 11/21/24 09:05 Pulse 96 11/21/24 09:22 Resp 18 11/21/24 09:05 BP 123/58 11/21/24 09:05 Pulse Ox 94 L 11/21/24 09:12 FiO2 Intake & Output 11/20/24 11/21/24 11/21/24 18:59 06:59 18:59 Intake Total 240 120 Output Total 1 Balance -1 240 120 Weight 82.4 kg Intake: Oral 240 120 Output: Stool 1 Other: Voiding Method Diaper Diaper Diaper External Catheter External Catheter External Catheter - Labs CBC & Chem 7: 11/19/24 07:45 11/21/24 06:07 Labs: Abnormal Lab Results - Last 24 Hours (Table) 11/20/24 11/20/24 11/20/24 Range/Units 09:37 11:36 20:22 Carbon Dioxide 34 H (22-30) mmol/L BUN 100 H (7-17) mg/dL Creatinine 1.73 H (0.52-1.04) mg/dL Glucose 142 H (74-99) mg/dL POC Glucose (mg/dL) 256 H 120 H (70-110) mg/dL 11/21/24 11/21/24 Range/Units 06:07 06:17 Carbon Dioxide 31 H (22-30) mmol/L BUN 103 H* (7-17) mg/dL Creatinine 1.83 H (0.52-1.04) mg/dL Glucose 148 H (74-99) mg/dL POC Glucose (mg/dL) 173 H (70-110) mg/dL Microbiology - Last 24 Hours (Table) 11/18/24 01:32 Blood Culture - Preliminary Blood Assessment and Plan Plan: Assessment: 1. Acute kidney injury secondary to ATN secondary to cardiorenal syndrome. Creatinine 1.83 today. UA fairly benign. 2. Chronic kidney disease stage IV with baseline creatinine 1.4-1.7 secondary to nephrosclerosis. 3. Volume overload. 4. A-fib with RVR. Status post Cardizem drip. Cardiology following. 5. Acute on chronic diastolic CHF. 6. Coronary disease status post CABG. 7. Anemia of chronic kidney disease. Plan: Maintain IV Lasix. Check iron studies. Repeat chest x-ray. Avoid nephrotoxins. Continue to monitor renal function and urine output.
[2024-11-21 11:12] LABS: Glucose,Whole Blood 243 mg/dL (70-110)
[2024-11-21] MEDS: SYMBICORT 160-4.5 MCG INHALER INHALATION SCH (11:33)
[2024-11-21] MEDS: FOLIC ACID 1 MG TAB PO SCH (11:53)
[2024-11-21] MEDS: THIAMINE 100 MG TAB PO SCH (11:53)
--- NOTE | 2024-11-21 12:01 | CT ---
EXAMINATION TYPE: CT brain wo con DATE OF EXAM: 11/21/2024 11:53 AM COMPARISON: None. CLINICAL INDICATION: Female, 89 years old with history of stroke, ams TECHNIQUE: Brain: Axial CT images of the brain were obtained with coronal and sagittal reformats created and rev iewed. Contrast used: None. Oral contrast used: None. CT DLP: 2604 mGycm, Automated exposure control for dose reduction was used. FINDINGS: Brain: Extra-axial spaces: No abnormal extra-axial fluid collections. Ventricular system: Within normal limits Cerebral parenchyma: No acute intraparenchymal hemorrhage or mass effect. The martinez-white junction is well differentiated. Cerebellum: Unremarkable. Mass effect: No evidence of midline shift. Intracranial vasculature: Atherosclerotic calcifications of the intracranial vessels. Soft tissues: Normal. Calvarium/osseous structures: No depressed skull fracture. Paranasal sinuses and mastoid air cells: Mild scattered paranasal sinus disease. Visualized orbits: Orbital contents are intact. IMPRESSION: No acute intracranial process. [facility], , 11/21/2024 11:59 AM
[2024-11-21] MEDS: PANTOPRAZOLE 40 MG TABLET PO SCH (12:29)
--- NOTE | 2024-11-21 12:38 | P.PN ---
Subjective Progress Note Date: 11/21/24 HISTORY OF PRESENT ILLNESS: This is a 89-year-old female with a past medical history significant for TAVR, atrial fibrillation, coronary artery disease with previous CABG, congestive heart failure, diabetes. Patient follows in the office with []. We have been asked to see the patient in consultation for A-fib with RVR. Patient examined at the bedside in the emergency room. Patient's family is present. Patient reports she has been having a cough recently. She is also been complaining of shortness of breath. She denies any chest pain or pressure. Patient was found to be in A-fib with RVR. She was started on IV Cardizem which is infusing at 10 mg an hour. She remains in atrial fibrillation with heart rate around 110. Blood pressure 81/47 at the time of examination. DIAGNOSTICS: - EKG reveals A-fib with RVR - Chest xray bilateral airspace opacities may represent pulmonary edema and/or atypical infection, cardiomegaly, small bilateral pleural effusions - Laboratory data: WBC 22.17. Hemoglobin 8.5. Platelet count 133. Sodium 136. Potassium 4.0. BUN 104. Creatinine 1.74. Troponin negative x 1. proBNP 3120. - Current home cardiac medications include Eliquis 2.5 mg twice a day, Lipitor 40 mg at night, Lasix 60 mg daily, metoprolol tartrate 12.5 mg twice daily. - Most recent echocardiogram obtained in August 2024 at the cardiology office reveals ejection fraction 55%, transcatheter AV prosthesis with normal function, aortic valve prosthetic mechanical dysfunction, mild mitral stenosis, mild tricuspid regurgitation. - Cardiac catheterization history: June 2021 revealed hoopa CAD with 90% proximal LAD, mid circumflex 75 to 80% and mid RCA 60 to 70% stenosis. Patent TAVERAS to LAD, SVG, and diagonal grafts. Occluded SVG graft to PDA/PLV and SVG to OM. 11/19/2024 Patient examined this morning at bedside. Patient currently denies chest pain or pressure. Patient did have an episode this morning of increased hypoxia and shortness of breath. She has been given a dose of IV Lasix per primary medicine. She remains in atrial fibrillation with controlled ventricular rate. Cardizem drip has been off. She is currently on 12 L nasal cannula. 11/20/2024 Patient examined this morning at the bedside. Patient continues to report shortness of breath. She is requiring supplemental oxygen to maintain oxygen saturations greater than 92%. Patient did receive a one-time dose of IV Lasix yesterday. She is currently on oral Lasix. 11/21/2024 Patient seen and examined. Patient appears to have less shortness of breath today. She still has some mild wheezing and mild lower extremity edema. She has been maintained on IV Lasix 40 mg every 12 hours. Blood pressure 134/62, heart rate 76, pulse ox 92% on 12 L high flow nasal cannula. She is also on IV antibiotics for pneumonia. PHYSICAL EXAM: VITAL SIGNS: Reviewed. GENERAL: Well-developed in no acute distress. HEENT: Head is normocephalic. Pupils are equal, round. Sclerae anicteric. Mucous membranes of the mouth are moist. Neck supple. No JVD or thyromegaly LUNGS: Respirations even and unlabored. Lungs diminished with wheezing and bibasilar crackles HEART: Irregular rate and rhythm. S1 and S2 heard. Systolic murmur noted ABDOMEN: Soft. Nondistended. Nontender. EXTREMITIES: No clubbing or cyanosis. Peripheral pulses intact. No lower extremity edema NEUROLOGIC: Awake and alert. Oriented x 3. ASSESSMENT: Shortness of breath Leukocytosis Bilateral pneumonia Hypotension, resolved Acute on chronic heart failure with preserved EF Acute hypoxic respiratory failure Paroxysmal atrial fibrillation with RVR Coronary artery disease with previous CABG History of TAVR, 2021 Chronic kidney disease Diabetes Obesity: BMI 43.3 PLAN: No need to repeat echocardiogram as this was performed in the office in August 2024 Continue IV Lasix 40 mg every 12 hours for 24 hours Daily weights, accurate intake and output, monitoring of kidney function Continue additional cardiac medications Continue telemetry monitoring Further recommendations pending patient course Nurse practitioner note has been reviewed by physician. Signing provider agrees with the documented findings, assessment, and plan of care documented by [employer] as a scribe. Objective - Vital Signs Vital signs: Vital Signs Temp 97.6 F 11/21/24 11:50 Pulse 74 11/21/24 11:50 Resp 20 11/21/24 11:50 BP 131/74 11/21/24 11:50 Pulse Ox 95 11/21/24 11:50 FiO2 Intake & Output 11/20/24 11/21/24 11/21/24 18:59 06:59 18:59 Intake Total 240 120 Output Total 1 Balance -1 240 120 Weight 82.4 kg Intake: Oral 240 120 Output: Stool 1 Other: Voiding Method Diaper Diaper Diaper External Catheter External Catheter External Catheter # Bowel Movements 1 - Labs CBC & Chem 7: 11/19/24 07:45 11/21/24 06:07 Labs: Abnormal Lab Results - Last 24 Hours (Table) 11/20/24 11/21/24 11/21/24 Range/Units 20:22 06:07 06:17 Carbon Dioxide 31 H (22-30) mmol/L BUN 103 H* (7-17) mg/dL Creatinine 1.83 H (0.52-1.04) mg/dL Glucose 148 H (74-99) mg/dL POC Glucose (mg/dL) 120 H 173 H (70-110) mg/dL 11/21/24 Range/Units 11:10 Carbon Dioxide (22-30) mmol/L BUN (7-17) mg/dL Creatinine (0.52-1.04) mg/dL Glucose (74-99) mg/dL POC Glucose (mg/dL) 243 H (70-110) mg/dL Microbiology - Last 24 Hours (Table) 11/18/24 01:32 Blood Culture - Preliminary Blood
[2024-11-21 14:34] LABS: Influenza A Not Detected (Not Detectd); Influenza B Not Detected (Not Detectd); RSV Not Detected (Not Detectd)
--- NOTE | 2024-11-21 15:57 | CA ---
Transthoracic Echo Report Name: Audra Stovall Age: 89 Gender: F : 1935 Exam Date: 11/21/2024 13:25 Exam Location: [place] [facility] Ht (in): 62 Wt (lb): 181 Ordering Physician: Jessika Nieves MD Attending/Referring Phys: Premium Representative Gillian Connors RDCS Procedure CPT: Indications: chf Cardiac Hx: Technical Quality: Fair Contrast 1: Total Dose (mL): Contrast 2: Total Dose (mL): MEASUREMENTS (Male / Female) Normal Values 2D ECHO LV Diastolic Diameter PLAX 3.8 cm 4.2 - 5.9 / 3.9 - 5.3 cm LV Systolic Diameter PLAX 2.7 cm IVS Diastolic Thickness 1.0 cm 0.6 - 1.0 / 0.6 - 0.9 cm LVPW Diastolic Thickness 0.9 cm 0.6 - 1.0 / 0.6 - 0.9 cm LV Relative Wall Thickness 0.5 LVOT Diameter 2.0 cm Aortic Root Diameter 2.2 cm LV Diastolic Volume MOD BP 88.2 cm??? 67 - 155 / 56 - 104 cm??? LV Systolic Volume MOD BP 31.7 cm??? 22 - 58 / 19 - 49 cm??? LV Ejection Fraction MOD BP 64.1 % >= 55 % LV Cardiac Index MOD BP 2107.0 cm???/min???m??? LV Diastolic Volume MOD 4C 86.1 cm??? LV Systolic Volume MOD 4C 30.2 cm??? LV Ejection Fraction MOD 4C 64.9 % LV Cardiac Index MOD 4C 2084.2 cm???/min???m??? LV Diastolic Length 4C 7.3 cm LV Systolic Length 4C 5.7 cm LV Diastolic Volume MOD 2C 87.2 cm??? LV Systolic Volume MOD 2C 32.8 cm??? LV Ejection Fraction MOD 2C 62.4 % LV Cardiac Index MOD 2C 2032.0 cm???/min???m??? LV Diastolic Length 2C 7.0 cm LV Systolic Length 2C 5.8 cm Ascending Aorta Diameter 4.3 cm DOPPLER AV Peak Velocity 166.9 cm/s AV Peak Gradient 11.1 mmHg AV Mean Velocity 113.0 cm/s AV Mean Gradient 5.8 mmHg AV Velocity Time Integral 34.1 cm LVOT Peak Velocity 106.8 cm/s LVOT Peak Gradient 4.6 mmHg LVOT Velocity Time Integral 21.4 cm LVOT Stroke Volume 65.2 cm??? LVOT Stroke Volume Index 35.6 ml/m??? LVOT Cardiac Index 2431.0 cm???/min???m??? AV Area Cont Eq vti 1.9 cm??? AV Area Cont Eq pk 1.9 cm??? MV Peak Velocity 187.9 cm/s MV Peak Gradient 14.1 mmHg MV Mean Velocity 111.1 cm/s MV Mean Gradient 5.9 mmHg MV Velocity Time Integral 46.0 cm TR Peak Velocity 337.3 cm/s TR Peak Gradient 45.5 mmHg Right Atrial Pressure 20.0 mmHg Pulmonary Artery Systolic Pressu 65.5 mmHg Right Ventricular Systolic Press 65.5 mmHg PV Peak Velocity 91.6 cm/s PV Peak Gradient 3.4 mmHg FINDINGS Left Ventricle Left ventricular ejection fraction is estimated at 60-65 %. Mildly increased septal wall thickness. Left ventricular cavity size normal. No obvious regional wall motion abnormalities. Right Ventricle Right ventricular dilatation. Mildly reduced right ventricular global systolic function. Severe pulmonary hypertension. Right Atrium Severe right atrial dilatation. Cannot exclude pfo (image 55). Left Atrium Normal left atrial size. Mitral Valve Mitral valve thickened. No evidence for mitral valve prolapse. Mild to moderate mitral stenosis. Mild mitral regurgitation. Aortic Valve Bioprosthetic aortic valve without stenosis with a peak velocity of 1.7 m/s, peak gradient 11 mmHg, mean gradient 6 mmHg, and estimated aortic valve area of 1.9 cm???. No paravalvular aortic regurgitation. Mild valvular regurgitation. Tricuspid Valve Structurally normal tricuspid valve. No tricuspid stenosis. Moderate tricuspid regurgitation. Pulmonic Valve Structurally normal pulmonic valve. No pulmonic stenosis. Trace pulmonic regurgitation. Pericardium No pericardial effusion. Aorta Aortic annulus normal. Mildly dilated proximal ascending aorta (tube). CONCLUSIONS Left ventricular ejection fraction 60 to 65% RVSP 65 Mild mitral regurgitation Mild mitral stenosis Normally functioning bioprosthetic aortic valve with no paravalvular aortic regurgitation, mild aortic regurgitation Moderate tricuspid regurgitation Previewed by: Dr. Arsenio Alonso DO (Electronically Signed) Final Date: 21 November 2024 15:56
[2024-11-21 16:07] LABS: Glucose,Whole Blood 201 mg/dL (70-110)
--- NOTE | 2024-11-21 16:17 | P.PN ---
Subjective Progress Note Date: 11/21/24 Principal diagnosis: Congestive heart failure, atrial fibrillation with RVR. This is an 89-year-old female with history of multiple medical problems including previous history of TAVR, chronic atrial fibrillation, coronary artery disease with previous CABG, chronic diastolic congestive heart failure, diabetes, chronic kidney disease, and again she had previous history of conge stive heart failure with preserved ejection fraction. Patient was brought into the ER mostly with complaints of shortness of breath. Upon arrival patient was noted to be in atrial fibrillation with RVR, she was started on Cardizem initially at 10 mg/h, and during my evaluation the patient was on 5 mg/h of Cardizem drip. Blood pressure initially was 81/47 with a heart rate of 110. When I was seeing the patient, patient had a heart rate of 83, blood pressure was 120/73, she was also on 12 L high flow nasal cannula. Chest x-ray showed leukocytosis with WBC of 27.96 hemoglobin was noted to be low at 8.4, her usual hemoglobin is in the range of 9.5-10. Electrolytes were noted to be normal BUN 99 creatinine 1.61. Her BNP level is 12,700. Procalcitonin level is pending. Symptoms spears the patient is not a great historian, but she denied any fever or chills, denied any cough, but she does have shortness of breath. Chest x-ray showed bilateral interstitial opacities, of course the differential diagnosis would be pneumonia and/or pulmonary edema, based on her elevated BNP level and based on her cardiac history, I believe this is mostly pulmonary edema in the setting of atrial fibrillation with RVR, doubt pneumonia but the patient will be empirically now on antibiotics, in the meantime she is receiving also diuretics. Follow-up chest x-ray will be done in the next 24 hours, and procalcitonin will be available by tomorrow. Seen today on 11/20/2024, patient tells me that she is basically about the same, continues to have intermittent cough, no wheezing, no fever no chills no h emoptysis no chest pain. Patient is still receiving diuretics, on Lasix at 40 mg IV push every 12 hours, patient is also on antibiotics empirically although my index of suspicion for pneumonia is rather low, blood cultures remain negative urinalysis is suspicious for UTI, urine culture is pending. Progress note dated 07/24/2024. 89-year-old female seen today in room 355. She was admitted with a diagnosis of CHF, atrial fibrillation with RVR, and acute kidney injury. She is currently on 12 L high flow nasal O2. The patient's procalcitonin level was 0.70. Additional laboratory data includes a sodium 145, potassium 3.9, chlorides 104, CO2 31, anion gap 10, BUN 103, creatinine 1.83. Glucose is 201. Calcium is 8.7. Viral screen was negative. Blood cultures are currently negative. Brain CT showed nothing acute. Objective - Vital Signs Vital signs: Vital Signs Temp 97.6 F 11/21/24 11:50 Pulse 92 11/21/24 12:51 Resp 20 11/21/24 11:50 BP 131/74 11/21/24 11:50 Pulse Ox 98 11/21/24 12:43 FiO2 Intake & Output 11/20/24 11/21/24 11/21/24 18:59 06:59 18:59 Intake Total 240 120 Output Total 1 Balance -1 240 120 Weight 82.4 kg Intake: Oral 240 120 Output: Stool 1 Other: Voiding Method Diaper Diaper Diaper External Catheter External Catheter External Catheter # Bowel Movements 1 - Exam No acute distress, confused. Currently on 12 L high flow nasal O2. HEENT examination is grossly unremarkable. Mucous membranes are moist. No oral lesions. Neck supple. Full range of motion. No adenopathy thyromegaly or neck vein distention. Cardiovascular examination reveals an irregular rhythm and rate. S1-S2 normal. No S3 or S4. No discernible murmur noted. Lungs reveal bibasilar crackles. Breath sounds are equal bilaterally. No rhonchi. No wheezes. Abdomen soft bowel sounds are heard. No masses or tenderness. Extremities are intact. No cyanosis clubbing or edema. Skin is without rash or lesion. Neurologic examination is brief but nonfocal. - Labs CBC & Chem 7: 11/19/24 07:45 11/21/24 06:07 Labs: Abnormal Lab Results - Last 24 Hours (Table) 11/20/24 11/21/24 11/21/24 Range/Units 20:22 06:07 06:17 Carbon Dioxide 31 H (22-30) mmol/L BUN 103 H* (7-17) mg/dL Creatinine 1.83 H (0.52-1.04) mg/dL Glucose 148 H (74-99) mg/dL POC Glucose (mg/dL) 120 H 173 H (70-110) mg/dL 11/21/24 11/21/24 Range/Units 11:10 16:04 Carbon Dioxide (22-30) mmol/L BUN (7-17) mg/dL Creatinine (0.52-1.04) mg/dL Glucose (74-99) mg/dL POC Glucose (mg/dL) 243 H 201 H (70-110) mg/dL Microbiology - Last 24 Hours (Table) 11/18/24 01:32 Blood Culture - Preliminary Blood Assessment and Plan Assessment: Acute hypoxemic respiratory failure. Acute on chronic diastolic CHF, with atrial fibrillation/RVR. Doubt pneumonia. Possible urinary tract infection. Atrial fibrillation with RVR. Hypotension, secondary to atrial fibrillation/RVR. Acute on chronic kidney injury. CAD with previous transcatheter aortic valve replacement. Benign essential hypertension. Dyslipidemia. Degenerative joint disease. Plan: Plan dated November 21, 2024. The patient had a brain CT which showed nothing acute. She continues on 12 L h igh flow nasal O2. Will continue to titrate that down. Labs, x-rays, and all medications are reviewed. The patient continues on GI and DVT prophylaxis. We will continue to follow. Prognosis is guarded. She remains a DO NOT RESUSCITATE patient. Dictation was produced using [employer] software. Please excuse any grammatical, word or spelling errors. Time with Patient: Less than 30
[2024-11-21 18:49] LABS: % Iron Saturation 31.97 (12.00-45.00)
[2024-11-21 19:58] LABS: Glucose,Whole Blood 234 mg/dL (70-110)
--- NOTE | 2024-11-22 02:27 | PN ---
PROGRESS NOTE DATE OF SERVICE: 11/21/2024 SUBJECTIVE: This 89-year-old woman is admitted with significant shortness of breath, also had features of acute hypoxic respiratory failure. The patient is on high-dose oxygen. The patient possibly had a combination of CHF and as well as bilateral pneumonia also. The patient is on broad-spectrum IV antibiotics and bronchodilators and creatinine is also slightly elevated. PAST MEDICAL HISTORY: Reviewed. REVIEW OF SYSTEMS: Could not be taken as the patient is rather drowsy. CURRENT MEDICATIONS: Reviewed. PHYSICAL EXAMINATION: VITAL SIGNS: Pulse is 83, blood pressure 110/50, and respirations 18. HEENT: Conjunctivae normal. NECK: No JVD. CARDIOVASCULAR: S1 and S2. RESPIRATIONS: Breath sounds diminished at the bases. Bilateral scattered rhonchi. ABDOMEN: Soft. LABORATORY DATA: WBC 27.6, other labs reviewed. ASSESSMENT: 1. Shortness of breath, possibly secondary to congestive heart failure, acute exacerbation, acute on chronic diastolic dysfunction. 2. Possible acute bilateral pneumonia, coming gram-negative possibly. 3. Chronic kidney disease, stage 3. 4. Elevated WBC. 5. Thrombocytopenia. 6. History atrial fibrillation. 7. History of coronary artery disease, CABG, valve replacement. 8. History of deep vein thrombosis. 9. Diabetes mellitus, type 2. 10.Hypertension. 11.Hyperlipidemia. 12.Multiple complex medical issues. RECOMMENDATIONS AND DISCUSSION: This 89-year-old woman presented with multiple complex medical issues. We will monitor the patient closely. Continue current management and continue symptomatic treatment. Continue with the bronchodilators and antibiotics. Continue with cautious diuresis. The patient is on Eliquis. Closely follow with Cardiology and as well as Pulmonology and as well as Nephrology. Avoid nephrotoxic medications. Supplement with vitamins. DVT prophylaxis. Obtain cultures. We would also recommend specific testing. Prognosis guarded. Further recommendations to follow. MMODL / IJN: [id number] /
[2024-11-22 05:59] LABS: Glucose,Whole Blood 227 mg/dL (70-110)
[2024-11-22 07:55] LABS: Basophils # (A) 0.08 10*3/uL (0.00-0.10); Basophils % (A) 0.4 %; Eosinophils # (A) 0.27 10*3/uL (0.04-0.35); Eosinophils % (A) 1.4 %; HCT 26.6 % (37.2-46.3); HGB 8.3 g/dL (12.0-15.0); Lymphocytes # (A) 0.52 10*3/uL (0.90-5.00); Lymphocytes % (A) 2.6 %; MCHC 31.2 g/dL (32.0-37.0); Mean Platelet Volume 11.6 fL (9.5-12.2); Monocytes % (A) 7.1 %; Neutrophils % (A) 86.4 %; Platelet Count 116 10*3/uL (140-440); RBC 1.88 10*6/uL (4.10-5.20); RDW 15.5 % (11.5-14.5); WBC 19.69 10*3/uL (4.50-10.00)
[2024-11-22 07:59] LABS: MCH 44.1 pg (27.0-32.0); MCV 141.5 fL (80.0-97.0)
[2024-11-22 08:06] LABS: African American GFR (CKD) 28 (>60 ml/min/1.73 sqM); Anion Gap 10 mmol/L; Calcium 8.8 mg/dL (8.4-10.2); Carbon Dioxide 31 mmol/L (22-30); Chloride 104 mmol/L (98-107); Glucose 198 mg/dL (74-99); Magnesium 2.2 mg/dL (1.6-2.3); Non-African American GFR(CKD) 24 (>60 ml/min/1.73 sqM); Potassium 3.9 mmol/L (3.5-5.1); Sodium 145 mmol/L (137-145)
[2024-11-22 08:08] LABS: Blood Urea Nitrogen 111 mg/dL (7-17)
[2024-11-22] MEDS: MULTIVITAMINS, THERA 1 EACH TAB PO SCH (08:52)
--- NOTE | 2024-11-22 10:18 | P.PN ---
Subjective Progress Note Date: 11/22/24 HISTORY OF PRESENT ILLNESS: This is a 89-year-old female with a past medical history significant for TAVR, atrial fibrillation, coronary artery disease with previous CABG, congestive heart failure, diabetes. Patient follows in the office with []. We have been asked to see the patient in consultation for A-fib with RVR. Patient examined at the bedside in the emergency room. Patient's family is present. Patient reports she has been having a cough recently. She is also been complaining of shortness of breath. She denies any chest pain or pressure. Patient was found to be in A-fib with RVR. She was started on IV Cardizem which is infusing at 10 mg an hour. She remains in atrial fibrillation with heart rate around 110. Blood pressure 81/47 at the time of examination. DIAGNOSTICS: - EKG reveals A-fib with RVR - Chest xray bilateral airspace opacities may represent pulmonary edema and/or atypical infection, cardiomegaly, small bilateral pleural effusions - Laboratory data: WBC 22.17. Hemoglobin 8.5. Platelet count 133. Sodium 136. Potassium 4.0. BUN 104. Creatinine 1.74. Troponin negative x 1. proBNP 3120. - Current home cardiac medications include Eliquis 2.5 mg twice a day, Lipitor 40 mg at night, Lasix 60 mg daily, metoprolol tartrate 12.5 mg twice daily. - Most recent echocardiogram obtained in August 2024 at the cardiology office reveals ejection fraction 55%, transcatheter AV prosthesis with normal function, aortic valve prosthetic mechanical dysfunction, mild mitral stenosis, mild tricuspid regurgitation. - Cardiac catheterization history: June 2021 revealed [place] CAD with 90% proximal LAD, mid circumflex 75 to 80% and mid RCA 60 to 70% stenosis. Patent TAVERAS to LAD, SVG, and diagonal grafts. Occluded SVG graft to PDA/PLV and SVG to OM. 11/19/2024 Patient examined this morning at bedside. Patient currently denies chest pain or pressure. Patient did have an episode this morning of increased hypoxia and shortness of breath. She has been given a dose of IV Lasix per primary medicine. She remains in atrial fibrillation with controlled ventricular rate. Cardizem drip has been off. She is currently on 12 L nasal cannula. 11/20/2024 Patient examined this morning at the bedside. Patient continues to report shortness of breath. She is requiring supplemental oxygen to maintain oxygen saturations greater than 92%. Patient did receive a one-time dose of IV Lasix yesterday. She is currently on oral Lasix. 11/21/2024 Patient seen and examined. Patient appears to have less shortness of breath today. She still has some mild wheezing and mild lower extremity edema. She has been maintained on IV Lasix 40 mg every 12 hours. Blood pressure 134/62, heart rate 76, pulse ox 92% on 12 L high flow nasal cannula. She is also on IV antibiotics for pneumonia. 11/22/2024 Patient states that she is still having shortness of breath but appears to be more comfortable. Noted that oxygen is down to 10 L from 12 L which she was on yesterday. Blood pressure 118/56, heart rate 72, pulse ox 93% on 10 L nasal cannula. Patient is afebrile. Repeat blood work reveals WBC 19.6, hemoglobin 8.3, platelet count 116. BUN 111, creatinine 1.84, potassium 3.9. Echocardiogram reveals EF of 60 to 65%, RVSP 65. Mild MR, mild MS. Normally functioning bioprosthetic aortic valve with no paravalvular aortic regurgitation. Mild aortic regurgitation. Moderate tricuspid regurgitation. PHYSICAL EXAM: VITAL SIGNS: Reviewed. GENERAL: Well-developed in no acute distress. HEENT: Head is normocephalic. Pupils are equal, round. Sclerae anicteric. Mucous membranes of the mouth are moist. Neck supple. No JVD or thyromegaly LUNGS: Respirations even and unlabored. Lungs diminished with wheezing and bibasilar crackles HEART: Irregular rate and rhythm. S1 and S2 heard. Systolic murmur noted ABDOMEN: Soft. Nondistended. Nontender. EXTREMITIES: No clubbing or cyanosis. Peripheral pulses intact. No lower extremity edema NEUROLOGIC: Awake and alert. Oriented x 3. ASSESSMENT: Shortness of breath Leukocytosis Bilateral pneumonia Hypotension, resolved Acute on chronic heart failure with preserved EF Acute hypoxic respiratory failure Paroxysmal atrial fibrillation with RVR, currently rate controlled Coronary artery disease with previous CABG History of TAVR, 2021 Acute kidney injury Chronic kidney disease stage IV Diabetes Obesity: BMI 43.3 Anemia Thrombocytopenia Severe pulmonary hypertension with RVSP 65 PLAN: Continue IV Lasix 40 mg every 12 hours Daily weights, accurate intake and output, monitoring of kidney function Continue additional cardiac medications Continue telemetry monitoring Further recommendations pending patient course Nurse practitioner note has been reviewed by physician. Signing provider agrees with the documented findings, assessment, and plan of care documented by GEAR GRINDING MACHINE OPERATOR as a scribe. Objective - Vital Signs Vital signs: Vital Signs Temp 97.8 F 11/22/24 04:00 Pulse 72 11/22/24 04:00 Resp 19 11/22/24 04:00 BP 118/56 11/22/24 04:00 Pulse Ox 93 L 11/22/24 04:00 FiO2 Intake & Output 11/21/24 11/22/24 11/22/24 18:59 06:59 18:59 Intake Total 120 Output Total 350 Balance 120 -350 Weight 76.6 kg Intake: Oral 120 Output: Urine 350 Other: Voiding Method Diaper External Catheter External Catheter # Voids 1 1 # Bowel Movements 1 - Labs CBC & Chem 7: 11/22/24 07:10 11/22/24 07:10 Labs: Abnormal Lab Results - Last 24 Hours (Table) 11/21/24 11/21/24 11/21/24 Range/Units 06:07 11:10 16:04 WBC (4.50-10.00) 10*3/uL RBC (4.10-5.20) 10*6/uL Hgb (12.0-15.0) g/dL Hct (37.2-46.3) % MCV (80.0-97.0) fL MCH (27.0-32.0) pg MCHC (32.0-37.0) g/dL Plt Count (140-440) 10*3/uL Immature Gran # (0.00-0.04) 10*3/uL Neutrophils # (1.80-7.70) 10*3/uL Lymphocytes # (0.90-5.00) 10*3/uL Monocytes # (0.20-1.00) 10*3/uL Carbon Dioxide (22-30) mmol/L BUN (7-17) mg/dL Creatinine (0.52-1.04) mg/dL Glucose (74-99) mg/dL POC Glucose (mg/dL) 243 H 201 H (70-110) mg/dL Iron 47 L (50-170) UG/DL TIBC 147 L (228-460) UG/DL Transferrin 105.0 L (204.0-354.0) mg/dL Ferritin 750.0 H (10.0-291.0) ng/mL 11/21/24 11/22/24 11/22/24 Range/Units 19:56 05:57 07:10 WBC (4.50-10.00) 10*3/uL RBC (4.10-5.20) 10*6/uL Hgb (12.0-15.0) g/dL Hct (37.2-46.3) % MCV (80.0-97.0) fL MCH (27.0-32.0) pg MCHC (32.0-37.0) g/dL Plt Count (140-440) 10*3/uL Immature Gran # (0.00-0.04) 10*3/uL Neutrophils # (1.80-7.70) 10*3/uL Lymphocytes # (0.90-5.00) 10*3/uL Monocytes # (0.20-1.00) 10*3/uL Carbon Dioxide 31 H (22-30) mmol/L BUN 111 H* (7-17) mg/dL Creatinine 1.84 H (0.52-1.04) mg/dL Glucose 198 H (74-99) mg/dL POC Glucose (mg/dL) 234 H 227 H (70-110) mg/dL Iron (50-170) UG/DL TIBC (228-460) UG/DL Transferrin (204.0-354.0) mg/dL Ferritin (10.0-291.0) ng/mL 11/22/24 Range/Units 07:10 WBC 19.69 H (4.50-10.00) 10*3/uL RBC 1.88 L (4.10-5.20) 10*6/uL Hgb 8.3 L (12.0-15.0) g/dL Hct 26.6 L (37.2-46.3) % MCV 141.5 H D (80.0-97.0) fL MCH 44.1 H (27.0-32.0) pg MCHC 31.2 L (32.0-37.0) g/dL Plt Count 116 L (140-440) 10*3/uL Immature Gran # 0.42 H (0.00-0.04) 10*3/uL Neutrophils # 17.00 H (1.80-7.70) 10*3/uL Lymphocytes # 0.52 L (0.90-5.00) 10*3/uL Monocytes # 1.40 H (0.20-1.00) 10*3/uL Carbon Dioxide (22-30) mmol/L BUN (7-17) mg/dL Creatinine (0.52-1.04) mg/dL Glucose (74-99) mg/dL POC Glucose (mg/dL) (70-110) mg/dL Iron (50-170) UG/DL TIBC (228-460) UG/DL Transferrin (204.0-354.0) mg/dL Ferritin (10.0-291.0) ng/mL Microbiology - Last 24 Hours (Table) 11/18/24 01:32 Blood Culture - Preliminary Blood
--- NOTE | 2024-11-22 11:03 | P.PN ---
Subjective Patient is seen in follow-up for acute kidney injury on chronic kidney disease. Renal function fairly stable. On IV Lasix. Family present at bedside. Patient is not a reliable historian. Urine output documented as 350 cc in the last 24 hours. Unclear if this is accurate. Vital signs are stable. General: No acute distress. HEENT: Head exam is unremarkable. On high flow nasal cannula. LUNGS: No audible rhonchi or wheezes. HEART: Rate and Rhythm are regular. ABDOMEN: Nontender. EXTREMITITES: Trace edema. Objective - Vital Signs Vital signs: Vital Signs Temp 97.5 F L 11/22/24 08:00 Pulse 98 11/22/24 09:10 Resp 20 11/22/24 08:00 BP 111/70 11/22/24 08:00 Pulse Ox 93 L 11/22/24 09:00 FiO2 Intake & Output 11/21/24 11/22/24 11/22/24 18:59 06:59 18:59 Intake Total 120 Output Total 350 Balance 120 -350 Weight 76.6 kg Intake: Oral 120 Output: Urine 350 Other: Voiding Method Diaper External Catheter External Catheter External Catheter # Voids 1 1 # Bowel Movements 1 - Labs CBC & Chem 7: 11/22/24 07:10 11/22/24 07:10 Labs: Abnormal Lab Results - Last 24 Hours (Table) 11/21/24 11/21/24 11/21/24 Range/Units 06:07 11:10 16:04 WBC (4.50-10.00) 10*3/uL RBC (4.10-5.20) 10*6/uL Hgb (12.0-15.0) g/dL Hct (37.2-46.3) % MCV (80.0-97.0) fL MCH (27.0-32.0) pg MCHC (32.0-37.0) g/dL Plt Count (140-440) 10*3/uL Immature Gran # (0.00-0.04) 10*3/uL Neutrophils # (1.80-7.70) 10*3/uL Lymphocytes # (0.90-5.00) 10*3/uL Monocytes # (0.20-1.00) 10*3/uL Carbon Dioxide (22-30) mmol/L BUN (7-17) mg/dL Creatinine (0.52-1.04) mg/dL Glucose (74-99) mg/dL POC Glucose (mg/dL) 243 H 201 H (70-110) mg/dL Iron 47 L (50-170) UG/DL TIBC 147 L (228-460) UG/DL Transferrin 105.0 L (204.0-354.0) mg/dL Ferritin 750.0 H (10.0-291.0) ng/mL 11/21/24 11/22/24 11/22/24 Range/Units 19:56 05:57 07:10 WBC (4.50-10.00) 10*3/uL RBC (4.10-5.20) 10*6/uL Hgb (12.0-15.0) g/dL Hct (37.2-46.3) % MCV (80.0-97.0) fL MCH (27.0-32.0) pg MCHC (32.0-37.0) g/dL Plt Count (140-440) 10*3/uL Immature Gran # (0.00-0.04) 10*3/uL Neutrophils # (1.80-7.70) 10*3/uL Lymphocytes # (0.90-5.00) 10*3/uL Monocytes # (0.20-1.00) 10*3/uL Carbon Dioxide 31 H (22-30) mmol/L BUN 111 H* (7-17) mg/dL Creatinine 1.84 H (0.52-1.04) mg/dL Glucose 198 H (74-99) mg/dL POC Glucose (mg/dL) 234 H 227 H (70-110) mg/dL Iron (50-170) UG/DL TIBC (228-460) UG/DL Transferrin (204.0-354.0) mg/dL Ferritin (10.0-291.0) ng/mL 11/22/24 Range/Units 07:10 WBC 19.69 H (4.50-10.00) 10*3/uL RBC 1.88 L (4.10-5.20) 10*6/uL Hgb 8.3 L (12.0-15.0) g/dL Hct 26.6 L (37.2-46.3) % MCV 141.5 H D (80.0-97.0) fL MCH 44.1 H (27.0-32.0) pg MCHC 31.2 L (32.0-37.0) g/dL Plt Count 116 L (140-440) 10*3/uL Immature Gran # 0.42 H (0.00-0.04) 10*3/uL Neutrophils # 17.00 H (1.80-7.70) 10*3/uL Lymphocytes # 0.52 L (0.90-5.00) 10*3/uL Monocytes # 1.40 H (0.20-1.00) 10*3/uL Carbon Dioxide (22-30) mmol/L BUN (7-17) mg/dL Creatinine (0.52-1.04) mg/dL Glucose (74-99) mg/dL POC Glucose (mg/dL) (70-110) mg/dL Iron (50-170) UG/DL TIBC (228-460) UG/DL Transferrin (204.0-354.0) mg/dL Ferritin (10.0-291.0) ng/mL Microbiology - Last 24 Hours (Table) 11/18/24 01:32 Blood Culture - Preliminary Blood Assessment and Plan Plan: Assessment: 1. Acute kidney injury secondary to ATN secondary to cardiorenal syndrome. Creatinine stable at 1.84 today. UA fairly benign. 2. Chronic kidney disease stage IV with baseline creatinine 1.4-1.7 secondary to nephrosclerosis. 3. Volume overload. 4. A-fib with RVR. Status post Cardizem drip. Cardiology following. 5. Acute on chronic diastolic CHF. 6. Coronary disease status post CABG. 7. Anemia of chronic kidney disease. Iron replete. 8. Acute on chronic diastolic CHF and moderate tricuspid regurgitation. Plan: Maintain IV Lasix for now. Follow-up chest x-ray. Add Aranesp. Avoid nephrotoxins. Continue to monitor renal function and urine output.
[2024-11-22 11:26] LABS: Glucose,Whole Blood 290 mg/dL (70-110)
--- NOTE | 2024-11-22 12:01 | XR ---
EXAMINATION TYPE: XR chest 1V portable DATE OF EXAM: 11/22/2024 6:43 AM COMPARISON: 11/19/2024 CLINICAL INDICATION: Female, 89 years old with history of chf, TECHNIQUE: XR chest 1V portable view(s) obtained. FINDINGS: The heart size is enlarged. The pulmonary vasculature is prominent. Diffuse increased lung markings are present bilaterally. Sternotomy wires from prior surgery are evid ent. IMPRESSION: 1. Diffuse increased lung markings. Correlate for Pulmonary Edema and CHF. Follow up recommended. [facility], , 11/22/2024 11:58 AM
[2024-11-22] MEDS: ZINC SULFATE 220 MG CAP PO SCH (12:49)
--- NOTE | 2024-11-22 13:23 | P.PN ---
Subjective Progress Note Date: 11/22/24 Principal diagnosis: Congestive heart failure, atrial fibrillation with RVR. This is an 89-year-old female with history of multiple medical problems including previous history of TAVR, chronic atrial fibrillation, coronary artery disease with previous CABG, chronic diastolic congestive heart failure, diabetes, chronic kidney disease, and again she had previous history of conge stive heart failure with preserved ejection fraction. Patient was brought into the ER mostly with complaints of shortness of breath. Upon arrival patient was noted to be in atrial fibrillation with RVR, she was started on Cardizem initially at 10 mg/h, and during my evaluation the patient was on 5 mg/h of Cardizem drip. Blood pressure initially was 81/47 with a heart rate of 110. When I was seeing the patient, patient had a heart rate of 83, blood pressure was 120/73, she was also on 12 L high flow nasal cannula. Chest x-ray showed leukocytosis with WBC of 27.96 hemoglobin was noted to be low at 8.4, her usual hemoglobin is in the range of 9.5-10. Electrolytes were noted to be normal BUN 99 creatinine 1.61. Her BNP level is 12,700. Procalcitonin level is pending. Symptoms spears the patient is not a great historian, but she denied any fever or chills, denied any cough, but she does have shortness of breath. Chest x-ray showed bilateral interstitial opacities, of course the differential diagnosis would be pneumonia and/or pulmonary edema, based on her elevated BNP level and based on her cardiac history, I believe this is mostly pulmonary edema in the setting of atrial fibrillation with RVR, doubt pneumonia but the patient will be empirically now on antibiotics, in the meantime she is receiving also diuretics. Follow-up chest x-ray will be done in the next 24 hours, and procalcitonin will be available by tomorrow. Seen today on 11/20/2024, patient tells me that she is basically about the same, continues to have intermittent cough, no wheezing, no fever no chills no h emoptysis no chest pain. Patient is still receiving diuretics, on Lasix at 40 mg IV push every 12 hours, patient is also on antibiotics empirically although my index of suspicion for pneumonia is rather low, blood cultures remain negative urinalysis is suspicious for UTI, urine culture is pending. Progress note dated November 21, 2024. 89-year-old female seen today in room 355. She was admitted with a diagnosis of CHF, atrial fibrillation with RVR, and acute kidney injury. She is currently on 12 L high flow nasal O2. The patient's procalcitonin level was 0.70. Additional laboratory data includes a sodium 145, potassium 3.9, chlorides 104, CO2 31, anion gap 10, BUN 103, creatinine 1.83. Glucose is 201. Calcium is 8.7. Viral screen was negative. Blood cultures are currently negative. Brain CT showed nothing acute. Progress note dated November 22, 2024. 89-year-old female seen today in room 355. The patient was admitted with a diagnosis of CHF, and possible pneumonia. Procalcitonin level was modestly elevated at 0.70. The patient is on 8 L high flow nasal O2. She is receiving Rocephin and Lasix. She does use oxygen at home, 2 L. Clinically, she appears to be a bit better. She is awake and alert. She is sitting up in bed. Family members are at the bedside. Current labs showed a white count of 19.7, hemoglobin 8.3, hematocrit 27, and platelet count of 116,000. Sodium 145, potassium 3.9, chlorides 104, CO2 31, BUN is 111, creatinine 1.84. Glucose is 290. Calcium 8.8, magnesium 2.2. Chest x-ray shows diffuse lung markings, consistent with pulmonary edema/CHF. Objective - Vital Signs Vital signs: Vital Signs Temp 97.5 F L 11/22/24 08:00 Pulse 86 11/22/24 12:23 Resp 20 11/22/24 08:00 BP 123/70 11/22/24 12:00 Pulse Ox 96 11/22/24 12:14 FiO2 Intake & Output 11/21/24 11/22/24 11/22/24 18:59 06:59 18:59 Intake Total 120 Output Total 350 Balance 120 -350 Weight 76.6 kg Intake: Oral 120 Output: Urine 350 Other: Voiding Method Diaper External Catheter External Catheter External Catheter # Voids 1 1 # Bowel Movements 1 - Exam No acute distress, confused. Currently on 8 L high flow nasal O2. HEENT examination is grossly unremarkable. Mucous membranes are moist. No oral lesions. Neck supple. Full range of motion. No adenopathy thyromegaly or neck vein distention. Cardiovascular examination reveals an irregular rhythm and rate. S1-S2 normal. No S3 or S4. No discernible murmur noted. Lungs reveal bibasilar crackles. Breath sounds are equal bilaterally. No rhonchi. No wheezes. Abdomen soft bowel sounds are heard. No masses or tenderness. Extremities are intact. No cyanosis clubbing or edema. Skin is without rash or lesion. Neurologic examination is brief but nonfocal. - Labs CBC & Chem 7: 11/22/24 07:10 11/22/24 07:10 Labs: Abnormal Lab Results - Last 24 Hours (Table) 11/21/24 11/21/24 11/21/24 Range/Units 06:07 16:04 19:56 WBC (4.50-10.00) 10*3/uL RBC (4.10-5.20) 10*6/uL Hgb (12.0-15.0) g/dL Hct (37.2-46.3) % MCV (80.0-97.0) fL MCH (27.0-32.0) pg MCHC (32.0-37.0) g/dL Plt Count (140-440) 10*3/uL Immature Gran # (0.00-0.04) 10*3/uL Neutrophils # (1.80-7.70) 10*3/uL Lymphocytes # (0.90-5.00) 10*3/uL Monocytes # (0.20-1.00) 10*3/uL Carbon Dioxide (22-30) mmol/L BUN (7-17) mg/dL Creatinine (0.52-1.04) mg/dL Glucose (74-99) mg/dL POC Glucose (mg/dL) 201 H 234 H (70-110) mg/dL Iron 47 L (50-170) UG/DL TIBC 147 L (228-460) UG/DL Transferrin 105.0 L (204.0-354.0) mg/dL Ferritin 750.0 H (10.0-291.0) ng/mL 11/22/24 11/22/24 11/22/24 Range/Units 05:57 07:10 07:10 WBC 19.69 H (4.50-10.00) 10*3/uL RBC 1.88 L (4.10-5.20) 10*6/uL Hgb 8.3 L (12.0-15.0) g/dL Hct 26.6 L (37.2-46.3) % MCV 141.5 H D (80.0-97.0) fL MCH 44.1 H (27.0-32.0) pg MCHC 31.2 L (32.0-37.0) g/dL Plt Count 116 L (140-440) 10*3/uL Immature Gran # 0.42 H (0.00-0.04) 10*3/uL Neutrophils # 17.00 H (1.80-7.70) 10*3/uL Lymphocytes # 0.52 L (0.90-5.00) 10*3/uL Monocytes # 1.40 H (0.20-1.00) 10*3/uL Carbon Dioxide 31 H (22-30) mmol/L BUN 111 H* (7-17) mg/dL Creatinine 1.84 H (0.52-1.04) mg/dL Glucose 198 H (74-99) mg/dL POC Glucose (mg/dL) 227 H (70-110) mg/dL Iron (50-170) UG/DL TIBC (228-460) UG/DL Transferrin (204.0-354.0) mg/dL Ferritin (10.0-291.0) ng/mL 11/22/24 Range/Units 11:24 WBC (4.50-10.00) 10*3/uL RBC (4.10-5.20) 10*6/uL Hgb (12.0-15.0) g/dL Hct (37.2-46.3) % MCV (80.0-97.0) fL MCH (27.0-32.0) pg MCHC (32.0-37.0) g/dL Plt Count (140-440) 10*3/uL Immature Gran # (0.00-0.04) 10*3/uL Neutrophils # (1.80-7.70) 10*3/uL Lymphocytes # (0.90-5.00) 10*3/uL Monocytes # (0.20-1.00) 10*3/uL Carbon Dioxide (22-30) mmol/L BUN (7-17) mg/dL Creatinine (0.52-1.04) mg/dL Glucose (74-99) mg/dL POC Glucose (mg/dL) 290 H (70-110) mg/dL Iron (50-170) UG/DL TIBC (228-460) UG/DL Transferrin (204.0-354.0) mg/dL Ferritin (10.0-291.0) ng/mL Microbiology - Last 24 Hours (Table) 11/18/24 01:32 Blood Culture - Preliminary Blood Assessment and Plan Assessment: Acute hypoxemic respiratory failure. Acute on chronic diastolic CHF, with atrial fibrillation/RVR. Doubt pneumonia. Possible urinary tract infection. Atrial fibrillation with RVR. Hypotension, secondary to atrial fibrillation/RVR. Acute on chronic kidney injury. CAD with previous transcatheter aortic valve replacement. Benign essential hypertension. Dyslipidemia. Degenerative joint disease. Plan: Plan dated November 21, 2024. The patient had a brain CT which showed nothing acute. She continues on 12 L high flow nasal O2. Will continue to titrate that down. Labs, x-rays, and all medications are reviewed. The patient continues on GI and DVT prophylaxis. We will continue to follow. Prognosis is guarded. She remains a DO NOT RESUSCITATE patient. Dictation was produced using [email or web address] software. Please excuse any grammatical, word or spelling errors. Plan dated November 22, 2024. The patient was on nasal O2 at 12 L yesterday. She has been weaned down to 8. She uses oxygen at home, at 2 L. Clinically, she appears to be a bit better. She is less short of breath. She is awake and alert. She is sitting up in bed. Labs, x-rays, medications are reviewed. The patient continues on GI and DVT prophylaxis. We will continue to follow the patient, make recommendations. The patient remains a DO NOT RESUSCITATE patient. Dictation was produced using [email or web address] software. Please excuse any grammatical, word or spelling errors. Time with Patient: Less than 30
[2024-11-22] MEDS: DARBEPOETIN ALFA 40 MCG/0.4 ML SYRINGE SQ SCH (13:41)
[2024-11-22] MEDS: PIPERACILLIN-TAZOBACTAM 3.375 GM in SODIUM CHLORIDE 0.9% 100 ML IVPB SCH (13:41)
[2024-11-22 16:36] LABS: Glucose,Whole Blood 160 mg/dL (70-110)
[2024-11-22 20:31] LABS: Glucose,Whole Blood 178 mg/dL (70-110)
--- NOTE | 2024-11-22 20:33 | PN ---
PROGRESS NOTE DATE OF SERVICE: 11/22/2024 SUBJECTIVE: This is an 89-year-old woman who was admitted with shortness of breath, possibly CHF acute exacerbation also, bilateral pneumonia also. The patient is severely hypoxic. The patient has multiple complex medical issues. The patient is closely monitored at this time. Most recent chest x-ray was reviewed personally by me. A 2D echo done yesterday showed ejection fraction of about 60%-65%, and multiple [id number] valve abnormalities also. A CT brain did not show any acute abnormality. PAST MEDICAL HISTORY: Reviewed. REVIEW OF SYSTEM: A 14-point review of systems negative except as mentioned earlier. CURRENT MEDICATIONS: Reviewed. PHYSICAL EXAMINATION: VITAL SIGNS: Pulse 88, blood pressure 110/76. And the patient is short of breath. Respiratory rate is 20. HEENT: Conjunctivae normal. NECK: No JVD. CARDIOVASCULAR: S1 and S2. RESPIRATIONS: Bilateral scattered rhonchi and crackles. ABDOMEN: Soft. NERVOUS SYSTEM: Nonfocal. LABORATORY DATA: WBC 19.6. Rest of the labs are noted. ASSESSMENT: 1. Shortness of breath, possibly secondary to congestive heart failure, acute exacerbation, acute on chronic diastolic dysfunction. 2. Acute bilateral pneumonia, possibly gram-negative. 3. Chronic kidney disease, stage III. 4. Elevated WBC. 5. Thrombocytopenia. 6. History of atrial fibrillation. 7. CAD, CABG, valve replacement history .. 8. History of deep vein thrombosis. 9. Diabetes mellitus, type 2. 10.Hypertension. 11.Hyperlipidemia. 12.Multiple complex medical issues. RECOMMENDATIONS: Recommend to continue current management and symptomatic treatment. Otherwise, recommend bronchodilators and empiric antibiotics, Zosyn. Guarded prognosis because of multiple complex medical issues. Further recommendations to follow. MMODL / IJN: [id number] /
[2024-11-23] MEDS: PIPERACILLIN-TAZOBACTAM 3.375 GM in SODIUM CHLORIDE 0.9% 100 ML IVPB SCH (02:42)
[2024-11-23 05:49] LABS: Glucose,Whole Blood 239 mg/dL (70-110)
[2024-11-23 06:45] LABS: Basophils % (A) 0.6 %; Eosinophils # (A) 0.33 10*3/uL (0.04-0.35); Eosinophils % (A) 1.9 %; HGB 8.3 g/dL (12.0-15.0); Lymphocytes # (A) 0.74 10*3/uL (0.90-5.00); Lymphocytes % (A) 4.3 %; MCHC 30.7 g/dL (32.0-37.0); Monocytes # (A) 1.49 10*3/uL (0.20-1.00); Monocytes % (A) 8.6 %; Neutrophils # (A) 14.38 10*3/uL (1.80-7.70); Neutrophils % (A) 83.2 %; Platelet Count 115 10*3/uL (140-440); RBC 1.91 10*6/uL (4.10-5.20); RDW 14.9 % (11.5-14.5); WBC 17.28 10*3/uL (4.50-10.00)
[2024-11-23 07:15] LABS: African American GFR (CKD) 24 (>60 ml/min/1.73 sqM); Anion Gap 10 mmol/L; Carbon Dioxide 33 mmol/L (22-30); Chloride 105 mmol/L (98-107); Glucose 190 mg/dL (74-99); Magnesium 2.3 mg/dL (1.6-2.3); Non-African American GFR(CKD) 21 (>60 ml/min/1.73 sqM); Potassium 3.9 mmol/L (3.5-5.1); Sodium 148 mmol/L (137-145)
[2024-11-23 07:17] LABS: MCH 43.5 pg (27.0-32.0)
[2024-11-23 07:18] LABS: MCV 141.4 fL (80.0-97.0)
[2024-11-23 07:22] LABS: Blood Urea Nitrogen 113 mg/dL (7-17)
--- NOTE | 2024-11-23 09:41 | P.PN ---
Subjective Patient is seen in follow-up for acute kidney injury on chronic kidney disease. Renal function worse from diuresis. On IV Lasix. Family present at bedside. Patient is not a reliable historian. Urine output remains low despite IV Lasix. Sodium 148 today. Currently on 10 L high flow nasal cannula. Vital signs are stable. General: No acute distress. HEENT: Head exam is unremarkable. On high flow nasal cannula. LUNGS: No audible rhonchi or wheezes. HEART: Rate and Rhythm are regular. ABDOMEN: Nontender. EXTREMITITES: Trace edema. Objective - Vital Signs Vital signs: Vital Signs Temp 97.6 F 11/23/24 04:00 Pulse 90 11/23/24 08:34 Resp 19 11/23/24 04:00 BP 120/55 11/23/24 04:00 Pulse Ox 95 11/23/24 08:22 FiO2 Intake & Output 11/22/24 11/23/24 11/23/24 18:59 06:59 18:59 Output Total 400 Balance -400 Weight 78.1 kg Output: Urine 400 Other: Voiding Method External Catheter External Catheter # Bowel Movements 1 1 - Labs CBC & Chem 7: 11/23/24 06:14 11/23/24 06:14 Labs: Abnormal Lab Results - Last 24 Hours (Table) 11/22/24 11/22/24 11/22/24 Range/Units 11:24 16:35 20:28 WBC (4.50-10.00) 10*3/uL RBC (4.10-5.20) 10*6/uL Hgb (12.0-15.0) g/dL Hct (37.2-46.3) % MCV (80.0-97.0) fL MCH (27.0-32.0) pg MCHC (32.0-37.0) g/dL Plt Count (140-440) 10*3/uL Immature Gran # (0.00-0.04) 10*3/uL Neutrophils # (1.80-7.70) 10*3/uL Lymphocytes # (0.90-5.00) 10*3/uL Monocytes # (0.20-1.00) 10*3/uL Sodium (137-145) mmol/L Carbon Dioxide (22-30) mmol/L BUN (7-17) mg/dL Creatinine (0.52-1.04) mg/dL Glucose (74-99) mg/dL POC Glucose (mg/dL) 290 H 160 H 178 H (70-110) mg/dL 11/23/24 11/23/24 11/23/24 Range/Units 05:45 06:14 06:14 WBC 17.28 H (4.50-10.00) 10*3/uL RBC 1.91 L (4.10-5.20) 10*6/uL Hgb 8.3 L (12.0-15.0) g/dL Hct 27.0 L (37.2-46.3) % MCV 141.4 H (80.0-97.0) fL MCH 43.5 H (27.0-32.0) pg MCHC 30.7 L (32.0-37.0) g/dL Plt Count 115 L (140-440) 10*3/uL Immature Gran # 0.24 H (0.00-0.04) 10*3/uL Neutrophils # 14.38 H (1.80-7.70) 10*3/uL Lymphocytes # 0.74 L (0.90-5.00) 10*3/uL Monocytes # 1.49 H (0.20-1.00) 10*3/uL Sodium 148 H (137-145) mmol/L Carbon Dioxide 33 H (22-30) mmol/L BUN 113 H* (7-17) mg/dL Creatinine 2.05 H (0.52-1.04) mg/dL Glucose 190 H (74-99) mg/dL POC Glucose (mg/dL) 239 H (70-110) mg/dL Microbiology - Last 24 Hours (Table) 11/21/24 10:57 Urine Culture - Final Urine,Clean Catch Assessment and Plan Plan: Assessment: 1. Acute kidney injury secondary to ATN secondary to cardiorenal syndrome. Renal function worse with creatinine 2.05 today. UA fairly benign. 2. Chronic kidney disease stage IV with baseline creatinine 1.4-1.7 secondary to nephrosclerosis. 3. Volume overload. 4. A-fib with RVR. Status post Cardizem drip. Cardiology following. 5. Acute on chronic diastolic CHF with moderate tricuspid regurgitation.. 6. Coronary disease status post CABG. 7. Anemia of chronic kidney disease. Iron replete. On Aranesp. 8. Hypernatremia from lack of oral water intake. Plan: Increase dose of Lasix to 60 mg IV twice daily. Metolazone 5 mg x1 dose today. Start D5W at 60 cc an hour. Avoid nephrotoxins. Continue to monitor renal function and urine output. Strict I's and O's. Guerrero catheter will be inserted. Discussed with RN. Check renal ultrasound. Case discussed at length with patient's daughter present at bedside. Renal replacement therapy discussed. Family does not want any form of renal replacement therapy. Prognosis guarded.
--- NOTE | 2024-11-23 10:36 | US ---
EXAMINATION TYPE: US kidneys/renal and bladder DATE OF EXAM: 11/23/2024 COMPARISON: CT & US CLINICAL INDICATION: Female, 89 years old with history of donny; DONNY TECHNIQUE: Grayscale imaging of the bilateral kidneys and urinary bladder: FINDINGS: EXAM MEASUREMENTS: Right Kidney: cm Left Kidney: cm Immobile, elderly patient- difficult to visualize left kidney Right Kidney: Cortical thinning, no evidence of hydro, cystic lesion medial as visualized on priors= 2.8 x 2.8 x 2.1 cm Left Kidney: No evidence of hydro, atrophic in appearance Bladder: Pt has cath in place There is no evidence for hydronephrosis at this point in time. No nephrolithiasis is seen. No david s are identified. The urinary bladder is anechoic. IMPRESSION: Stable Right renal cyst [facility], , 11/23/2024 10:34 AM
[2024-11-23] MEDS: metOLazone 5 MG TAB PO ONE (10:39)
[2024-11-23] MEDS: DEXTROSE 5% IN WATER 1,000 ML IV SCH (10:45)
[2024-11-23] MEDS: FUROSEMIDE 10 MG/ML 10 ML VIAL IV STA (10:45)
[2024-11-23 11:53] LABS: Glucose,Whole Blood 224 mg/dL (70-110)
--- NOTE | 2024-11-23 13:32 | P.PN ---
Subjective Progress Note Date: 11/23/24 HISTORY OF PRESENT ILLNESS: This is a 89-year-old female with a past medical history significant for TAVR, atrial fibrillation, coronary artery disease with previous CABG, congestive heart failure, diabetes. Patient follows in the office with []. We have been asked to see the patient in consultation for A-fib with RVR. Patient examined at the bedside in the emergency room. Patient's family is present. Patient reports she has been having a cough recently. She is also been complaining of shortness of breath. She denies any chest pain or pressure. Patient was found to be in A-fib with RVR. She was started on IV Cardizem which is infusing at 10 mg an hour. She remains in atrial fibrillation with heart rate around 110. Blood pressure 81/47 at the time of examination. DIAGNOSTICS: - EKG reveals A-fib with RVR - Chest xray bilateral airspace opacities may represent pulmonary edema and/or atypical infection, cardiomegaly, small bilateral pleural effusions - Laboratory data: WBC 22.17. Hemoglobin 8.5. Platelet count 133. Sodium 136. Potassium 4.0. BUN 104. Creatinine 1.74. Troponin negative x 1. proBNP 3120. - Current home cardiac medications include Eliquis 2.5 mg twice a day, Lipitor 40 mg at night, Lasix 60 mg daily, metoprolol tartrate 12.5 mg twice daily. - Most recent echocardiogram obtained in August 2024 at the cardiology office reveals ejection fraction 55%, transcatheter AV prosthesis with normal function, aortic valve prosthetic mechanical dysfunction, mild mitral stenosis, mild tricuspid regurgitation. - Cardiac catheterization history: June 2021 revealed rincon CAD with 90% proximal LAD, mid circumflex 75 to 80% and mid RCA 60 to 70% stenosis. Patent TAVERAS to LAD, SVG, and diagonal grafts. Occluded SVG graft to PDA/PLV and SVG to OM. 11/19/2024 Patient examined this morning at bedside. Patient currently denies chest pain or pressure. Patient did have an episode this morning of increased hypoxia and shortness of breath. She has been given a dose of IV Lasix per primary medicine. She remains in atrial fibrillation with controlled ventricular rate. Cardizem drip has been off. She is currently on 12 L nasal cannula. 11/20/2024 Patient examined this morning at the bedside. Patient continues to report shortness of breath. She is requiring supplemental oxygen to maintain oxygen saturations greater than 92%. Patient did receive a one-time dose of IV Lasix yesterday. She is currently on oral Lasix. 11/21/2024 Patient seen and examined. Patient appears to have less shortness of breath today. She still has some mild wheezing and mild lower extremity edema. She has been maintained on IV Lasix 40 mg every 12 hours. Blood pressure 134/62, heart rate 76, pulse ox 92% on 12 L high flow nasal cannula. She is also on IV antibiotics for pneumonia. 11/22/2024 Patient states that she is still having shortness of breath but appears to be more comfortable. Noted that oxygen is down to 10 L from 12 L which she was on yesterday. Blood pressure 118/56, heart rate 72, pulse ox 93% on 10 L nasal cannula. Patient is afebrile. Repeat blood work reveals WBC 19.6, hemoglobin 8.3, platelet count 116. BUN 111, creatinine 1.84, potassium 3.9. Echocardiogram reveals EF of 60 to 65%, RVSP 65. Mild MR, mild MS. Normally functioning bioprosthetic aortic valve with no paravalvular aortic regurgitation. Mild aortic regurgitation. Moderate tricuspid regurgitation. 11/23/2024 Patient seen and examined. Patient is currently n.p.o. as there is concern for aspiration. Patient has been coughing on some intake of food. Patient has been on IV Lasix 40 mg every 12 hours. She has had increase in creatinine. Family states there is no plan for dialysis treatments. Blood pressure 140/55, heart rate 103, pulse ox 99% on high flow nasal cannula. Patient was weaned down to 6 L during the night but this was increased due to worsening shortness of breath. Repeat blood work reveals WBC 17.2, hemoglobin 8.3, platelet count 115. Sodium 148, potassium 3.9, BUN 113 and creatinine 2.05. Patient has been on IV Lasix 40 mg every 12 hours and increased to 60 mg every 12 hours by nephrology. PHYSICAL EXAM: VITAL SIGNS: Reviewed. GENERAL: Well-developed in no acute distress. HEENT: Head is normocephalic. Pupils are equal, round. Sclerae anicteric. Mucous membranes of the mouth are moist. Neck supple. No JVD or thyromegaly LUNGS: Respirations even and unlabored. Lungs diminished with wheezing and bibasilar crackles HEART: Irregular rate and rhythm. S1 and S2 heard. Systolic murmur noted ABDOMEN: Soft. Nondistended. Nontender. EXTREMITIES: No clubbing or cyanosis. Peripheral pulses intact. No lower extremity edema NEUROLOGIC: Awake and alert. Oriented x 3. ASSESSMENT: Shortness of breath Leukocytosis Bilateral pneumonia Hypotension, resolved Acute on chronic heart failure with preserved EF Acute hypoxic respiratory failure Paroxysmal atrial fibrillation with RVR, currently rate controlled Coronary artery disease with previous CABG History of TAVR, 2021 Acute kidney injury Chronic kidney disease stage IV Diabetes Obesity: BMI 43.3 Anemia Thrombocytopenia Severe pulmonary hypertension with RVSP 65 PLAN: Continue IV Lasix 60 mg every 12 hours per nephrology Daily weights, accurate intake and output, monitoring of kidney function Continue additional cardiac medications Continue telemetry monitoring Further recommendations pending patient course Nurse practitioner note has been reviewed by physician. Signing provider agrees with the documented findings, assessment, and plan of care documented by GROCERY CADDY as a scribe. Objective - Vital Signs Vital signs: Vital Signs Temp 97.6 F 11/23/24 04:00 Pulse 86 11/23/24 04:00 Resp 19 11/23/24 04:00 BP 120/55 11/23/24 04:00 Pulse Ox 94 L 11/23/24 04:00 FiO2 Intake & Output 11/22/24 11/23/24 11/23/24 18:59 06:59 18:59 Output Total 400 Balance -400 Weight 78.1 kg Output: Urine 400 Other: Voiding Method External Catheter External Catheter # Bowel Movements 1 1 - Labs CBC & Chem 7: 11/23/24 06:14 11/23/24 06:14 Labs: Abnormal Lab Results - Last 24 Hours (Table) 11/22/24 11/22/24 11/22/24 Range/Units 11:24 16:35 20:28 WBC (4.50-10.00) 10*3/uL RBC (4.10-5.20) 10*6/uL Hgb (12.0-15.0) g/dL Hct (37.2-46.3) % MCV (80.0-97.0) fL MCH (27.0-32.0) pg MCHC (32.0-37.0) g/dL Plt Count (140-440) 10*3/uL Immature Gran # (0.00-0.04) 10*3/uL Neutrophils # (1.80-7.70) 10*3/uL Lymphocytes # (0.90-5.00) 10*3/uL Monocytes # (0.20-1.00) 10*3/uL Sodium (137-145) mmol/L Carbon Dioxide (22-30) mmol/L BUN (7-17) mg/dL Creatinine (0.52-1.04) mg/dL Glucose (74-99) mg/dL POC Glucose (mg/dL) 290 H 160 H 178 H (70-110) mg/dL 11/23/24 11/23/24 11/23/24 Range/Units 05:45 06:14 06:14 WBC 17.28 H (4.50-10.00) 10*3/uL RBC 1.91 L (4.10-5.20) 10*6/uL Hgb 8.3 L (12.0-15.0) g/dL Hct 27.0 L (37.2-46.3) % MCV 141.4 H (80.0-97.0) fL MCH 43.5 H (27.0-32.0) pg MCHC 30.7 L (32.0-37.0) g/dL Plt Count 115 L (140-440) 10*3/uL Immature Gran # 0.24 H (0.00-0.04) 10*3/uL Neutrophils # 14.38 H (1.80-7.70) 10*3/uL Lymphocytes # 0.74 L (0.90-5.00) 10*3/uL Monocytes # 1.49 H (0.20-1.00) 10*3/uL Sodium 148 H (137-145) mmol/L Carbon Dioxide 33 H (22-30) mmol/L BUN 113 H* (7-17) mg/dL Creatinine 2.05 H (0.52-1.04) mg/dL Glucose 190 H (74-99) mg/dL POC Glucose (mg/dL) 239 H (70-110) mg/dL Microbiology - Last 24 Hours (Table) 11/21/24 10:57 Urine Culture - Final Urine,Clean Catch
--- NOTE | 2024-11-23 14:12 | P.PN ---
Subjective Progress Note Date: 11/23/24 Principal diagnosis: Congestive heart failure, atrial fibrillation with RVR. This is an 89-year-old female with history of multiple medical problems including previous history of TAVR, chronic atrial fibrillation, coronary artery disease with previous CABG, chronic diastolic congestive heart failure, diabetes, chronic kidney disease, and again she had previous history of conge stive heart failure with preserved ejection fraction. Patient was brought into the ER mostly with complaints of shortness of breath. Upon arrival patient was noted to be in atrial fibrillation with RVR, she was started on Cardizem initially at 10 mg/h, and during my evaluation the patient was on 5 mg/h of Cardizem drip. Blood pressure initially was 81/47 with a heart rate of 110. When I was seeing the patient, patient had a heart rate of 83, blood pressure was 120/73, she was also on 12 L high flow nasal cannula. Chest x-ray showed leukocytosis with WBC of 27.96 hemoglobin was noted to be low at 8.4, her usual hemoglobin is in the range of 9.5-10. Electrolytes were noted to be normal BUN 99 creatinine 1.61. Her BNP level is 12,700. Procalcitonin level is pending. Symptoms spears the patient is not a great historian, but she denied any fever or chills, denied any cough, but she does have shortness of breath. Chest x-ray showed bilateral interstitial opacities, of course the differential diagnosis would be pneumonia and/or pulmonary edema, based on her elevated BNP level and based on her cardiac history, I believe this is mostly pulmonary edema in the setting of atrial fibrillation with RVR, doubt pneumonia but the patient will be empirically now on antibiotics, in the meantime she is receiving also diuretics. Follow-up chest x-ray will be done in the next 24 hours, and procalcitonin will be available by tomorrow. Seen today on 11/20/2024, patient tells me that she is basically about the same, continues to have intermittent cough, no wheezing, no fever no chills no h emoptysis no chest pain. Patient is still receiving diuretics, on Lasix at 40 mg IV push every 12 hours, patient is also on antibiotics empirically although my index of suspicion for pneumonia is rather low, blood cultures remain negative urinalysis is suspicious for UTI, urine culture is pending. Progress note dated November 21, 2024. 89-year-old female seen today in room 355. She was admitted with a diagnosis of CHF, atrial fibrillation with RVR, and acute kidney injury. She is currently on 12 L high flow nasal O2. The patient's procalcitonin level was 0.70. Additional laboratory data includes a sodium 145, potassium 3.9, chlorides 104, CO2 31, anion gap 10, BUN 103, creatinine 1.83. Glucose is 201. Calcium is 8.7. Viral screen was negative. Blood cultures are currently negative. Brain CT showed nothing acute. Progress note dated November 22, 2024. 89-year-old female seen today in room 355. The patient was admitted with a diagnosis of CHF, and possible pneumonia. Procalcitonin level was modestly elevated at 0.70. The patient is on 8 L high flow nasal O2. She is receiving Rocephin and Lasix. She does use oxygen at home, 2 L. Clinically, she appears to be a bit better. She is awake and alert. She is sitting up in bed. Family members are at the bedside. Current labs showed a white count of 19.7, hemoglobin 8.3, hematocrit 27, and platelet count of 116,000. Sodium 145, potassium 3.9, chlorides 104, CO2 31, BUN is 111, creatinine 1.84. Glucose is 290. Calcium 8.8, magnesium 2.2. Chest x-ray shows diffuse lung markings, consistent with pulmonary edema/CHF. Progress note dated November 23, 2024. 89-year-old female seen today in room 355. Family members are in the room. She is on 10 L high flow nasal O2. She is getting D5W at 60 cc an hour. Chest x- ray shows changes of CHF. She is receiving Lasix. Current laboratory data includes a white count of 17.3, hemoglobin 8.3, hematocrit 27, platelet count 115,000. Sodium 148, potassium 3.9, chlorides 105, CO2 33, BUN 113, creatinine 2.05. Glucose 224. Calcium 9, magnesium 2.3. Chest x-ray from yesterday has been reviewed. Objective - Vital Signs Vital signs: Vital Signs Temp 97.4 F L 11/23/24 08:00 Pulse 92 11/23/24 12:11 Resp 20 11/23/24 08:00 BP 108/56 11/23/24 12:00 Pulse Ox 100 11/23/24 12:00 FiO2 Intake & Output 11/22/24 11/23/24 11/23/24 18:59 06:59 18:59 Output Total 400 Balance -400 Weight 78.1 kg Output: Urine 400 Other: Voiding Method External Catheter External Catheter External Catheter # Bowel Movements 1 1 - Exam No acute distress, confused. Currently on 10 L high flow nasal O2. HEENT examination is grossly unremarkable. Mucous membranes are moist. No oral lesions. Neck supple. Full range of motion. No adenopathy thyromegaly or neck vein distention. Cardiovascular examination reveals an irregular rhythm and rate. S1-S2 normal. No S3 or S4. No discernible murmur noted. Lungs reveal bibasilar crackles. Breath sounds are equal bilaterally. No rhonchi. No wheezes. Abdomen soft bowel sounds are heard. No masses or tenderness. Extremities are intact. No cyanosis clubbing or edema. Skin is without rash or lesion. Neurologic examination is brief but nonfocal. - Labs CBC & Chem 7: 11/23/24 06:14 11/23/24 06:14 Labs: Abnormal Lab Results - Last 24 Hours (Table) 11/22/24 11/22/24 11/23/24 Range/Units 16:35 20:28 05:45 WBC (4.50-10.00) 10*3/uL RBC (4.10-5.20) 10*6/uL Hgb (12.0-15.0) g/dL Hct (37.2-46.3) % MCV (80.0-97.0) fL MCH (27.0-32.0) pg MCHC (32.0-37.0) g/dL Plt Count (140-440) 10*3/uL Immature Gran # (0.00-0.04) 10*3/uL Neutrophils # (1.80-7.70) 10*3/uL Lymphocytes # (0.90-5.00) 10*3/uL Monocytes # (0.20-1.00) 10*3/uL Sodium (137-145) mmol/L Carbon Dioxide (22-30) mmol/L BUN (7-17) mg/dL Creatinine (0.52-1.04) mg/dL Glucose (74-99) mg/dL POC Glucose (mg/dL) 160 H 178 H 239 H (70-110) mg/dL 11/23/24 11/23/24 11/23/24 Range/Units 06:14 06:14 11:52 WBC 17.28 H (4.50-10.00) 10*3/uL RBC 1.91 L (4.10-5.20) 10*6/uL Hgb 8.3 L (12.0-15.0) g/dL Hct 27.0 L (37.2-46.3) % MCV 141.4 H (80.0-97.0) fL MCH 43.5 H (27.0-32.0) pg MCHC 30.7 L (32.0-37.0) g/dL Plt Count 115 L (140-440) 10*3/uL Immature Gran # 0.24 H (0.00-0.04) 10*3/uL Neutrophils # 14.38 H (1.80-7.70) 10*3/uL Lymphocytes # 0.74 L (0.90-5.00) 10*3/uL Monocytes # 1.49 H (0.20-1.00) 10*3/uL Sodium 148 H (137-145) mmol/L Carbon Dioxide 33 H (22-30) mmol/L BUN 113 H* (7-17) mg/dL Creatinine 2.05 H (0.52-1.04) mg/dL Glucose 190 H (74-99) mg/dL POC Glucose (mg/dL) 224 H (70-110) mg/dL Microbiology - Last 24 Hours (Table) 11/18/24 01:32 Blood Culture - Final Blood 11/21/24 10:57 Urine Culture - Final Urine,Clean Catch Assessment and Plan Assessment: Acute hypoxemic respiratory failure. Acute on chronic diastolic CHF, with atrial fibrillation/RVR. Doubt pneumonia. Possible urinary tract infection. Atrial fibrillation with RVR. Hypotension, secondary to atrial fibrillation/RVR. Acute on chronic kidney injury. CAD with previous transcatheter aortic valve replacement. Benign essential hypertension. Dyslipidemia. Degenerative joint disease. Plan: Plan dated November 21, 2024. The patient had a brain CT which showed nothing acute. She continues on 12 L high flow nasal O2. Will continue to titrate that down. Labs, x-rays, and all medications are reviewed. The patient continues on GI and DVT prophylaxis. We will continue to follow. Prognosis is guarded. She remains a DO NOT RESUSCITATE patient. Dictation was produced using [employer] software. Please excuse any grammatical, word or spelling errors. Plan dated November 22, 2024. The patient was on nasal O2 at 12 L yesterday. She has been weaned down to 8. She uses oxygen at home, at 2 L. Clinically, she appears to be a bit better. She is less short of breath. She is awake and alert. She is sitting up in bed. Labs, x-rays, medications are reviewed. The patient continues on GI and DVT prophylaxis. We will continue to follow the patient, make recommendations. The patient remains a DO NOT RESUSCITATE patient. Dictation was produced using [employer] software. Please excuse any grammatical, word or spelling errors. Plan dated November 23, 2024. The patient was seen in room 355. Family members are in the room. The patient was on a liter high flow nasal O2 yesterday. She is currently on 10 L high flow nasal O2. She is getting D5W at 60 cc an hour. Chest x-ray from November 22 showed changes of CHF. All labs, x-rays, medications are reviewed. Overall prognosis remains poor. We have asked the patient to sit up in bed, or sit in a chair next to the hospital bed. Labs, x-rays, and all medications have been reviewed. The patient is a DO NOT RESUSCITATE patient. We will continue to follow make recommendations were appropriate. Dictation was produced using [employer] software. Please excuse any grammatical, word or spelling errors. Time with Patient: Less than 30
[2024-11-23 16:38] LABS: Glucose,Whole Blood 234 mg/dL (70-110)
[2024-11-23 20:11] LABS: Glucose,Whole Blood 217 mg/dL (70-110)
[2024-11-23] MEDS: FUROSEMIDE 10 MG/ML 10 ML VIAL IV SCH (20:28)
[2024-11-24 05:45] LABS: Glucose,Whole Blood 227 mg/dL (70-110)
--- NOTE | 2024-11-24 06:00 | PN ---
PROGRESS NOTE DATE OF SERVICE: 11/23/2024 HISTORY OF PRESENT ILLNESS: This 89-year-old female was admitted with shortness of breath and CHF acute exacerbation, also requiring high levels of nasal oxygen at this time. The abdominal bladder ultrasound showed no evidence of hydronephrosis. PAST MEDICAL HISTORY: Reviewed. REVIEW OF SYSTEMS: A 14-point review of systems negative except as mentioned earlier. CURRENT MEDICATIONS: Reviewed. PHYSICAL EXAMINATION: VITAL SIGNS: Pulse is 88, blood pressure 102/60, respiratory rate 20. HEENT: Conjunctivae normal. ABDOMEN: Soft. RESPIRATION: Bilateral scattered rhonchi and crackles. ABDOMEN: Soft. LABORATORY DATA: WBC 17.8. Otherwise, creatinine is 2.05 which is slightly worsening. ASSESSMENT: 1. Shortness of breath, multifactorial with secondary to congestive heart failure acute exacerbation, acute on chronic diastolic dysfunction. 2. Acute bilateral pneumonia, possibly gram-negative. 3. Chronic kidney disease, stage III. 4. Elevated WBC. 5. Thrombocytopenia. 6. History of atrial fibrillation. 7. History of coronary artery disease, coronary artery bypass grafting, valve replacement history. 8. History of deep vein thrombosis. 9. Diabetes mellitus type 2. 10.Hypertension. 11.Hyperlipidemia. 12.Multiple complex medications issues. 13.No code, no CPR, no vent. RECOMMENDATIONS AND DISCUSSION: I recommend to continue current medications and continue with bronchodilators. Continue with cautious diuresis per Nephrology and Cardiology; otherwise, empiric antibiotics. The patient is on IV Zosyn. Cultures are negative so far. Prognosis is guarded. Avoid nephrotoxic medications. Discussed with the family at the bedside. Further recommendations to follow. We will monitor creatinine closely. MMODL / IJN: [id number] /
[2024-11-24 06:13] LABS: HCT 25.7 % (37.2-46.3); HGB 8.1 g/dL (12.0-15.0); MCHC 31.5 g/dL (32.0-37.0); MCV 140.4 fL (80.0-97.0); Mean Platelet Volume 11.5 fL (9.5-12.2); Platelet Count 105 10*3/uL (140-440); RBC 1.83 10*6/uL (4.10-5.20); RDW 14.8 % (11.5-14.5); WBC 17.41 10*3/uL (4.50-10.00)
[2024-11-24 06:19] LABS: MCH 44.3 pg (27.0-32.0)
[2024-11-24 06:32] LABS: ALT 18 U/L (4-34); AST 16 U/L (14-36); African American GFR (CKD) 21 (>60 ml/min/1.73 sqM); Albumin 2.9 g/dL (3.5-5.0); Alkaline Phosphatase 95 U/L (38-126); Anion Gap 8 mmol/L; Band Neutrophils % 2 %; Calcium 8.8 mg/dL (8.4-10.2); Carbon Dioxide 34 mmol/L (22-30); Chloride 101 mmol/L (98-107); Eosinophils # (M) 0.35 k/uL (0-0.7); Glucose 206 mg/dL (74-99); Lymphocytes # (M) 0.87 k/uL (1.0-4.8); Magnesium 2.3 mg/dL (1.6-2.3); Monocytes # (M) 1.57 k/uL (0-1.0); Neutrophils # (M) 14.62 k/uL (1.3-7.7); Neutrophils % (M) 82 %; Non-African American GFR(CKD) 18 (>60 ml/min/1.73 sqM); Nucleated Red Blood Cells 0 /100 WBC (0-0); Potassium 3.4 mmol/L (3.5-5.1); Sodium 143 mmol/L (137-145); Total Bilirubin 0.8 mg/dL (0.2-1.3); Total Cells Counted 100; Total Protein 5.2 g/dL (6.3-8.2)
[2024-11-24 06:33] LABS: Stomatocytes Present
[2024-11-24 06:58] LABS: Blood Urea Nitrogen 118 mg/dL (7-17)
[2024-11-24 09:34] VITALS: RESP 16
--- NOTE | 2024-11-24 10:20 | P.PN ---
Subjective Patient is seen in follow-up for acute kidney injury on chronic kidney disease. Renal function worse from diuresis. On IV Lasix. Family present at bedside. Patient is quite lethargic. Currently on 8 L nasal cannula. Urine output documented as 850 cc in the last 24 hours. Vital signs are stable. General: No acute distress. HEENT: Head exam is unremarkable. On high flow nasal cannula. LUNGS: No audible rhonchi or wheezes. HEART: Rate and Rhythm are regular. ABDOMEN: Nontender. EXTREMITITES: Trace edema. Objective - Vital Signs Vital signs: Vital Signs Temp 97.8 F 11/24/24 08:00 Pulse 80 11/24/24 08:15 Resp 16 11/24/24 08:00 BP 105/50 11/24/24 08:00 Pulse Ox 95 11/24/24 08:07 FiO2 Intake & Output 11/23/24 11/24/24 11/24/24 18:59 06:59 18:59 Intake Total 100 180 Output Total 400 450 Balance -300 -450 180 Weight 75.6 kg Intake: Oral 100 180 Output: Urine 400 450 Other: Voiding Method Indwelling Catheter Indwelling Catheter # Bowel Movements 1 - Labs CBC & Chem 7: 11/24/24 05:42 11/24/24 05:42 Labs: Abnormal Lab Results - Last 24 Hours (Table) 11/23/24 11/23/24 11/23/24 Range/Units 11:52 16:37 20:10 WBC (4.50-10.00) 10*3/uL RBC (4.10-5.20) 10*6/uL Hgb (12.0-15.0) g/dL Hct (37.2-46.3) % MCV (80.0-97.0) fL MCH (27.0-32.0) pg MCHC (32.0-37.0) g/dL Plt Count (140-440) 10*3/uL Immature Gran # (0.00-0.04) 10*3/uL Neutrophils # (Manual) (1.3-7.7) k/uL Lymphocytes # (Manual) (1.0-4.8) k/uL Monocytes # (Manual) (0-1.0) k/uL Potassium (3.5-5.1) mmol/L Carbon Dioxide (22-30) mmol/L BUN (7-17) mg/dL Creatinine (0.52-1.04) mg/dL Glucose (74-99) mg/dL POC Glucose (mg/dL) 224 H 234 H 217 H (70-110) mg/dL Total Protein (6.3-8.2) g/dL Albumin (3.5-5.0) g/dL 11/24/24 11/24/24 11/24/24 Range/Units 05:42 05:42 05:44 WBC 17.41 H (4.50-10.00) 10*3/uL RBC 1.83 L (4.10-5.20) 10*6/uL Hgb 8.1 L (12.0-15.0) g/dL Hct 25.7 L (37.2-46.3) % MCV 140.4 H (80.0-97.0) fL MCH 44.3 H (27.0-32.0) pg MCHC 31.5 L (32.0-37.0) g/dL Plt Count 105 L (140-440) 10*3/uL Immature Gran # 0.28 H (0.00-0.04) 10*3/uL Neutrophils # (Manual) 14.62 H (1.3-7.7) k/uL Lymphocytes # (Manual) 0.87 L (1.0-4.8) k/uL Monocytes # (Manual) 1.57 H (0-1.0) k/uL Potassium 3.4 L (3.5-5.1) mmol/L Carbon Dioxide 34 H (22-30) mmol/L BUN 118 H* (7-17) mg/dL Creatinine 2.35 H (0.52-1.04) mg/dL Glucose 206 H (74-99) mg/dL POC Glucose (mg/dL) 227 H (70-110) mg/dL Total Protein 5.2 L (6.3-8.2) g/dL Albumin 2.9 L (3.5-5.0) g/dL Microbiology - Last 24 Hours (Table) 11/18/24 01:32 Blood Culture - Final Blood Assessment and Plan Plan: Assessment: 1. Acute kidney injury secondary to ATN secondary to cardiorenal syndrome. Renal function worse with creatinine 2.35 today. UA fairly benign. No hydronephrosis noted on imaging. 2. Chronic kidney disease stage IV with baseline creatinine 1.4-1.7 secondary to nephrosclerosis. 3. Volume overload. 4. A-fib with RVR. Status post Cardizem drip. Cardiology following. 5. Acute on chronic diastolic CHF with moderate tricuspid regurgitation.. 6. Coronary disease status post CABG. 7. Anemia of chronic kidney disease. Iron replete. On Aranesp. 8. Hypernatremia from lack of oral water intake. Better with D5W. 9. Hypokalemia from diuresis. Magnesium not low. Plan: Maintain IV Lasix. Maintain D5W for another day. Replace potassium. Avoid nephrotoxins. Continue to monitor renal function and urine output. Strict I's and O's. Case discussed at length with patient's family present at bedside. Renal replacement therapy discussed. Family and patient do not want any form of renal replacement therapy. They are interested in meeting with hospice.
[2024-11-24 11:19] LABS: Glucose,Whole Blood 346 mg/dL (70-110)
[2024-11-24] MEDS: POTASSIUM CHLORIDE ER 20 MEQ TAB.ER PO STA ×2 (12:28→12:35)
--- NOTE | 2024-11-24 12:43 | P.PN ---
Subjective Progress Note Date: 11/24/24 HISTORY OF PRESENT ILLNESS: This is a 89-year-old female with a past medical history significant for TAVR, atrial fibrillation, coronary artery disease with previous CABG, congestive heart failure, diabetes. Patient follows in the office with []. We have been asked to see the patient in consultation for A-fib with RVR. Patient examined at the bedside in the emergency room. Patient's family is present. Patient reports she has been having a cough recently. She is also been complaining of shortness of breath. She denies any chest pain or pressure. Patient was found to be in A-fib with RVR. She was started on IV Cardizem which is infusing at 10 mg an hour. She remains in atrial fibrillation with heart rate around 110. Blood pressure 81/47 at the time of examination. DIAGNOSTICS: - EKG reveals A-fib with RVR - Chest xray bilateral airspace opacities may represent pulmonary edema and/or atypical infection, cardiomegaly, small bilateral pleural effusions - Laboratory data: WBC 22.17. Hemoglobin 8.5. Platelet count 133. Sodium 136. Potassium 4.0. BUN 104. Creatinine 1.74. Troponin negative x 1. proBNP 3120. - Current home cardiac medications include Eliquis 2.5 mg twice a day, Lipitor 40 mg at night, Lasix 60 mg daily, metoprolol tartrate 12.5 mg twice daily. - Most recent echocardiogram obtained in August 2024 at the cardiology office reveals ejection fraction 55%, transcatheter AV prosthesis with normal function, aortic valve prosthetic mechanical dysfunction, mild mitral stenosis, mild tricuspid regurgitation. - Cardiac catheterization history: June 2021 revealed [place] CAD with 90% proximal LAD, mid circumflex 75 to 80% and mid RCA 60 to 70% stenosis. Patent TAVERAS to LAD, SVG, and diagonal grafts. Occluded SVG graft to PDA/PLV and SVG to OM. 11/19/2024 Patient examined this morning at bedside. Patient currently denies chest pain or pressure. Patient did have an episode this morning of increased hypoxia and shortness of breath. She has been given a dose of IV Lasix per primary medicine. She remains in atrial fibrillation with controlled ventricular rate. Cardizem drip has been off. She is currently on 12 L nasal cannula. 11/20/2024 Patient examined this morning at the bedside. Patient continues to report shortness of breath. She is requiring supplemental oxygen to maintain oxygen saturations greater than 92%. Patient did receive a one-time dose of IV Lasix yesterday. She is currently on oral Lasix. 11/21/2024 Patient seen and examined. Patient appears to have less shortness of breath today. She still has some mild wheezing and mild lower extremity edema. She has been maintained on IV Lasix 40 mg every 12 hours. Blood pressure 134/62, heart rate 76, pulse ox 92% on 12 L high flow nasal cannula. She is also on IV antibiotics for pneumonia. 11/22/2024 Patient states that she is still having shortness of breath but appears to be more comfortable. Noted that oxygen is down to 10 L from 12 L which she was on yesterday. Blood pressure 118/56, heart rate 72, pulse ox 93% on 10 L nasal cannula. Patient is afebrile. Repeat blood work reveals WBC 19.6, hemoglobin 8.3, platelet count 116. BUN 111, creatinine 1.84, potassium 3.9. Echocardiogram reveals EF of 60 to 65%, RVSP 65. Mild MR, mild MS. Normally functioning bioprosthetic aortic valve with no paravalvular aortic regurgitation. Mild aortic regurgitation. Moderate tricuspid regurgitation. 11/23/2024 Patient seen and examined. Patient is currently n.p.o. as there is concern for aspiration. Patient has been coughing on some intake of food. Patient has been on IV Lasix 40 mg every 12 hours. She has had increase in creatinine. Family states there is no plan for dialysis treatments. Blood pressure 140/55, heart rate 103, pulse ox 99% on high flow nasal cannula. Patient was weaned down to 6 L during the night but this was increased due to worsening shortness of breath. Repeat blood work reveals WBC 17.2, hemoglobin 8.3, platelet count 115. Sodium 148, potassium 3.9, BUN 113 and creatinine 2.05. Patient has been on IV Lasix 40 mg every 12 hours and increased to 60 mg every 12 hours by nephrology. 11/24/2024 Patient seen and examined. Patient is feeling better today from yesterday. Oxygen requirements are down to 7 L nasal cannula with pulse ox of 95%, heart rate running in the 70s, blood pressure 105/50. Renal function continues to worsen with BUN 118, creatinine 2.35. Nephrology is recommending IV Lasix, D5W, metolazone has been discontinued by nephrology. PHYSICAL EXAM: VITAL SIGNS: Reviewed. GENERAL: Well-developed in no acute distress. HEENT: Head is normocephalic. Pupils are equal, round. Sclerae anicteric. Mucous membranes of the mouth are moist. Neck supple. No JVD or thyromegaly LUNGS: Respirations even and unlabored. Lungs diminished with wheezing and bibasilar crackles HEART: Irregular rate and rhythm. S1 and S2 heard. Systolic murmur noted ABDOMEN: Soft. Nondistended. Nontender. EXTREMITIES: No clubbing or cyanosis. Peripheral pulses intact. No lower extremity edema NEUROLOGIC: Awake and alert. Oriented x 3. ASSESSMENT: Shortness of breath Leukocytosis Bilateral pneumonia Hypotension, resolved Acute on chronic heart failure with preserved EF Acute hypoxic respiratory failure Paroxysmal atrial fibrillation with RVR, currently rate controlled Coronary artery disease with previous CABG History of TAVR, 2021 Acute kidney injury Chronic kidney disease stage IV Diabetes Obesity: BMI 43.3 Anemia Thrombocytopenia Severe pulmonary hypertension with RVSP 65 PLAN: Continue IV Lasix 60 mg every 12 hours per nephrology Daily weights, accurate intake and output, monitoring of kidney function Continue additional cardiac medications Continue telemetry monitoring Further recommendations pending patient course Nurse practitioner note has been reviewed by physician. Signing provider agrees with the documented findings, assessment, and plan of care documented by CATHODE WASHER as a scribe. Objective - Vital Signs Vital signs: Vital Signs Temp 97.4 F L 11/24/24 05:00 Pulse 78 11/24/24 08:07 Resp 18 11/24/24 05:00 BP 112/68 11/24/24 05:00 Pulse Ox 95 11/24/24 08:07 FiO2 Intake & Output 11/23/24 11/24/24 11/24/24 18:59 06:59 18:59 Intake Total 100 Output Total 400 450 Balance -300 -450 Weight 75.6 kg Intake: Oral 100 Output: Urine 400 450 Other: Voiding Method Indwelling Catheter Indwelling Catheter # Bowel Movements 1 - Labs CBC & Chem 7: 11/24/24 05:42 11/24/24 05:42 Labs: Abnormal Lab Results - Last 24 Hours (Table) 11/23/24 11/23/24 11/23/24 Range/Units 11:52 16:37 20:10 WBC (4.50-10.00) 10*3/uL RBC (4.10-5.20) 10*6/uL Hgb (12.0-15.0) g/dL Hct (37.2-46.3) % MCV (80.0-97.0) fL MCH (27.0-32.0) pg MCHC (32.0-37.0) g/dL Plt Count (140-440) 10*3/uL Immature Gran # (0.00-0.04) 10*3/uL Neutrophils # (Manual) (1.3-7.7) k/uL Lymphocytes # (Manual) (1.0-4.8) k/uL Monocytes # (Manual) (0-1.0) k/uL Potassium (3.5-5.1) mmol/L Carbon Dioxide (22-30) mmol/L BUN (7-17) mg/dL Creatinine (0.52-1.04) mg/dL Glucose (74-99) mg/dL POC Glucose (mg/dL) 224 H 234 H 217 H (70-110) mg/dL Total Protein (6.3-8.2) g/dL Albumin (3.5-5.0) g/dL 11/24/24 11/24/24 11/24/24 Range/Units 05:42 05:42 05:44 WBC 17.41 H (4.50-10.00) 10*3/uL RBC 1.83 L (4.10-5.20) 10*6/uL Hgb 8.1 L (12.0-15.0) g/dL Hct 25.7 L (37.2-46.3) % MCV 140.4 H (80.0-97.0) fL MCH 44.3 H (27.0-32.0) pg MCHC 31.5 L (32.0-37.0) g/dL Plt Count 105 L (140-440) 10*3/uL Immature Gran # 0.28 H (0.00-0.04) 10*3/uL Neutrophils # (Manual) 14.62 H (1.3-7.7) k/uL Lymphocytes # (Manual) 0.87 L (1.0-4.8) k/uL Monocytes # (Manual) 1.57 H (0-1.0) k/uL Potassium 3.4 L (3.5-5.1) mmol/L Carbon Dioxide 34 H (22-30) mmol/L BUN 118 H* (7-17) mg/dL Creatinine 2.35 H (0.52-1.04) mg/dL Glucose 206 H (74-99) mg/dL POC Glucose (mg/dL) 227 H (70-110) mg/dL Total Protein 5.2 L (6.3-8.2) g/dL Albumin 2.9 L (3.5-5.0) g/dL Microbiology - Last 24 Hours (Table) 11/18/24 01:32 Blood Culture - Final Blood
--- NOTE | 2024-11-24 13:21 | P.PN ---
Subjective Progress Note Date: 11/24/24 Principal diagnosis: Congestive heart failure, atrial fibrillation with RVR. This is an 89-year-old female with history of multiple medical problems including previous history of TAVR, chronic atrial fibrillation, coronary artery disease with previous CABG, chronic diastolic congestive heart failure, diabetes, chronic kidney disease, and again she had previous history of conge stive heart failure with preserved ejection fraction. Patient was brought into the ER mostly with complaints of shortness of breath. Upon arrival patient was noted to be in atrial fibrillation with RVR, she was started on Cardizem initially at 10 mg/h, and during my evaluation the patient was on 5 mg/h of Cardizem drip. Blood pressure initially was 81/47 with a heart rate of 110. When I was seeing the patient, patient had a heart rate of 83, blood pressure was 120/73, she was also on 12 L high flow nasal cannula. Chest x-ray showed leukocytosis with WBC of 27.96 hemoglobin was noted to be low at 8.4, her usual hemoglobin is in the range of 9.5-10. Electrolytes were noted to be normal BUN 99 creatinine 1.61. Her BNP level is 12,700. Procalcitonin level is pending. Symptoms spears the patient is not a great historian, but she denied any fever or chills, denied any cough, but she does have shortness of breath. Chest x-ray showed bilateral interstitial opacities, of course the differential diagnosis would be pneumonia and/or pulmonary edema, based on her elevated BNP level and based on her cardiac history, I believe this is mostly pulmonary edema in the setting of atrial fibrillation with RVR, doubt pneumonia but the patient will be empirically now on antibiotics, in the meantime she is receiving also diuretics. Follow-up chest x-ray will be done in the next 24 hours, and procalcitonin will be available by tomorrow. Seen today on 11/20/2024, patient tells me that she is basically about the same, continues to have intermittent cough, no wheezing, no fever no chills no h emoptysis no chest pain. Patient is still receiving diuretics, on Lasix at 40 mg IV push every 12 hours, patient is also on antibiotics empirically although my index of suspicion for pneumonia is rather low, blood cultures remain negative urinalysis is suspicious for UTI, urine culture is pending. Progress note dated November 21, 2024. 89-year-old female seen today in room 355. She was admitted with a diagnosis of CHF, atrial fibrillation with RVR, and acute kidney injury. She is currently on 12 L high flow nasal O2. The patient's procalcitonin level was 0.70. Additional laboratory data includes a sodium 145, potassium 3.9, chlorides 104, CO2 31, anion gap 10, BUN 103, creatinine 1.83. Glucose is 201. Calcium is 8.7. Viral screen was negative. Blood cultures are currently negative. Brain CT showed nothing acute. Progress note dated November 22, 2024. 89-year-old female seen today in room 355. The patient was admitted with a diagnosis of CHF, and possible pneumonia. Procalcitonin level was modestly elevated at 0.70. The patient is on 8 L high flow nasal O2. She is receiving Rocephin and Lasix. She does use oxygen at home, 2 L. Clinically, she appears to be a bit better. She is awake and alert. She is sitting up in bed. Family members are at the bedside. Current labs showed a white count of 19.7, hemoglobin 8.3, hematocrit 27, and platelet count of 116,000. Sodium 145, potassium 3.9, chlorides 104, CO2 31, BUN is 111, creatinine 1.84. Glucose is 290. Calcium 8.8, magnesium 2.2. Chest x-ray shows diffuse lung markings, consistent with pulmonary edema/CHF. Progress note dated November 23, 2024. 89-year-old female seen today in room 355. Family members are in the room. She is on 10 L high flow nasal O2. She is getting D5W at 60 cc an hour. Chest x- ray shows changes of CHF. She is receiving Lasix. Current laboratory data includes a white count of 17.3, hemoglobin 8.3, hematocrit 27, platelet count 115,000. Sodium 148, potassium 3.9, chlorides 105, CO2 33, BUN 113, creatinine 2.05. Glucose 224. Calcium 9, magnesium 2.3. Chest x-ray from yesterday has been reviewed. Progress note dated November 24, 2024. 89-year-old female seen today in room 355. The patient continues on high flow oxygen, 7 L. Saturation is 95%. The patient is not receiving any IV fluids. Apparently the family is considering a hospice consultation. The procalcitonin level when measured, was 0.7. White count of 17.4, hemoglobin 8.1, hematocrit 25.7, platelet count 105,000. Sodium 143, potassium 3.4, chlorides 101, CO2 34, BUN 118, creatinine 2.35. Glucose was 346. Objective - Vital Signs Vital signs: Vital Signs Temp 97.8 F 11/24/24 08:00 Pulse 96 11/24/24 12:00 Resp 16 11/24/24 12:00 BP 105/54 11/24/24 12:00 Pulse Ox 95 11/24/24 12:00 FiO2 Intake & Output 11/23/24 11/24/24 11/24/24 18:59 06:59 18:59 Intake Total 100 180 Output Total 400 450 Balance -300 -450 180 Weight 75.6 kg Intake: Oral 100 180 Output: Urine 400 450 Other: Voiding Method Indwelling Catheter Indwelling Catheter Indwelling Catheter # Bowel Movements 1 - Exam No acute distress, confused. Currently on 7 L high flow nasal O2. HEENT examination is grossly unremarkable. Mucous membranes are moist. No oral lesions. Neck supple. Full range of motion. No adenopathy thyromegaly or neck vein distention. Cardiovascular examination reveals an irregular rhythm and rate. S1-S2 normal. No S3 or S4. No discernible murmur noted. Lungs reveal bibasilar crackles. Breath sounds are equal bilaterally. No rhonchi. No wheezes. Abdomen soft bowel sounds are heard. No masses or tenderness. Extremities are intact. No cyanosis clubbing or edema. Skin is without rash or lesion. Neurologic examination is brief but nonfocal. - Labs CBC & Chem 7: 11/24/24 05:42 11/24/24 05:42 Labs: Abnormal Lab Results - Last 24 Hours (Table) 11/23/24 11/23/24 11/24/24 Range/Units 16:37 20:10 05:42 WBC (4.50-10.00) 10*3/uL RBC (4.10-5.20) 10*6/uL Hgb (12.0-15.0) g/dL Hct (37.2-46.3) % MCV (80.0-97.0) fL MCH (27.0-32.0) pg MCHC (32.0-37.0) g/dL Plt Count (140-440) 10*3/uL Immature Gran # (0.00-0.04) 10*3/uL Neutrophils # (Manual) (1.3-7.7) k/uL Lymphocytes # (Manual) (1.0-4.8) k/uL Monocytes # (Manual) (0-1.0) k/uL Potassium 3.4 L (3.5-5.1) mmol/L Carbon Dioxide 34 H (22-30) mmol/L BUN 118 H* (7-17) mg/dL Creatinine 2.35 H (0.52-1.04) mg/dL Glucose 206 H (74-99) mg/dL POC Glucose (mg/dL) 234 H 217 H (70-110) mg/dL Total Protein 5.2 L (6.3-8.2) g/dL Albumin 2.9 L (3.5-5.0) g/dL 11/24/24 11/24/24 11/24/24 Range/Units 05:42 05:44 11:17 WBC 17.41 H (4.50-10.00) 10*3/uL RBC 1.83 L (4.10-5.20) 10*6/uL Hgb 8.1 L (12.0-15.0) g/dL Hct 25.7 L (37.2-46.3) % MCV 140.4 H (80.0-97.0) fL MCH 44.3 H (27.0-32.0) pg MCHC 31.5 L (32.0-37.0) g/dL Plt Count 105 L (140-440) 10*3/uL Immature Gran # 0.28 H (0.00-0.04) 10*3/uL Neutrophils # (Manual) 14.62 H (1.3-7.7) k/uL Lymphocytes # (Manual) 0.87 L (1.0-4.8) k/uL Monocytes # (Manual) 1.57 H (0-1.0) k/uL Potassium (3.5-5.1) mmol/L Carbon Dioxide (22-30) mmol/L BUN (7-17) mg/dL Creatinine (0.52-1.04) mg/dL Glucose (74-99) mg/dL POC Glucose (mg/dL) 227 H 346 H (70-110) mg/dL Total Protein (6.3-8.2) g/dL Albumin (3.5-5.0) g/dL Microbiology - Last 24 Hours (Table) 11/18/24 01:32 Blood Culture - Final Blood Assessment and Plan Assessment: Acute hypoxemic respiratory failure. Acute on chronic diastolic CHF, with atrial fibrillation/RVR. Doubt pneumonia. Possible urinary tract infection. Atrial fibrillation with RVR. Hypotension, secondary to atrial fibrillation/RVR. Acute on chronic kidney injury. CAD with previous transcatheter aortic valve replacement. Benign essential hypertension. Dyslipidemia. Degenerative joint disease. Plan: Plan dated November 21, 2024. The patient had a brain CT which showed nothing acute. She continues on 12 L high flow nasal O2. Will continue to titrate that down. Labs, x-rays, and all medications are reviewed. The patient continues on GI and DVT prophylaxis. We will continue to follow. Prognosis is guarded. She remains a DO NOT RESUSCITATE patient. Dictation was produced using [employer] software. Please excuse any grammatical, word or spelling errors. Plan dated November 22, 2024. The patient was on nasal O2 at 12 L yesterday. She has been weaned down to 8. She uses oxygen at home, at 2 L. Clinically, she appears to be a bit better. She is less short of breath. She is awake and alert. She is sitting up in bed. Labs, x-rays, medications are reviewed. The patient continues on GI and DVT prophylaxis. We will continue to follow the patient, make recommendations. The patient remains a DO NOT RESUSCITATE patient. Dictation was produced using [employer] software. Please excuse any grammatical, word or spelling errors. Plan dated November 23, 2024. The patient was seen in room 355. Family members are in the room. The patient was on a liter high flow nasal O2 yesterday. She is currently on 10 L high flow nasal O2. She is getting D5W at 60 cc an hour. Chest x-ray from November 22 showed changes of CHF. All labs, x-rays, medications are reviewed. Overall prognosis remains poor. We have asked the patient to sit up in bed, or sit in a chair next to the hospital bed. Labs, x-rays, and all medications have been reviewed. The patient is a DO NOT RESUSCITATE patient. We will continue to follow make recommendations were appropriate. Dictation was produced using [employer] software. Please excuse any grammatical, word or spelling errors. Plan dated November 24, 2024. The patient is seen in room 355. The patient is on 7 L high flow O2. Saturations are 95%. The patient is not receiving any IV fluids. Procalcitonin level was 0.7. Labs, x-rays, and all medications are reviewed. Prognosis is guarded. Apparently the family is requesting a possible hospice consultation. We will follow along for now. The patient is a DO NOT RESUSCITATE patient. D ictation was produced using [employer] dictation software. Please excuse any grammatical, word or spelling errors. Time with Patient: Less than 30
--- NOTE | 2024-11-24 13:57 | PN ---
PROGRESS NOTE DATE OF SERVICE: 11/24/2024 SUBJECTIVE: This is an 89-year-old woman was admitted with shortness of breath multifactorial, secondary to CHF acute exacerbation as well as pneumonia. She continues to be short of breath. The patient is severely hypoxic also. The patient requires currently about 7 L high-flow oxygen. Multiple consultants are following the patient closely. Hospice evaluation is in progress at this time. PAST MEDICAL HISTORY: Reviewed. REVIEW OF SYSTEMS: Could not be taken. CURRENT MEDICATIONS: Reviewed. PHYSICAL EXAMINATION: VITAL SIGNS: Pulse is 80, blood pressure 105/50, respirations 16. HEENT: Conjunctivae normal. NECK: No JVD. CARDIOVASCULAR: S1 and S2. RESPIRATIONS: Breath sounds diminished at the bases. Bilateral scattered rhonchi and crackles. ABDOMEN: Soft. NERVOUS SYSTEM: Nonfocal. LABORATORY DATA: Creatinine is 2.35 worsening and WBC 17.41. Rest of the labs are noted. ASSESSMENT: 1. Shortness of breath, multifactorial possibly secondary to congestive heart failure acute exacerbation, bilateral pneumonia. 2. [id number] diastolic dysfunction. 3. Possible gram-negative pneumonia. 4. Chronic kidney stage 3. 5. Elevated WBC. 6. Thrombocytopenia. 7. History of atrial fibrillation. 8. Coronary artery disease, coronary artery bypass graft, valve replacement history. 9. History of deep venous thrombosis. 10.Diabetes mellitus, type 2. 11.Hypertension. 12.Hyperlipidemia. 13.Multiple complex medical issues. 14.No code, no CPR, no vent. RECOMMENDATIONS: Recommend to continue current management and continue symptomatic treatment. Otherwise as mentioned earlier, the patient is not improving at all and actually worsening and despite intensive treatment involving multiple consultants. Case was discussed at length with the family on multiple occasions and they would like to proceed with hospice, which is quite reasonable at this time, given the clinical circumstances, we will continue to monitor. Hospice will be consulted and further recommendations to follow. MMODL / IJN: [id number] /
[2024-11-24 16:22] LABS: Glucose,Whole Blood 284 mg/dL (70-110)
[2024-11-24 19:58] LABS: Glucose,Whole Blood 179 mg/dL (70-110)
[2024-11-25] MEDS: ZINC OXIDE PASTE (Z-GUARD) 1 APPLIC TOPICAL PRN (00:10)
[2024-11-25 05:54] LABS: Glucose,Whole Blood 302 mg/dL (70-110)
[2024-11-25 09:15] VITALS: BP 133/68; TEMP 98.2
[2024-11-25 09:56] LABS: African American GFR (CKD) 16 (>60 ml/min/1.73 sqM); Anion Gap 8 mmol/L; Calcium 8.4 mg/dL (8.4-10.2); Carbon Dioxide 33 mmol/L (22-30); Chloride 98 mmol/L (98-107); Glucose 208 mg/dL (74-99); Non-African American GFR(CKD) 14 (>60 ml/min/1.73 sqM); Potassium 3.4 mmol/L (3.5-5.1); Sodium 139 mmol/L (137-145)
[2024-11-25 10:15] LABS: Blood Urea Nitrogen 125 mg/dL (7-17)
--- NOTE | 2024-11-25 10:15 | P.PN ---
Subjective Patient is seen in follow-up for acute kidney injury on chronic kidney disease. Renal function worse from diuresis. On IV Lasix. Family present at bedside. Currently on 8 L nasal cannula. Oliguric. Meeting with hospice today. Vital signs are stable. General: No acute distress. HEENT: Head exam is unremarkable. On high flow nasal cannula. LUNGS: No audible rhonchi or wheezes. HEART: Rate and Rhythm are regular. ABDOMEN: Nontender. EXTREMITITES: Trace edema. Objective - Vital Signs Vital signs: Vital Signs Temp 98.2 F 11/25/24 08:00 Pulse 80 11/25/24 08:35 Resp 16 11/25/24 08:00 BP 133/68 11/25/24 08:00 Pulse Ox 97 11/25/24 08:27 FiO2 Intake & Output 11/24/24 11/25/24 11/25/24 18:59 06:59 18:59 Intake Total 360 Output Total 250 Balance 360 -250 Weight 82.8 kg Intake: Oral 360 Output: Urine 250 Other: Voiding Method Indwelling Catheter Indwelling Catheter # Bowel Movements 2 - Labs CBC & Chem 7: 11/24/24 05:42 11/24/24 05:42 Labs: Abnormal Lab Results - Last 24 Hours (Table) 11/24/24 11/24/24 11/24/24 Range/Units 11:17 16:20 19:53 POC Glucose (mg/dL) 346 H 284 H 179 H (70-110) mg/dL 11/25/24 Range/Units 05:52 POC Glucose (mg/dL) 302 H (70-110) mg/dL Assessment and Plan Plan: Assessment: 1. Acute kidney injury secondary to ATN secondary to cardiorenal syndrome. Renal function worse with creatinine 2.35 yesterday. UA fairly benign. No hydronephrosis noted on imaging. 2. Chronic kidney disease stage IV with baseline creatinine 1.4-1.7 secondary to nephrosclerosis. 3. Volume overload. 4. A-fib with RVR. Status post Cardizem drip. Cardiology following. 5. Acute on chronic diastolic CHF with moderate tricuspid regurgitation.. 6. Coronary disease status post CABG. 7. Anemia of chronic kidney disease. Iron replete. On Aranesp. 8. Hypernatremia from lack of oral water intake. Better with D5W. 9. Hypokalemia from diuresis. Magnesium not low. Replaced. Plan: Maintain IV Lasix. Stop D5W. Avoid nephrotoxins. Continue to monitor renal function and urine output. Strict I's and O's. Case discussed at length with patient's family present at bedside. Renal replacement therapy discussed. Family and patient do not want any form of renal replacement therapy. Meeting with hospice today.
[2024-11-25 10:56] VITALS: BMI 33.3
[2024-11-25 11:28] LABS: Glucose,Whole Blood 231 mg/dL (70-110)
[2024-11-25 11:39] VITALS: PULSE 76
--- NOTE | 2024-11-25 13:06 | P.PN ---
Subjective Progress Note Date: 11/25/24 Principal diagnosis: Congestive heart failure, atrial fibrillation with RVR. This is an 89-year-old female with history of multiple medical problems including previous history of TAVR, chronic atrial fibrillation, coronary artery disease with previous CABG, chronic diastolic congestive heart failure, diabetes, chronic kidney disease, and again she had previous history of conge stive heart failure with preserved ejection fraction. Patient was brought into the ER mostly with complaints of shortness of breath. Upon arrival patient was noted to be in atrial fibrillation with RVR, she was started on Cardizem initially at 10 mg/h, and during my evaluation the patient was on 5 mg/h of Cardizem drip. Blood pressure initially was 81/47 with a heart rate of 110. When I was seeing the patient, patient had a heart rate of 83, blood pressure was 120/73, she was also on 12 L high flow nasal cannula. Chest x-ray showed leukocytosis with WBC of 27.96 hemoglobin was noted to be low at 8.4, her usual hemoglobin is in the range of 9.5-10. Electrolytes were noted to be normal BUN 99 creatinine 1.61. Her BNP level is 12,700. Procalcitonin level is pending. Symptoms spears the patient is not a great historian, but she denied any fever or chills, denied any cough, but she does have shortness of breath. Chest x-ray showed bilateral interstitial opacities, of course the differential diagnosis would be pneumonia and/or pulmonary edema, based on her elevated BNP level and based on her cardiac history, I believe this is mostly pulmonary edema in the setting of atrial fibrillation with RVR, doubt pneumonia but the patient will be empirically now on antibiotics, in the meantime she is receiving also diuretics. Follow-up chest x-ray will be done in the next 24 hours, and procalcitonin will be available by tomorrow. Seen today on 11/20/2024, patient tells me that she is basically about the same, continues to have intermittent cough, no wheezing, no fever no chills no h emoptysis no chest pain. Patient is still receiving diuretics, on Lasix at 40 mg IV push every 12 hours, patient is also on antibiotics empirically although my index of suspicion for pneumonia is rather low, blood cultures remain negative urinalysis is suspicious for UTI, urine culture is pending. Progress note dated November 21, 2024. 89-year-old female seen today in room 355. She was admitted with a diagnosis of CHF, atrial fibrillation with RVR, and acute kidney injury. She is currently on 12 L high flow nasal O2. The patient's procalcitonin level was 0.70. Additional laboratory data includes a sodium 145, potassium 3.9, chlorides 104, CO2 31, anion gap 10, BUN 103, creatinine 1.83. Glucose is 201. Calcium is 8.7. Viral screen was negative. Blood cultures are currently negative. Brain CT showed nothing acute. Progress note dated November 22, 2024. 89-year-old female seen today in room 355. The patient was admitted with a diagnosis of CHF, and possible pneumonia. Procalcitonin level was modestly elevated at 0.70. The patient is on 8 L high flow nasal O2. She is receiving Rocephin and Lasix. She does use oxygen at home, 2 L. Clinically, she appears to be a bit better. She is awake and alert. She is sitting up in bed. Family members are at the bedside. Current labs showed a white count of 19.7, hemoglobin 8.3, hematocrit 27, and platelet count of 116,000. Sodium 145, potassium 3.9, chlorides 104, CO2 31, BUN is 111, creatinine 1.84. Glucose is 290. Calcium 8.8, magnesium 2.2. Chest x-ray shows diffuse lung markings, consistent with pulmonary edema/CHF. Progress note dated November 23, 2024. 89-year-old female seen today in room 355. Family members are in the room. She is on 10 L high flow nasal O2. She is getting D5W at 60 cc an hour. Chest x- ray shows changes of CHF. She is receiving Lasix. Current laboratory data includes a white count of 17.3, hemoglobin 8.3, hematocrit 27, platelet count 115,000. Sodium 148, potassium 3.9, chlorides 105, CO2 33, BUN 113, creatinine 2.05. Glucose 224. Calcium 9, magnesium 2.3. Chest x-ray from yesterday has been reviewed. Progress note dated November 24, 2024. 89-year-old female seen today in room 355. The patient continues on high flow oxygen, 7 L. Saturation is 95%. The patient is not receiving any IV fluids. Apparently the family is considering a hospice consultation. The procalcitonin level when measured, was 0.7. White count of 17.4, hemoglobin 8.1, hematocrit 25.7, platelet count 105,000. Sodium 143, potassium 3.4, chlorides 101, CO2 34, BUN 118, creatinine 2.35. Glucose was 346. Progress note dated November 25, 2024. 89-year-old female seen today in room 355. The patient continues on, 6 L high flow. She is a DO NOT RESUSCITATE patient. Apparently the family is working at home hospice care. She continues on Zosyn. Laboratory data today includes a sodium 139, potassium 3.4, chloride 98, CO2 33, BUN 125, creatinine 2.93. Glucose is 231. Calcium is 8.4. Objective - Vital Signs Vital signs: Vital Signs Temp 98.2 F 11/25/24 08:00 Pulse 76 11/25/24 11:39 Resp 16 11/25/24 08:00 BP 133/68 11/25/24 08:00 Pulse Ox 97 11/25/24 08:27 FiO2 Intake & Output 11/24/24 11/25/24 11/25/24 18:59 06:59 18:59 Intake Total 360 0 Output Total 250 Balance 360 -250 Weight 82.8 kg 82.8 kg Intake: Oral 360 0 Output: Urine 250 Other: Voiding Method Indwelling Catheter Indwelling Catheter Indwelling Catheter # Bowel Movements 2 1 - Exam No acute distress, confused. Currently on 6 L high flow nasal O2. HEENT examination is grossly unremarkable. Mucous membranes are moist. No oral lesions. Neck supple. Full range of motion. No adenopathy thyromegaly or neck vein distention. Cardiovascular examination reveals an irregular rhythm and rate. S1-S2 normal. No S3 or S4. No discernible murmur noted. Lungs reveal bibasilar crackles. Breath sounds are equal bilaterally. No rhonchi. No wheezes. Abdomen soft bowel sounds are heard. No masses or tenderness. Extremities are intact. No cyanosis clubbing or edema. Skin is without rash or lesion. Neurologic examination is brief but nonfocal. - Labs CBC & Chem 7: 11/24/24 05:42 11/25/24 09:17 Labs: Abnormal Lab Results - Last 24 Hours (Table) 11/24/24 11/24/24 11/25/24 Range/Units 16:20 19:53 05:52 Potassium (3.5-5.1) mmol/L Carbon Dioxide (22-30) mmol/L BUN (7-17) mg/dL Creatinine (0.52-1.04) mg/dL Glucose (74-99) mg/dL POC Glucose (mg/dL) 284 H 179 H 302 H (70-110) mg/dL 11/25/24 11/25/24 Range/Units 09:17 11:27 Potassium 3.4 L (3.5-5.1) mmol/L Carbon Dioxide 33 H (22-30) mmol/L BUN 125 H* (7-17) mg/dL Creatinine 2.93 H (0.52-1.04) mg/dL Glucose 208 H (74-99) mg/dL POC Glucose (mg/dL) 231 H (70-110) mg/dL Assessment and Plan Assessment: Acute hypoxemic respiratory failure. Acute on chronic diastolic CHF, with atrial fibrillation/RVR. Doubt pneumonia. Possible urinary tract infection. Atrial fibrillation with RVR. Hypotension, secondary to atrial fibrillation/RVR. Acute on chronic kidney injury. CAD with previous transcatheter aortic valve replacement. Benign essential hypertension. Dyslipidemia. Degenerative joint disease. Plan: Plan dated November 21, 2024. The patient had a brain CT which showed nothing acute. She continues on 12 L high flow nasal O2. Will continue to titrate that down. Labs, x-rays, and all medications are reviewed. The patient continues on GI and DVT prophylaxis. We will continue to follow. Prognosis is guarded. She remains a DO NOT RESUSCITATE patient. Dictation was produced using [employer] software. Please excuse any grammatical, word or spelling errors. Plan dated November 22, 2024. The patient was on nasal O2 at 12 L yesterday. She has been weaned down to 8. She uses oxygen at home, at 2 L. Clinically, she appears to be a bit better. She is less short of breath. She is awake and alert. She is sitting up in bed. Labs, x-rays, medications are reviewed. The patient continues on GI and DVT prophylaxis. We will continue to follow the patient, make recommendations. The patient remains a DO NOT RESUSCITATE patient. Dictation was produced using [employer] software. Please excuse any grammatical, word or spelling errors. Plan dated November 23, 2024. The patient was seen in room 355. Family members are in the room. The patient was on a liter high flow nasal O2 yesterday. She is currently on 10 L high flow nasal O2. She is getting D5W at 60 cc an hour. Chest x-ray from November 22 showed changes of CHF. All labs, x-rays, medications are reviewed. Overall prognosis remains poor. We have asked the patient to sit up in bed, or sit in a chair next to the hospital bed. Labs, x-rays, and all medications have been reviewed. The patient is a DO NOT RESUSCITATE patient. We will continue to follow make recommendations were appropriate. Dictation was produced using [employer] software. Please excuse any grammatical, word or spelling errors. Plan dated November 24, 2024. The patient is seen in room 355. The patient is on 7 L high flow O2. Saturations are 95%. The patient is not receiving any IV fluids. Procalcitonin level was 0.7. Labs, x-rays, and all medications are reviewed. Prognosis is guarded. Apparently the family is requesting a possible hospice consultation. We will follow along for now. The patient is a DO NOT RESUSCITATE patient. D ictation was produced using [employer] software. Please excuse any grammatical, word or spelling errors. Plan dated November 25, 2024. The patient is seen again in room 355. The patient is a DO NOT RESUSCITATE patient. The family is apparently looking and at home hospice. The patient is currently on 6 L of oxygen. He is on IV Zosyn. Labs, x-rays, and medications are reviewed. The patient is very lethargic and somnolent. Moving forward, we will see the patient only as needed. No additional recommendations are made. Prognosis is obviously very poor. Dictation was produced using [employer] software. Please excuse any grammatical, word or spelling errors. Time with Patient: Less than 30
--- NOTE | 2024-11-25 13:27 | P.PN ---
Subjective Progress Note Date: 11/25/24 HISTORY OF PRESENT ILLNESS: This is a 89-year-old female with a past medical history significant for TAVR, atrial fibrillation, coronary artery disease with previous CABG, congestive heart failure, diabetes. Patient follows in the office with []. We have been asked to see the patient in consultation for A-fib with RVR. Patient examined at the bedside in the emergency room. Patient's family is present. Patient reports she has been having a cough recently. She is also been complaining of shortness of breath. She denies any chest pain or pressure. Patient was found to be in A-fib with RVR. She was started on IV Cardizem which is infusing at 10 mg an hour. She remains in atrial fibrillation with heart rate around 110. Blood pressure 81/47 at the time of examination. DIAGNOSTICS: - EKG reveals A-fib with RVR - Chest xray bilateral airspace opacities may represent pulmonary edema and/or atypical infection, cardiomegaly, small bilateral pleural effusions - Laboratory data: WBC 22.17. Hemoglobin 8.5. Platelet count 133. Sodium 136. Potassium 4.0. BUN 104. Creatinine 1.74. Troponin negative x 1. proBNP 3120. - Current home cardiac medications include Eliquis 2.5 mg twice a day, Lipitor 40 mg at night, Lasix 60 mg daily, metoprolol tartrate 12.5 mg twice daily. - Most recent echocardiogram obtained in August 2024 at the cardiology office reveals ejection fraction 55%, transcatheter AV prosthesis with normal function, aortic valve prosthetic mechanical dysfunction, mild mitral stenosis, mild tricuspid regurgitation. - Cardiac catheterization history: June 2021 revealed [place] CAD with 90% proximal LAD, mid circumflex 75 to 80% and mid RCA 60 to 70% stenosis. Patent TAVERAS to LAD, SVG, and diagonal grafts. Occluded SVG graft to PDA/PLV and SVG to OM. 11/19/2024 Patient examined this morning at bedside. Patient currently denies chest pain or pressure. Patient did have an episode this morning of increased hypoxia and shortness of breath. She has been given a dose of IV Lasix per primary medicine. She remains in atrial fibrillation with controlled ventricular rate. Cardizem drip has been off. She is currently on 12 L nasal cannula. 11/20/2024 Patient examined this morning at the bedside. Patient continues to report shortness of breath. She is requiring supplemental oxygen to maintain oxygen saturations greater than 92%. Patient did receive a one-time dose of IV Lasix yesterday. She is currently on oral Lasix. 11/21/2024 Patient seen and examined. Patient appears to have less shortness of breath today. She still has some mild wheezing and mild lower extremity edema. She has been maintained on IV Lasix 40 mg every 12 hours. Blood pressure 134/62, heart rate 76, pulse ox 92% on 12 L high flow nasal cannula. She is also on IV antibiotics for pneumonia. 11/22/2024 Patient states that she is still having shortness of breath but appears to be more comfortable. Noted that oxygen is down to 10 L from 12 L which she was on yesterday. Blood pressure 118/56, heart rate 72, pulse ox 93% on 10 L nasal cannula. Patient is afebrile. Repeat blood work reveals WBC 19.6, hemoglobin 8.3, platelet count 116. BUN 111, creatinine 1.84, potassium 3.9. Echocardiogram reveals EF of 60 to 65%, RVSP 65. Mild MR, mild MS. Normally functioning bioprosthetic aortic valve with no paravalvular aortic regurgitation. Mild aortic regurgitation. Moderate tricuspid regurgitation. 11/23/2024 Patient seen and examined. Patient is currently n.p.o. as there is concern for aspiration. Patient has been coughing on some intake of food. Patient has been on IV Lasix 40 mg every 12 hours. She has had increase in creatinine. Family states there is no plan for dialysis treatments. Blood pressure 140/55, heart rate 103, pulse ox 99% on high flow nasal cannula. Patient was weaned down to 6 L during the night but this was increased due to worsening shortness of breath. Repeat blood work reveals WBC 17.2, hemoglobin 8.3, platelet count 115. Sodium 148, potassium 3.9, BUN 113 and creatinine 2.05. Patient has been on IV Lasix 40 mg every 12 hours and increased to 60 mg every 12 hours by nephrology. 11/24/2024 Patient seen and examined. Patient is feeling better today from yesterday. Oxygen requirements are down to 7 L nasal cannula with pulse ox of 95%, heart rate running in the 70s, blood pressure 105/50. Renal function continues to worsen with BUN 118, creatinine 2.35. Nephrology is recommending IV Lasix, D5W, metolazone has been discontinued by nephrology. 11/25/2024 Patient seen and examined. No new concerns, no chest pain or shortness of breath. Patient has been maintained on IV Lasix 60 mg every 12 hours by nephrology. Blood pressure 133/68, heart rate 90, pulse ox 94% on 8 L nasal cannula. Repeat blood work reveals continued worsening of the renal function with BUN 125, creatinine 2.93, potassium 3.4. PHYSICAL EXAM: VITAL SIGNS: Reviewed. GENERAL: Well-developed in no acute distress. HEENT: Head is normocephalic. Pupils are equal, round. Sclerae anicteric. Mucous membranes of the mouth are moist. Neck supple. No JVD or thyromegaly LUNGS: Respirations even and unlabored. Lungs diminished with wheezing and bibasilar crackles HEART: Irregular rate and rhythm. S1 and S2 heard. Systolic murmur noted ABDOMEN: Soft. Nondistended. Nontender. EXTREMITIES: No clubbing or cyanosis. Peripheral pulses intact. No lower extremity edema NEUROLOGIC: Awake and alert. Oriented x 3. ASSESSMENT: Shortness of breath Leukocytosis Bilateral pneumonia Hypotension, resolved Acute on chronic heart failure with preserved EF Acute hypoxic respiratory failure Paroxysmal atrial fibrillation with RVR, currently rate controlled Coronary artery disease with previous CABG History of TAVR, 2021 Acute kidney injury Chronic kidney disease stage IV Diabetes Obesity: BMI 43.3 Anemia Thrombocytopenia Severe pulmonary hypertension with RVSP 65 PLAN: Continue IV Lasix 60 mg every 12 hours per nephrology Daily weights, accurate intake and output, monitoring of kidney function Continue additional cardiac medications Cardiology will sign off this case and follow on an as-needed basis. Please reconsult for any new concerns. Patient may follow-up in the office with Dr. Alonso in one to 2 weeks. Nurse practitioner note has been reviewed by physician. Signing provider agrees with the documented findings, assessment, and plan of care documented by SUPPLIER ENGINEER as a scribe. Objective - Vital Signs Vital signs: Vital Signs Temp 98.2 F 11/25/24 08:00 Pulse 76 11/25/24 11:39 Resp 16 11/25/24 08:00 BP 133/68 11/25/24 08:00 Pulse Ox 97 11/25/24 08:27 FiO2 Intake & Output 11/24/24 11/25/2425 18:59 06:59 18:59 Intake Total 360 0 Output Total 250 Balance 360 -250 Weight 82.8 kg 82.8 kg Intake: Oral 360 0 Output: Urine 250 Other: Voiding Method Indwelling Catheter Indwelling Catheter Indwelling Catheter # Bowel Movements 2 1 - Labs CBC & Chem 7: 11/24/24 05:42 11/25/24 09:17 Labs: Abnormal Lab Results - Last 24 Hours (Table) 11/24/24 11/24/24 11/25/24 Range/Units 16:20 19:53 05:52 Potassium (3.5-5.1) mmol/L Carbon Dioxide (22-30) mmol/L BUN (7-17) mg/dL Creatinine (0.52-1.04) mg/dL Glucose (74-99) mg/dL POC Glucose (mg/dL) 284 H 179 H 302 H (70-110) mg/dL 11/25/24 11/25/24 Range/Units 09:17 11:27 Potassium 3.4 L (3.5-5.1) mmol/L Carbon Dioxide 33 H (22-30) mmol/L BUN 125 H* (7-17) mg/dL Creatinine 2.93 H (0.52-1.04) mg/dL Glucose 208 H (74-99) mg/dL POC Glucose (mg/dL) 231 H (70-110) mg/dL
--- NOTE | 2024-11-29 10:45 | CDI ---
Documentation Clarification Form Date: 11/29/2024 10:19:36 AM From: Rhoda Alonzo Admit Date: 11/18/2024 04:02:00 AM Patient Name: Audra Stovall Visit Number: [id number] Discharge Date: 11/25/2024 03:13:00 PM ATTENTION: The Clinical Documentation Specialists (CDI) and [facility] Coding Staff appreciate your assistance in clarifying documentation. Please respond to the clarification below the line at the bottom and electronically sign. The CDI & [facility] Coding staff will review the response and follow-up if needed. Please note: Queries are made part of the Legal Health Record. If you have any questions, please contact the author of this message via ITS. Doctor/Provider: Jessika Nieves "Acute bilateral pneumonia, possibly gram negative." is documented per H and P and PN's 11/19 - 11/24 and not carried to last progress note. Additional clarification regarding the type of pneumonia is requested. History/Risk Factors: bilateral pneumonia Clinical Indicators: WBC/Left shift: 22.17 - 27.96 X-ray: Bilateral lung space opacities Lung/Breathing assessment Treatment: Oxygen and IV antibiotics Antibiotics Zithromax, Rocephin, Zosyn O2 HIgh flow 12 Please clarify the type of pneumonia, if known: [ x ] Gram Negative Bacterial Pneumonia [ ] Gram Negative pneumonia ruled out. [ ] Other bacteria (please specify) [ ] Viral Pneumonia, specify casual organism (if known) [ ] Ventilator Associated Pneumonia [ ] Other, please specify [ ] Unable to determine MTDD
--- NOTE | 2024-12-02 16:03 | P.DS ---
Providers Date of admission: 11/18/24 04:02 Expected date of discharge: 11/25/24 Attending physician: Jessika Nieves Consults: 11/18/24 04:01 Consult Physician Routine Consulting Provider: Nixon Pepper Consult Reason/Comments: A-fib RVR Do you want consulting provider notified?: Yes Consult Physician Routine Consulting Provider: Monalisa Plascencia Consult Reason/Comments: DONNY on CKD Do you want consulting provider notified?: Yes 11/18/24 20:36 Consult Physician Urgent Consulting Provider: Kei Fortune Consult Reason/Comments: poss pna, hypoxia Do you want consulting provider notified?: Yes Primary care physician: Mo Weiss Hospital Course: Final diagnosis Shortness of breath, multifactorial secondary to CHF exacerbation as well as bilateral pneumonia, possibly gram-negative, present on admission Acute on chronic diastolic dysfunction Chronic kidney disease stage III Thrombocytopenia History of atrial fibrillation 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 Total time taken is greater than 35 minutes. Hospital course This is a 89-year-old female who was recently admitted with shortness of breath, multifactorial secondary to CHF exacerbation as well as pneumonia. Patient also severely hypoxic requiring high flow oxygen also with acute renal failure with worsening kidney functions. Patient showing no clinical improvement and discuss further with family and overall quality of life and family requesting hospice. Patient family met with [facility] and will be going home with hospice services. Please refer to other consultation notes and other documentation for further HPI. Equipment and arrangement is being made from [facility] and patient will be discharged home with hospice today. Currently no reports of chest pain, shortness of breath, or palpitations. Patient is afebrile. No reports of nausea or vomiting and patient is tolerating some oral intake although very poor. Patient will be going home with hospice today. Overall poor and guarded prognosis Physical exam: Gen: This is a 89-year-old female who is awake, alert oriented x 1-2, elderly appearing, ill-appearing, obese HEENT: Head is atraumatic, normocephalic. Pupils equal, round. Sclerae is anicteric. NECK: Supple. No JVD. No lymphadenopathy. No thyromegaly. LUNGS: Diminished breath sounds bilaterally with crackles and coarse rhonchi. No intercostal retractions. HEART: S1, S2 are muffled ABDOMEN: Soft. Obese bowel sounds are present. No masses. No tenderness. EXTREMITIES: No pedal edema. No calf tenderness. Bilateral lower extremity edema noted NEUROLOGICAL: Patient is awake, alert and oriented x 1-2. Diffusely weak Nieves Please refer to medication reconciliation sheet for a list of medications. The impression and plan of care has been dictated by Pallavi Bradley, Nurse Practitioner as directed. Dr. jenny MD I have performed a history and examination and MDM of this patient, discussed t he same with the dictator, and agree with the dictator's assessment and plan as written ,documented as a scribe. Based on total visit time, I have performed more than 50% of the visit. Patient Condition at Discharge: Poor Plan - Discharge Summary Discharge Rx Participant: Yes New Discharge Prescriptions: No Action allopurinoL [Zyloprim] 300 mg PO DAILY Omeprazole [PriLOSEC] 20 mg PO DAILY Glimepiride [Amaryl] 2 mg PO DAILY Atorvastatin [Lipitor] 40 mg PO HS Furosemide [Lasix] 60 mg PO DAILY Zinc 50 mg PO DAILY Multivitamins, Thera [Multivitamin (formulary)] 1 tab PO DAILY Ferrous Sulfate [Iron (65 MG Elemental)] 325 mg PO DAILY 30 Days #30 tab Metoprolol Tartrate [Lopressor] 12.5 mg PO BID B Complex W-C No.20/Folic Acid [Renal Caps Softgel] 1 mg PO DAILY Levothyroxine Sodium [Synthroid] 25 mcg PO DAILY Apixaban [Eliquis] 2.5 mg PO BID 30 Days #60 tab Discharge Medication List Atorvastatin [Lipitor] 40 mg PO HS 03/03/14 [History] Glimepiride [Amaryl] 2 mg PO DAILY 03/03/14 [History] Omeprazole [PriLOSEC] 20 mg PO DAILY 03/03/14 [History] allopurinoL [Zyloprim] 300 mg PO DAILY 03/03/14 [History] B Complex W-C No.20/Folic Acid [Renal Caps Softgel] 1 mg PO DAILY 04/09/21 [History] Levothyroxine Sodium [Synthroid] 25 mcg PO DAILY 04/09/21 [History] Apixaban [Eliquis] 2.5 mg PO BID 30 Days #60 tab 04/25/21 [Rx] Furosemide [Lasix] 60 mg PO DAILY 05/23/21 [History] Multivitamins, Thera [Multivitamin (formulary)] 1 tab PO DAILY 05/23/21 [History] Zinc 50 mg PO DAILY 05/23/21 [History] Ferrous Sulfate [Iron (65 MG Elemental)] 325 mg PO DAILY 30 Days #30 tab 05/25/21 [Rx] Metoprolol Tartrate [Lopressor] 12.5 mg PO BID 08/20/23 [History] Follow up Appointment(s)/Referral(s): Mo Weiss MD [Primary Care Provider] - 1-2 days [facility] [[facility]-STAFF] - As Needed Activity/Diet/Wound Care/Special Instructions: Patient is going home with [facility] Activity as tolerated Continue comfort measures and supportive care Discharge Disposition: HOME WITH HOSPICE
== END 2024-11-25 15:13 | disposition hospice, home (50) | DRG 177 ==
LOC: EC 00:59 → 3SCARD 04:02
PROVIDERS: ADMIT Hospitalist; ATTEND Hospitalist
PROC: 05HD33Z Insertion of Infusion Device into Right Cephalic Vein, Percutaneous Approach (ICD-10-PCS; principal; 2024-11-23 08:30)
DX: J15.69 Pneumonia due to other Gram-negative bacteria (principal); I50.33 Acute on chronic diastolic (congestive) heart failure; J96.01 Acute respiratory failure with hypoxia; N17.0 Acute kidney failure with tubular necrosis; N18.4 Chronic kidney disease, stage 4 (severe); E87.0 Hyperosmolality and hypernatremia; D69.6 Thrombocytopenia, unspecified; I27.20 Pulmonary hypertension, unspecified; I13.0 Hypertensive heart and chronic kidney disease with heart failure and stage 1 through stage 4 chronic kidney disease, or unspecified chronic kidney disease; E11.22 Type 2 diabetes mellitus with diabetic chronic kidney disease; E03.9 Hypothyroidism, unspecified; E66.9 Obesity, unspecified; Z95.2 Presence of prosthetic heart valve; D63.1 Anemia in chronic kidney disease; Z68.41 Body mass index [BMI] 40.0-44.9, adult; I25.810 Atherosclerosis of coronary artery bypass graft(s) without angina pectoris; N39.0 Urinary tract infection, site not specified; E11.42 Type 2 diabetes mellitus with diabetic polyneuropathy; I48.0 Paroxysmal atrial fibrillation; Z79.4 Long term (current) use of insulin; Z51.5 Encounter for palliative care; Z66 Do not resuscitate; I95.89 Other hypotension; I08.1 Rheumatic disorders of both mitral and tricuspid valves; M19.90 Unspecified osteoarthritis, unspecified site; E78.5 Hyperlipidemia, unspecified; I95.9 Hypotension, unspecified; E87.6 Hypokalemia; M10.9 Gout, unspecified; K21.9 Gastro-esophageal reflux disease without esophagitis; F41.9 Anxiety disorder, unspecified; I25.10 Atherosclerotic heart disease of native coronary artery without angina pectoris; Z79.01 Long term (current) use of anticoagulants; Z79.84 Long term (current) use of oral hypoglycemic drugs; Z79.890 Hormone replacement therapy; Z79.899 Other long term (current) drug therapy; Z86.16 Personal history of COVID-19; Z86.718 Personal history of other venous thrombosis and embolism; Z95.1 Presence of aortocoronary bypass graft; Z96.612 Presence of left artificial shoulder joint; Z96.653 Presence of artificial knee joint, bilateral; Z88.2 Allergy status to sulfonamides
CPT/HCPCS: 36410; 36415; 70450; 71045; 71046; 76770; 76937; 80048; 80053; 81001; 82728; 83036; 83540; 83550; 83605; 83735; 83880; 84145; 84484; 85025; 85610; 85730; 87040; 87086; 87636; 93005; 93306; 94640; 94760; 96365; 96366; 96367; 96368; 99291